=== PATIENT | female | born 1940 | race Asian ===

== ENCOUNTER → 2017-11-21 12:53 | Outpatient (CLI) | payer MEDICARE, OTHER, SELFPAY ==
[2017-11-21 13:49] LABS: Alanine Aminotransferase 29 IU/L (9-52); Albumin 3.7 g/dL (3.5-5.0); Albumin Globulin Ratio 1.4 (1.0-2.8); Alkaline Phosphatase 47 U/L (38-126); Aspartate Aminotransferase 26 IU/L (14-36); Bilirubin Total 0.4 mg/dL (0.2-1.3); Bilirubin Unconjugated 0.2 mg/dL (0.0-1.1); Globulin 2.7 g/dL (1.7-4.1); HEMOLYSIS < 15 (0-50); Total Protein 6.4 g/dL (6.3-8.2)
== END ==
PROVIDERS: Family Provider Family Medicine; PCP Family Medicine; Visit Provider Family Medicine
DX: Z51.81 Encounter for therapeutic drug level monitoring (principal)
CPT/HCPCS: 80076

== ENCOUNTER 2017-12-28 16:40 | Inpatient (IN) | payer MEDICARE, OTHER, SELFPAY ==
[2017-12-28] VITALS (7 sets, daily range): BP systolic 129–170; BP diastolic 66–130; PULSE 60–78; RESP 15–19; TEMP 36.6–36.8; O2SAT 95–100; BMI 17.6
[2017-12-28 17:08] LABS: Add Manual Diff / Slide Review NO; Basophils Percent Auto 0.2 % (0-2); Eosinophils Percent Auto 0.4 % (2-4); Hematocrit 41.9 % (36-46); Hemoglobin 14.3 g/dL (12.0-16.0); Lymphocytes Percent Auto 6.4 % (25-40); Mean Corpuscular HGB Conc 34.2 % (30-36); Mean Corpuscular Hemoglobin 32.8 PG (26-34); Mean Corpuscular Volume 95.8 fL (80-100); Monocytes Percent Auto 7.4 % (3-14); Neutrophils Absolute Auto 6200 /uL (3000-5900); Neutrophils Percent Auto 85.6 % (50-75); Platelet Count 238 X10^3/uL (150-400); Red Blood Cell Count 4.38 X10^6/uL (4.0-5.2); Red Cell Distribution Width 13.1 % (11.6-14.8); White Blood Cell Count 7.3 X10^3/uL (4.5-11.0)
--- NOTE | 2017-12-28 17:14 | DI.RAD.S_ITS ---
PROCEDURE: XR CHEST 1V INDICATIONS: chest pain TECHNIQUE: One view of the chest was acquired. COMPARISON: [facility], CT, THORAX WITHOUT CONTRAST, 10/24/2015, 11:19[facility], CR, CHEST 2 VIEW, 01/19/2010, 12:03. [facility], CR, CHEST 2 VIEW, 06/28/2011, 9:30. [facility], CR, CHEST 2 VIEW, 10/14/2015, 12:23. FINDINGS: Surgical changes and devices: None. Lungs and pleura: No pleural effusions or pneumothorax. Lungs are clear. Mediastinum: The cardiac contours are mildly enlarged. The aorta demonstrates calcification and tortuosity. Bones and chest wall: No suspicious bony lesions. Mild levoconvex scoliotic curvature is noted. Age-appropriate osteopenia and bony degenerative changes are seen. Overlying soft tissues appear unremarkable. IMPRESSION: Clear lungs. Mild cardiomegaly. Dictated by: Adair Rosenberg M.D. on 12/28/2017 at 16:45 Approved by: Adair Rosenberg M.D. on 12/28/2017 at 16:46
[2017-12-28 17:19] LABS: INR 1.1 (0.9-1.3); Prothrombin Time 11.6 SECONDS (10.1-12.7)
[2017-12-28 17:22] LABS: PTT Partial Thromboplastin Tim 30 SECONDS (26.4-36.2)
[2017-12-28 17:24] LABS: Alanine Aminotransferase 23 IU/L (9-52); Albumin 4.2 g/dL (3.5-5.0); Albumin Globulin Ratio 1.3 (1.0-2.8); Alkaline Phosphatase 67 U/L (38-126); Aspartate Aminotransferase 34 IU/L (14-36); Bilirubin Total 0.7 mg/dL (0.2-1.3); Blood Urea Nitrogen 16 mg/dL (7-17); Calcium 9.4 mg/dL (8.4-10.2); Carbon Dioxide 25 mmol/L (22-32); Chloride 98 mmol/L (98-107); Creatine Kinase 28 U/L (30-135); Estimated Glomerular Filt Rate > 60.0 mL/min (>60); Globulin 3.2 g/dL (1.7-4.1); Glucose 128 mg/dL (80-110); HEMOLYSIS 16 (0-50); Lipase 115 U/L (23-300); Potassium 4.4 mmol/L (3.4-5.1); Sodium 133 mmol/L (137-145); Total Protein 7.4 g/dL (6.3-8.2)
--- NOTE | 2017-12-28 17:29 | ED.ABDPAIN ---
HPI - Abdominal Pain General Chief Complaint: Abdominal Pain Stated Complaint: STOMACH PAINS PAST COUPLE OF DAYS Time Seen by Provider: 12/28/17 17:29 Source: patient Mode of arrival: ambulatory Limitations: no limitations History of Present Illness HPI narrative: This 77-year-old female comes in due to 5 day history of abdominal pain. She states this has been worsening. She states this is mainly throughout the lower quadrants. She states that this is worse with pressure on the area or with position changes such as sit to stand, but no clear alleviating features. She states that she has been eating normally until yesterday, then more of a liquid diet. She states that she has not had any fever. She has had nausea for the last 2 days but no vomiting. She denies any urinary symptoms. She denies diarrhea, and states she actually has not had a bowel movement for 5 days, which is atypical for her, usually daily. She denies any chest pain, dyspnea or change in her chronic lower extremity swelling. (Notes previous pain from intercostal strain after pneumonia and wonders whether related). She denies any new medication or diet changes prior. She denies any other complaints on systems review Related Data Home Medications Medication Instructions Recorded Confirmed cyclosporine [Restasis] 1 drp JHON DIRECTED #0 08/17/17 12/28/17 doxycycline hyclate 50 mg PO BID #0 08/17/17 12/28/17 Previous Rx's Medication Instructions Recorded propranolol 10 mg PO BID #60 tab 08/08/17 fluticasone 50 mcg/actuation nasal 1 spray INTRANASAL BID #3 bot 09/06/17 spray,suspension atorvastatin 10 mg tablet 10 mg PO Q DAY #90 tab 11/30/17 Allergies Allergy/AdvReac Type Severity Reaction Status Date / Time aspirin [ASPIRIN] AdvReac Mild GI UPSET Verified 12/28/17 18:51 codeine [CODEINE] AdvReac Mild GI UPSET Verified 12/28/17 18:51 Review of Systems Review of Systems All systems reviewed & are unremarkable except as noted in HPI and below PFSH Medical History Bilateral lower extremity edema (Chronic) Anxiety (Chronic Unknown) Benign essential tremor (Chronic Unknown) Chronic cough (Chronic Unknown) Glaucoma (Chronic Unknown) Hyperlipemia (Chronic 2016) Osteoarthritis (Chronic 2006) Recurrent sinusitis (Chronic Unknown) Cataracts, bilateral (Resolved Unknown) Chickenpox (Resolved 1949) Colon polyps (Resolved 01/2015) Measles (Resolved) Mumps (Resolved) Pneumonia (Resolved Unknown) Surgical History History of cataract removal with insertion of prosthetic lens Family History Brother Age: 82 Cancer Grandmother Cancer Father No problems noted. Grandfather No problems noted. Mother Cancer Grandfather No problems noted. Grandmother No problems noted. Social History household members: spouse Smoking Status: Never smoker alcohol intake: never Exam Narrative Exam Narrative: GENERAL APPEARANCE: Patient resting comfortably, in no distress. HEENT: PERRL, EOMI, no scleral icterus, normal oropharynx NECK: Supple, no masses LUNGS: Clear to auscultation bilaterally. HEART: Rate and rhythm regular, normal S1 and S2, no S3 or S4. ABDOMEN: Soft, nondistended, +bowel sounds x4 quadrants. Generalized tenderness to both lower quadrants and right upper quadrant, more tenderness on the right. No clear guarding or rebound. No palpable mass or HSM EXTREMITIES: Mild symmetric edema, no cyanosis, no calf tenderness DERMATOLOGIC: No jaundice or exanthem NEUROLOGIC: Alert and oriented with normal speech and coordination Initial Vital Signs Initial Vital Signs: Vital Signs Pulse Rate 65 12/28/17 17:05 Respiratory Rate 18 12/28/17 17:05 Blood Pressure 167/85 H 12/28/17 17:05 Pulse Oximetry 100 12/28/17 17:05 Course Additional Information: I spoke with Dr. Stanley, operations officer trust department for surgery who is familiar with this patient and advised NG tube placement and admission. Following this and a small dose of Dilaudid patient reported improvement. Orders written for NPO, fluids, nausea and pain medication. Hold propranolol (for tremor) and Lipitor. Dr. Stanley will review scans and see patient in the morning. Orders Ordered: ED Orders 12/28/17 16:52 EKG-12 Lead Stat 12/28/17 17:05 Complete Blood Count AUTO DIFF Stat Comprehensive Metabolic Panel Stat Lipase Stat Partial Thromboplastin Time Stat Prothrombin Time INR Stat Troponin & CK Cardiac Panel Stat 12/28/17 17:14 Chest [XR chest 1V] Stat 12/28/17 17:44 CT abdomen pelvis w con Stat 12/28/17 18:58 Urine Microscopic Stat 12/28/17 20:34 Chest [XR chest 1V] Stat 12/28/17 20:59 Consult to General Surgery Routine Hydromorphone HCl (Dilaudid) 0.5 mg IV Q3H PRN PRN Reason: abdominal pain Sodium Chloride (Normal Saline 0.9%) 1,000 mls @ 75 mls/hr IV CONT HECTOR Last Infusion: 12/28/17 21:20 Dose: 75 mls/hr Infusion: 12/28/17 21:10 Dose: 75 mls/hr Infusion: 12/28/17 20:51 Dose: 125 mls/hr Admin: 12/28/17 20:17 Dose: 125 mls/hr Ondansetron HCl (Zofran) 4 mg IV Q4HR PRN PRN Reason: Nausea And Vomiting Discontinued Medications Hydromorphone HCl (Dilaudid) 0.5 mg IV NOW ONE Stop: 12/28/17 20:04 Last Admin: 12/28/17 20:17 Dose: 0.5 mg Sodium Chloride (Normal Saline 0.9%) 1,000 mls @ 1,000 mls/hr IV BOLUS ONE Stop: 12/28/17 18:42 Last Infusion: 12/28/17 19:29 Dose: 0 mls/hr Admin: 12/28/17 17:57 Dose: 1,000 mls/hr Ketorolac Tromethamine (Toradol) 15 mg IV NOW ONE Stop: 12/28/17 18:47 Last Admin: 12/28/17 18:51 Dose: 15 mg Ondansetron HCl (Zofran) 4 mg IV NOW ONE Stop: 12/28/17 17:44 Last Admin: 12/28/17 17:57 Dose: 4 mg Vital Signs - 8 hr 12/28/17 17:05 12/28/17 18:07 12/28/17 20:33 Temperature Pulse Rate 65 78 Respiratory Rate 18 16 15 Blood Pressure Blood Pressure [Right Arm] 167/85 H 163/130 H 170/78 H Pulse Oximetry 100 98 12/28/17 21:30 Temperature 98.2 F Pulse Rate 65 Respiratory Rate 16 Blood Pressure 165/80 H Blood Pressure [Right Arm] Pulse Oximetry 96 MDM - Abdominal Pain Medical Records Attestation: I reviewed the patient's medical records. h/o colon polyps, last scope 03/09 Lab Data Result diagrams: 12/28/17 17:05 12/28/17 17:05 Lab Results 12/28/17 12/28/17 12/28/17 Range/Units 17: 17: 17:05 WBC 7.3 (4.5-11.0) X10^3/uL RBC 4.38 (4.0-5.2) X10^6/uL Hgb 14.3 (12.0-16.0) g/dL Hct 41.9 (36-46) % MCV 95.8 (80-100) fL MCH 32.8 (26-34) PG MCHC 34.2 (30-36) % RDW 13.1 (11.6-14.8) % Plt Count 238 (150-400) X10^3/uL Neut % (Auto) 85.6 H (50-75) % Lymph % (Auto) 6.4 L (25-40) % Reeves % (Auto) 7.4 (3-14) % Eos % (Auto) 0.4 L (2-4) % Baso % (Auto) 0.2 (0-2) % Neut # (Auto) 6200 H (1553-5102) /uL PT 11.6 (10.1-12.7) SECONDS INR 1.1 (0.9-1.3) APTT 30 (26.4-36.2) SECONDS Sodium 133 L (137-145) mmol/L Potassium 4.4 (3.4-5.1) mmol/L Chloride 98 (98-107) mmol/L Carbon Dioxide 25 (22-32) mmol/L BUN 16 (7-17) mg/dL Creatinine 0.50 L (0.52-1.04) mg/dL Estimated GFR > 60.0 (>60) mL/min BUN/Creatinine Ratio 32.0 H (6-22) Glucose 128 H (80-110) mg/dL Calcium 9.4 (8.4-10.2) mg/dL Total Bilirubin 0.7 (0.2-1.3) mg/dL AST 34 (14-36) IU/L ALT 23 (9-52) IU/L Alkaline Phosphatase 67 (38-126) U/L Total Creatine Kinase (30-135) U/L Troponin I (0.01-0.034) ng/mL Total Protein 7.4 (6.3-8.2) g/dL Albumin 4.2 (3.5-5.0) g/dL Globulin 3.2 (1.7-4.1) g/dL Albumin/Globulin Ratio 1.3 (1.0-2.8) Lipase 115 (23-300) U/L Urine RBC (0-5/HPF) Urine WBC (0-5/HPF) Ur Squamous Epith Cells Urine Bacteria (None) Ur Culture Indicated? Micro UA Comment 12/28/17 12/28/17 Range/Units 17:05 18:58 WBC (4.5-11.0) X10^3/uL RBC (4.0-5.2) X10^6/uL Hgb (12.0-16.0) g/dL Hct (36-46) % MCV (80-100) fL MCH (26-34) PG MCHC (30-36) % RDW (11.6-14.8) % Plt Count (150-400) X10^3/uL Neut % (Auto) (50-75) % Lymph % (Auto) (25-40) % Reeves % (Auto) (3-14) % Eos % (Auto) (2-4) % Baso % (Auto) (0-2) % Neut # (Auto) (5460-4777) /uL PT (10.1-12.7) SECONDS INR (0.9-1.3) APTT (26.4-36.2) SECONDS Sodium (137-145) mmol/L Potassium (3.4-5.1) mmol/L Chloride (98-107) mmol/L Carbon Dioxide (22-32) mmol/L BUN (7-17) mg/dL Creatinine (0.52-1.04) mg/dL Estimated GFR (>60) mL/min BUN/Creatinine Ratio (6-22) Glucose (80-110) mg/dL Calcium (8.4-10.2) mg/dL Total Bilirubin (0.2-1.3) mg/dL AST (14-36) IU/L ALT (9-52) IU/L Alkaline Phosphatase (38-126) U/L Total Creatine Kinase 28 L (30-135) U/L Troponin I < 0.012 (0.01-0.034) ng/mL Total Protein (6.3-8.2) g/dL Albumin (3.5-5.0) g/dL Globulin (1.7-4.1) g/dL Albumin/Globulin Ratio (1.0-2.8) Lipase (23-300) U/L Urine RBC 1-5/hpf (0-5/HPF) Urine WBC 0-1/hpf (0-5/HPF) Ur Squamous Epith Cells 0-1 /hpf Urine Bacteria None seen (None) Ur Culture Indicated? Cult not indicated Micro UA Comment Not Reportable Point of care testing: Urine Dip Bedside Urine Glucose Negative Bedside Urine Bilirubin - Negative Bedside Urine Ketone +/- 5 Urine Specific Gaines 1.015 Bedside Urine Occult Blood ++ Bedside Urine pH 6.0 Bedside Urine Protein - Negative Bedside Urine Urobilinogen - Negative Bedside Urine Nitrite - Negative Bedside Urine Leukocytes - Negative Esterase Imaging Data CT scan - abdomen: Radiologist's impression: View Report History Print [address] [address] [address] Scan Report Signed Patient: Kaylah Renteria MR#: [id number] : 1940 Acct:[id number] Age/Sex: 77 / F Date of Service: 12/28/17 Loc: ED Accession Number: [id number] Procedure: CT abdomen pelvis w con Ordering Provider: Char Osborne P.A-C PROCEDURE: CT ABDOMEN PELVIS W CON INDICATIONS: generalized pain, nausea, increased R. side TECHNIQUE: After the administration of oral and intravenous contrast, 5 mm thick sections acquired from the diaphragms to the symphysis. 5 mm thick coronal and sagittal reformats were performed. For radiation dose reduction, the following was used: automated exposure control, adjustment of mA and/or kV according to patient size. COMPARISON: [facility], CT, ABDOMEN/PELVIS WITH CONTRAST, 04/22/2008, 9:27. FINDINGS: Image quality: Excellent. ABDOMEN: Lung bases: Lung bases are clear. Heart size is enlarged. Solid organs: Liver is normal in size and enhancement. Gallbladder is grossly unremarkable. Biliary system is non-dilated. Pancreas enhances normally. Spleen is normal in size and enhancement. No adrenal nodules. Kidneys are normal in size and enhancement, without hydronephrosis. Peritoneum and bowel: Stomach and small bowel are within normal limits. There is moderate distention of the right colon and transverse colon. Mild distention of the descending colon there is abrupt transition between dilated descending colon and nondistended proximal sigmoid colon within the left pelvis. Normal appendix. No free fluid or air. Nodes and vessels: No retroperitoneal or mesenteric adenopathy. Aorta and inferior vena cava are normal in caliber. Miscellaneous: No ventral hernias. PELVIS: Genitourinary: Bladder wall thickness is normal. Miscellaneous: No inguinal hernias or adenopathy. Bones: No suspicious bony lesions. No vertebral body compression fractures. IMPRESSION: 1. Distal colonic obstruction at the descending/sigmoid colon junction, possibly neoplastic. Endoscopy could be performed for further assessment, if clinically indicated. 2. Normal appendix. Dictated by: René Morgan M.D. on 12/28/2017 at 19:22 Approved by: René Morgan M.D. on 12/28/2017 at 19:25 Chest x-ray: Radiologist's impression: View Report History Print [address] [address] XRay Report Signed Patient: Kaylah Renteria MR#: [id number] : 1940 Acct:[id number] Age/Sex: 77 / F Date of Service: 12/28/17 Loc: ED Accession Number: [id number] Procedure: XR chest 1V Ordering Provider: Justine Davis D.O. PROCEDURE: XR CHEST 1V INDICATIONS: chest pain TECHNIQUE: One view of the chest was acquired. COMPARISON: [facility], CT, THORAX WITHOUT CONTRAST, 10/24/2015, 11:19[facility], , CHEST 2 VIEW, 01/19/2010, 12:03. [facility], CR, CHEST 2 VIEW, 06/28/2011, 9:30. [facility], , CHEST 2 VIEW, 10/14/2015, 12:23. FINDINGS: Surgical changes and devices: None. Lungs and pleura: No pleural effusions or pneumothorax. Lungs are clear. Mediastinum: The cardiac contours are mildly enlarged. The aorta demonstrates calcification and tortuosity. Bones and chest wall: No suspicious bony lesions. Mild levoconvex scoliotic curvature is noted. Age-appropriate osteopenia and bony degenerative changes are seen. Overlying soft tissues appear unremarkable. IMPRESSION: Clear lungs. Mild cardiomegaly. Dictated by: Adair Rosenberg M.D. on 12/28/2017 at 16:45 Approved by: Adair Rosenberg M.D. on 12/28/2017 at 16:46 ECG Data Attestation: I personally reviewed and interpreted this ECG as follows: (NSR, rate 65, LAD) Discharge Plan Departure Patient Disposition: Admitted As Inpatient Clinical Impression: Colon obstruction Discharge Date/Time: 12/28/17 21:21 Interventions: ED Discharge Assessment Last Done: 12/28/17 20:48 Admit Date/Time: 12/28/17 20:28 Admit Provider: Lucia Stanley
[2017-12-28 17:36] LABS: Troponin I < 0.012 ng/mL (0.01-0.034)
--- NOTE | 2017-12-28 17:44 | DI.CT.S_ITS ---
PROCEDURE: CT ABDOMEN PELVIS W CON INDICATIONS: generalized pain, nausea, increased R. side TECHNIQUE: After the administration of oral and intravenous contrast, 5 mm thick sections acquired from the diaphragms to the symphysis. 5 mm thick coronal and sagittal reformats were performed. For radiation dose reduction, the following was used: automated exposure control, adjustment of mA and/or kV according to patient size. COMPARISON: [facility], CT, ABDOMEN/PELVIS WITH CONTRAST, 04/22/2008, 9:27. FINDINGS: Image quality: Excellent. ABDOMEN: Lung bases: Lung bases are clear. Heart size is enlarged. Solid organs: Liver is normal in size and enhancement. Gallbladder is grossly unremarkable. Biliary system is non-dilated. Pancreas enhances normally. Spleen is normal in size and enhancement. No adrenal nodules. Kidneys are normal in size and enhancement, without hydronephrosis. Peritoneum and bowel: Stomach and small bowel are within normal limits. There is moderate distention of the right colon and transverse colon. Mild distention of the descending colon there is abrupt transition between dilated descending colon and nondistended proximal sigmoid colon within the left pelvis. Normal appendix. No free fluid or air. Nodes and vessels: No retroperitoneal or mesenteric adenopathy. Aorta and inferior vena cava are normal in caliber. Miscellaneous: No ventral hernias. PELVIS: Genitourinary: Bladder wall thickness is normal. Miscellaneous: No inguinal hernias or adenopathy. Bones: No suspicious bony lesions. No vertebral body compression fractures. IMPRESSION: 1. Distal colonic obstruction at the descending/sigmoid colon junction, possibly neoplastic. Endoscopy could be performed for further assessment, if clinically indicated. 2. Normal appendix. Dictated by: René Morgan M.D. on 12/28/2017 at 19:22 Approved by: René Morgan M.D. on 12/28/2017 at 19:25
[2017-12-28] MEDS: SODIUM CHLORIDE 0.9% 1,000 ML 1000 ML IV (17:57)
[2017-12-28] MEDS: ONDANSETRON 4 MG/2 ML INJ IV (17:57)
--- NOTE | 2017-12-28 18:01 | ED_ITS ---
HPI - Abdominal Pain General Chief Complaint: Abdominal Pain Stated Complaint: STOMACH PAINS PAST COUPLE OF DAYS Time Seen by Provider: 12/28/17 17:29 Source: patient Mode of arrival: ambulatory Limitations: no limitations History of Present Illness HPI narrative: This 77-year-old female comes in due to 5 day history of abdominal pain. She states this has been worsening. She states this is mainly throughout the lower quadrants. She states that this is worse with pressure on the area or with position changes such as sit to stand, but no clear alleviating features. She states that she has been eating normally until yesterday, then more of a liquid diet. She states that she has not had any fever. She has had nausea for the last 2 days but no vomiting. She denies any urinary symptoms. She denies diarrhea, and states she actually has not had a bowel movement for 5 days, which is atypical for her, usually daily. She denies any chest pain, dyspnea or change in her chronic lower extremity swelling. (Notes previous pain from intercostal strain after pneumonia and wonders whether related). She denies any new medication or diet changes prior. She denies any other complaints on systems review Related Data Home Medications Medication Instructions Recorded Confirmed cyclosporine [Restasis] 1 drp JHON DIRECTED #0 08/17/17 12/28/17 doxycycline hyclate 50 mg PO BID #0 08/17/17 12/28/17 Previous Rx's Medication Instructions Recorded propranolol 10 mg PO BID #60 tab 08/08/17 fluticasone 50 mcg/actuation nasal 1 spray INTRANASAL BID #3 bot 09/06/17 spray,suspension atorvastatin 10 mg tablet 10 mg PO Q DAY #90 tab 11/30/17 Allergies Allergy/AdvReac Type Severity Reaction Status Date / Time aspirin [ASPIRIN] AdvReac Mild GI UPSET Verified 12/28/17 18:51 codeine [CODEINE] AdvReac Mild GI UPSET Verified 12/28/17 18:51 Review of Systems Review of Systems All systems reviewed & are unremarkable except as noted in HPI and below PFSH Medical History Bilateral lower extremity edema (Chronic) Anxiety (Chronic Unknown) Benign essential tremor (Chronic Unknown) Chronic cough (Chronic Unknown) Glaucoma (Chronic Unknown) Hyperlipemia (Chronic 2016) Osteoarthritis (Chronic 2006) Recurrent sinusitis (Chronic Unknown) Cataracts, bilateral (Resolved Unknown) Chickenpox (Resolved 1949) Colon polyps (Resolved 01/2015) Measles (Resolved) Mumps (Resolved) Pneumonia (Resolved Unknown) Surgical History History of cataract removal with insertion of prosthetic lens Family History Brother Age: 82 Cancer Grandmother Cancer Father No problems noted. Grandfather No problems noted. Mother Cancer Grandfather No problems noted. Grandmother No problems noted. Social History household members: spouse Smoking Status: Never smoker alcohol intake: never Exam Narrative Exam Narrative: GENERAL APPEARANCE: Patient resting comfortably, in no distress. HEENT: PERRL, EOMI, no scleral icterus, normal oropharynx NECK: Supple, no masses LUNGS: Clear to auscultation bilaterally. HEART: Rate and rhythm regular, normal S1 and S2, no S3 or S4. ABDOMEN: Soft, nondistended, +bowel sounds x4 quadrants. Generalized tenderness to both lower quadrants and right upper quadrant, more tenderness on the right. No clear guarding or rebound. No palpable mass or HSM EXTREMITIES: Mild symmetric edema, no cyanosis, no calf tenderness DERMATOLOGIC: No jaundice or exanthem NEUROLOGIC: Alert and oriented with normal speech and coordination Initial Vital Signs Initial Vital Signs: Vital Signs Pulse Rate 65 12/28/17 17:05 Respiratory Rate 18 12/28/17 17:05 Blood Pressure 167/85 H 12/28/17 17:05 Pulse Oximetry 100 12/28/17 17:05 Course Additional Information: I spoke with Dr. Stanley, events solutions consultant for surgery who is familiar with this patient and advised NG tube placement and admission. Following this and a small dose of Dilaudid patient reported improvement. Orders written for NPO, fluids, nausea and pain medication. Hold propranolol ( for tremor) and Lipitor. Dr. Stanley will review scans and see patient in the morning. Orders Ordered: ED Orders 12/28/17 16:52 EKG-12 Lead Stat 12/28/17 17:05 Complete Blood Count AUTO DIFF Stat Comprehensive Metabolic Panel Stat Lipase Stat Partial Thromboplastin Time Stat Prothrombin Time INR Stat Troponin & CK Cardiac Panel Stat 12/28/17 17:14 Chest [XR chest 1V] Stat 12/28/17 17:44 CT abdomen pelvis w con Stat 12/28/17 18:58 Urine Microscopic Stat 12/28/17 20:34 Chest [XR chest 1V] Stat 12/28/17 20:59 Consult to General Surgery Routine Hydromorphone HCl (Dilaudid) 0.5 mg IV Q3H PRN PRN Reason: abdominal pain Sodium Chloride (Normal Saline 0.9%) 1,000 mls @ 75 mls/hr IV CONT HECTOR Last Infusion: 12/28/17 21:20 Dose: 75 mls/hr Infusion: 12/28/17 21:10 Dose: 75 mls/hr Infusion: 12/28/17 20:51 Dose: 125 mls/hr Admin: 12/28/17 20:17 Dose: 125 mls/hr Ondansetron HCl (Zofran) 4 mg IV Q4HR PRN PRN Reason: Nausea And Vomiting Discontinued Medications Hydromorphone HCl (Dilaudid) 0.5 mg IV NOW ONE Stop: 12/28/17 20:04 Last Admin: 12/28/17 20:17 Dose: 0.5 mg Sodium Chloride (Normal Saline 0.9%) 1,000 mls @ 1,000 mls/hr IV BOLUS ONE Stop: 12/28/17 18:42 Last Infusion: 12/28/17 19:29 Dose: 0 mls/hr Admin: 12/28/17 17:57 Dose: 1,000 mls/hr Ketorolac Tromethamine (Toradol) 15 mg IV NOW ONE Stop: 12/28/17 18:47 Last Admin: 12/28/17 18:51 Dose: 15 mg Ondansetron HCl (Zofran) 4 mg IV NOW ONE Stop: 12/28/17 17:44 Last Admin: 12/28/17 17:57 Dose: 4 mg Vital Signs - 8 hr 12/28/17 17:05 12/28/17 18:07 12/28/17 20:33 Temperature Pulse Rate 65 78 Respiratory Rate 18 16 15 Blood Pressure Blood Pressure [Right Arm] 167/85 H 163/130 H 170/78 H Pulse Oximetry 100 98 12/28/17 21:30 Temperature 98.2 F Pulse Rate 65 Respiratory Rate 16 Blood Pressure 165/80 H Blood Pressure [Right Arm] Pulse Oximetry 96 MDM - Abdominal Pain Medical Records Attestation: I reviewed the patient's medical records. h/o colon polyps, last scope 03/09 Lab Data Result diagrams: 12/28/17 17:05 12/28/17 17:05 Lab Results 12/28/17 12/28/17 12/28/17 Range/Units 17: 17: 17:05 WBC 7.3 (4.5-11.0) X10^3/uL RBC 4.38 (4.0-5.2) X10^6/uL Hgb 14.3 (12.0-16.0) g/dL Hct 41.9 (36-46) % MCV 95.8 (80-100) fL MCH 32.8 (26-34) PG MCHC 34.2 (30-36) % RDW 13.1 (11.6-14.8) % Plt Count 238 (150-400) X10^3/uL Neut % (Auto) 85.6 H (50-75) % Lymph % (Auto) 6.4 L (25-40) % [place] % (Auto) 7.4 (3-14) % Eos % (Auto) 0.4 L (2-4) % Baso % (Auto) 0.2 (0-2) % Neut # (Auto) 6200 H (5566-1318) /uL PT 11.6 (10.1-12.7) SECONDS INR 1.1 (0.9-1.3) APTT 30 (26.4-36.2) SECONDS Sodium 133 L (137-145) mmol/L Potassium 4.4 (3.4-5.1) mmol/L Chloride 98 (98-107) mmol/L Carbon Dioxide 25 (22-32) mmol/L BUN 16 (7-17) mg/dL Creatinine 0.50 L (0.52-1.04) mg/dL Estimated GFR > 60.0 (>60) mL/min BUN/Creatinine Ratio 32.0 H (6-22) Glucose 128 H (80-110) mg/dL Calcium 9.4 (8.4-10.2) mg/dL Total Bilirubin 0.7 (0.2-1.3) mg/dL AST 34 (14-36) IU/L ALT 23 (9-52) IU/L Alkaline Phosphatase 67 (38-126) U/L Total Creatine Kinase (30-135) U/L Troponin I (0.01-0.034) ng/mL Total Protein 7.4 (6.3-8.2) g/dL Albumin 4.2 (3.5-5.0) g/dL Globulin 3.2 (1.7-4.1) g/dL Albumin/Globulin Ratio 1.3 (1.0-2.8) Lipase 115 (23-300) U/L Urine RBC (0-5/HPF) Urine WBC (0-5/HPF) Ur Squamous Epith Cells Urine Bacteria (None) Ur Culture Indicated? Micro UA Comment 12/28/17 12/28/17 Range/Units 17:05 18:58 WBC (4.5-11.0) X10^3/uL RBC (4.0-5.2) X10^6/uL Hgb (12.0-16.0) g/dL Hct (36-46) % MCV (80-100) fL MCH (26-34) PG MCHC (30-36) % RDW (11.6-14.8) % Plt Count (150-400) X10^3/uL Neut % (Auto) (50-75) % Lymph % (Auto) (25-40) % [place] % (Auto) (3-14) % Eos % (Auto) (2-4) % Baso % (Auto) (0-2) % Neut # (Auto) (2420-7474) /uL PT (10.1-12.7) SECONDS INR (0.9-1.3) APTT (26.4-36.2) SECONDS Sodium (137-145) mmol/L Potassium (3.4-5.1) mmol/L Chloride (98-107) mmol/L Carbon Dioxide (22-32) mmol/L BUN (7-17) mg/dL Creatinine (0.52-1.04) mg/dL Estimated GFR (>60) mL/min BUN/Creatinine Ratio (6-22) Glucose (80-110) mg/dL Calcium (8.4-10.2) mg/dL Total Bilirubin (0.2-1.3) mg/dL AST (14-36) IU/L ALT (9-52) IU/L Alkaline Phosphatase (38-126) U/L Total Creatine Kinase 28 L (30-135) U/L Troponin I < 0.012 (0.01-0.034) ng/mL Total Protein (6.3-8.2) g/dL Albumin (3.5-5.0) g/dL Globulin (1.7-4.1) g/dL Albumin/Globulin Ratio (1.0-2.8) Lipase (23-300) U/L Urine RBC 1-5/hpf (0-5/HPF) Urine WBC 0-1/hpf (0-5/HPF) Ur Squamous Epith Cells 0-1 /hpf Urine Bacteria None seen (None) Ur Culture Indicated? Cult not indicated Micro UA Comment Not Reportable Point of care testing: Urine Dip Bedside Urine Glucose Negative Bedside Urine Bilirubin - Negative Bedside Urine Ketone +/- 5 Urine Specific [place] 1.015 Bedside Urine Occult Blood ++ Bedside Urine pH 6.0 Bedside Urine Protein - Negative Bedside Urine Urobilinogen - Negative Bedside Urine Nitrite - Negative Bedside Urine Leukocytes - Negative Esterase Imaging Data CT scan - abdomen: Radiologist's impression: View Report History Print [address] [address] [address] Scan Report Signed Patient: Kaylah Renteria MR#: [id number] : 1940 Acct:[id number] Age/Sex: 77 / F Date of Service: 12/28/17 Loc: ED Accession Number: [id number] Procedure: CT abdomen pelvis w con Ordering Provider: Char Osborne P.A-C PROCEDURE: CT ABDOMEN PELVIS W CON INDICATIONS: generalized pain, nausea, increased R. side TECHNIQUE: After the administration of oral and intravenous contrast, 5 mm thick sections acquired from the diaphragms to the symphysis. 5 mm thick coronal and sagittal reformats were performed. For radiation dose reduction, the following was used: automated exposure control, adjustment of mA and/or kV according to patient size. COMPARISON: [facility], CT, ABDOMEN/PELVIS WITH CONTRAST, 04/22/2008, 9: 27. FINDINGS: Image quality: Excellent. ABDOMEN: Lung bases: Lung bases are clear. Heart size is enlarged. Solid organs: Liver is normal in size and enhancement. Gallbladder is grossly unremarkable. Biliary system is non-dilated. Pancreas enhances normally. Spleen is normal in size and enhancement. No adrenal nodules. Kidneys are normal in size and enhancement, without hydronephrosis. Peritoneum and bowel: Stomach and small bowel are within normal limits. There is moderate distention of the right colon and transverse colon. Mild distention of the descending colon there is abrupt transition between dilated descending colon and nondistended proximal sigmoid colon within the left pelvis. Normal appendix. No free fluid or air. Nodes and vessels: No retroperitoneal or mesenteric adenopathy. Aorta and inferior vena cava are normal in caliber. Miscellaneous: No ventral hernias. PELVIS: Genitourinary: Bladder wall thickness is normal. Miscellaneous: No inguinal hernias or adenopathy. Bones: No suspicious bony lesions. No vertebral body compression fractures. IMPRESSION: 1. Distal colonic obstruction at the descending/sigmoid colon junction, possibly neoplastic. Endoscopy could be performed for further assessment, if clinically indicated. 2. Normal appendix. Dictated by: René Morgan M.D. on 12/28/2017 at 19:22 Approved by: René Morgan M.D. on 12/28/2017 at 19:25 Chest x-ray: Radiologist's impression: View Report History Print [address] [address] XRay Report Signed Patient: Kaylah Renteria MR#: [id number] : 1940 Acct:[id number] Age/Sex: 77 / F Date of Service: 12/28/17 Loc: ED Accession Number: [id number] Procedure: XR chest 1V Ordering Provider: Justine Davis D.O. PROCEDURE: XR CHEST 1V INDICATIONS: chest pain TECHNIQUE: One view of the chest was acquired. COMPARISON: [facility], CT, THORAX WITHOUT CONTRAST, 10/24/2015, 11: 19[facility], , CHEST 2 VIEW, 01/19/2010, 12:03. [facility], CR, CHEST 2 VIEW , 06/28/2011, 9:30. [facility], , CHEST 2 VIEW, 10/14/2015, 12:23. FINDINGS: Surgical changes and devices: None. Lungs and pleura: No pleural effusions or pneumothorax. Lungs are clear. Mediastinum: The cardiac contours are mildly enlarged. The aorta demonstrates calcification and tortuosity. Bones and chest wall: No suspicious bony lesions. Mild levoconvex scoliotic curvature is noted. Age-appropriate osteopenia and bony degenerative changes are seen. Overlying soft tissues appear unremarkable. IMPRESSION: Clear lungs. Mild cardiomegaly. Dictated by: Adair Rosenberg M.D. on 12/28/2017 at 16:45 Approved by: Adair Rosenberg M.D. on 12/28/2017 at 16:46 ECG Data Attestation: I personally reviewed and interpreted this ECG as follows: (NSR, rate 65, LAD) Discharge Plan Departure Patient Disposition: Admitted As Inpatient Clinical Impression: Colon obstruction Discharge Date/Time: 12/28/17 21:21 Interventions: ED Discharge Assessment Last Done: 12/28/17 20:48 Admit Date/Time: 12/28/17 20:28 Admit Provider: Lucia Stanley
[2017-12-28] MEDS: KETOROLAC 60 MG/2 ML VIAL 15 MG IV (18:51)
[2017-12-28 19:06] LABS: Bacteria Urine None Seen
[2017-12-28 19:14] LABS: Culture Indicated Urine Cult Not Indicated; RBC Urine 1-5/HPF (0-5/HPF); Squamous Epithelial Cell Urine 0-1 /HPF; WBC Urine 0-1/HPF (0-5/HPF)
[2017-12-28] MEDS: SODIUM CHLORIDE 0.9% 1,000 ML 125 ML IV (20:17)
[2017-12-28] MEDS: HYDROMORPHONE 1 MG INJ 0.5 MG IV (20:17)
--- NOTE | 2017-12-28 20:34 | DI.RAD.S_ITS ---
PROCEDURE: XR CHEST 1V INDICATIONS: NGT placement check please. TECHNIQUE: One view of the chest was acquired. COMPARISON: [facility], CR, XR CHEST 1V, 12/28/2017, 17:28. FINDINGS: Surgical changes and devices: None. Lungs and pleura: No pleural effusions or pneumothorax. Lungs are clear. Mediastinum: Mediastinal contours appear normal. Heart size is normal. Bones and chest wall: No suspicious bony lesions. Overlying soft tissues appear unremarkable. IMPRESSION: No acute process. Dictated by: René Morgan M.D. on 12/28/2017 at 20:46 Approved by: René Morgan M.D. on 12/28/2017 at 20:47
--- NOTE | 2017-12-28 22:24 | PC.NURSE ---
Pt arrived from the ER approximately @ 2130. After a 3-4 day episode of 'not feeling well & bloating. Alert, oriented. Denies discomfort. NG in place, minimal output. IV infusing as per MD orders w/o incidence. Pt and oriented to room & call system. Pt snoring softly currently. Call light w/in reach, bed alarm on for pt safety.
[2017-12-29] MEDS: HYDROMORPHONE 2 MG INJ 0.5 MG IV ×2 (00:34→05:11)
--- NOTE | 2017-12-29 00:52 | PC.NURSE ---
Addendum entered by Ester Mcmullen R.N. 12/29/17 06:11: Has taken Dilaudid x 2 this shift for complaint of pain in RUQ of abdomen under breast; currently asleep with FLACC of 0. Telemetry reading has been SR this shift. Some clear fluid with flecks of green noted in NG tubing but no drainage in cannister. Original Note: Patient is alert and oriented. Breath sounds CTA with RA sat of 96%. HRR; tele placed as per MD order. Denies nausea. BT present and states she is passing flatus. NG in right nare and connected to LIS with nothing noted in cannister/tubing. Able to turn self in bed. Complains of 5/10 right UQ abdominal pain under breast and is tender to touch; medicated with Dilaudid. Reports she has chronic balance problems but reports no previous falls and denies use of assistive device. Fall risk score is medium and bed alarm is activated. Denies dysuria, frequency, urgency or incontinence.
[2017-12-29 03:50] VITALS: BP 148/72; PULSE 68; RESP 18; TEMP 36.7; O2SAT 95
[2017-12-29 08:00] VITALS: BP 144/79; PULSE 72; RESP 16; TEMP 36.9; O2SAT 96
--- NOTE | 2017-12-29 08:41 | CM.DANOTE ---
DCP: Case received, EMR reviewed and met with patient. Introduced self and role. DCP template completed with information currently available. Patient is a 77 year old female who admitted yesterday evening to the care of the hospitalist team. PCP: Dr. Haley. Payer: confirmed: Medicare/[facility] Patient came to hospital with symptoms of stomach pains that she had for days. Dr. Stanley was consulted, patient now has an NG tube. Is also determined that patient has Shingles. Patient alert and oriented, lives at home with spouse. P: DCP to continue to assess. Patient may be able to go home when stable. Malaika Osuna RN/Deputy Court Clerk
[2017-12-29] MEDS: ONDANSETRON 4 MG/2 ML INJ IV ×2 (08:54→19:00)
[2017-12-29] MEDS: SODIUM CHLORIDE 0.9% 1,000 ML 75 ML IV (09:06)
[2017-12-29] MEDS: HYDROMORPHONE 1 MG INJ 0.5 MG IV (09:57)
[2017-12-29] MEDS: FLEETS ENEMA 1 EACH PR (11:15)
[2017-12-29 12:00] VITALS: BP 126/58; PULSE 75; RESP 16; TEMP 36.7; O2SAT 94
[2017-12-29] MEDS: WATER IV ×2 (15:33→20:19)
[2017-12-29] MEDS: DEXTROSE 5% IV ×2 (15:33→20:19)
[2017-12-29] MEDS: PROPRANOLOL 10 MG TABLET PO (15:33)
[2017-12-29] MEDS: ACYCLOVIR IV ×2 (15:33→20:19)
[2017-12-29] MEDS: HYDROMORPHONE PCA 6 MG/30 ML PCA.VIAL IV ×2 (15:36→21:16)
[2017-12-29 16:13] VITALS: BP 118/61; PULSE 67; RESP 16; TEMP 36.6; O2SAT 96
--- NOTE | 2017-12-29 20:23 | PM.HP.1 ---
History of Present Illness Date Patient Seen: 12/29/17 Time Patient Seen: 20:23 Chief complaint: STOMACH PAINS PAST COUPLE OF DAYS Narrative: Wonderful and remarkably healthy 77-year-old lady who is well known to me from prior visits. She presented to the emergency room early this morning complaining of abdominal pain. She also mentioned that she had had several days of decreasing appetite and had some nausea when she was standing. She was seen and evaluated by the ER staff who and noted to have what appeared to be a colonic obstruction on CT. She was admitted to my service for definitive care. Patient History Medical History Bilateral lower extremity edema (Chronic) Anxiety (Chronic Unknown) Benign essential tremor (Chronic Unknown) Chronic cough (Chronic Unknown) Glaucoma (Chronic Unknown) Hyperlipemia (Chronic 2015) Osteoarthritis (Chronic 2005) Recurrent sinusitis (Chronic Unknown) Cataracts, bilateral (Resolved Unknown) Chickenpox (Resolved 1949) Colon polyps (Resolved 01/2015) Measles (Resolved) Mumps (Resolved) Pneumonia (Resolved Unknown) Surgical History History of cataract removal with insertion of prosthetic lens Family & Social History Family History: Reviewed 12/29/17 by Lucia Stanley MD Social History: household members spouse Prior Living Arrangements House Safety & Behavioral: Feels Safe in Current Yes Environment Been Physically Hurt or No Threatened By a Person Suicidal Ideation Description None Suicide Plan Description No Plan Tobacco & Substance use: Smoking Status Never smoker alcohol intake never Substance Use Type does not use Meds Home Medications Medication Instructions Recorded Confirmed Type propranolol 10 mg PO BID #60 tab 08/08/17 12/28/17 Rx cyclosporine [Restasis] 1 drp OPHTH DIRECTED #0 08/17/17 12/28/17 History doxycycline hyclate 50 mg PO BID #0 08/17/17 12/28/17 History fluticasone 50 mcg/actuation nasal 1 spray INTRANASAL BID #3 bot 09/06/17 12/28/17 Rx spray,suspension atorvastatin 10 mg tablet 10 mg PO Q DAY #90 tab 11/30/17 12/28/17 Rx Allergies Allergy/AdvReac Type Severity Reaction Status Date / Time aspirin [ASPIRIN] AdvReac Mild GI UPSET Verified 12/28/17 18:51 codeine [CODEINE] AdvReac Mild GI UPSET Verified 12/28/17 18:51 Review of Systems Review of Systems The patient complains of global abdominal pain which she says was worse in the lower quadrants earlier but now seems to be in the upper right side. She says her abdomen is feeling pretty much normal at the time of my examination. She denies any diarrhea. She denies any blood in her stool. She denies any sick contacts. She denies any rashes. She reports that she generally does not feel well but she does not think she has had fever at home. She denies any vomiting. Exam Vital Signs (past 8 hours): - 12/29/17 16:13 Temperature 97.9 F Pulse Rate 67 Respiratory Rate 16 Blood Pressure 118/61 Pulse Oximetry 96 Oxygen Delivery Method Room Air Oxygen Flow Rate 0 Narrative Exam Narrative: Very thin and very pleasant lady in mild distress HEENT: Normocephalic and atraumatic, pupils are equal round reactive to light accommodation with anicteric sclerae Heart: Regular rate and rhythm without murmur rub or gallop Lungs: Clear bilaterally Heart: Regular rate and rhythm without murmur Abdomen: Soft, vesicular rash is noted in the band extending from the right posterior chest all the way around to the sternoclavicular junction in a dermatomal distribution. The band is approximately 10 cm wide. This is consistent varicella zoster outbreak. Abdomen is soft. She denies any tenderness with palpation now. She has active bowel sounds. No inguinal or umbilical hernias appreciated no abdominal masses appreciated. Abdomen is scaphoid. Extremities: Warm and well perfused without evidence of edema Objective Labs Result Diagrams: 12/28/17 17:05 12/28/17 17:05 Assessment & Plan (1) Shingles outbreak: Qualifiers: Herpes zoster complications: without complications Qualified Code(s): B02.9 - Zoster without complications Current visit: Yes Status: Acute Plan: Assessment/Plan Narrative: 1. CT scan showing possible colonic obstruction. I have reviewed all of these images with Dr. Lopez today. Although there is some solid stool in the colon and is dilated more proximally, there is no visible mass or lymphadenopathy at the site of the caliber change. This may be more of an ileus than obstruction pattern. Certainly her physical exam with the more consistent with viral illness or ileus. 2. Bowel obstruction is felt unlikely so we will remove the NG tube. 3. Varicella zoster outbreak on the right lateral abdominal/chest wall. I have started IV acyclovir and a morphine [employer]ORNEY. We will start a regular diet and she can pick and choose what she would like to eat. Once she is able to take adequate p.o., we can add gabapentin for better pain control and hopefully discharge her with acyclovir, gabapentin, and pain medication. Quality VTE Deep Vein Thrombosis/Pulmonary Embolism Present on Admission: No
[2017-12-29 22:19] VITALS: BP 119/62; PULSE 72; RESP 16; TEMP 37.1
--- NOTE | 2017-12-30 | DI.RAD.S_ITS ---
PROCEDURE: XR ACUTE ABDOMEN SERIES INDICATIONS: distension, abdominal pain, possible obstruction TECHNIQUE: One view chest and two views of the abdomen were acquired. COMPARISON: [facility], CT, CT ABDOMEN PELVIS W CON, 12/28/2017, 18:59. FINDINGS: Surgical changes and devices: None. Chest: Lungs are large in volume, to the degree that COPD appears present. Heart size is at the upper limits of normal considering this enlarged inspiratory volume. Slight subpulmonic bilateral pleural effusions are present but no subdiaphragmatic free air is found. No pneumoperitoneum. Abdomen: Bowel gas pattern is abnormal, with differential air fluid levels within several scattered small bowel loops over the left upper quadrant, and right and left lower abdomen. The: Visualized is not abnormally distended and does not show evidence of volvulus or intussusception.. No suspicious calcifications. Visualized solid organ contours appear normal. Bones: No suspicious bony lesions. IMPRESSION: Suspect COPD, and there is a finding of new but very small subpulmonic bilateral pleural effusions. No subdiaphragmatic free air. Small bowel ileus or early small bowel obstruction pattern is present, without pneumatosis. The colon contains fluid but is not overly distended. Dictated by: Milton Lopez M.D. on 12/30/2017 at 21:55 Approved by: Milton Lopez M.D. on 12/30/2017 at 21:58
[2017-12-30] MEDS: SODIUM CHLORIDE 0.9% 1,000 ML 75 ML IV ×2 (00:24→16:05)
[2017-12-30 00:30] VITALS: BP 120/60; PULSE 74; RESP 16; TEMP 37.4; O2SAT 95
--- NOTE | 2017-12-30 00:47 | PC.NURSE ---
Addendum entered by Ester Mcmullen R.N. 12/30/17 07:04: Slept at intervals. Continues to have 2/10 abdominal pain and denies any flatus during the night. Low grade temp of 99.7. Used 1.4mg of MI[employer]S ENGINEER during this shift. Original Note: Alert and oriented. Breath sounds CTA with RA sat of 95%. HRR. Denies nausea. BT much more hypoactive and denies flatus. Abdomen is tender, soft but slightly distended. Shingles rash/pustules noted under left breast and extending laterally to midback. States pain from shingles and lower abdomen were 5/10 at start of shift and now states 2/10; using MICROSY[employer] ENGINEER for pain control. Able to turn self in bed. Gets up to BSC with SBA. Reports chronic balance problems but denies falls or use of assistive device. Fall risk score is moderate; bed alarm is activated. On contact isolation due to shingles.
[2017-12-30] MEDS: WATER IV ×3 (03:05→19:21)
[2017-12-30] MEDS: DEXTROSE 5% IV ×3 (03:05→19:21)
[2017-12-30] MEDS: ACYCLOVIR IV ×3 (03:05→19:21)
[2017-12-30 05:00] VITALS: BP 120/67; PULSE 82; RESP 18; TEMP 37.6; O2SAT 92
[2017-12-30] MEDS: HYDROMORPHONE PCA 6 MG/30 ML PCA.VIAL IV ×3 (05:53→22:52)
[2017-12-30 08:16] VITALS: BP 110/54; PULSE 76; RESP 15; TEMP 36.9; O2SAT 95
[2017-12-30 11:00] VITALS: BP 109/60; PULSE 65; RESP 16; TEMP 37; O2SAT 96
--- NOTE | 2017-12-30 13:02 | PC.NURSE ---
Pt has some shingles to her r flank that spread to back. Area red with pustules. Abdomen a bit distended and bt are hypoactive. Pt states that she had a small loose stool on the commode. Using well service floor worker for pain control and helpful. Visiting with now.
[2017-12-30] MEDS: ONDANSETRON 4 MG/2 ML INJ IV (15:05)
[2017-12-30 15:15] VITALS: BP 127/69; PULSE 67; RESP 17; TEMP 36.8; O2SAT 96
--- NOTE | 2017-12-30 18:36 | PM.PN.1 ---
Subjective Date Patient Seen: 12/30/17 Time Patient Seen: 18:37 Interval history: Denies nausea or vomiting but remains mostly anorexic. Past small amount of flatus with enema but no stool. She reports no bowel movement for 6 days now. She does feel subjectively distended but the majority of her abdominal pain is along the epigastric region secondary to her acute shingles outbreak. Occasionally has some lower abdominal cramping pain but not severe. Overall she states that the abdominal pain that brought her to the emergency department 2 days ago has improved, but she continues to use her Dilaudid GLOVE TURNER. She is not requiring a significant amount of Dilaudid however. Denies fever or chills. No dysuria. Exam Vital Signs (past 8 hours): - 12/30/17 11:00 12/30/17 15:15 Temperature 98.6 F 98.3 F Pulse Rate 65 67 Respiratory Rate 16 17 Blood Pressure 109/60 127/69 Pulse Oximetry 96 96 Oxygen Delivery Method Room Air Oxygen Flow Rate 0 Narrative Exam Narrative: Thin female resting comfortably in bed in no acute distress. Alert oriented x3. Her and daughter are at the bedside. No documented fevers. No tachycardia. Normal blood pressure. Adequate urine output Regular rate and rhythm Abdomen is minimally distended but not particularly tympanitic. No masses. She is diffusely tender throughout the abdomen but certainly with no guarding or rebound. No ascites Extremities show no clubbing cyanosis or edema Skin continues show erythematous rash with multiple bulla along the entire subcostal dermatome bilaterally extending toward the back. Objective Labs Result Diagrams: 12/28/17 17:05 12/28/17 17:05 Labs: No new laboratory radiographic studies for review Assessment & Plan Plan: Assessment/Plan Narrative: 77-year-old female with acute shingles outbreak causing significant discomfort. She is still requiring intravenous narcotics for such. She remains on intravenous acyclovir. She clearly has constipation versus ileus but no evidence of obvious bowel obstruction. She is having no other symptoms that would suggest bowel obstruction. I discussed this with the patient and her daughter who is a nurse. Her daughter was quite insistent that the patient be treated ?aggressively ?for her small-bowel obstruction. She requested laxative therapy, which I had already discussed with the patient as part of her regimen especially in light of the narcotic requirement. Patient deferred to her daughter with regard to laxative therapy, and the daughter were was quite insistent that she receive magnesium citrate. I actually recommended Colace, Senokot, milk of magnesia, and lactulose which may be a more gentle regimen, especially given the patient's ongoing anorexia. However, the patient wished to abide by her daughters wishes and therefore magnesium citrate was ordered. We will continue the mechanical soft diet at this time. Once the patient begins to have some bowel function we will advance to a regular diet. I have also ordered physical therapy for evaluation as the patient states she is getting dizzy when she stands up, which has been a problem even prior to admission. She also has had difficulties with balance for which she received aggressive physical therapy for many months in the past with no significant improvement. Until the patient is tolerating better oral intake we will continue the GLOVE TURNER and intravenous antiviral medications. I clearly explained to the patient and her family that she has no indications for surgical intervention regarding her abdominal symptoms at this time. Nevertheless I did also explain that she could manifest such symptoms which would require re-evaluation. We also discussed criteria for potential discharge once she has fully improved. All questions were answered to her satisfaction, and she voiced understanding. Orders were written. Quality VTE Deep Vein Thrombosis/Pulmonary Embolism Present on Admission: No
--- NOTE | 2017-12-30 18:45 | P.PN_ITS ---
Subjective Date Patient Seen: 12/30/17 Time Patient Seen: 18:37 Interval history: Denies nausea or vomiting but remains mostly anorexic. Past small amount of flatus with enema but no stool. She reports no bowel movement for 6 days now. She does feel subjectively distended but the majority of her abdominal pain is along the epigastric region secondary to her acute shingles outbreak. Occasionally has some lower abdominal cramping pain but not severe. Overall she states that the abdominal pain that brought her to the emergency department 2 days ago has improved, but she continues to use her Dilaudid LIGHT BULB REPLACER. She is not requiring a significant amount of Dilaudid however. Denies fever or chills. No dysuria. Exam Vital Signs (past 8 hours): - 12/30/17 11:00 12/30/17 15:15 Temperature 98.6 F 98.3 F Pulse Rate 65 67 Respiratory Rate 16 17 Blood Pressure 109/60 127/69 Pulse Oximetry 96 96 Oxygen Delivery Method Room Air Oxygen Flow Rate 0 Narrative Exam Narrative: Thin female resting comfortably in bed in no acute distress. Alert oriented x3. Her and daughter are at the bedside. No documented fevers. No tachycardia. Normal blood pressure. Adequate urine output Regular rate and rhythm Abdomen is minimally distended but not particularly tympanitic. No masses. She is diffusely tender throughout the abdomen but certainly with no guarding or rebound. No ascites Extremities show no clubbing cyanosis or edema Skin continues show erythematous rash with multiple bulla along the entire subcostal dermatome bilaterally extending toward the back. Objective Labs Result Diagrams: 12/28/17 17:05 12/28/17 17:05 Labs: No new laboratory radiographic studies for review Assessment & Plan Plan: Assessment/Plan Narrative: 77-year-old female with acute shingles outbreak causing significant discomfort. She is still requiring intravenous narcotics for such. She remains on intravenous acyclovir. She clearly has constipation versus ileus but no evidence of obvious bowel obstruction. She is having no other symptoms that would suggest bowel obstruction. I discussed this with the patient and her daughter who is a nurse. Her daughter was quite insistent that the patient be treated ?aggressively ?for her small-bowel obstruction. She requested laxative therapy, which I had already discussed with the patient as part of her regimen especially in light of the narcotic requirement. Patient deferred to her daughter with regard to laxative therapy, and the daughter were was quite insistent that she receive magnesium citrate. I actually recommended Colace, Senokot, milk of magnesia, and lactulose which may be a more gentle regimen, especially given the patient's ongoing anorexia. However, the patient wished to abide by her daughters wishes and therefore magnesium citrate was ordered. We will continue the mechanical soft diet at this time. Once the patient begins to have some bowel function we will advance to a regular diet. I have also ordered physical therapy for evaluation as the patient states she is getting dizzy when she stands up, which has been a problem even prior to admission. She also has had difficulties with balance for which she received aggressive physical therapy for many months in the past with no significant improvement. Until the patient is tolerating better oral intake we will continue the LIGHT BULB REPLACER and intravenous antiviral medications. I clearly explained to the patient and her family that she has no indications for surgical intervention regarding her abdominal symptoms at this time. Nevertheless I did also explain that she could manifest such symptoms which would require re- evaluation. We also discussed criteria for potential discharge once she has fully improved. All questions were answered to her satisfaction, and she voiced understanding. Orders were written. Quality VTE Deep Vein Thrombosis/Pulmonary Embolism Present on Admission: No
[2017-12-30] MEDS: MAGNESIUM CITRATE 300 ML SOLUTION PO (19:21)
[2017-12-30 20:00] VITALS: BP 162/79; PULSE 82; RESP 18; TEMP 37.2; O2SAT 97
[2017-12-30] MEDS: SENNOSIDES 8.6 MG TABLET PO (20:34)
[2017-12-30] MEDS: PROPRANOLOL 10 MG TABLET PO (20:34)
[2017-12-30] MEDS: DOCUSATE 100 MG CAPSULE PO (20:34)
[2017-12-31] VITALS (8 sets, daily range): BP systolic 106–144; BP diastolic 52–72; PULSE 68–86; RESP 16–18; TEMP 36.4–37.4; O2SAT 93–97
--- NOTE | 2017-12-31 | DI.RAD.S_ITS ---
PROCEDURE: XR LUMBAR SPINE 2-3V INDICATIONS: FALL TECHNIQUE: 2 views of the lumbar spine were acquired. COMPARISON: [facility], , -SPINE 2-3 VIEWS, 09/26/2006, 14:58. FINDINGS: Bones: 5 [id number] vertebrae are present. There is normal bony alignment. No vertebral body compression fractures. No suspicious bony lesions. Mild degenerative endplate changes throughout lumbar spine is seen. Soft tissues: Overlying bowel gas pattern is normal. No suspicious soft tissue calcifications. IMPRESSION: No acute compression fracture or traumatic spondylolisthesis in lumbar spine. Mild degenerative disc disease throughout lumbar spine. Dictated by: Jamin Contreras M.D. on 12/31/2017 at 9:52 Approved by: Jamin Contreras M.D. on 12/31/2017 at 9:56
--- NOTE | 2017-12-31 | DI.RAD.S_ITS ---
PROCEDURE: XR PELVIS 1-2V INDICATIONS: FALL TECHNIQUE: One view(s) of the pelvis acquired. COMPARISON: None. FINDINGS: Bones: No fractures or dislocations. No suspicious bony lesions. Osteoarthritic changes are noted throughout the bony pelvis. Soft tissues: Visualized bowel gas pattern is normal. No suspicious soft tissue calcifications. IMPRESSION: No gross acute pelvic fracture. No hip dislocation. Dictated by: Jamin Contreras M.D. on 12/31/2017 at 9:48 Approved by: Jamin Contreras M.D. on 12/31/2017 at 9:48
--- NOTE | 2017-12-31 00:31 | PC.NURSE ---
Addendum entered by Ester Mcmullen R.N. 12/31/17 02:21: Bed alarming and found patient on edge of bed; needing to use commode for BM. Was already incontinent of some stool plus had liquid stool/urine mix on commode. Complains of feeling nauseated; medicated with Zofran. Original Note: Patient is alert and oriented. Breath sounds CTA with RA sat of 97%. HRR. Denies nausea. Now having loose stools after having received Mag Citrate on previous shift. Denies dysuria, frequency, urgency or incontinence. Turns self but needs SBA for transfers for safety as has chronic balance issues although denies falls and declines use of assistive device. Rash under left breast (shingles) is darker red and bullae are larger but still intact. 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 Fall risk score is moderate and bed alarm is activated.
[2017-12-31] MEDS: ONDANSETRON 4 MG/2 ML INJ IV ×2 (02:18→16:19)
[2017-12-31] MEDS: WATER IV ×3 (03:20→18:31)
[2017-12-31] MEDS: ACYCLOVIR IV ×3 (03:20→18:31)
[2017-12-31] MEDS: DEXTROSE 5% IV ×3 (03:20→18:31)
[2017-12-31] MEDS: HYDROMORPHONE PCA 6 MG/30 ML PCA.VIAL IV (05:37)
[2017-12-31 07:12] LABS: Lactate (Lactic Acid) 0.7 mmol/L (0.7-2.1)
[2017-12-31 07:13] LABS: Alanine Aminotransferase 28 IU/L (9-52); Albumin 2.8 g/dL (3.5-5.0); Albumin Globulin Ratio 1.1 (1.0-2.8); Alkaline Phosphatase 54 U/L (38-126); Aspartate Aminotransferase 25 IU/L (14-36); Bilirubin Total 0.4 mg/dL (0.2-1.3); Blood Urea Nitrogen 9 mg/dL (7-17); Calcium 7.5 mg/dL (8.4-10.2); Carbon Dioxide 32 mmol/L (22-32); Chloride 99 mmol/L (98-107); Estimated Glomerular Filt Rate > 60.0 mL/min (>60); Globulin 2.6 g/dL (1.7-4.1); Glucose 101 mg/dL (80-110); HEMOLYSIS < 15 (0-50); Potassium 3.2 mmol/L (3.4-5.1); Sodium 135 mmol/L (137-145); Total Protein 5.4 g/dL (6.3-8.2)
[2017-12-31 07:20] LABS: Add Manual Diff / Slide Review NO; Basophils Percent Auto 0.3 % (0-2); Eosinophils Percent Auto 0.6 % (2-4); Hematocrit 34.5 % (36-46); Hemoglobin 11.8 g/dL (12.0-16.0); Mean Corpuscular HGB Conc 34.1 % (30-36); Mean Corpuscular Hemoglobin 32.8 PG (26-34); Mean Corpuscular Volume 96.2 fL (80-100); Monocytes Percent Auto 5.9 % (3-14); Neutrophils Absolute Auto 3100 /uL (3000-5900); Neutrophils Percent Auto 83.2 % (50-75); Platelet Count 162 X10^3/uL (150-400); Red Blood Cell Count 3.59 X10^6/uL (4.0-5.2); Red Cell Distribution Width 12.9 % (11.6-14.8); White Blood Cell Count 3.7 X10^3/uL (4.5-11.0)
[2017-12-31] MEDS: SODIUM CHLORIDE 0.9% 1,000 ML 75 ML IV (07:22)
[2017-12-31 07:43] LABS: Procalcitonin 0.27 ng/mL (<0.5)
--- NOTE | 2017-12-31 08:17 | DI.CT.S_ITS ---
PROCEDURE: CT CERVICAL SPINE WO CON INDICATIONS: fall TECHNIQUE: Noncontrast 3 mm thick sections acquired from the skull base to the T4 level. Sagittal and coronal reformats were then constructed. For radiation dose reduction, the following was used: automated exposure control, adjustment of mA and/or kV according to patient size. COMPARISON: None. FINDINGS: Image quality: Excellent. Bones: There is straightening of normal cervical lordosis. No acute compression fracture or spondylolisthesis. Vertebral body heights are well-preserved. No acute fracture is seen in the cervical spine vertebral bodies. Degenerative endplate changes and decreased intervertebral disc space is seen at C3-4 through C6-7 levels. There is suggestion of dorsal disc osteophyte complex formation at C3-4, C4-5, and C5-6 levels causing mild central canal stenosis, no significant neural foramina narrowing. Visualized superior ribs are intact. Soft tissues: Prevertebral soft tissues are normal in thickness. No paravertebral hematomas. No apical pneumothoraces. Small bilateral pleural effusion is seen with adjacent atelectasis in posterior aspect of bilateral upper lobes. IMPRESSION: 1. No acute cervical spine fracture or traumatic spondylolisthesis. 2. Degenerative disc disease throughout cervical spine. 3. Small bilateral pleural effusion. No apical pneumothorax. Dictated by: Jamin Contreras M.D. on 12/31/2017 at 9:27 Approved by: Jamin Contreras M.D. on 12/31/2017 at 9:30
--- NOTE | 2017-12-31 08:17 | DI.CT.S_ITS ---
PROCEDURE: CT HEAD/BRAIN WO CON INDICATIONS: fall TECHNIQUE: Noncontrast 4.5 mm thick angled axial sections acquired from the foramen magnum to the vertex, with coronal and sagittal reformats. For radiation dose reduction, the following was used: automated exposure control, adjustment of mA and/or kV according to patient size. COMPARISON: [facility], CT, HEAD WITHOUT CONTRAST, 11/24/2015, 13:12. FINDINGS: Image quality: Excellent. CSF spaces: Basal cisterns are patent. No extra-axial fluid collections. The ventricles are symmetric in size and shape. Brain: No intracranial bleeds or masses. There is cerebral volume loss for age, with resultant ventricular and sulcal prominence. There are periventricular and deep white matter chronic small vessel ischemic changes. There is intracranial internal carotid artery atherosclerosis. Skull and face: Calvarium and visualized facial bones appear intact, without suspicious lesions. Sinuses: Visualized sinuses and mastoids are clear. IMPRESSION: No CT evidence of acute intracranial pathology. No significant changes from previous study. Dictated by: Jamin Contreras M.D. on 12/31/2017 at 9:40 Approved by: Jamin Contreras M.D. on 12/31/2017 at 9:41
--- NOTE | 2017-12-31 08:17 | PC.NURSE ---
Addendum entered by Nakita Gonzalez R.N. 12/31/17 14:48: Pt has been resting in bed and seems to be doing well. She denies pain at this time. She does have po oxycodone available if she needs it. Shingles are more blistered today, and red. Area's have not opened up but look like they may soon. Pts is at bedside, her daughter was here earlier this morning and both understand what happened to patient when she had her fall. Pt has had two bm's this day and is passing more stool than yesterday. Original Note: Addendum entered by Nakita Gonzalez R.N. 12/31/17 11:16: [id number]-Pt complained of l.side back/hip pain while on the floor lying down with neck brace in place. PT and 3 staff members got pt back to the bed with a slider board. She went down for her CT scan and chest xray and per everything looked wnl. Pt does have a contusion on the l.lower back of head. Pt is A&ox3 and comfortable in bed. She is eating some soup and apple juice. IV just started by Jill BYRNE. Pt will continue to be on iv fluids and iv antibiotics for shingles. Her BS are wnl, 93% on ra. BT present but hypoactive x4. O bruises or abrasions noted at this time. IV successful in the R.forearm. Original Note: 0800- Director Of Hotel Operations in pts room to help her get off of the commode and got her some water. Pt stood up by herself to wipe and get her brief on, and became unbalanced on her feet and fell backwards and hit head on door. She has not been moved and is lying on her L.side with C-Spine collar in place. Pts does not want anything done with pt until her daughter who is a Nurse Practioner comes to check on patient. called and He has ordered a stat CT of the head and spine, and a stat chest xray. Pt is A&Ox3 and denies any new pain, other than her shingle and abdominal pain. Netta will be coming in to see the patient very soon. VSS and Pt is Alert at this time.
--- NOTE | 2017-12-31 08:19 | DI.RAD.S_ITS ---
PROCEDURE: XR CHEST 1V INDICATIONS: fall TECHNIQUE: One view of the chest was acquired. COMPARISON: [facility], CR, XR CHEST 1V, 12/28/2017, 20:37. FINDINGS: Surgical changes and devices: None. Lungs and pleura: Subtle patchy opacities are noted in the bilateral upper lung zelaya consistent with the CT finding of small bilateral pleural effusion and dependent atelectasis in the upper lung zelaya. Small infiltrate cannot be entirely excluded. No gross pneumothorax. Mediastinum: Mediastinal contours appear normal. Heart size is normal. Bones and chest wall: No suspicious bony lesions. Overlying soft tissues appear unremarkable. IMPRESSION: Biapical scarring and patchy opacities in bilateral upper lung zelaya consistent with CT finding of small bilateral pleural effusion posteriorly with adjacent dependent atelectasis in the upper lobes. Cannot rule out underlying small infiltrate. No gross pneumothorax. Dictated by: Jamin Contreras M.D. on 12/31/2017 at 9:41 Approved by: Jamin Contreras M.D. on 12/31/2017 at 9:47
[2017-12-31] MEDS: DOCUSATE 100 MG CAPSULE PO ×2 (10:37→20:38)
[2017-12-31] MEDS: PROPRANOLOL 10 MG TABLET PO ×2 (10:37→20:38)
--- NOTE | 2017-12-31 10:41 | P.PN_ITS ---
Subjective Date Patient Seen: 12/31/17 Time Patient Seen: 08:45 Interval history: I received a call on my personal pager at 8:10 a.m. this morning from the attending day shift nurse, and I promptly returned the phone call to learn that the patient had fallen while attempting to rise from the commode. My conversation with the nurse lasted approximately 3 min and 30 sec at which time verbal orders were given for stat CT scan of the head, stat CT scan of the cervical spine, and stat chest x-ray. Patient was reported to have no loss of consciousness and otherwise was hemodynamically stable, alert, and oriented while laying supine on a backboard in a hard cervical collar on the floor of her room. I was informed that the patient's was present for the incident and remained at the bedside. He refused to allow nursing staff or any other hospital staff to move the patient in any capacity until their daughter arrived. I immediately traveled to the hospital and arrived at the patient's bedside at approximately 8:45 a.m. today. Patient's daughter and are at the bedside upon my arrival, and with their permission, nursing staff along with radiology technicians had already relocated the patient from the floor using appropriate standard spine precautions to her bed. I was then able to do initial examination after finding the patient to be in no acute distress and alert and oriented x3. I then personally assisted the radiology technicians with transportation of the patient from her hospital room to the Radiology Department for the stat imaging studies. I attended to the patient personally throughout her entire time in the radiology department as well as her return to her room. During that time the patient stated that she was also experiencing some low back pain, and verbal orders were given for additional lumbar spine x-rays and plain pelvic x-ray. Patient denied any vertigo or dizziness at the time of my arrival. Denied any chest pain or shortness of breath throughout. No neck pain. She was complaining of some mild discomfort in the left occipital region. Patient was able to recall all the details of the event accurately. Her speech and voice were normal. She was moving all extremities voluntarily and to command without any issues. Denies any numbness or tingling. No pain elsewhere except as above. Exam Vital Signs (past 8 hours): - 12/31/17 06:05 12/31/17 08:00 Temperature 97.8 F Pulse Rate 73 86 Respiratory Rate 16 18 Blood Pressure 106/59 L 133/71 Pulse Oximetry 96 95 Oxygen Delivery Method Room Air Oxygen Flow Rate 0 Narrative Exam Narrative: As above patient was found on a backboard with hard cervical collar in place. She is in no acute distress. Alert oriented x3. Vital signs are as above. No tachycardia. Regular rate and rhythm by palpation. Throughout the night she had had normal urine output. In fact, she had also had at least 2 bowel movements mixed with urine per her report. She has been passing flatus throughout the night and again this morning. Overall she states that her abdomen is feeling much better other than the persistent pain related to the shingles rash in the epigastric region. Denies any significant lower abdominal pain. Scalp was atraumatic other than a small contusion in the left occipital region. No lacerations or hematomas. No step-offs. Pupils are reactive and equal. Extraocular motions are completely intact. No scleral icterus. Face is without obvious lesions or trauma. Facial bones are completely stable including mandible. Mouth opening is normal. Cranial nerves 2-12 are grossly intact bilaterally Trachea is midline. No subcutaneous emphysema. Clavicles are stable bilaterally. No crackles or wheezes. No chest wall contusions. Back is without deformities. Herpes zoster rash continues to show erythema and small bulla but no drainage. No other contusions or lesions are identified over the entire back including the coccygeal region. She is completely nontender along the spinous processes throughout the entire length of the spine including the coccyx. Digital rectal examination is deferred but there is no gross blood or obvious abnormalities in the perianal region. Abdomen is soft and nondistended. She is not tympanitic. She is completely nontender to palpation this morning. Herpes zoster rash again remains unchanged from examination yesterday with ongoing erythema and intact bulla. No drainage. Rash is not significantly expanded but does involve the entire dermatomes bilaterally as previously described. Pelvis is stable and nontender to palpation Extremities show no deformities, clubbing, cyanosis, or edema. Radial pulses are easily palpable bilaterally. Dorsal pedis pulses are palpable bilaterally. She has full range of motion of upper and lower extremities without any difficulties. No contusions, lacerations, or hematomas. Otherwise completely nontender along the upper and lower extremities. Her left upper extremity IV site is clean and dressed with no hemorrhage or hematoma. The IV was dislodged at the time of the fall. After receiving the verbal radiologist report regarding the head CT and cervical spine CT I reexamined her cervical spine with the hard cervical collar removed momentarily. She is completely nontender along the cervical spine without any abnormalities or obvious injuries. No deformities. Therefore the cervical collar was removed at that time. She had full range of motion of the cervical spine without tenderness or pain afterward. Objective Labs Result Diagrams: 12/31/17 06:38 12/31/17 06:38 Labs: Laboratory Results - last 24 hr 12/31/17 12/31/17 12/31/17 06:38 06:38 06:38 WBC 3.7 L RBC 3.59 L Hgb 11.8 L Hct 34.5 L MCV 96.2 MCH 32.8 MCHC 34.1 RDW 12.9 Plt Count 162 Neut % (Auto) 83.2 H Lymph % (Auto) 10.0 L [place] % (Auto) 5.9 Eos % (Auto) 0.6 L Baso % (Auto) 0.3 Neut # (Auto) 3100 Sodium 135 L Potassium 3.2 L D Chloride 99 Carbon Dioxide 32 BUN 9 Creatinine 0.50 L Estimated GFR > 60.0 BUN/Creatinine Ratio 18.0 Glucose 101 Lactate Calcium 7.5 L Total Bilirubin 0.4 AST 25 ALT 28 Alkaline Phosphatase 54 Total Protein 5.4 L Albumin 2.8 L Globulin 2.6 Albumin/Globulin Ratio 1.1 Procalcitonin 0.27 12/31/17 06:38 WBC RBC Hgb Hct MCV MCH MCHC RDW Plt Count Neut % (Auto) Lymph % (Auto) [place] % (Auto) Eos % (Auto) Baso % (Auto) Neut # (Auto) Sodium Potassium Chloride Carbon Dioxide BUN Creatinine Estimated GFR BUN/Creatinine Ratio Glucose Lactate 0.7 Calcium Total Bilirubin AST ALT Alkaline Phosphatase Total Protein Albumin Globulin Albumin/Globulin Ratio Procalcitonin Laboratory studies today are significant only for hypokalemia and low albumin consistent with her known protein calorie malnutrition. She is slightly anemic compared to previous hemoglobin values, but she has no evidence of acute hemorrhage. Possibility of anemia secondary to chronic protein calorie malnutrition. Lactate and procalcitonin levels are completely normal. Again, I personally reviewed all of the radiographic studies as ordered above which include a CT scan of the head, CT scan of the cervical spine, chest x-ray , plain x-ray of the pelvis which includes the hips and proximal femurs, and lumbar spine x-ray. I have also discussed the findings with the staff radiologist, Dr. Contreras, via telephone. All findings are unremarkable for any acute injury, fracture, dislocation, intracranial hemorrhage, or intracranial injury. No evidence of stroke. No evidence of pneumothorax, hemothorax, pleural effusion, or rib fractures. Of note, her pelvic and lumbar spine x-rays also demonstrate her bowel gas pattern currently. She has air throughout an entirely nondilated otherwise normal colon. No air-fluid levels or dilated small bowel loops. Assessment & Plan Plan: Assessment/Plan Narrative: 77-year-old female initially admitted several days ago with possible colon obstruction, but subsequent studies and clinical evaluation did not support that diagnosis. Findings were more consistent with ileus versus constipation. Her major source of pain and abdominal symptoms appear to be related to her acute herpes zoster outbreak in the epigastric region extending along bilateral dermatomes. She is currently being treated with intravenous acyclovir. I have discussed this with the patient, patient's daughter, and patient's in detail again today. I will consult the internal medicine service to assist in management of this acute issue, including oral antiviral medications in lieu of intravenous acyclovir. At this point she may have a regular diet from my standpoint since she has no evidence of bowel obstruction, and she is demonstrating return of normal bowel and bladder function. We will convert her to oral analgesia and discontinue the [facility] [employer] [employer]IST. Continue an aggressive oral bowel regimen consisting of Colace, Senokot, milk of magnesia, and as needed lactulose. We discussed fall precautions, and I strongly recommended to the patient and her family that she not be out of bed unassisted. Again, physical therapy had been consulted yesterday for evaluation today as per my note dated December 30, 2017. Because the patient has no evidence of acute significant injury following the fall I believe she can participate in physical therapy and assisted ambulation without restrictions. We will supplement potassium orally today. Add nutritional supplementation in the form of Ensure, and we will consult dietitian services for such. At this time the patient has absolutely no evidence of significant surgical pathology, including bowel obstruction, that requires further evaluation barring any new symptoms or clinical changes. In my opinion, she certainly does not require any type of surgical procedure such as laparoscopy, laparotomy, or endoscopy. If she has recurrent issues with abdominal distention, abdominal pain, and lack of bowel function then a barium enema x-ray study would be potentially the imaging study of choice at that time depending upon her clinical status. Again, I explained this to the patient and her family in detail this morning. I also clearly explained that those services are not available at this institution on weekend hours. Nevertheless she could be transferred to another facility for such then returned as per my previous documented note. Patient and her daughter as well as patient's understood and voiced understanding. I spent approximately 80 min attending to the patient this morning and discussing all the above findings with her and her family in detail today. I allowed them ample opportunity to ask all questions, and I answered them to the best of my ability as well as to their satisfaction. Again, they voiced understanding in all regards and were agreeable to the plan. Orders were written as above. I have discussed the case personally with Dr. Justice who is the attending internal medicine hospitalist today. I will defer to his expertise on all medical issues , and we will continue to follow her for any new gastrointestinal issues or other surgical problems. Quality VTE Deep Vein Thrombosis/Pulmonary Embolism Present on Admission: No
[2017-12-31] MEDS: POTASSIUM CHLORIDE 20 MEQ TAB 40 MEQ PO (12:07)
--- NOTE | 2017-12-31 15:25 | PC.NURSE ---
Today at approximately 0800 I worked with Kaylah Renteria and I helped her to the bedside commode so that she could have a bowel movement. Once she was done I asked her if she wanted to have a bed bath on the commode, when she said yes I went to the sink for hot water. While my back was turned, she stood up by herself to do marcelo-care, she turned her back to the door and began to fall backward into the door. I noticed at that point and rushed to help her. I got to her while she was half way to the ground, so I supported her head after it had hit the door, but before she reached the ground. She fell in front the door blocking it. The nurse heard and came to help, however the patient blocked the door. So I supported the patients head with a pillow and turned her onto her left side. With the nurse, I helped to get the patients vital signs, transfer to the bed, and stay in the room with her until she went down to get imaging done.
--- NOTE | 2017-12-31 15:29 | PT.IPTN ---
Current Diagnoses Zoster without complications (12/28/17) Physical Therapy Treatment Note M3 PT-IP Subjective Start: 12/31/17 15:28 Freq: Status: Active Protocol: Document 12/31/17 15:29 [facility] (Rec: 12/31/17 15:31 [facility] [id number]) Subjective Physical Therapy Visit Type Type Patient Refusal Notes Pt refused physical therapy evaluation x2 this date, once in early p.m. and again @ 15: 29 stating that she just can 't do it, due to fatigue and back soreness. Educated pt on the importance of mobilizing, but still respectfully refused physical therapy. Will attempt to initiate PT again tomorrow, hopefully with productive results.
[2017-12-31] MEDS: ACETAMINOPHEN 325 MG TABLET 650 MG PO (17:08)
--- NOTE | 2017-12-31 17:08 | P.CONS_ITS ---
History of Present Illness Chief complaint: Fall and pain Reason for consult: Fall and pain Narrative: There is a very excellent note by the patient's attending physician Dr. Chadwick from this morning. Briefly the patient was unsteady when rising from on the commode and going to the bed. She states that she felt a little dizzy and unsteady. As a result she fell and hit her hip. She was without any shortness of breath, palpitation, chest pain, hemiparesis, diplopia, speech difficulty. Vital signs were stable and she was hemodynamically unremarkable. Blood pressure was 133/71 pulse [address] tinoco ordered CT head LS spine x-rays pelvis x-rays and all were unremarkable for any acute pathology. In the interval since the fall the patient continues to have dizziness. There is no vertical nor is there any positional dizziness. The dizziness occurs when she is standing but not moving in different positions such as from bed to standing or turning her head. She has no ringing of her ears.. Prior to admission she has had some episodes of dizziness but not as severe as during the present admission and particularly this morning. Propanolol 10 mg p.o. b.i.d. in reviewing her vital signs during this admission she has had no bradycardia or hypotension. She does give a history of dry eyes and is followed by an general office associate in [place]. She has eyedrops which she states is not that effective. She states that this has been a problem for the past 15 years. She also has a dry mouth over the last 7 years. There has been no mention of Sjogren syndrome. She has essential tremor and is on propanolol for this. As mentioned there has been no problems with bradycardia or hypotension during this admission [facility] Medical History Bilateral lower extremity edema (Chronic) Anxiety (Chronic Unknown) Benign essential tremor (Chronic Unknown) Chronic cough (Chronic Unknown) Glaucoma (Chronic Unknown) Hyperlipemia (Chronic 2015) Osteoarthritis (Chronic 2005) Recurrent sinusitis (Chronic Unknown) Cataracts, bilateral (Resolved Unknown) Chickenpox (Resolved 1949) Colon polyps (Resolved 01/2015) Measles (Resolved) Mumps (Resolved) Pneumonia (Resolved Unknown) Surgical History History of cataract removal with insertion of prosthetic lens Family History: Reviewed 12/29/17 by Lucia Stanley MD Social History household members: spouse Smoking Status: Never smoker alcohol intake: never Meds Home Medications Medication Instructions Recorded Confirmed Type propranolol 10 mg PO BID #60 tab 08/08/17 12/28/17 Rx cyclosporine [Restasis] 1 drp OPHTH DIRECTED #0 08/17/17 12/28/17 History doxycycline hyclate 50 mg PO BID #0 08/17/17 12/28/17 History fluticasone 50 mcg/actuation nasal 1 spray INTRANASAL BID #3 bot 09/06/17 Rx spray,suspension atorvastatin 10 mg tablet 10 mg PO Q DAY #90 tab 11/30/17 12/28/17 Rx Allergies Allergy/AdvReac Type Severity Reaction Status Date / Time aspirin [ASPIRIN] AdvReac Mild GI UPSET Verified 12/28/17 18:51 codeine [CODEINE] AdvReac Mild GI UPSET Verified 12/28/17 18:51 Review of Systems Review of Systems All systems reviewed & are unremarkable except as noted in HPI and below Exam Vital Signs (past 8 hours): - 12/31/17 12:44 12/31/17 15:00 Temperature 98.5 F 99.3 F Pulse Rate 75 73 Respiratory Rate 18 17 Blood Pressure 138/72 144/67 H Pulse Oximetry 93 94 Oxygen Delivery Method Room Air Oxygen Flow Rate 0 Chest x-ray 12/31/2017 IMPRESSION: Biapical scarring and patchy opacities in bilateral upper lung zelaya consistent with CT finding of small bilateral pleural effusion posteriorly with adjacent dependent atelectasis in the upper lobes. Cannot rule out underlying small infiltrate. No gross pneumothorax. Narrative Exam Narrative: General NAD HEENT normal cephalic atraumatic pupils reveal very mild anisocoria and Iridodokinesis. Conjunctiva membranes appear somewhat dry conjunctiva nonicteric oropharynx mucous membranes somewhat dry Neck is supple without thyromegaly bruits jugular venous distension Respiratory clear to auscultation Cardiovascular regular rhythm S1-S2 is normal there are no lifts heaves rubs murmurs gallops present Gastrointestinal benign bowel sounds active Extremities full range of motion no clubbing edema or cyanosis Neurologic: Cranial nerves 2-12 grossly intact; specifically no nystagmus noted Motor equal active Gait not tested Psychiatric awake alert oriented x3 mood and affect were normal Objective Labs Result Diagrams: 12/31/17 06:38 12/31/17 06:38 Labs: Laboratory Results - last 24 hr 12/31/17 12/31/17 12/31/17 06:38 06:38 06:38 WBC 3.7 L RBC 3.59 L Hgb 11.8 L Hct 34.5 L MCV 96.2 MCH 32.8 MCHC 34.1 RDW 12.9 Plt Count 162 Neut % (Auto) 83.2 H Lymph % (Auto) 10.0 L [place] % (Auto) 5.9 Eos % (Auto) 0.6 L Baso % (Auto) 0.3 Neut # (Auto) 3100 Sodium 135 L Potassium 3.2 L D Chloride 99 Carbon Dioxide 32 BUN 9 Creatinine 0.50 L Estimated GFR > 60.0 BUN/Creatinine Ratio 18.0 Glucose 101 Lactate Calcium 7.5 L Total Bilirubin 0.4 AST 25 ALT 28 Alkaline Phosphatase 54 Total Protein 5.4 L Albumin 2.8 L Globulin 2.6 Albumin/Globulin Ratio 1.1 Procalcitonin 0.27 12/31/17 06:38 WBC RBC Hgb Hct MCV MCH MCHC RDW Plt Count Neut % (Auto) Lymph % (Auto) [place] % (Auto) Eos % (Auto) Baso % (Auto) Neut # (Auto) Sodium Potassium Chloride Carbon Dioxide BUN Creatinine Estimated GFR BUN/Creatinine Ratio Glucose Lactate 0.7 Calcium Total Bilirubin AST ALT Alkaline Phosphatase Total Protein Albumin Globulin Albumin/Globulin Ratio Procalcitonin Chest x-ray 12/31/2017 IMPRESSION: Biapical scarring and patchy opacities in bilateral upper lung zelaya consistent with CT finding of small bilateral pleural effusion posteriorly with adjacent dependent atelectasis in the upper lobes. Cannot rule out underlying small infiltrate. No gross pneumothorax. CT head noncontrast 12/31/2017 IMPRESSION: No CT evidence of acute intracranial pathology. No significant changes from previous study. X-ray pelvis 12/31/2017 IMPRESSION: No gross acute pelvic fracture. No hip dislocation. X-rays lumbar spine 12/31/2017 IMPRESSION: No acute compression fracture or traumatic spondylolisthesis in lumbar spine. Mild degenerative disc disease throughout lumbar spine. Assessment & Plan Plan: Assessment/Plan Narrative: 1. Dizziness. There is nothing that actually suggests benign positional vertigo. Suspect this to her overall deconditioning. Will have nurses check orthostatics to ensure that there is no problems with orthostatics symptoms. Physical therapy is also working with patient 2. Fall Radiographic studies do not show any acute injuries. Suspect her pain is from soft tissue injury will try Toradol as needed 3. Conjunctival and oral mucous membrane dryness We wonder if the patient has problems with Sjogren syndrome. Do not have the records from her general office associate's but suspect they have looked into this. At any event there is no need at this time to do serology for this if necessary this could be evaluated as an outpatient 4. COPD Pulmonary exam was unremarkable. We will continue the patient's Brovana, Pulmicort, Atrovent and Xopenex 5. Anxiety Will give low-dose Ativan as needed DISPOSITION Physical therapy is working with the patient. She will need ongoing physical therapy post discharge. In talking to the family they are not interested in the patient going to SNF but would prefer home with home health PT if ongoing rehab as necessary
[2017-12-31] MEDS: KETOROLAC 15 MG/ML VIAL IV (19:13)
[2017-12-31] MEDS: SENNOSIDES 8.6 MG TABLET PO (20:38)
[2017-12-31] MEDS: HYDROMORPHONE 1 MG INJ 0.5 MG IV (21:36)
[2017-12-31] MEDS: OXYCODONE IR 5 MG TABLET PO (21:37)
[2018-01-01] MEDS: SODIUM CHLORIDE 0.9% 1,000 ML 75 ML IV ×2 (00:51→13:42)
[2018-01-01 01:00] VITALS: BP 140/71; PULSE 61; RESP 16; TEMP 36.6; O2SAT 93
--- NOTE | 2018-01-01 01:12 | PC.NURSE ---
Addendum entered by Ester Mcmullen R.N. 01/01/18 04:52: States abdominal pain is currently 7/10 and requests medication; medicated with Dilaudid per MD order according to severity of pain, and warm blanket applied to area. Original Note: Patient is alert and oriented. Breath sounds diminished but CTA with RA sat of 93%. HRR. Admits to feeling slightly nauseated but declined offer of antiemetic. BT hypoactive and states she has not passed flatus since her last BM. Denies dysuria, frequency, urgency or incontinence and is getting up to [facility] with 1 assist + walker when needing to urinate. Shingles rash under left breast extending to mid back remains dark red and now noted new bullae on back as well as under breast; all bullae are still intact and no drainage noted. Has had pain related to shingles but currently denies having any pain. Independent with bed mobility. Fall risk score is high and bed alarm is activated.
[2018-01-01 03:45] VITALS: BP 127/64; PULSE 69; RESP 16; TEMP 37.3; O2SAT 92
[2018-01-01] MEDS: HYDROMORPHONE 0.5 MG INJ IV (04:48)
[2018-01-01 07:00] VITALS: BP 152/77; PULSE 73; RESP 18; TEMP 37.1; O2SAT 94
[2018-01-01] MEDS: ATORVASTATIN 10 MG TABLET PO (09:04)
[2018-01-01] MEDS: valACYclovir 500 MG TABLET 1000 MG PO ×2 (09:04→20:14)
[2018-01-01] MEDS: PROPRANOLOL 10 MG TABLET PO ×2 (09:04→20:14)
[2018-01-01] MEDS: DOCUSATE 100 MG CAPSULE PO (09:04)
[2018-01-01] MEDS: MAGNESIUM HYDROXIDE 30 ML UDC PO (09:06)
--- NOTE | 2018-01-01 09:53 | PM.PN.1 ---
Subjective Interval history: Patient states she is feeling better. She does still have some pain from her fall. Exam Vital Signs (past 8 hours): - 01/01/18 03:45 01/01/18 07:00 Temperature 99.1 F 98.8 F Pulse Rate 69 73 Respiratory Rate 16 18 Blood Pressure 127/64 152/77 H Pulse Oximetry 92 94 Oxygen Delivery Method Room Air Oxygen Flow Rate 0 Narrative Exam Narrative: General NAD sitting in chair HEENT normal cephalic atraumatic pupils reveal very mild anisocoria and Iridodokinesis. Conjunctiva membranes appear somewhat dry conjunctiva nonicteric oropharynx mucous membranes somewhat dry Neck is supple without thyromegaly bruits jugular venous distension Respiratory clear to auscultation Cardiovascular regular rhythm S1-S2 is normal there are no lifts heaves rubs murmurs gallops present Gastrointestinal soft pliable nontender to palpation bowel sounds active Extremities full range of motion no clubbing edema or cyanosis Neurologic: Cranial nerves 2-12 grossly intact;Motor equal active Gait not tested Psychiatric awake alert oriented x3 mood and affect were normal Objective Labs Result Diagrams: 12/31/17 06:38 12/31/17 06:38 Assessment & Plan Plan: Assessment/Plan Narrative: 1. Dizziness. There is nothing that actually suggests benign positional vertigo. Suspect this to her overall deconditioning. Physical therapy is also working with patient 2. Fall Radiographic studies do not show any acute injuries. Suspect her pain is from soft tissue injury. Toradol IV ordered yesterday. 3. Conjunctival and oral mucous membrane dryness We wonder if the patient has problems with Sjogren syndrome. Do not have the records from her aboriginal home school liaison officer's but suspect they have looked into this. At any event there is no need at this time to do serology for this. If necessary this could be evaluated as an outpatient. 4. COPD THIS COMMENT WAS PLACED IN [place] THE CONSULT YESTERDAY THIS WAS ACTUALLY A REFERENCE TO ANOTHER PATIENT. PATIENT HAS NO HISTORY OF COPD AND IS NOT ON ANY INHALERS. 5. HERPES ZOSTER The patient is IV acyclovir has been changed to Valtrex 1000 mg p.o. t.i.d. 6.. Essential tremor Patient is on propanolol for this DISPOSITION Physical therapy is working with the patient. If she were to need ongoing physical therapy post discharge. in talking to the family they are not interested in the patient going to SNF but would prefer home with home health PT if ongoing rehab as necessary SIGNING OFF At this time hospitalist/internal Medicine is signing off. There are no further issues regarding our input. Her vital signs are stable. Her antiviral therapy for herpes zoster have been changed to p.o. therapy. We truly appreciate the opportunity to help with the care of your patient Here for assistance is needed again please do not hesitate to contact us Quality VTE Deep Vein Thrombosis/Pulmonary Embolism Present on Admission: No
[2018-01-01] MEDS: KETOROLAC 15 MG/ML VIAL IV (10:30)
[2018-01-01 11:00] VITALS: BP 132/71; PULSE 70; RESP 18; TEMP 36.2; O2SAT 94
--- NOTE | 2018-01-01 11:35 | PT.IIE ---
Current Diagnoses Zoster without complications (12/28/17) Surgical History (Last Reviewed 12/29/17 @ 20:26 by Lucia Stanley MD) History of cataract removal with insertion of prosthetic lens Medical History (Last Reviewed 12/29/17 @ 20:26 by Lucia Stanley MD) Bilateral lower extremity edema (Chronic) Anxiety (Chronic Unknown) Benign essential tremor (Chronic Unknown) Chronic cough (Chronic Unknown) Glaucoma (Chronic Unknown) Hyperlipemia (Chronic 2016) Osteoarthritis (Chronic 2006) Recurrent sinusitis (Chronic Unknown) Cataracts, bilateral (Resolved Unknown) Chickenpox (Resolved 1949) Colon polyps (Resolved 01/2015) Measles (Resolved) Mumps (Resolved) Pneumonia (Resolved Unknown) Physical Therapy Inpatient Evaluation/Re-Eval M1 PT/OT-IP Prior Functional Status Start: 12/31/17 15:28 Freq: Status: Active Protocol: Document 01/01/18 11:35 [facility] (Rec: 01/01/18 13:06 [facility] [id number]) Medical Review Prior Functional Status Medical History Reviewed Yes Diet/Fluid Consistency Regular Communication WNL Mobility and Gait indep. community ambulator without device Activities of Daily Living and IADL's indep. ADLs Social History Household Members spouse Living Arrangements House Number of Floors (Floors) Two Floors Number of Stairs To Enter/Railing? 3 SE rail on R ascending, no need to get to upper level ( all needs on main level) Home Environment Walk in Shower Home Equipment Straight Cane Grab Bars In Shower M2 PT-IP Current Condition Start: 12/31/17 15:28 Freq: Status: Active Protocol: Document 01/01/18 11:35 [facility] (Rec: 01/01/18 13:06 [facility] [id number]) Physical Therapy Current Condition Current Condition Evaluation Date 01/01/18 Treatment Diagnosis abdominal pain, impaired activity tolerance Onset Date 12/28/17 Precautions Other Precautions Contact precautions: Shingles M3 PT-IP Subjective Start: 12/31/17 15:28 Freq: Status: Active Protocol: Document 01/01/18 11:35 [facility] (Rec: 01/01/18 13:06 [facility] [id number]) Subjective Physical Therapy Visit Type Type Initial Evaluation Visit Start Time 11:05 Visit Stop Time 11:35 Total Visit Minutes 30 Notes daughter and spouse in room during session. Gait belt low d/t shingles. Number of COMPUTER ASSEMBLER Visits 0 Physical Therapy Visit Comments Patient Comments Pt reports some pain in lower back and R side of neck, she attributes to her fall yesterday. M4 PT-IP Mobility and Gait Start: 12/31/17 15:28 Freq: Status: Active Protocol: Document 01/01/18 11:35 [facility] (Rec: 01/01/18 13:06 [facility] [id number]) PT-Bed Mobility Assessment Sit to Supine Sit to Supine Moderate Assistance 1 Person Assistance PT-Transfer Assessment Sit to and From Stand Sit to and from Stand Standby Assistance Equipment Transfer Assistive Device Gait Belt Front Wheeled Walker Transfers Transfer Destination Bed Chair Transfer Technique Stand Step Pivot Transfer Ability Level of Assist Standby Assistance Use of Upper Extremities Comments Mobility Comments VC hand positioning for STS. Gait Assessment Gait Gait Assistance Required: Standby Assistance Distance (Feet) (feet) 150 Assistive Devices Assistive Device Gait Belt Front Wheeled Walker Gait Deviations General Gait Pattern Decreased Stride Length Factors Limiting Gait Function Factors Limiting Gait Function Decreased Activity Tolerance Comments Gait Comments gait in room x60 ft- O2 saturation down to 88% on RA, increased to 94% with cuing for pursed lip breathing. Gait x150 ft- O2 saturation 94% on RA and HR 68 bpm. PT-Balance Assessment Sitting Balance and Reactions Static Sitting Balance Ability Good Dynamic Sitting Balance Ability Fair Balance Tests Single Limb Standing unable to perform without UE assistance Comments Other Balance Tests/Deviations/Treatment feet together eyes closed: 10 : sec, mild/mod sway no LOB M5 PT-IP Objective Assessments Start: 12/31/17 15:28 Freq: Status: Active Protocol: Document 01/01/18 11:35 [facility] (Rec: 01/01/18 13:06 [facility] [id number]) Orientation Orientation/Cognition Level of Alertness Alert Safety Awareness Understands Safety Issues Strength Lower Extremity Strength Hip flexion 4/5 B, IR and ER 3+/5 B Knee flexion 4/5 B, ext 4+/5 B Ankle DF 5/5 B M6 PT-IP Treatment Start: 12/31/17 15:28 Freq: Status: Active Protocol: Document 01/01/18 11:35 [facility] (Rec: 01/01/18 13:06 [facility] [id number]) Physical Therapy Treatment Education Education Provided Precautions M7 PT-IP Assessment and Plan Start: 12/31/17 15:28 Freq: Status: Active Protocol: Document 01/01/18 11:35 [facility] (Rec: 01/01/18 13:06 [facility] [id number]) PT Summary Assessment and Plan Potential Rehabilitation Potential Good Status of Condition at Evaluation Stable Summary Impairments Strength Balance Bed Mobility Gait Activity Tolerance Assessment Summary Pt required assistance getting back into bed, but otherwise required CGA to SBA for all other mobility. She is below her functional level at this time, using a FWW for ambulation (typically no AD for gait). She did not have increased pain with mobility or WB. At this time, pt appears to be on track to return home with assistance when medically stable. She would benefit from a FWW if she is unable to pass SPC gait trial, and will need stair training prior to d/c. She would also benefit from strength, gait and balance training from outpatient physical therapy when appropriate and medically cleared. Recommend a low gait belt due to shingles along upper trunk dermatome. Goals Bed Mobility Goal Independent Transfer Goal Independent Gait Goal Independent Cane Gait Distance 300 Other Goals up/down 3 steps with unilateral rail and SBA. Days to Meet Goals 2 Frequency of Treatment Frequency Of Treatment Once a Day Treatment Plan Physical Therapy Treatment Plan Bed Mobility Training Gait Training Therapeutic Exercise Balance Retraining Neuromuscular Re-ed Recommendations To Nursing Amount of Assist Needed 1 Person Assist Discharge Recommendations PT Discharge Recommendations Home with Assistance Outpatient PT Equipment Needed for Home Before FWW if not able to pass cane Discharge training with PT.
[2018-01-01 11:58] LABS: Bacteria Urine None Seen
[2018-01-01 12:16] LABS: Appearance Urine UA CLEAR; Bilirubin Urine UA NEGATIVE (NEGATIVE); Color Urine UA YELLOW; Glucose Urine UA NEGATIVE (Normal); Ketones Urine UA 2+ (NEGATIVE); Leukocyte Esterase Urine UA NEGATIVE (NEGATIVE); Nitrite Urine UA Negative (Negative); Occult Blood Urine UA 2+ (Negative); Protein Urine UA NEGATIVE (Negative); Urobilinogen Urine UA 0.2 E.U./dL (0.2)
--- NOTE | 2018-01-01 12:29 | PC.NURSE ---
Pt complains of pain to l.lower back hip area. Up to the bathroom with 2 pa and voided. UA sent down for culture as her urine has been odorous. Given toradol at 1030 and worked well with pt. PT is back to bed and resting now. Family will be back around 1330.
[2018-01-01 12:40] LABS: Culture Indicated Urine Cult Not Indicated; RBC Urine 1-5/HPF (0-5/HPF); Squamous Epithelial Cell Urine 0-1 /HPF; WBC Urine 0-1/HPF (0-5/HPF)
--- NOTE | 2018-01-01 12:50 | CM.DPC ---
DCP: continued: Case received, EMR reviewed and discussed POC in team rounds. Pt did sustain a fall yesterday morning, Dr. Chadwick arrived promptly and followed her through the post fall assessement process. Dr. Justice/hospitalist was consulted and today has signed off case after following the medical management of the Herpes Zoster outbreak. PT is working with pt. Discussed ? of OT need with Dr. Mchugh and he readily agrees to same. Order in place. OT will be available tomorrow to see pt. Met then with pt in followup to her d/c planning process. She confirms her plan for home with her . Her daughter Tamika, an SENIOR SQL SERVER DBA also lives in [place] and she says she is very supportive. Discussed HH vs OUPT therapy. Pt has had OUTPT PT in the past. Says she very much liked working with Ramone/PT today and wonders if he could see her in that OUTPT setting. Explained Ramone worked for [facility] dept, inpt and outpt. Spoke then with Ramone re above. He stated that pt had done very well this morning in PT session and that he though the outpt setting would be very good for her. Updated pt and provided the business card for the outpt PT contact number. Ramone confirmed that this order would have to be given as a referral by the PCP: Laureano Haley. Agreed to call Tamika and explain the details of the referral process. Spoke then with Tamika/cell: [phone]. Explained above process. Tamika noted she was pleased with the plan and that her mother had found a therapist who was motivating her to move. She also was pleased with the addition of OT jolie. Made a copy of the card left for pt with the [facility] outpt therapy contact numbers and Ramone's name (as pt will have to request him specifically). Is in the Red Folder/chart in room [facility]. She readily agreed to follow up on the process. Expressed thankfulness for the assist. P: home when stable for same and as per above.
[2018-01-01 15:15] VITALS: BP 120/68; PULSE 74; RESP 16; TEMP 36.9; O2SAT 93
[2018-01-01] MEDS: PANTOPRAZOLE 20 MG TABLET PO (16:27)
--- NOTE | 2018-01-01 16:37 | P.PN_ITS ---
Subjective Date Patient Seen: 01/01/18 Time Patient Seen: 14:32 Interval history: Complaining of some right shoulder pain along the trapezius muscle. No joint pain. Major complaint remains pain along the epigastric region at the site of her active shingles. Has some mild intermittent crampy abdominal pain in the lower quadrants bilaterally but improved since admission. She is passing flatus. No bowel movement today. She did have 2 liquid stools yesterday along with flatus. Denies subjective abdominal distention, nausea, or vomiting. Appetite is not quite to baseline at this point but she is tolerating part of her meals. She states that the hospital food simply does not taste good to her. Exam Vital Signs (past 8 hours): - 01/01/18 11:00 Temperature 97.1 F L Pulse Rate 70 Respiratory Rate 18 Blood Pressure 132/71 Pulse Oximetry 94 Oxygen Delivery Method Room Air Oxygen Flow Rate 0 Narrative Exam Narrative: Entire visit and examination is performed with the assistance of a nurse cemetery warden, Nakita Gonzalez. remains at the bedside in the room throughout my entire visit as well. Patient's daughter is not present currently. Patient remains afebrile with no tachycardia and otherwise normal blood pressure. Urine output has been normal as well. Sclera nonicteric Neck is supple without lymphadenopathy or tenderness. She is tender along the right anterior border of the trapezius muscle but without shoulder pain, tenderness, or deformity. No joint edema. Chest clear auscultation bilaterally Abdomen is soft and nondistended although she does have some mild tympanitic changes to palpation. However, she is nontender to palpation with no guarding or rebound. I appreciate no masses. Her acute herpes zoster rash remains quite erythematous along bilateral dermatomes with significant bulla that have not yet ruptured. Extremities show no clubbing, cyanosis, edema, or deformities. Objective Labs Result Diagrams: 12/31/17 06:38 12/31/17 06:38 Labs: Laboratory Results - last 24 hr 01/01/18 10:10 Urine Color Yellow Urine Appearance Clear Urine pH 7.0 Ur Specific [place] 1.020 Urine Protein Negative Urine Glucose (UA) Negative Urine Ketones 2+ H Urine Occult Blood 2+ H Urine Nitrate Negative Urine Bilirubin Negative Urine Urobilinogen 0.2 Ur Leukocyte Esterase Negative Urine RBC 1-5/hpf Urine WBC 0-1/hpf Ur Squamous Epith Cells 0-1 /hpf Urine Bacteria None seen Ur Culture Indicated? Cult not indicated Micro UA Comment Not Reportable No new radiographic studies for review. The official reports from the multiple radiographic images yesterday demonstrate no new findings. Assessment & Plan Plan: Assessment/Plan Narrative: 77-year-old female with acute herpes zoster outbreak causing the major source of her discomfort. Current evidence supports more of a colonic ileus versus constipation episode rather than colonic obstruction. Her gastrointestinal symptoms have improved significantly and she is now having some bowel function. Continue the current aggressive regimen consisting of Colace, Senokot, milk of magnesia, and as needed lactulose. We will give a dose of lactulose today since she has not passed stool since yesterday. We encourage oral intake along with nutritional supplementation. From my perspective she may have food from home if she wishes. Continue physical therapy and rehabilitation. Fall precautions are obviously instituted. Convert to oral Toradol and add proton pump inhibitor therapy for protection against gastritis. Appreciate Internal Medicine evaluation and care. Patient may tentatively be a candidate for discharge to home tomorrow if she continues to improve. We will continue the oral antiviral medication as prescribed along with the Toradol as needed. At this time she has no evidence of any other significant injuries or changes since her evaluation yesterday. The right trapezius musculoskeletal pain is consistent with strain only. I discussed this with her and her in detail. All questions were answered to their satisfaction, and they both voiced understanding. Orders were written. Quality VTE Deep Vein Thrombosis/Pulmonary Embolism Present on Admission: No
[2018-01-01 19:30] VITALS: BP 168/86; PULSE 86; RESP 18; TEMP 37.3; O2SAT 91
--- NOTE | 2018-01-01 21:26 | PC.NURSE ---
Patient a&ox4, rates pain 1-2/10 and has refused pain meds this shift. Patient has had several loose incontinent bowel movements this shift. Patient denies nausea, SOB, and dizziness. Shingles rash to torso is still erythemic with fluid-filled blisters forming anteriorly. Blisters are intact. Patient denies itchiness; encouraged not to scratch or scrub when bathing. CMS is intact; pulses palpable and strong bilaterally. Patient demonstrates ability to transfer 2PA to [facility] with walker/gb. Patient states she feels very weak and tired. Patient states she does not want to eat because she's afraid of having more loose stools. Patient has been encouraged by family to stop taking bowel medications such as senna and docusate; patient refused tonight's doses. Patient encouraged by family to stop taking anti-viral medication; nowhere in the medical reference does it say one of the side effects is diarrhea/loose stools/fecal incontinence. This RN printed out medication information reference from patient's EMAR and gave it to patient's . This RN offered anti-viral medication to patient at as ordered and patient agreed to take it. This RN and patient's family have encouraged patient to eat food; This RN gave patient ensure to drink, patient drank the whole thing along with some cream of chicken soup. Patient now continent of stool; has called in last 2 hours to use BSC. Stool is still loose. Call light is in reach, BA active, will continue to monitor.
[2018-01-02] VITALS: BP 146/76; PULSE 70; RESP 18; TEMP 37; O2SAT 95
--- NOTE | 2018-01-02 00:57 | PC.NURSE ---
Alert/oriented. Denies any pain/discomfort. 1 person assist w/gait belt and FWW to bedside commode. Urinated 300cc of clear yellow urine. No stool at this time. IV fluids infusing per orders. Patient has requested that the IV fluids be stopped. Bed alarm on and call light within reach.
[2018-01-02 03:00] VITALS: BP 151/72; PULSE 69; RESP 18; TEMP 37.1; O2SAT 92
[2018-01-02] MEDS: PANTOPRAZOLE 20 MG TABLET PO (06:28)
[2018-01-02 08:00] VITALS: BP 142/85; PULSE 76; RESP 16; TEMP 36.7; O2SAT 96
[2018-01-02] MEDS: ATORVASTATIN 10 MG TABLET PO (08:37)
[2018-01-02] MEDS: PROPRANOLOL 10 MG TABLET PO ×2 (08:37→20:43)
--- NOTE | 2018-01-02 11:45 | CM.DPC ---
DCP Cont: Spoke with Dr. Maldonado, he stated that he had concerns about patient returning home. Stated that patient had fall here yesterday, and is thin and frail. Met with daughter, who is nurse practitioner. Asked her if she felt that patient would benefit from prison. Stated that her mom will not go into skilled facility, and that both her parents are against it. Did discuss home health for physical therapy, and she stated that they may agree to this. Gave her Medicare Choice list for home health agencies. P: DCP to continue to assess and find outcome of decision with home health. Consult with surgeon tomorrow if home health will be in the works, and can sign face to face. Malaika Osuna RN/Real Estate Account Executive
[2018-01-02 12:00] VITALS: BP 138/77; PULSE 70; RESP 18; TEMP 36; O2SAT 94
[2018-01-02] MEDS: POTASSIUM CHLORIDE 20 MEQ TAB PO (12:23)
[2018-01-02] MEDS: GABAPENTIN 300 MG CAPSULE PO (12:23)
[2018-01-02] MEDS: TRAMADOL 50 MG TABLET PO ×2 (12:59→20:43)
--- NOTE | 2018-01-02 13:09 | PC.NURSE ---
Addendum entered by Adama Kingston R.N. 01/02/18 14:31: applied abd pads x3 over intact blisters to under right breast and right side and right back areas and secured with mesh underwear w/ crotch cut out. Original Note: c/o pain to bl gluteus muscles 0/10 at rest. 10/10 with activity. dtr suggested tramadol for pain. md agreed. given per new order. family bringing in food for her to help promote appetite. eating rice and steamed veggies.
--- NOTE | 2018-01-02 13:33 | OT.IP.EVAL ---
Current Diagnoses Zoster without complications (12/28/17) Past Medical History (Last Reviewed 12/29/17 @ 20:26 by Lucia Stanley MD) Bilateral lower extremity edema (Chronic) Anxiety (Chronic Unknown) Benign essential tremor (Chronic Unknown) Chronic cough (Chronic Unknown) Glaucoma (Chronic Unknown) Hyperlipemia (Chronic 2016) Osteoarthritis (Chronic 2006) Recurrent sinusitis (Chronic Unknown) Cataracts, bilateral (Resolved Unknown) Chickenpox (Resolved 1950) Colon polyps (Resolved 01/2015) Measles (Resolved) Mumps (Resolved) Pneumonia (Resolved Unknown) Surgical History (Last Reviewed 12/29/17 @ 20:26 by Lucia Stanley MD) History of cataract removal with insertion of prosthetic lens Occupational Therapy Inpatient Evaluation/Re-Eval M1 PT/OT-IP Prior Functional Status Start: 12/31/17 15:28 Freq: Status: Active Protocol: Document 01/01/18 11:35 [facility] (Rec: 01/01/18 13:06 [facility] [id number]) Medical Review Prior Functional Status Medical History Reviewed Yes Diet/Fluid Consistency Regular Communication WNL Mobility and Gait indep. community ambulator without device Activities of Daily Living and IADL's indep. ADLs Social History Household Members spouse Living Arrangements House Number of Floors (Floors) Two Floors Number of Stairs To Enter/Railing? 3 SE rail on R ascending, no need to get to upper level ( all needs on main level) Home Environment Walk in Shower Home Equipment Straight Cane Grab Bars In Shower M1 PT/OT-IP Prior Functional Status Start: 01/02/18 13:13 Freq: NEEDED Status: Active Protocol: Document 01/02/18 13:14 [facility] (Rec: 01/02/18 13:33 [facility] [id number]) Medical Review Prior Functional Status Medical History Reviewed Yes Diet/Fluid Consistency Regular Communication WNL Mobility and Gait indep. community ambulator without device Activities of Daily Living and IADL's indep. ADLs Social History Household Members spouse Living Arrangements House Number of Floors (Floors) Two Floors Number of Stairs To Enter/Railing? 3 SE rail on R ascending, no need to get to upper level ( all needs on main level) Home Environment Walk in Shower Home Equipment Straight Cane Grab Bars In Shower M2 OT-IP Current Condition Start: 01/02/18 13:13 Freq: Status: Active Protocol: Document 01/02/18 13:14 [facility] (Rec: 01/02/18 13:33 [facility] [id number]) Occupational Therapy Current Condition Current Condition Evaluation Date 01/02/18 Treatment Diagnosis Zoster,weakness Diagnosis Onset Date 12/28/17 Post Operative Precautions Other Precautions Contact precautions: Shingles M3 OT- IP Subjective and Pain Start: 01/02/18 13:13 Freq: Status: Active Protocol: Document 01/02/18 13:14 [facility] (Rec: 01/02/18 13:33 [facility] [id number]) OT- Subjective Occupational Therapy Visit Type Type Initial Evaluation Visit Start Time 11:15 Visit Stop Time 12:20 Total Visit Minutes 65 Occupational Therapy Visit Comments Patient Comments Pt wanting to shower and wanting to go home versus OT recommendation of skilled rehab. OT Pain Assessment Pain When Pain Assessed At Rest Pain Present Pain Present Denied Pain M4 OT- IP ADL's Start: 01/02/18 13:13 Freq: Status: Active Protocol: Document 01/02/18 13:14 [facility] (Rec: 01/02/18 13:33 [facility] [id number]) OT ADL-Dressing General Eval Upper Body Dressing Ability Standby Assistance Lower Body Dressing Ability Maximum Assistance Areas Needing Assistance Underpants/Brief Socks Comments OT Dressing Comments Pt needing assist for LB dressing due to pain when trying to lean forwards. Showed pt AED, but states will assist for all needs of ADL's. OT ADL-Toileting General Evaluation Toileting Ability Minimal Assistance Areas Needing Assistance Manage Clothing Devices Toileting Assistive Devices Grab Bars Comments OT Toileting Comments Trained pt's to assist in the bathroom for toileting and needing cues to have hands on her at all times and pt very unsteady especially when not holding to FWW or grab bar. Pt would benefit from more family training to be able to assist safely for all needs. OT ADL-Bathing Bathing Type Bathing Type Shower General Evaluation Bathing Ability Moderate Assistance Areas Needing Assistance Wash/Dry Back Wash/Dry Lower Extremities Devices Bathing Equipment Hand Held Shower Sprayer Shower Chair without Arms Grab Bars Comments OT Bathing Comments Pt needing assist to wash lower legs and feet and back. KELLY for balance while standing for pericare needs. Pt will benefit from shower chair and BSC at home. Pt had loss of balance while standing and therapist had to guard pt from falling-MODA. M6 OT- IP Functional Cognition Start: 01/02/18 13:13 Freq: Status: Active Protocol: Document 01/02/18 13:14 [facility] (Rec: 01/02/18 13:33 [facility] [id number]) Cognitive Factors Limiting Selfcare Function Cognitive Ability Level of Alertness Alert Patient Orientation Name Place Situation Attention Span Ability Capable of Focused Attention Capable of Sustained Attention Ability to Follow Commands Able to Follow One Step Commands Memory Description Short Term Impaired Safety Awareness Underestimates Need for Assistance Problem Solving Ability Needs Assist to Identify Solutions Cognitive Comments Cognitive Assessment Comments Pt needs cue for safety and encourage pt to communicate with her when needing assist. Pt vc to keep FWW close to her at all times, push up and reach for armrests when sitting down. OT- Vision and Hearing OT- Hearing Assessment OT- Hearing Assessment WFL M7 OT- IP Mobility and Balance Start: 01/02/18 13:13 Freq: Status: Active Protocol: Document 01/02/18 13:14 [facility] (Rec: 01/02/18 13:33 [facility] [email or web address]) OT- Bed Mobility Assessment Rolling Type of Rolling Roll to Right Supine to Sit Supine to Sit Assist Moderate Assistance 1 Person Assistance OT-Transfer Assessment Sit to and From Stand Sit to and from Stand Minimal Assistance Moderate Assistance Transfers Transfer Ability Contact Guard Assistance Minimal Assistance 1 Person Assistance Technique Transfer Destination Bed Chair Toilet Transfer Technique Stand Step Pivot Devices Transfer Assistive Devices Gait Belt Front Wheeled Walker Comments Mobility Comments Pt prefers youth FWW, therefore to request for orders prior to going home if pt's plans are to still go home, case management aware. Pt will need more training to be able to assist pt safely for bed mobility, in addition pt has a high bed at home. OT- Balance Assessment Sitting Balance and Reactions Static Sitting Balance Ability Good Dynamic Sitting Balance Ability Fair Standing Balance and Reactions Static Standing Balance Ability Poor Dynamic Standing Balance Ability Poor M8 OT- IP Objective Assessments Start: 01/02/18 13:13 Freq: Status: Active Protocol: Document 01/02/18 13:14 [facility] (Rec: 01/02/18 13:33 [facility] [email or web address]) OT Gross Range of Motion Upper Extremity Range of Motion Assessment Within Functional Limits OT Strength Comments Strength Comments 4-/5 for BUE strength. M9 OT- IP Assessment and Plan Start: 01/02/18 13:13 Freq: Status: Active Protocol: Document 01/02/18 13:14 [facility] (Rec: 01/02/18 13:33 [facility] [email or web address]) OT Summary Assessment and Plan Potential Rehabilitation Potential Good Analytic Complexity at Evaluation Moderate Summary OT Impairments Pain Strength Balance Functional Cognition Functional Mobility Dressing Toileting Bathing Toilet Transfers Shower Transfers Progress Towards Goals Slow Progress due to Pain Slow Progress due to Medical Issues Slow Progress due to Activity Tolerance Slow Progress due to Cognition Assessment Summary Pt MOD complexity and main barriers are steps, activity tolerance, safety awareness, high fall risk and that will need more family training for safety to assist pt prior to going home. Pt would benefit from skilled rehab prior to going home, pt prefers home with home health. Goals Grooming Goal Standby Assistance Dressing Goal Minimal Assistance Toileting Goal Standby Assistance Bathing Goal Minimal Assistance Toilet Transfer Goal Standby Assistance Shower Transfer Goal Contact Guard Assistance Patient/Caregiver Education Goal Caregiver Independent Assisting Patient Days to Meet Goals 3 Frequency of Treatment Frequency Of Treatment Once a Day Treatment Plan OT Treatment Plan ADL Training Functional Cognition Training Functional Mobility Patient/Family Education Discharge Planning Other Treatment Recommendations and Next Family training with . Treatment Focus Discharge Recommendations OT Discharge Recommendations SNF Rehab Other Discharge Recommendations Pt refusing SNF, therefore hoem with 15/11 assist and HH. Recommended to daughter to also be there when discharged especially for the first night if possible. Home Equipment Needs Shower chair, BSC, youth FWW
--- NOTE | 2018-01-02 14:37 | PT.IPTN ---
Current Diagnoses Zoster without complications (12/28/17) Physical Therapy Treatment Note Physical Therapy Current Condition Current Condition Evaluation Date 01/01/18 Treatment Diagnosis abdominal pain, impaired activity tolerance Onset Date 12/28/17 Precautions Other Precautions Contact precautions: Shingles Subjective Physical Therapy Visit Type Type Treatment Note Visit Start Time 14:04 Visit Stop Time 14:29 Total Visit Minutes 25 Physical Therapy Visit Comments Patient Comments Pt feels like she's doing better, is adamant that she doesn't want to go to rehab. Short Term Goals go directly home Therapy Pain Assessment Pain When Pain Assessed During Mobility Pain Present Pain Present Denied Pain PT-Transfer Assessment Sit to and From Stand Sit to and from Stand Standby Assistance Equipment Transfer Assistive Device Gait Belt Front Wheeled Walker Transfers Transfer Destination Chair Toilet Transfer Technique Stand Step Pivot Transfer Ability Level of Assist Standby Assistance Use of Upper Extremities Comments Mobility Comments Pt did not perform bed mobility this session. For sit <>stand transfers pt was supervision, almost mod ind w/ FWW. Gait Assessment Gait Gait Assistance Required: Standby Assistance Distance (Feet) (feet) 60 Assistive Devices Assistive Device Gait Belt Front Wheeled Walker Gait Deviations General Gait Pattern Decreased Stride Length Factors Limiting Gait Function Factors Limiting Gait Function Decreased Activity Tolerance Comments Gait Comments Pt wanting to rest after walking 30ft to the stairs, performing stairs, then walking 30ft back toward room. Stair Climbing Assessment Evaluation Level of Assist On Stairs Standby Assistance Devices Stair Climbing Assistive Devices Left Railing Technique/Endurance Stair Climbing Direction Ascend and Descend Stair Climbing Technique Step to Step Number of Steps Climbed 3 Query Text: Comments Stair Climbing Comments Pt reports she already does stairs with the step-to technique. PT-Balance Assessment Sitting Balance and Reactions Static Sitting Balance Ability Normal Dynamic Sitting Balance Ability Good Standing Balance and Reactions Static Standing Balance Ability Good Device Used FWW Orientation Orientation/Cognition Level of Alertness Alert Safety Awareness Understands Safety Issues Strength Lower Extremity Strength Hip flexion 4/5 B, IR and ER 3+/5 B Knee flexion 4/5 B, ext 4+/5 B Ankle DF 5/5 B Physical Therapy Treatment Education Education Provided Safety PT Summary Assessment and Plan Potential Rehabilitation Potential Good Status of Condition at Evaluation Stable Summary Impairments Strength Balance Bed Mobility Gait Activity Tolerance Progress Towards Goals Progressing Toward Goals Assessment Summary Pt does require SBA for most mobility with use of a FWW. This is below pt's reported functional baseline, however, pt does have good potential for continued gains in her functional mobility. Pt will benefit from ongoing skilled therapies. Pt is safe to discharge directly home, so PT can be administered at the home health level. Pt will likely transition to outpatient PT eventually, which is her desire. Pt is agreeable to this overall plan . Pt also needs a FWW for safe mobility. Will coordinate with DCP and family as to how this will be acquired. Goals Bed Mobility Goal Independent Transfer Goal Independent Gait Goal Independent Cane Gait Distance 300 Other Goals up/down 3 steps with unilateral rail and SBA. Days to Meet Goals 2 Frequency of Treatment Frequency Of Treatment Once a Day Treatment Plan Other Recommendations and Next Treatment follow-up regarding a FWW for Focus home Recommendations To Nursing Amount of Assist Needed 1 Person Assist Discharge Recommendations PT Discharge Recommendations Home with Assistance Home Health Equipment Needed for Home Before needs FWW Discharge
[2018-01-02 15:45] VITALS: BP 138/66; PULSE 65; RESP 12; TEMP 36.8; O2SAT 97
[2018-01-02 16:12] VITALS: BMI 17.4
[2018-01-02 20:35] VITALS: BP 145/75; PULSE 70; RESP 16; TEMP 36.8; O2SAT 95
[2018-01-02] MEDS: DOCUSATE 100 MG CAPSULE PO (20:43)
--- NOTE | 2018-01-02 21:33 | PM.PN.1 ---
Subjective Date Patient Seen: 01/02/18 Interval history: The patient was seen early this morning and again this evening at about 6:00 p.m.. Her was in the room at the time of my visits. This morning she complained of some pain in her buttock where she fell. Her abdomen was feeling better. The pain from her shingles was under control though still present. This evening she was sitting up in a chair eating after walking. She looked much more alert and comfortable. The pain or buttock had pretty much dissipated with the use of tramadol she said. She had also received gabapentin this morning which may have helped as well. The patient felt that the van psych live ear was causing her to have a dry mouth and nausea and also wanted the stool softener. Because she had multiple episodes of diarrhea. She declined all of those meds this morning. And I stopped all of them at her request. Exam Vital Signs (past 8 hours): - 01/02/18 15:45 Temperature 98.3 F Pulse Rate 65 Respiratory Rate 12 Blood Pressure 138/66 Pulse Oximetry 97 Oxygen Delivery Method Room Air Oxygen Flow Rate 0 Narrative Exam Narrative: Lungs clear bilaterally. Heart regular rate and rhythm. She has a soft 1 out it to 2/6 systolic murmur heard best at the base without radiation into the neck. 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 The rash has some large bull IN it which I expect will eventually open. The area of her buttock is without visible lesion. There is no bruising and no palpable abnormality. Basically it is over ischial tuberosities. Objective Labs Result Diagrams: 12/31/17 06:38 12/31/17 06:38 Assessment & Plan Plan: Assessment/Plan Narrative: Patient is doing better. Her family does want to take her home. Therefore web content & social media manager talked with her and are arranging home health. Her also arranging for any ?but needs they might have. That should all be in order by tomorrow at which time we can probably discharge the patient. Her antiviral has been stopped as at this point it might shorten her symptoms but basically this disease process needs to run its course and therefore she does not want to continue it. Quality VTE Deep Vein Thrombosis/Pulmonary Embolism Present on Admission: No
[2018-01-03] VITALS (7 sets, daily range): BP systolic 132–147; BP diastolic 68–88; PULSE 61–77; RESP 16–73; TEMP 36.6–36.9; O2SAT 94–97
--- NOTE | 2018-01-03 | DI.RAD.S_ITS ---
PROCEDURE: FL BARIUM ENEMA INDICATIONS: prove/disprove distal obstruction.USE WATER SOLUBLE CONTRAST COMPARISON: [facility], CR, XR ACUTE ABDOMEN SERIES, 12/30/2017, 20:58. [facility], CT, CT ABDOMEN PELVIS W CON, 12/28/2017, 18:59. [facility], CR, XR PELVIS 1-2V, 12/31/2017, 8:42. [facility], CR, XR ABDOMEN MIN 2V, 01/03/2018, 13:27. FINDINGS: The examination was performed without oral preparation. A single column enema with Gastrografin contrast was obtained to evaluate distal colon for possible distal colonic obstruction. Colon loops are in caliber measuring up to 5 cm distally and 6.5 cm proximally. No evidence for focal stricture, intrinsic or extrinsic mass effect. Filling defects in colon and are most likely caused by retained stools. IMPRESSION: No evidence for distal colonic stricture. Mild diffuse distention of colon may be secondary to adynamic ileus. Recommend clinical correlation. Filling defects in colon are compatible with retained stools. Dictated by: Yamile Minaya M.D. on 01/03/2018 at 16:32 Approved by: Yamile Minaya M.D. on 01/03/2018 at 16:41
--- NOTE | 2018-01-03 | DI.RAD.S_ITS ---
PROCEDURE: XR ABDOMEN MIN 2V INDICATIONS: new distention and cramping TECHNIQUE: 2 views of the abdomen were acquired. COMPARISON: [facility], CR, XR ACUTE ABDOMEN SERIES, 12/30/2017, 20:58. [facility], CR, XR PELVIS 1-2V, 12/31/2017, 8:42. FINDINGS: Surgical changes and devices: None. Bowel: No pneumoperitoneum. There is increased marked gaseous distention throughout the bowel predominantly involving the colon measuring up to approximately 8 cm in diameter. Soft tissues: No suspicious abdominal calcifications. There are persistent small bilateral pleural effusions with probable left basilar atelectasis. Bones: No suspicious bony abnormalities. IMPRESSION: 1. Increased marked gaseous distention of bowel loops including throughout the colon. The findings may represent a distal obstruction or an ileus. Recommend correlation clinically and further evaluation with CT if indicated. Dictated by: Anthony Butcher M.D. on 01/03/2018 at 14:42 Approved by: Anthony Butcher M.D. on 01/03/2018 at 14:46
[2018-01-03] MEDS: ACETAMINOPHEN 325 MG TABLET 650 MG PO (00:13)
[2018-01-03] MEDS: KETOROLAC 10 MG TABLET PO (05:22)
[2018-01-03] MEDS: PANTOPRAZOLE 20 MG TABLET PO (06:41)
[2018-01-03] MEDS: PROPRANOLOL 10 MG TABLET PO ×2 (08:12→20:34)
[2018-01-03] MEDS: LACTULOSE 20 GM/30 ML SOLUTION PO (08:12)
[2018-01-03] MEDS: DOCUSATE 100 MG CAPSULE PO ×2 (08:12→20:34)
[2018-01-03] MEDS: ATORVASTATIN 10 MG TABLET PO (08:12)
[2018-01-03] MEDS: TRAMADOL 50 MG TABLET PO (08:12)
--- NOTE | 2018-01-03 11:14 | PT.IPTN ---
Current Diagnoses Zoster without complications (12/28/17) Physical Therapy Treatment Note M2 PT-IP Current Condition Start: 12/31/17 15:28 Freq: Status: Active Protocol: Document 01/01/18 11:35 [facility] (Rec: 01/01/18 13:06 [facility] [id number]) Physical Therapy Current Condition Current Condition Evaluation Date 01/01/18 Treatment Diagnosis abdominal pain, impaired activity tolerance Onset Date 12/28/17 Precautions Other Precautions Contact precautions: Shingles M3 PT-IP Subjective Start: 12/31/17 15:28 Freq: Status: Active Protocol: Document 01/03/18 11:07 [facility] (Rec: 01/03/18 11:14 [facility] [id number]) Subjective Physical Therapy Visit Type Type Treatment Note Visit Start Time 10:43 Visit Stop Time 11:08 Total Visit Minutes 25 Physical Therapy Visit Comments Patient Comments reports she feels she will be ok at home and agrees Short Term Goals go directly home Therapy Pain Assessment Pain When Pain Assessed During Mobility Pain Present Pain Present Pain Reported M4 PT-IP Mobility and Gait Start: 12/31/17 15:28 Freq: Status: Active Protocol: Document 01/03/18 11:07 [facility] (Rec: 01/03/18 11:14 [facility] [id number]) PT-Bed Mobility Assessment Supine to Sit Supine to Sit Standby Assistance PT-Transfer Assessment Sit to and From Stand Sit to and from Stand Standby Assistance Equipment Transfer Assistive Device Gait Belt Front Wheeled Walker Transfers Transfer Destination Toilet Transfer Ability Level of Assist Standby Assistance Use of Upper Extremities Gait Assessment Gait Gait Assistance Required: Standby Assistance Distance (Feet) (feet) 75 Assistive Devices Assistive Device Gait Belt Front Wheeled Walker Gait Deviations General Gait Pattern Decreased Stride Length Comments Gait Comments Improved gait ability on level surface today, with patient. M5 PT-IP Objective Assessments Start: 12/31/17 15:28 Freq: Status: Active Protocol: Document 01/01/18 11:35 [facility] (Rec: 01/01/18 13:06 [facility] [id number]) Orientation Orientation/Cognition Level of Alertness Alert Safety Awareness Understands Safety Issues Strength Lower Extremity Strength Hip flexion 4/5 B, IR and ER 3+/5 B Knee flexion 4/5 B, ext 4+/5 B Ankle DF 5/5 B M6 PT-IP Treatment Start: 12/31/17 15:28 Freq: Status: Active Protocol: Document 01/02/18 14:29 RS (Rec: 01/02/18 14:37 RS [id number]) Physical Therapy Treatment Education Education Provided Safety M7 PT-IP Assessment and Plan Start: 12/31/17 15:28 Freq: Status: Active Protocol: Document 01/03/18 11:07 [facility] (Rec: 01/03/18 11:14 [facility]AK [id number]) PT Summary Assessment and Plan Potential Rehabilitation Potential Good Status of Condition at Evaluation Stable Summary Impairments Strength Balance Bed Mobility Gait Activity Tolerance Progress Towards Goals Progressing Toward Goals Assessment Summary Pt does require SBA for most mobility with use of a FWW. This is below pt's reported functional baseline, however, pt does have good potential for continued gains in her functional mobility. Pt will benefit from ongoing skilled therapies. Pt is safe to discharge directly home, so PT can be administered at the home health level. Pt will likely transition to outpatient PT eventually, which is her desire. Pt is agreeable to this overall plan . Pt also needs a FWW for safe mobility. Will coordinate with DCP and family as to how this will be acquired. Goals Bed Mobility Goal Independent Transfer Goal Independent Gait Goal Independent Cane Gait Distance 300 Other Goals up/down 3 steps with unilateral rail and SBA. Days to Meet Goals 2 Frequency of Treatment Frequency Of Treatment Once a Day Recommendations To Nursing Amount of Assist Needed 1 Person Assist Discharge Recommendations PT Discharge Recommendations Home with Assistance Home Health Equipment Needed for Home Before needs FWW; to get Discharge
--- NOTE | 2018-01-03 11:40 | OT.IP.TRT ---
Current Diagnoses Zoster without complications (12/28/17) Occupational Therapy Treatment Note M2 OT-IP Current Condition Start: 01/02/18 13:13 Freq: Status: Active Protocol: Document 01/02/18 13:14 [facility] (Rec: 01/02/18 13:33 [facility] [id number]) Occupational Therapy Current Condition Current Condition Evaluation Date 01/02/18 Treatment Diagnosis Zoster,weakness Diagnosis Onset Date 12/28/17 Post Operative Precautions Other Precautions Contact precautions: Shingles M3 OT- IP Subjective and Pain Start: 01/02/18 13:13 Freq: Status: Active Protocol: Document 01/03/18 11:34 [facility] (Rec: 01/03/18 11:40 [facility] [id number]) OT- Subjective Occupational Therapy Visit Type Type Treatment Note Visit Start Time 09:00 Visit Stop Time 09:30 Total Visit Minutes 30 OT Pain Assessment Pain When Pain Assessed At Rest Pain Present Pain Present Denied Pain M4 OT- IP ADL's Start: 01/02/18 13:13 Freq: Status: Active Protocol: Document 01/02/18 13:14 [facility] (Rec: 01/02/18 13:33 [facility] [id number]) OT ADL-Dressing General Eval Upper Body Dressing Ability Standby Assistance Lower Body Dressing Ability Maximum Assistance Areas Needing Assistance Underpants/Brief Socks Comments OT Dressing Comments Pt needing assist for LB dressing due to pain when trying to lean forwards. Showed pt AED, but states will assist for all needs of ADL's. OT ADL-Toileting General Evaluation Toileting Ability Minimal Assistance Areas Needing Assistance Manage Clothing Devices Toileting Assistive Devices Grab Bars Comments OT Toileting Comments Trained pt's to assist in the bathroom for toileting and needing cues to have hands on her at all times and pt very unsteady especially when not holding to FWW or grab bar. Pt would benefit from more family training to be able to assist safely for all needs. OT ADL-Bathing Bathing Type Bathing Type Shower General Evaluation Bathing Ability Moderate Assistance Areas Needing Assistance Wash/Dry Back Wash/Dry Lower Extremities Devices Bathing Equipment Hand Held Shower Sprayer Shower Chair without Arms Grab Bars Comments OT Bathing Comments Pt needing assist to wash lower legs and feet and back. KELLY for balance while standing for pericare needs. Pt will benefit from shower chair and BSC at home. Pt had loss of balance while standing and therapist had to guard pt from falling-MODA. M6 OT- IP Functional Cognition Start: 01/02/18 13:13 Freq: Status: Active Protocol: Document 01/03/18 11:34 [facility] (Rec: 01/03/18 11:40 [facility] [id number]) Cognitive Factors Limiting Selfcare Function Cognitive Ability Level of Alertness Alert Patient Orientation Name Place Situation Attention Span Ability Capable of Focused Attention Capable of Sustained Attention Ability to Follow Commands Able to Follow One Step Commands Memory Description Short Term Impaired Cognitive Comments Cognitive Assessment Comments Pt doing better with safety awareness and pt's much improved with assisting and helping pt today. OT- Vision and Hearing OT- Hearing Assessment OT- Hearing Assessment WFL M7 OT- IP Mobility and Balance Start: 01/02/18 13:13 Freq: Status: Active Protocol: Document 01/03/18 11:34 [facility] (Rec: 01/03/18 11:40 [facility] [id number]) OT- Bed Mobility Assessment Rolling Type of Rolling Roll to Right Supine to Sit Supine to Sit Assist Contact Guard Assistance Minimal Assistance OT-Transfer Assessment Sit to and From Stand Sit to and from Stand Contact Guard Assistance Transfers Transfer Ability Contact Guard Assistance Minimal Assistance 1 Person Assistance Technique Transfer Destination Bed Toilet Devices Transfer Assistive Devices Gait Belt Front Wheeled Walker Comments Mobility Comments Order received for youth FWW. Pt's much improved and very attentive to assist pt for all needs. Suggested pt's to hold FWW next to the bed so pt able to use as bed rail to increase independence with bed mobility. OT- Balance Assessment Sitting Balance and Reactions Static Sitting Balance Ability Normal Dynamic Sitting Balance Ability Good Standing Balance and Reactions Static Standing Balance Ability Good Dynamic Standing Balance Ability Fair M8 OT- IP Objective Assessments Start: 01/02/18 13:13 Freq: Status: Active Protocol: Document 01/02/18 13:14 [facility] (Rec: 01/02/18 13:33 [facility] [id number]) OT Gross Range of Motion Upper Extremity Range of Motion Assessment Within Functional Limits OT Strength Comments Strength Comments 4-/5 for BUE strength. M9 OT- IP Assessment and Plan Start: 01/02/18 13:13 Freq: Status: Active Protocol: Document 01/03/18 11:34 [facility] (Rec: 01/03/18 11:40 [facility] [email or web address]) OT Summary Assessment and Plan Goals Days to Meet Goals 2 Frequency of Treatment Frequency Of Treatment Once a Day Treatment Plan OT Treatment Plan ADL Training Functional Cognition Training Functional Mobility Patient/Family Education Discharge Planning Discharge Recommendations OT Discharge Recommendations Home with 15/11 Assist Home Health Other Discharge Recommendations Much improved today and pt's able to safely assist pt for bed mobility and bathroom needs. Home Equipment Needs Shower chair, BSC, youth FWW
[2018-01-03] MEDS: BISACODYL 10 MG SUPP PR (12:39)
--- NOTE | 2018-01-03 13:31 | PM.PN.1 ---
Subjective Date Patient Seen: 01/03/18 Time Patient Seen: 13:00 Interval history: Patient is a woman who we had plan to discharge today to home. She has a severe case of shingles causing abdominal pain. She has developed crampy abdominal pain this morning with distension. No nausea or vomiting but she is not eating. Past just a little bit of flatus couple minutes ago. Exam Vital Signs (past 8 hours): - 01/03/18 08:27 01/03/18 12:00 Temperature 98.4 F 97.8 F Pulse Rate 66 61 Respiratory Rate 16 18 Blood Pressure 132/78 Pulse Oximetry 97 96 Oxygen Delivery Method Room Air Oxygen Flow Rate 0 Narrative Exam Narrative: Lungs are clear. Abdomen is distended soft. No clearly larger than yesterday. Objective Labs Result Diagrams: 12/31/17 06:38 12/31/17 06:38 Assessment & Plan Plan: Assessment/Plan Narrative: Recurrent abdominal distension. Tramadol and gabapentin were started yesterday and patient desired to be stopped from various stool softeners. This may simply be the effect of the tramadol. Nursing has avoided the use of narcotics. I will repeat her plain x-rays and see what change has occurred. Quality VTE Deep Vein Thrombosis/Pulmonary Embolism Present on Admission: No
[2018-01-03] MEDS: GABAPENTIN 300 MG CAPSULE PO (13:37)
--- NOTE | 2018-01-03 13:53 | CM.DPC ---
Placed face to face form near patient's red chart, should she be discharged, for family had stated that home health therapy may be more beneficial for her. Had already given Medicare choice list to patient's daughter, have not yet heard which agency she would want. Patient not yet discharged since she was having some abdominal distension. P: DCP to continue to assess, and communicate with patient and daughter regarding home health services at discharge. Malaika Osuna RN/Respiratory Care Instructor
--- NOTE | 2018-01-03 14:17 | PC.NURSE ---
Addendum entered by Adama Kingston R.N. 01/03/18 15:14: patient had tiny flakes of stool with tablespoon of yellowish mucous. report given to roger tom rn. Original Note: see hcp notification intervention r/t notify of patient's bowel pain 12/02. patient is now passing lg amts of flatus after suppository given. abd xray's already completed. patient sitting on commode at this time. has had only sm smear so far.
--- NOTE | 2018-01-03 19:17 | PC.NURSE ---
Barrium enema complete. Patient has been having mostly clear mucous stool, now starting to pass some small pieces of formed brown stool. Sample sent to lab to r/o C-diff and culture.
[2018-01-03 20:28] LABS: Clostridium Difficile Tox PCR Negative for C. diff
[2018-01-03 23:25] LABS: Adenovirus F 40/41 Not Detected (Not Detect); Astrovirus Not Detected (Not Detect); Campylobacter Not Detected (Not Detect); Clostridium difficile toxin AB Not Detected (Not Detect); Cryptosporidium Not Detected (Not Detect); Cyclospora cayetanensis Not Detected (Not Detect); Entamoeba histolytica Not Detected (Not Detect); Enteroaggregative E.coli Not Detected (Not Detect); Enteropathogenic E.coli Not Detected (Not Detect); Enterotoxigenic E.coli It/st Not Detected (Not Detect); Giardia lamblia Not Detected (Not Detect); Norovirus GI/GII Not Detected (Not Detect); Plesiomonsa shigelloides Not Detected (Not Detect); Rotavirus A Not Detected (Not Detect); Salmonella Not Detected (Not Detect); Shiga-like toxin-prod E.coli Not Detected (Not Detect); Shigella/Enteroinvasive E.coli Not Detected (Not Detect); Vibrio Not Detected (Not Detect); Vibrio cholerae Not Detected (Not Detect); Yersinia enterocolitica Not Detected (Not Detect)
[2018-01-04] MEDS: ACETAMINOPHEN 325 MG TABLET 650 MG PO (01:30)
--- NOTE | 2018-01-04 02:54 | PC.NURSE ---
Addendum entered by Ga Goldstein R.N. 01/04/18 06:21: 0600: Pt awake, assisted to bathroom to void. Steady on her feet with walker. Pt required minimal assistance to get up to sitting position in bed, and then stand. She states that the Tylenol helped her a lot and her pain is gone. Original Note: Status Controller Note: 0115: Awake, alert. Assisted up to bathroom with walker. Steady on her feet but weak. Dressings over Shingles lesions intact; lesions on rt side of back are weepy, with light brown exudate. Saline lock in place in lt wrist. Sitting up eating snack.
[2018-01-04] MEDS: PANTOPRAZOLE 20 MG TABLET PO (05:58)
[2018-01-04 06:21] VITALS: BP 149/85; PULSE 69; RESP 16; TEMP 36.8; O2SAT 94
[2018-01-04 07:25] VITALS: BP 150/74; PULSE 69; RESP 20; TEMP 36.9; O2SAT 96
[2018-01-04] MEDS: DOCUSATE 100 MG CAPSULE PO (08:30)
[2018-01-04] MEDS: ATORVASTATIN 10 MG TABLET PO (08:30)
[2018-01-04] MEDS: GABAPENTIN 300 MG CAPSULE PO (08:30)
[2018-01-04] MEDS: PROPRANOLOL 10 MG TABLET PO (08:30)
[2018-01-04 12:18] VITALS: BP 145/77; PULSE 75; RESP 20; TEMP 36.8; O2SAT 96
--- NOTE | 2018-01-04 15:15 | PT.IPTN ---
Current Diagnoses Zoster without complications (12/28/17) Physical Therapy Treatment Note M2 PT-IP Current Condition Start: 12/31/17 15:28 Freq: Status: Active Protocol: Document 01/01/18 11:35 [facility] (Rec: 01/01/18 13:06 [facility] [id number]) Physical Therapy Current Condition Current Condition Evaluation Date 01/01/18 Treatment Diagnosis abdominal pain, impaired activity tolerance Onset Date 12/28/17 Precautions Other Precautions Contact precautions: Shingles M3 PT-IP Subjective Start: 12/31/17 15:28 Freq: Status: Active Protocol: Document 01/04/18 15:10 [facility] (Rec: 01/04/18 15:13 [facility] [id number]) Subjective Physical Therapy Visit Type Type Patient Refusal Notes Pt reported that she just got into a comfortable position on the chair and didn't want to move. Stated she had already done stairs and had FWW for day of discharge. Spoke to pt about importance of movement in rehabilitation and provided education on seated exercises perform Therapy Pain Assessment Pain When Pain Assessed At Rest Discharge
--- NOTE | 2018-01-04 16:07 | P.DS_ITS ---
History of Present Illness Date Patient Seen: 01/04/18 Time Patient Seen: 16:04 Chief complaint: Fall and pain Narrative: Wonderful and remarkably healthy 77-year-old lady who is well known to me from prior visits. She presented to the emergency room early this morning complaining of abdominal pain. She also mentioned that she had had several days of decreasing appetite and had some nausea when she was standing. She was seen and evaluated by the ER staff who and noted to have what appeared to be a colonic obstruction on CT. She was admitted to my service for definitive care. Discharge Providers Date of admission: 12/28/17 20:28 Primary care physician: Shirlene Haley DO Consults: 12/28/17 20:59 Consult to General Surgery Routine Comment: Consulting Provider: Lucia Stanley Reason for consultation: colon obstruction Has provider been notified: Yes 12/30/17 18:06 Consult to Physical Therapy Evaluate & Treat Comment: poor balance, weakness Physician Instructions: Evaluate and Treat 12/31/17 10:03 Consult to Hospitalist Service Routine Comment: Dr. Justice Consulting Provider: [facility] Reason for consultation: shingles, pain Has provider been notified: Yes 12/31/17 10:51 Consult to Dietitian, Adult Routine Comment: Reason For Exam: malnutrition, protein supplementation 12/31/17 17:32 Consult to Dietitian, Adult Routine Comment: Reason For Exam: low pili score; pt here for possible ileus 01/01/18 13:08 Consult to Occupational Therapy Evaluate & Treat Comment: Physician Instructions: Evaluate and treat Discharge provider: Lucia Stanley MD Summary Discharge Diagnosis: Varicella Zoster Ileus due to viral illness Hospital Course: Kaylah was admitted to the hospital but was noted the following morning to have no nausea whatsoever. On exam her abdomen was soft but she had developed a rash in the right upper abdomen in a dermatomal distribution consistent with varicella zoster. Over the next several days, and she was managed on IV acyclovir and minimal dietary intake due to an ileus pattern. She underwent a Gastrografin enema to rule out the presence of distal colonic obstruction and that was ruled out with certainty. She responded nicely to Dulcolax suppositories with relief of gas pain. Today, she is tolerating a regular diet, she says her pain is much better than when she was admitted, and she desires discharge. She reports that her pain has been well managed with tramadol while she has been here in the hospital. Over the weekend, Mrs. Rentreia had a fall but seems to have recovered nicely. Multiple x-rays and CT scans revealed no evidence of hemorrhage or other injury. She has been following some at home and so physical therapy saw her and healed we have requested she follow up with them and continue using her walker. She is discharged to her home in the care of her and daughter. She will follow up with our service as needed. She can follow up with her PCP as needed. Status at Discharge Functional status at discharge: uses cane/walker Overall status at discharge: patient is progressing back to baseline Time Spent with Patient Less than 30 minutes Exam Vital Signs (past 8 hours): - 01/04/18 12:18 Temperature 98.2 F Pulse Rate 75 Respiratory Rate 20 Blood Pressure 145/77 H Pulse Oximetry 96 Oxygen Delivery Method Room Air Oxygen Flow Rate 0 Objective Labs Result Diagrams: 12/31/17 06:38 12/31/17 06:38 Labs: Laboratory Results - last 24 hr 01/03/18 01/03/18 19:00 19:00 Stool Aeromonas Cult Neg for aeromonas Stl C. cayetanensis PCR Not detected Stool Rotavirus (PCR) Not detected Stool Adenovirus (PCR) Not detected Stool Astrovirus (PCR) Not detected Stool Cryptosporidium PCR Not detected Stl E.coli Shiga Tox PCR Not detected St Sh/Enteroin Ecoli PCR Not detected Stool E coli O157 PCR Not Reportable Stl Enterotoxigenic E PCR Not detected Stool EPEC (PCR) Not detected Stl E. histolytica PCR Not detected Stool Giardia Lamblia PCR Not detected Stl P. shigelloides PCR Not detected St Y.enterocolitica PCR Not detected Stool Vibrio (PCR) Not detected Stl Vibrio cholerae PCR Not detected Stl Enteroaggr Ecoli PCR Not detected Stl Norovirus GI/GII PCR Not detected Campylobacter (PCR) Not detected C. difficile Tox (PCR) Negative for c. diff Not detected Salmonella (PCR) Not detected Discharge Plan Discharge Plan Patient Disposition: Home Discharge Med Rec/Prescriptions Prescriptions: New walker Misc Qty: 1 RF: 0 oxycodone 5 mg tablet 5 mg PO Q4-6H MDD 4 PRN (Reason: pain) Qty: 14 RF: 0 gabapentin 300 mg capsule 300 mg PO BEDTIME MDD 1 14 Days RF: 0 tramadol 50 mg tablet 50 mg PO Q6H MDD 6 Qty: 30 RF: 0 tramadol 50 mg Tablet 50 mg PO QID PRN (Reason: Pain, Moderate (4-6)) Qty: 0 RF: 0 tramadol 50 mg tablet 50 mg PO Q6H MDD 6 PRN (Reason: pain) Qty: 30 RF: 0 Continue propranolol 10 MG tablet 10 mg PO BID Qty: 60 RF: 0 cyclosporine [Restasis] 1 EACH dropperette 1 drp OPHTH DIRECTED Qty: 0 RF: 0 doxycycline hyclate 50 MG capsule 50 mg PO BID Qty: 0 RF: 0 fluticasone 50 mcg/actuation spray,suspension 1 spray Intranasal BID Qty: 3 RF: 1 atorvastatin [Lipitor] 10 mg tablet 10 mg PO Q DAY Qty: 90 RF: 1 Follow up/Referrals: Shirlene Haley DO [Primary Care Provider] - 2 Weeks Provider Discharge Instructions Diet: Diet as Tolerated Activity: Remember to take a stool softener at least twice daily while using narcotic pain medications. Visit Report/Discharge Packet Instructions: DI for Mechanical Bowel Obstruction Visit Report Forms: Stroke Signs & Symptoms Discharge Data Primary Care Provider: Shirlene Haley Attending Provider: Lucia Stanley Admit Date/Time: 12/28/17 20:28 Quality VTE Deep Vein Thrombosis/Pulmonary Embolism Present on Admission: No
--- NOTE | 2018-01-04 16:23 | PC.NURSE ---
pt dc'd via with paperwork and belongings. RXs faxed to [facility].
== END 2018-01-04 16:22 | disposition home or self-care (01) | DRG 389 ==
LOC: ED 20:08 → AC 20:29
PROVIDERS: Emergency Medicine; Internal Medicine; Surgery; Admitting Provider Surgery; Emergency Provider Internal Medicine; Family Provider Family Medicine; PCP Family Medicine; Visit Provider Surgery
DX: K56.7 Ileus, unspecified (principal); E46 Unspecified protein-calorie malnutrition; Z68.1 Body mass index [BMI] 19.9 or less, adult; B02.9 Zoster without complications; R42 Dizziness and giddiness; W18.30XA Fall on same level, unspecified, initial encounter; Y92.230 Patient room in hospital as the place of occurrence of the external cause; F41.9 Anxiety disorder, unspecified; G25.0 Essential tremor; E78.5 Hyperlipidemia, unspecified; M25.511 Pain in right shoulder; R55 Syncope and collapse; M54.5 Low back pain
CPT/HCPCS: 36415; 36591; 70450; 71045; 72100; 72125; 72170; 74019; 74022; 74177; 74270; 80053; 81001; 81003; 81015; 82550; 82553; 83605; 83690; 84145; 84484; 85025; 85610; 85730; 87493; 87507; 93005; 93010; 96361; 96375; 97116; 97161; 97165; 97530; 97535; 99222; 99231; 99238; 99284; 99285; J1170; J1885; J2405; Q9967

== ENCOUNTER 2018-04-14 12:26 | Day surgery (SDC) | payer MEDICARE, OTHER, SELFPAY ==
[2018-03-29 12:32] VITALS: BMI 17.6
--- NOTE | 2018-04-14 | PATH_ITS ---
[facility] Accession Number: [id number] . 01 Material submitted: . PART A: CECAL POLYP PART B: COLON POLYP AT 20CM . 01 Clinical history: . A: CECAL POLYP X3 . 02 Diagnosis: A. Cecal Polyps: Fragments of tubular adenoma and fragment of colonic mucosa with prominent benign lymphoid aggregate (three polyps removed). . B. Colon Polyp at 20 cm: Colonic mucosa with prominent benign lymphoid aggregate. Negative for serrated lesion, dysplasia or malignancy. MR/04/17/2018 . 02 Electronically signed: . Broderick Mcgregor MD, PhD, Pathologist NPI- [id number] . 01 Gross description: . Part A: CECAL POLYP: Received in formalin are multiple fragment(s) of hunt, soft tissue measuring 0.9 x 0.4 x 0.3 cm in aggregate submitted entirely in 1 cassette(s) Part B: COLON POLYP AT 20CM: Received in formalin are 2 fragment(s) of hunt, soft tissue measuring 0.7 x 0.4 x 0.3 cm to 0.3 x 0.2 x 0.1 cm submitted entirely in 1 cassette(s) /CKI /CKI . 02 Pathologist provided ICD-10: D12.0 . 02 CPT . 049296, [id number] Performed at: 01 [facility] [address], [place], [place] [id number] MD Anthony Park MD Phone: [phone] Performed at: 02 [facility] [address] [place], [place] [id number] MD Lizett Ibanez MD Phone: [phone]
[2018-04-14 12:52] VITALS: BP 149/84; PULSE 73; RESP 15; TEMP 36.2; O2SAT 100; BMI 17.4
--- NOTE | 2018-04-14 14:49 | PM.PREOP ---
Pre-operative Note Interval Note Pre-op Check: Yes History & Physical Reviewed by Physician Changes: No
--- NOTE | 2018-04-14 15:39 | PM.OP.1 ---
Operative Date/Time/Diagnoses Date of procedure: 04/14/18 Time of procedure: 15:39 Pre-op diagnosis: Personal history of colon polyps Post-op diagnosis: same Procedure & Clinicians Procedure: Colonoscopy to the cecum with polypectomy x3 at the cecum and x2 at 20 cm Same procedure as scheduled: Yes Indications: Last colonoscopy 3 years ago Surgeon: Lucia Stanley Anesthesia Type: General (Dr. Carballo) Operative Notes Findings: 1. Excellent prep 2. Three 2-3 mm polyps in the cecum. All removed with cold forceps and submitted for pathology. 3. Tortuous and elongated transverse and sigmoid colons 4. Very minimal diverticulosis 5. One 2 and 3 mm poorly defined speckled appearing lesions at 20 cm from the anal verge. Two of these removed and submitted for pathology 6. Dramatically decreased rectal tone 7. 1 cm cavity at the 6:00 a.m. Radian in lithotomy position at the anus. Does not obviously involve muscle. Patient reports this is from a cyst removal in the distant past. Closure Type: not applicable Estimated Blood Loss (mL): 2 Procedure in detail: After obtaining informed consent, the patient was brought to the GI suite and placed in the left lateral decubitus position on the examination table. After placement of appropriate monitors, the patient was given incremental doses of Versed and Fentanyl until an appropriate level of sedation was achieved. A time out was held per SCOAP protocol. A digital rectal examination was performed and did not reveal any masses or obstructing lesions. The colonoscope was gently passed into the patient's anus and the entire colon navigated to the level of the cecum with minimal difficulty. Once in the cecum, the scope was withdrawn being sure to go before and beyond all mucosal folds and prominences and get an excellent examination. The findings are noted above. At the level of the rectal vault, the scope was retroflexed and the internal anal canal was examined. The scope was straightened and air aspirated from the colon. The instrument was removed from the patient's body and the procedure was concluded. The patient was allowed to awaken from sedation without difficulty and taken to the post-anesthesia care unit in good condition. Total withdrawal time was 16 min and 14 sec Complications: none Condition: stable Disposition: PACU Plan for aftercare: 1. Discharge to home 2. Plan for next colonoscopy in 3 years or as clinically indicated. The next colonoscopy should be done with general anesthesia as well.
[2018-04-14 15:43] VITALS: BP 114/54; PULSE 75; RESP 15; TEMP 36.4; O2SAT 99
[2018-04-14 15:48] VITALS: BP 125/50; PULSE 78; RESP 12; O2SAT 97
[2018-04-14 15:54] VITALS: BP 116/58; PULSE 72; RESP 14; O2SAT 100
[2018-04-14 15:59] VITALS: BP 134/62; PULSE 72; RESP 12; TEMP 36.2; O2SAT 100
[2018-04-14 16:15] VITALS: BP 127/69; PULSE 68; RESP 16; O2SAT 100
== END 2018-04-14 16:28 | disposition home or self-care (01) ==
PROVIDERS: PCP Family Medicine; Visit Provider Surgery
PROC: 0DJD8ZZ Inspection of Lower Intestinal Tract, Via Natural or Artificial Opening Endoscopic (ICD-10-PCS; CPT 45378; principal; 2018-04-14 13:30)
DX: Z86.010 Personal history of colon polyps (principal); Z80.0 Family history of malignant neoplasm of digestive organs; F41.9 Anxiety disorder, unspecified; G25.0 Essential tremor; E78.5 Hyperlipidemia, unspecified; B02.29 Other postherpetic nervous system involvement; K57.30 Diverticulosis of large intestine without perforation or abscess without bleeding; D12.0 Benign neoplasm of cecum
CPT/HCPCS: 45380; 88305; J2704; J3010

== ENCOUNTER → 2018-05-23 14:03 | Outpatient (CLI) | payer MEDICARE, OTHER, SELFPAY ==
[2018-03-29 12:32] VITALS: BMI 17.6
== END ==
PROVIDERS: PCP Family Medicine; Visit Provider Family Medicine
DX: M81.0 Age-related osteoporosis without current pathological fracture (principal); Z78.0 Asymptomatic menopausal state; E28.39 Other primary ovarian failure; Z82.62 Family history of osteoporosis
CPT/HCPCS: 77080

== ENCOUNTER → 2018-06-19 10:14 | Outpatient (CLI) | payer MEDICARE, OTHER, SELFPAY ==
[2018-03-29 12:32] VITALS: BMI 17.6
[2018-06-19 11:31] LABS: Alanine Aminotransferase 31 IU/L (9-52); Albumin 4.2 g/dL (3.5-5.0); Albumin Globulin Ratio 1.2 (1.0-2.8); Alkaline Phosphatase 88 U/L (38-126); Aspartate Aminotransferase 34 IU/L (14-36); Bilirubin Total 0.7 mg/dL (0.2-1.3); Blood Urea Nitrogen 14 mg/dL (7-17); Calcium 9.4 mg/dL (8.4-10.2); Carbon Dioxide 31 mmol/L (22-32); Chloride 103 mmol/L (98-107); Estimated Glomerular Filt Rate > 60.0 mL/min (>60); Globulin 3.6 g/dL (1.7-4.1); Glucose 102 mg/dL (80-110); HEMOLYSIS < 15 (0-50); Potassium 4.3 mmol/L (3.4-5.1); Sodium 140 mmol/L (137-145); Total Protein 7.8 g/dL (6.3-8.2)
[2018-06-19 11:52] LABS: Free T3, Triiodothyronine Free 3.24 pg/mL (2.77-5.27); Free T4, Direct Thyroxine 1.15 ng/dL (0.78-2.19)
== END ==
PROVIDERS: PCP Family Medicine; Visit Provider Family Medicine
DX: E03.9 Hypothyroidism, unspecified (principal); E78.2 Mixed hyperlipidemia; Z51.81 Encounter for therapeutic drug level monitoring
CPT/HCPCS: 36415; 80053; 84439; 84481

== ENCOUNTER 2018-08-24 13:45 | Outpatient (RCR) | payer MEDICARE, OTHER, SELFPAY ==
[2018-03-29 12:32] VITALS: BMI 17.6
--- NOTE | 2018-07-12 14:13 | PT.OIE ---
Current Diagnoses Unspecified kyphosis, thoracic region (07/11/18) Past Medical History (This Medical Record has been edited. Action required.) Anxiety (Chronic Unknown) Benign essential tremor (Chronic Unknown) Bilateral lower extremity edema (Chronic) Chronic cough (Chronic Unknown) Glaucoma (Chronic Unknown) Hyperlipemia (Chronic 2016) Osteoarthritis (Chronic 2006) Recurrent sinusitis (Chronic Unknown) Cataracts, bilateral (Resolved Unknown) Chickenpox (Resolved 1950) Colon polyps (Resolved 01/2015) Measles (Resolved) Mumps (Resolved) Pneumonia (Resolved Unknown) Past Surgical History (This Medical Record has been edited. Action required.) History of cataract removal with insertion of prosthetic lens Provider Visit Care Team Role Provider Type Shirlene Haley DO Attending Provider Physician Primary Care Provider Specialty: [facility] Address: [address] [place] [address] Email: [email or web address] Physical Therapy Initial Evaluation PT-OP-A Visit Information Start: 07/11/18 08:24 Freq: Status: Active Protocol: Document 07/11/18 10:35 ALDAIR (Rec: 07/12/18 14:12 ALDAIR [id number]) Out-Patient Physical Therapy Visit Information Visit Information Visit Type Initial Evaluation Visit Start Time 10:35 Visit Stop Time 11:30 Total Visit Minutes 55 Visit Number 1 Number of CURRICULUM AND INSTRUCTION DIRECTOR Visits 0 Evaluation Information Evaluation Date 07/11/18 Precautions Precautions osteoporosis, balance dysfunction PT-OP-B Current Condition Start: 07/11/18 08:24 Freq: Status: Active Protocol: Document 07/11/18 10:35 ALDAIR (Rec: 07/11/18 10:47 [facility] [id number]) Current Condition History of Current Condition Onset Date fall 2017 Current Complaints back pain due to diagnosis of osteoporosis and osteoarthritis in spine,. History of Current Condition Pain increases after 5-15 min . Sitting down relieves. Only walking in house due to ability to familiar environment and ability to stabilize herself on furniture and white; balance dysfunction x 2 yrs, no improvement with PT. Patient holds onto her 's arm when she walks outside or in the community. Prior Treatments and Tests Seeing an terminal operator; diagnosed with post-herpetic neuropathy (taking Gabapentine ). Looking at new treatment for osteoporosis. PT for 8 months for balance, not helpful. Treatment Goals Patient/Caregiver Goals Improve her posture and decrease her pain. Prior Functional Status Baseline Function- ADL's Independent Baseline Function- Mobility Modified Independent Baseline Function- Gait use of cane in home, and cane in community Current Functional Impairments (Reported) Functional Limitations- ADL's painful Functional Limitations- Mobility/Gait use of cane, for balance Functional Limitations- Work/School NA Functional Limitations- Recreation/ painful, extremely limited Hobbies PT-OP-C Subjective Start: 07/11/18 08:24 Freq: Status: Active Protocol: Document 07/11/18 10:35 SAK (Rec: 07/12/18 14:12 [facility] [id number]) OP-PT Subjective Patient Comments Patient Comments Wants to decrease her pain and be able to walk with confidence Patient Questionnaires Oswestry Low Back Index Oswestry Score 56 Oswestry Impairment 40 to 59% Impaired (Score 40- 59) OP-PT Pain Assessment Pain Assessment Grid Paper Pain Assessment Grid Completed Yes Location right thoracic, LBP Intensity 6 Scale Used Numeric (1 - 10) Description Aching Chronic Frequency Frequent Pain Aggravating Factors Position Activity Pain Alleviating Factors Inactivity PT-OP-G Mobility & Gait Start: 07/11/18 08:24 Freq: Status: Active Protocol: Document 07/11/18 10:35 SAK (Rec: 07/12/18 14:12 [facility] [id number]) OP Gait Assessment Gait Gait Assistance Required: Minimum Assistance Assistive Devices Assistive Device Straight Cane Comments Gait Comments assist from PT-OP-J Posture/Palpation/Skin Start: 07/11/18 08:24 Freq: Status: Active Protocol: Document 07/11/18 10:35 SAK (Rec: 07/12/18 14:12 [facility] [id number]) Posture Evaluation Position Standing Head/C-Spine Posture Forward Head T-Spine Posture Increased Kyphosis L-Spine Posture Flattened Shoulder Posture (L) Rounded (R) Rounded Scapula Posture (L) Protracted (R) Protracted Arm Posture (L) Internally Rotated (R) Internally Rotated Palpation Assessment Location paraspinals Palpation Findings Soft Tissue Tightness Muscle Guarding Tenderness PT-OP-K Range of Motion Start: 07/11/18 08:24 Freq: Status: Active Protocol: Document 07/11/18 10:35 SAK (Rec: 07/12/18 14:12 [facility] [id number]) Lumbar Spine Range of Motion Lumbar Spine Active Flexion 50 Extension 20 Lateral Flexion Left 30 Lateral Flexion Right 30 ROM Limitations Soft Tissue Tightness Pain Shoulder Goniometric Range of Motion Shoulder ROM Limitations Shoulder ROM Limitations Soft Tissue Tightness Comments mod tightness in pec major and minor, latissimus Hip Goniometric Range of Motion Hip ROM Limitations Hip ROM Limitations Soft Tissue Tightness Muscle Weakness Comments mod tightness lumbar paraspinals, glut max, hamstrings PT-OP-M Strength Start: 07/11/18 08:24 Freq: Status: Active Protocol: Document 07/11/18 10:35 [facility] (Rec: 07/12/18 14:12 [facility] [id number]) Trunk Strength Trunk Manual Muscle Testing Core Stabilization fair ability to activate transverse abdominis Reason Not Measured Pain Shoulder Strength Shoulder Manual Muscle Testing amy Flexion 4 Good Extension 4 Good Abduction (C5) 4 Good External Rotation 4- Good- Internal Rotation 4- Good- Hip Strength Hip Manual Muscle Testing amy Flexion (L2) 4- Good- Extension (S1) 3+ Fair+ Abduction 4- Good- Adduction 4- Good- External Rotation 4- Good- Knee Strength Knee Manual Muscle Testing amy Flexion (S2) 4 Good Extension (L3) 4 Good Ankle/Foot Strength Ankle and Foot Manual Muscle Testing amy Dorsiflexion (L4) 4 Good Plantarflexion (S1) 4 Good PT-OP-Q Treatments Start: 07/11/18 08:24 Freq: Status: Active Protocol: Document 07/11/18 10:35 [facility] (Rec: 07/12/18 14:12 [facility] [id number]) Self-Care/Home Management Treatment Education Patient Education Home Exercise Program Other Education written instructions issued PT-OP-R Modalities Start: 07/11/18 08:24 Freq: Status: Active Protocol: Document 07/11/18 10:35 [facility] (Rec: 07/12/18 14:12 [facility] [id number]) Hot Pack/Cold Pack Treatment Hot Pack Location thoracolumbar spine Patient Position Hooklying Treatment Duration (minutes) 15 PT-OP-T Assessment and Plan Start: 07/11/18 08:24 Freq: Status: Active Protocol: Document 07/11/18 10:35 [facility] (Rec: 07/12/18 14:12 [facility] [id number]) Physical Therapy Assessment Rehab Potential Rehabilitation Potential Good Evaluation Complexity Number of Personal Factors/Comorbidities 3 or More Number of Body Systems Impaired 3 Clinical Presentation at Evaluation Evolving Impairments Impairments Activity Tolerance Pain Posture Strength Goals 3 Impairment postural impairment Short Term Goal (STG) Instruct in neutral postural alignment and ther ex for postural correction, flexibility and strengthening STG Duration 08/22/18 Letter Of Credit Clerk Goal (LTG) Patient to demonstrate improved postural alignment in thoracic spine at rest and with function and be independent with HEP 2 Impairment Activity tolerance: Oswestry disability index score 56% Short Term Goal (STG) Decrease Oswestry score to 40% STG Duration 08/22/18 Prison Goal (LTG) Decrease Oswestry score to 20% including increase ability to stand or walk from 10 min to 20 min LTG Duration 10/11/18 1 Impairment pain /10 Short Term Goal (STG) Decrease pain to no greater than 3/10 STG Duration 08/22/18 Prison Goal (LTG) Decrease pain to no greater than 1-2/10 with patient demonstrating understanding of pain management including use of heat, exercise, rest LTG Duration 10/11/18 Physical Therapy Plan Frequency and Duration Frequency of Treatment 2x/Week Duration of Treatment 3 months Plan of Care Start Date 07/11/18 Plan of Care End Date 10/11/18 Therapeutic Interventions Therapeutic Interventions Home Exercise Program Manual Therapy Neuromuscular Re-education Patient/Caregiver Education Self-Care/Home Management Soft Tissue Mobilization Taping Therapeutic Activities Therapeutic Exercises Modalities Electric Stimulation Hot Packs Ultrasound Next Visit Focus/Plan Next Note Type Treatment Note Next Visit Plan Review HEP, trial recumbant elliptical, add row and shoulder extension for postural stabilization, progres HEP as tolerated.
--- NOTE | 2018-07-12 14:13 | PT.OPPOC ---
Current Diagnoses Unspecified kyphosis, thoracic region (07/11/18) Provider Visit Care Team Role Provider Type Shirlene Haley DO Attending Provider Physician Primary Care Provider Specialty: [facility] Address: [address] [place] [address], [phone] Email: [email or web address] Plan Of Care PT-OP-T Assessment and Plan Start: 07/11/18 08:24 Freq: Status: Active Protocol: Document 07/11/18 10:35 SAK (Rec: 07/12/18 14:12 [facility] [id number]) Physical Therapy Assessment Rehab Potential Rehabilitation Potential Good Evaluation Complexity Number of Personal Factors/Comorbidities 3 or More Number of Body Systems Impaired 3 Clinical Presentation at Evaluation Evolving Impairments Impairments Activity Tolerance Pain Posture Strength Goals 3 Impairment postural impairment Short Term Goal (STG) Instruct in neutral postural alignment and ther ex for postural correction, flexibility and strengthening STG Duration 08/22/18 [facility] Goal (LTG) Patient to demonstrate improved postural alignment in thoracic spine at rest and with function and be independent with HEP 2 Impairment Activity tolerance: Oswestry disability index score 56% Short Term Goal (STG) Decrease Oswestry score to 40% STG Duration 08/22/18 [facility] Goal (LTG) Decrease Oswestry score to 20% including increase ability to stand or walk from 10 min to 20 min LTG Duration 10/11/18 1 Impairment pain 6/10 Short Term Goal (STG) Decrease pain to no greater than 3/10 STG Duration 08/22/18 [facility] Goal (LTG) Decrease pain to no greater than 1-2/10 with patient demonstrating understanding of pain management including use of heat, exercise, rest LTG Duration 10/11/18 Physical Therapy Plan Frequency and Duration Frequency of Treatment 2x/Week Duration of Treatment 3 months Plan of Care Start Date 07/11/18 Plan of Care End Date 10/11/18 Therapeutic Interventions Therapeutic Interventions Home Exercise Program Manual Therapy Neuromuscular Re-education Patient/Caregiver Education Self-Care/Home Management Soft Tissue Mobilization Taping Therapeutic Activities Therapeutic Exercises Modalities Electric Stimulation Hot Packs Ultrasound Next Visit Focus/Plan Next Note Type Treatment Note Next Visit Plan Review HEP, trial recumbant elliptical, add row and shoulder extension for postural stabilization, progres HEP as tolerated. Plan of Care Dates Plan of Care Start Date 07/11/18 Plan of Care End Date 10/11/18 Please Sign and Return: I have reviewed this Plan of Care and certify that the skilled therapy services above are required to meet the patient?s needs. Physician Signature Date Printed Name and Credentials Clinical Instructor Signature Printed Name and Credentials
--- NOTE | 2018-07-13 10:29 | PT.OTN ---
Current Diagnoses Unspecified kyphosis, thoracic region (07/13/18) Physical Therapy Treatment Note PT-OP-A Visit Information Start: 07/11/18 08:24 Freq: Status: Active Protocol: Document 07/13/18 09:45 SAK (Rec: 07/13/18 10:18 [facility] [id number]) Out-Patient Physical Therapy Visit Information Visit Information Visit Type Treatment Note Visit Start Time 09:45 Visit Stop Time 10:35 Total Visit Minutes 50 Visit Number 2 Number of LEARNING SUPPORT TEACHER Visits 0 Evaluation Information Evaluation Date 07/11/18 Precautions Precautions osteoporosis, balance dysfunction PT-OP-B Current Condition Start: 07/11/18 08:24 Freq: Status: Active Protocol: Document 07/11/18 10:35 SAK (Rec: 07/11/18 10:47 [facility] [id number]) Current Condition History of Current Condition Onset Date fall 2017 Current Complaints back pain due to diagnosis of osteoporosis and osteoarthritis in spine,. History of Current Condition Pain increases after 5-15 min . Sitting down relieves. Only walking in house due to ability to familiar environment and ability to stabilize herself on furniture and white; balance dysfunction x 2 yrs, no improvement with PT. Patient holds onto her 's arm when she walks outside or in the community. 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 Looking at new treatment for osteoporosis. PT for 8 months for balance, not helpful. Treatment Goals Patient/Caregiver Goals Improve her posture and decrease her pain. Prior Functional Status Baseline Function- ADL's Independent Baseline Function- Mobility Modified Independent Baseline Function- Gait use of cane in home, and cane in community Current Functional Impairments (Reported) Functional Limitations- ADL's painful Functional Limitations- Mobility/Gait use of cane, for balance Functional Limitations- Work/School NA Functional Limitations- Recreation/ painful, extremely limited Hobbies PT-OP-C Subjective Start: 07/11/18 08:24 Freq: Status: Active Protocol: Document 07/13/18 09:45 SAK (Rec: 07/13/18 10:26 [facility] [id number]) OP-PT Subjective Patient Comments Patient Comments no new c/o, compliant to HEP, using pillow behind upper back when sitting. PT-OP-G Mobility & Gait Start: 07/11/18 08:24 Freq: Status: Active Protocol: Document 07/11/18 10:35 SAK (Rec: 07/12/18 14:12 [facility] [id number]) OP Gait Assessment Gait Gait Assistance Required: Minimum Assistance Assistive Devices Assistive Device Straight Cane Comments Gait Comments assist from PT-OP-J Posture/Palpation/Skin Start: 07/11/18 08:24 Freq: Status: Active Protocol: Document 07/11/18 10:35 SAK (Rec: 07/12/18 14:12 [facility] [id number]) Posture Evaluation Position Standing Head/C-Spine Posture Forward Head T-Spine Posture Increased Kyphosis L-Spine Posture Flattened Shoulder Posture (L) Rounded (R) Rounded Scapula Posture (L) Protracted (R) Protracted Arm Posture (L) Internally Rotated (R) Internally Rotated Palpation Assessment Location paraspinals Palpation Findings Soft Tissue Tightness Muscle Guarding Tenderness PT-OP-K Range of Motion Start: 07/11/18 08:24 Freq: Status: Active Protocol: Document 07/11/18 10:35 SAK (Rec: 07/12/18 14:12 [facility] [id number]) Lumbar Spine Range of Motion Lumbar Spine Active Flexion 50 Extension 20 Lateral Flexion Left 30 Lateral Flexion Right 30 ROM Limitations Soft Tissue Tightness Pain Shoulder Goniometric Range of Motion Shoulder ROM Limitations Shoulder ROM Limitations Soft Tissue Tightness Comments mod tightness in pec major and minor, latissimus Hip Goniometric Range of Motion Hip ROM Limitations Hip ROM Limitations Soft Tissue Tightness Muscle Weakness Comments mod tightness lumbar paraspinals, glut max, hamstrings PT-OP-M Strength Start: 07/11/18 08:24 Freq: Status: Active Protocol: Document 07/11/18 10:35 SAK (Rec: 07/12/18 14:12 [facility] [id number]) Trunk Strength Trunk Manual Muscle Testing Core Stabilization fair ability to activate transverse abdominis Reason Not Measured Pain Shoulder Strength Shoulder Manual Muscle Testing amy Flexion 4 Good Extension 4 Good Abduction (C5) 4 Good External Rotation 4- Good- Internal Rotation 4- Good- Hip Strength Hip Manual Muscle Testing amy Flexion (L2) 4- Good- Extension (S1) 3+ Fair+ Abduction 4- Good- Adduction 4- Good- External Rotation 4- Good- Knee Strength Knee Manual Muscle Testing amy Flexion (S2) 4 Good Extension (L3) 4 Good Ankle/Foot Strength Ankle and Foot Manual Muscle Testing amy Dorsiflexion (L4) 4 Good Plantarflexion (S1) 4 Good PT-OP-Q Treatments Start: 07/11/18 08:24 Freq: Status: Active Protocol: Document 07/13/18 09:45 [facility] (Rec: 07/13/18 10:18 [facility] [id number]) Cardio Equipment Recumbent Elliptical (Biodex) Duration (Minutes) 5 Resistance 1 Seat Position 5 Therapeutic Exercises Supine Exercises triangle press Reps/Minutes 10x pec stretch Reps/Minutes 1 min horizontal ab Reps/Minutes 5x posture press Reps/Minutes 10x gluteal isometric Reps/Minutes 10x pelvic tilt Reps/Minutes 10x diaphragmatic breathing Reps/Minutes 5x Sitting Exercises pulleys shld flex, scaption Reps/Minutes 10x Standing Exercises row, shld ext Equipment Used L1 TB Reps/Minutes 10x Self-Care/Home Management Treatment Education Patient Education Home Exercise Program Posture Other Education updated HEP adjusted height of cane down 3 notches for proper fit to improve gait safety PT-OP-R Modalities Start: 07/11/18 08:24 Freq: Status: Active Protocol: Document 07/13/18 09:45 [facility] (Rec: 07/13/18 10:23 [facility] [id number]) Hot Pack/Cold Pack Treatment Hot Pack Location thoracolumbar spine Patient Position Hooklying Treatment Duration (minutes) 15 PT-OP-T Assessment and Plan Start: 07/11/18 08:24 Freq: Status: Active Protocol: Document 07/13/18 09:45 [facility] (Rec: 07/13/18 10:18 [facility] [id number]) Physical Therapy Assessment Goals 3 Impairment postural impairment Short Term Goal (STG) Instruct in neutral postural alignment and ther ex for postural correction, flexibility and strengthening STG Duration 08/22/18 Warehouse Driver Goal (LTG) Patient to demonstrate improved postural alignment in thoracic spine at rest and with function and be independent with HEP 2 Impairment Activity tolerance: Oswestry disability index score 56% Short Term Goal (STG) Decrease Oswestry score to 40% STG Duration 08/22/18 Longterm Goal (LTG) Decrease Oswestry score to 20% including increase ability to stand or walk from 10 min to 20 min LTG Duration 10/11/18 1 Impairment pain 6/ Short Term Goal (STG) Decrease pain to no greater than 3/10 STG Duration 08/22/18 Longterm Goal (LTG) Decrease pain to no greater than 1-2/10 with patient demonstrating understanding of pain management including use of heat, exercise, rest LTG Duration 10/11/18 Physical Therapy Plan Next Visit Focus/Plan Next Note Type Treatment Note
--- NOTE | 2018-07-19 18:04 | PT.OTN ---
Current Diagnoses Unspecified kyphosis, thoracic region (07/19/18) Physical Therapy Treatment Note PT-OP-A Visit Information Start: 07/11/18 08:24 Freq: Status: Active Protocol: Document 07/19/18 14:30 HH (Rec: 07/19/18 18:04 HH [email or web address]) Out-Patient Physical Therapy Visit Information Visit Information Visit Type Treatment Note Visit Start Time 14:30 Visit Stop Time 15:15 Total Visit Minutes 45 Visit Number 3 Number of AUTOMOBILE CLUB INFORMATION CLERK Visits 0 PT-OP-B Current Condition Start: 07/11/18 08:24 Freq: Status: Active Protocol: Document 07/11/18 10:35 SAK (Rec: 07/11/18 10:47 SAK [id number]) Current Condition History of Current Condition Onset Date fall 2017 Current Complaints back pain due to diagnosis of osteoporosis and osteoarthritis in spine,. History of Current Condition Pain increases after 5-15 min . Sitting down relieves. Only walking in house due to ability to familiar environment and ability to stabilize herself on furniture and white; balance dysfunction x 2 yrs, no improvement with PT. Patient holds onto her 's arm when she walks outside or in the community. 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 Looking at new treatment for osteoporosis. PT for 8 months for balance, not helpful. Treatment Goals Patient/Caregiver Goals Improve her posture and decrease her pain. Prior Functional Status Baseline Function- ADL's Independent Baseline Function- Mobility Modified Independent Baseline Function- Gait use of cane in home, and cane in community Current Functional Impairments (Reported) Functional Limitations- ADL's painful Functional Limitations- Mobility/Gait use of cane, for balance Functional Limitations- Work/School NA Functional Limitations- Recreation/ painful, extremely limited Hobbies PT-OP-C Subjective Start: 07/11/18 08:24 Freq: Status: Active Protocol: Document 07/19/18 14:30 HH (Rec: 07/19/18 18:04 HH [email or web address]) OP-PT Subjective Patient Comments Patient Comments stated her morning feels pretty good but yesterday pm has a lot of back pain but dont know why. compliant to HEP, using pillow behind upper back when sitting. PT-OP-G Mobility & Gait Start: 07/11/18 08:24 Freq: Status: Active Protocol: Document 07/11/18 10:35 SAK (Rec: 07/12/18 14:12 SAK [id number]) OP Gait Assessment Gait Gait Assistance Required: Minimum Assistance Assistive Devices Assistive Device Straight Cane Comments Gait Comments assist from PT-OP-J Posture/Palpation/Skin Start: 07/11/18 08:24 Freq: Status: Active Protocol: Document 07/11/18 10:35 SAK (Rec: 07/12/18 14:12 [facility] [id number]) Posture Evaluation Position Standing Head/C-Spine Posture Forward Head T-Spine Posture Increased Kyphosis L-Spine Posture Flattened Shoulder Posture (L) Rounded (R) Rounded Scapula Posture (L) Protracted (R) Protracted Arm Posture (L) Internally Rotated (R) Internally Rotated Palpation Assessment Location paraspinals Palpation Findings Soft Tissue Tightness Muscle Guarding Tenderness PT-OP-K Range of Motion Start: 07/11/18 08:24 Freq: Status: Active Protocol: Document 07/11/18 10:35 SAK (Rec: 07/12/18 14:12 [facility] [id number]) Lumbar Spine Range of Motion Lumbar Spine Active Flexion 50 Extension 20 Lateral Flexion Left 30 Lateral Flexion Right 30 ROM Limitations Soft Tissue Tightness Pain Shoulder Goniometric Range of Motion Shoulder ROM Limitations Shoulder ROM Limitations Soft Tissue Tightness Comments mod tightness in pec major and minor, latissimus Hip Goniometric Range of Motion Hip ROM Limitations Hip ROM Limitations Soft Tissue Tightness Muscle Weakness Comments mod tightness lumbar paraspinals, glut max, hamstrings PT-OP-M Strength Start: 07/11/18 08:24 Freq: Status: Active Protocol: Document 07/11/18 10:35 SAK (Rec: 07/12/18 14:12 SAK [id number]) Trunk Strength Trunk Manual Muscle Testing Core Stabilization fair ability to activate transverse abdominis Reason Not Measured Pain Shoulder Strength Shoulder Manual Muscle Testing amy Flexion 4 Good Extension 4 Good Abduction (C5) 4 Good External Rotation 4- Good- Internal Rotation 4- Good- Hip Strength Hip Manual Muscle Testing amy Flexion (L2) 4- Good- Extension (S1) 3+ Fair+ Abduction 4- Good- Adduction 4- Good- External Rotation 4- Good- Knee Strength Knee Manual Muscle Testing amy Flexion (S2) 4 Good Extension (L3) 4 Good Ankle/Foot Strength Ankle and Foot Manual Muscle Testing amy Dorsiflexion (L4) 4 Good Plantarflexion (S1) 4 Good PT-OP-Q Treatments Start: 07/11/18 08:24 Freq: Status: Active Protocol: Document 07/19/18 14:30 HH (Rec: 07/19/18 18:04 HH [email or web address]) Cardio Equipment Recumbent Stepper (Sci-Fit) Duration (Minutes) 6 Resistance 30 RPM Seat Position 7 Therapeutic Exercises Supine Exercises pec stretch Reps/Minutes 1 min pelvic tilt Reps/Minutes 10x diaphragmatic breathing Reps/Minutes 10 x Sitting Exercises seated thoracic extension Side bilateral Reps/Minutes 8 x 2 Comments tactile cues to engage t/s extension scap retraction Side bilateral Resistance level 2 band Reps/Minutes 6 x2 Standing Exercises standing pelvic tilt Reps/Minutes 10 x 2 row, shld ext Resistance level 2 band Reps/Minutes 6 x2 PT-OP-R Modalities Start: 07/11/18 08:24 Freq: Status: Active Protocol: Document 07/13/18 09:45 SAK (Rec: 07/13/18 10:23 SAK [id number]) Hot Pack/Cold Pack Treatment Hot Pack Location thoracolumbar spine Patient Position Hooklying Treatment Duration (minutes) 15 PT-OP-T Assessment and Plan Start: 07/11/18 08:24 Freq: Status: Active Protocol: Document 07/19/18 14:30 HH (Rec: 07/19/18 18:04 HH [email or web address]) Physical Therapy Assessment Assessment Summary Assessment Tx focused on postural education and scapular retraction strengthening. Pt showed better understanding of her postural and able to engage her T/S extension. Physical Therapy Plan Next Visit Focus/Plan Next Note Type Treatment Note Next Visit Plan Review HEP stepper postural sikhism T/S extension, pelvic tilt
--- NOTE | 2018-07-21 14:50 | PT.OTN ---
Current Diagnoses Unspecified kyphosis, thoracic region (07/21/18) Physical Therapy Treatment Note PT-OP-A Visit Information Start: 07/11/18 08:24 Freq: Status: Active Protocol: Document 07/21/18 09:01 [facility] (Rec: 07/21/18 14:46 [facility] [id number]) Out-Patient Physical Therapy Visit Information Visit Information Visit Type Treatment Note Visit Start Time 09:01 Visit Stop Time 09:56 Total Visit Minutes 55 Visit Number 4 Number of TECHNOLOGY ADVISOR Visits 0 Evaluation Information Evaluation Date 07/11/18 Precautions Precautions osteoporosis, balance dysfunction PT-OP-B Current Condition Start: 07/11/18 08:24 Freq: Status: Active Protocol: Document 07/11/18 10:35 SAK (Rec: 07/11/18 10:47 [facility] [id number]) Current Condition History of Current Condition Onset Date fall 2017 Current Complaints back pain due to diagnosis of osteoporosis and osteoarthritis in spine,. History of Current Condition Pain increases after 5-15 min . Sitting down relieves. Only walking in house due to ability to familiar environment and ability to stabilize herself on furniture and white; balance dysfunction x 2 yrs, no improvement with PT. Patient holds onto her 's arm when she walks outside or in the community. Prior Treatments and Tests Seeing an director of therapy services; diagnosed with post-herpetic neuropathy (taking Gabapentine ). Looking at new treatment for osteoporosis. PT for 8 months for balance, not helpful. Treatment Goals Patient/Caregiver Goals Improve her posture and decrease her pain. Prior Functional Status Baseline Function- ADL's Independent Baseline Function- Mobility Modified Independent Baseline Function- Gait use of cane in home, and cane in community Current Functional Impairments (Reported) Functional Limitations- ADL's painful Functional Limitations- Mobility/Gait use of cane, for balance Functional Limitations- Work/School NA Functional Limitations- Recreation/ painful, extremely limited Hobbies PT-OP-C Subjective Start: 07/11/18 08:24 Freq: Status: Active Protocol: Document 07/21/18 09:01 [facility] (Rec: 07/21/18 14:46 [facility] [id number]) OP-PT Subjective Patient Comments Patient Comments Compliant to HEP, states trying to pay attention to posture. No new c/o PT-OP-G Mobility & Gait Start: 07/11/18 08:24 Freq: Status: Active Protocol: Document 07/11/18 10:35 SAK (Rec: 07/12/18 14:12 [facility] [id number]) OP Gait Assessment Gait Gait Assistance Required: Minimum Assistance Assistive Devices Assistive Device Straight Cane Comments Gait Comments assist from PT-OP-J Posture/Palpation/Skin Start: 07/11/18 08:24 Freq: Status: Active Protocol: Document 07/11/18 10:35 SAK (Rec: 07/12/18 14:12 [facility] [id number]) Posture Evaluation Position Standing Head/C-Spine Posture Forward Head T-Spine Posture Increased Kyphosis L-Spine Posture Flattened Shoulder Posture (L) Rounded (R) Rounded Scapula Posture (L) Protracted (R) Protracted Arm Posture (L) Internally Rotated (R) Internally Rotated Palpation Assessment Location paraspinals Palpation Findings Soft Tissue Tightness Muscle Guarding Tenderness PT-OP-K Range of Motion Start: 07/11/18 08:24 Freq: Status: Active Protocol: Document 07/11/18 10:35 SAK (Rec: 07/12/18 14:12 [facility] [id number]) Lumbar Spine Range of Motion Lumbar Spine Active Flexion 50 Extension 20 Lateral Flexion Left 30 Lateral Flexion Right 30 ROM Limitations Soft Tissue Tightness Pain Shoulder Goniometric Range of Motion Shoulder ROM Limitations Shoulder ROM Limitations Soft Tissue Tightness Comments mod tightness in pec major and minor, latissimus Hip Goniometric Range of Motion Hip ROM Limitations Hip ROM Limitations Soft Tissue Tightness Muscle Weakness Comments mod tightness lumbar paraspinals, glut max, hamstrings PT-OP-M Strength Start: 07/11/18 08:24 Freq: Status: Active Protocol: Document 07/11/18 10:35 SAK (Rec: 07/12/18 14:12 [facility] [id number]) Trunk Strength Trunk Manual Muscle Testing Core Stabilization fair ability to activate transverse abdominis Reason Not Measured Pain Shoulder Strength Shoulder Manual Muscle Testing amy Flexion 4 Good Extension 4 Good Abduction (C5) 4 Good External Rotation 4- Good- Internal Rotation 4- Good- Hip Strength Hip Manual Muscle Testing amy Flexion (L2) 4- Good- Extension (S1) 3+ Fair+ Abduction 4- Good- Adduction 4- Good- External Rotation 4- Good- Knee Strength Knee Manual Muscle Testing amy Flexion (S2) 4 Good Extension (L3) 4 Good Ankle/Foot Strength Ankle and Foot Manual Muscle Testing amy Dorsiflexion (L4) 4 Good Plantarflexion (S1) 4 Good PT-OP-Q Treatments Start: 07/11/18 08:24 Freq: Status: Active Protocol: Document 07/21/18 09:01 [facility] (Rec: 07/21/18 09:40 [facility] [id number]) Cardio Equipment Recumbent Stepper (Sci-Fit) Duration (Minutes) 8 Resistance 40 rpm Seat Position 7 Therapeutic Exercises Supine Exercises lat stretch Reps/Minutes 2x30 shoulder flex Reps/Minutes 10x pec stretch Reps/Minutes 1 min horizontal ab Reps/Minutes 5x posture press Reps/Minutes 10x pelvic tilt Reps/Minutes 10x Comments ant/post diaphragmatic breathing Reps/Minutes 10 x Sitting Exercises pelvic ant/post tilt Reps/Minutes 10x seated thoracic extension Side bilateral Reps/Minutes 8 x 2 Comments tactile cues to engage t/s extension scap retraction Side bilateral Resistance level 2 band Reps/Minutes 6 x2 pulleys shld flex, scaption Reps/Minutes 10x Standing Exercises standing pelvic tilt Reps/Minutes 10 x 2 row, shld ext Resistance level 2 band Reps/Minutes 6 x2 Self-Care/Home Management Treatment Education Patient Education Home Exercise Program Other Education updated PT-OP-R Modalities Start: 07/11/18 08:24 Freq: Status: Active Protocol: Document 07/21/18 09:01 [facility] (Rec: 07/21/18 14:46 [facility] [id number]) Hot Pack/Cold Pack Treatment Hot Pack Location thoracolumbar spine Patient Position Hooklying Treatment Duration (minutes) 15 PT-OP-T Assessment and Plan Start: 07/11/18 08:24 Freq: Status: Active Protocol: Document 07/21/18 09:01 [facility] (Rec: 07/21/18 09:40 [facility] [id number]) Physical Therapy Assessment Goals 3 Impairment postural impairment Short Term Goal (STG) Instruct in neutral postural alignment and ther ex for postural correction, flexibility and strengthening STG Duration 08/22/18 Marble Cutter Goal (LTG) Patient to demonstrate improved postural alignment in thoracic spine at rest and with function and be independent with HEP 2 Impairment Activity tolerance: Oswestry disability index score 56% Short Term Goal (STG) Decrease Oswestry score to 40% STG Duration 08/22/18 Marble Cutter Goal (LTG) Decrease Oswestry score to 20% including increase ability to stand or walk from 10 min to 20 min LTG Duration 10/11/18 1 Impairment pain 10/02 Short Term Goal (STG) Decrease pain to no greater than 3/10 STG Duration 08/22/18 Marble Cutter Goal (LTG) Decrease pain to no greater than 1-2/10 with patient demonstrating understanding of pain management including use of heat, exercise, rest LTG Duration 10/11/18 Assessment Summary Assessment improving postural awareness. Gentle manual facilitation for thoracic extension and anterior pelvic tilttolerated well. Physical Therapy Plan Frequency and Duration Frequency of Treatment 2x/Week Duration of Treatment 3 months Plan of Care Start Date 07/11/18 Plan of Care End Date 10/11/18 Therapeutic Interventions Therapeutic Interventions Home Exercise Program Manual Therapy Neuromuscular Re-education Patient/Caregiver Education Self-Care/Home Management Soft Tissue Mobilization Taping Therapeutic Activities Therapeutic Exercises Modalities Electric Stimulation Hot Packs Ultrasound Next Visit Focus/Plan Next Note Type Treatment Note Next Visit Plan continue ther ex for improved spinal moobility, postural correction, strengthening, pain management.
--- NOTE | 2018-07-25 14:44 | PT.OTN ---
Current Diagnoses Unspecified kyphosis, thoracic region (07/25/18) Physical Therapy Treatment Note PT-OP-A Visit Information Start: 07/11/18 08:24 Freq: Status: Active Protocol: Document 07/25/18 10:31 SAK (Rec: 07/25/18 11:15 SAK [id number]) Out-Patient Physical Therapy Visit Information Visit Information Visit Type Treatment Note Visit Start Time 10:30 Visit Stop Time 11:25 Total Visit Minutes 55 Visit Number 5 Number of EXTRUSION PRESS SUPERVISOR Visits 0 Evaluation Information Evaluation Date 07/11/18 Precautions Precautions osteoporosis, balance dysfunction PT-OP-B Current Condition Start: 07/11/18 08:24 Freq: Status: Active Protocol: Document 07/11/18 10:35 SAK (Rec: 07/11/18 10:47 SAK [id number]) Current Condition History of Current Condition Onset Date fall 2017 Current Complaints back pain due to diagnosis of osteoporosis and osteoarthritis in spine,. History of Current Condition Pain increases after 5-15 min . Sitting down relieves. Only walking in house due to ability to familiar environment and ability to stabilize herself on furniture and white; balance dysfunction x 2 yrs, no improvement with PT. Patient holds onto her 's arm when she walks outside or in the community. Prior Treatments and Tests Seeing an heel cementer; diagnosed with post-herpetic neuropathy (taking Gabapentine ). Looking at new treatment for osteoporosis. PT for 8 months for balance, not helpful. Treatment Goals Patient/Caregiver Goals Improve her posture and decrease her pain. Prior Functional Status Baseline Function- ADL's Independent Baseline Function- Mobility Modified Independent Baseline Function- Gait use of cane in home, and cane in community Current Functional Impairments (Reported) Functional Limitations- ADL's painful Functional Limitations- Mobility/Gait use of cane, for balance Functional Limitations- Work/School NA Functional Limitations- Recreation/ painful, extremely limited Hobbies PT-OP-C Subjective Start: 07/11/18 08:24 Freq: Status: Active Protocol: Document 07/25/18 10:31 SAK (Rec: 07/25/18 11:15 SAK [id number]) OP-PT Subjective Patient Comments Patient Comments Didn't sleep well, sore, cleaned house yesterday, didn' t sleep well last night PT-OP-G Mobility & Gait Start: 07/11/18 08:24 Freq: Status: Active Protocol: Document 07/11/18 10:35 SAK (Rec: 07/12/18 14:12 SAK [id number]) OP Gait Assessment Gait Gait Assistance Required: Minimum Assistance Assistive Devices Assistive Device Straight Cane Comments Gait Comments assist from PT-OP-J Posture/Palpation/Skin Start: 07/11/18 08:24 Freq: Status: Active Protocol: Document 07/11/18 10:35 SAK (Rec: 07/12/18 14:12 [facility] [id number]) Posture Evaluation Position Standing Head/C-Spine Posture Forward Head T-Spine Posture Increased Kyphosis L-Spine Posture Flattened Shoulder Posture (L) Rounded (R) Rounded Scapula Posture (L) Protracted (R) Protracted Arm Posture (L) Internally Rotated (R) Internally Rotated Palpation Assessment Location paraspinals Palpation Findings Soft Tissue Tightness Muscle Guarding Tenderness PT-OP-K Range of Motion Start: 07/11/18 08:24 Freq: Status: Active Protocol: Document 07/11/18 10:35 SAK (Rec: 07/12/18 14:12 [facility] [id number]) Lumbar Spine Range of Motion Lumbar Spine Active Flexion 50 Extension 20 Lateral Flexion Left 30 Lateral Flexion Right 30 ROM Limitations Soft Tissue Tightness Pain Shoulder Goniometric Range of Motion Shoulder ROM Limitations Shoulder ROM Limitations Soft Tissue Tightness Comments mod tightness in pec major and minor, latissimus Hip Goniometric Range of Motion Hip ROM Limitations Hip ROM Limitations Soft Tissue Tightness Muscle Weakness Comments mod tightness lumbar paraspinals, glut max, hamstrings PT-OP-M Strength Start: 07/11/18 08:24 Freq: Status: Active Protocol: Document 07/11/18 10:35 SAK (Rec: 07/12/18 14:12 SAK [id number]) Trunk Strength Trunk Manual Muscle Testing Core Stabilization fair ability to activate transverse abdominis Reason Not Measured Pain Shoulder Strength Shoulder Manual Muscle Testing amy Flexion 4 Good Extension 4 Good Abduction (C5) 4 Good External Rotation 4- Good- Internal Rotation 4- Good- Hip Strength Hip Manual Muscle Testing amy Flexion (L2) 4- Good- Extension (S1) 3+ Fair+ Abduction 4- Good- Adduction 4- Good- External Rotation 4- Good- Knee Strength Knee Manual Muscle Testing amy Flexion (S2) 4 Good Extension (L3) 4 Good Ankle/Foot Strength Ankle and Foot Manual Muscle Testing amy Dorsiflexion (L4) 4 Good Plantarflexion (S1) 4 Good PT-OP-Q Treatments Start: 07/11/18 08:24 Freq: Status: Active Protocol: Document 07/25/18 10:31 [facility] (Rec: 07/25/18 11:15 [facility] [id number]) Cardio Equipment Recumbent Stepper (Sci-Fit) Duration (Minutes) 10 Resistance 1.5 Seat Position 8 Gym Equipment Therapeutic Ball 55 cm Exercise Details pelvic tilt A/P Ball Size/Color 55 Body Position Sitting Reps/Duration 10x Comments mod assist on/off ball for safety Therapeutic Exercises Supine Exercises shoulder flex Reps/Minutes 10x Comments endrange stretch after 10x triangle press Reps/Minutes 10x pec stretch Reps/Minutes 1 min horizontal ab Reps/Minutes 5x pelvic tilt Reps/Minutes 10x Comments ant/post diaphragmatic breathing Reps/Minutes 10 x Sitting Exercises seated thoracic extension Equipment Used 10 ball at thoracic spine, moving to different level with each rep Comments tactile cues to engage t/s extension Standing Exercises standing pelvic tilt Reps/Minutes 10 x 2 row, shld ext Resistance level 2 band Reps/Minutes 6 x2 PT-OP-R Modalities Start: 07/11/18 08:24 Freq: Status: Active Protocol: Document 07/25/18 10:31 [facility] (Rec: 07/25/18 14:44 [facility] [id number]) Hot Pack/Cold Pack Treatment Hot Pack Location thoracolumbar spine Patient Position Hooklying Treatment Duration (minutes) 15 PT-OP-T Assessment and Plan Start: 07/11/18 08:24 Freq: Status: Active Protocol: Document 07/25/18 10:31 [facility] (Rec: 07/25/18 11:15 [facility] [id number]) Physical Therapy Assessment Goals 3 Impairment postural impairment Short Term Goal (STG) Instruct in neutral postural alignment and ther ex for postural correction, flexibility and strengthening STG Duration 08/22/18 [facility] Goal (LTG) Patient to demonstrate improved postural alignment in thoracic spine at rest and with function and be independent with HEP 2 Impairment Activity tolerance: Oswestry disability index score 56% Short Term Goal (STG) Decrease Oswestry score to 40% STG Duration 08/22/18 Parcel Post Carrier Goal (LTG) Decrease Oswestry score to 20% including increase ability to stand or walk from 10 min to 20 min LTG Duration 10/11/18 1 Impairment pain 6/10 Short Term Goal (STG) Decrease pain to no greater than 3/10 STG Duration 08/22/18 [facility] Goal (LTG) Decrease pain to no greater than 1-2/10 with patient demonstrating understanding of pain management including use of heat, exercise, rest LTG Duration 10/11/18 Physical Therapy Plan Frequency and Duration Frequency of Treatment 2x/Week Duration of Treatment 3 months Plan of Care Start Date 07/11/18 Plan of Care End Date 10/11/18 Therapeutic Interventions Therapeutic Interventions Home Exercise Program Manual Therapy Neuromuscular Re-education Patient/Caregiver Education Self-Care/Home Management Soft Tissue Mobilization Taping Therapeutic Activities Therapeutic Exercises Modalities Electric Stimulation Hot Packs Ultrasound Next Visit Focus/Plan Next Note Type Treatment Note Next Visit Plan Patient has much difficulty with pelvic tilt in any position, most easy in supine. Used lumbar support sitting in Sci-Fit, sitting in straight back chair and small towel roll in supine
--- NOTE | 2018-07-27 16:24 | PT.OTN ---
Current Diagnoses Unspecified kyphosis, thoracic region (07/27/18) Physical Therapy Treatment Note PT-OP-A Visit Information Start: 07/11/18 08:24 Freq: Status: Active Protocol: Document 07/27/18 10:30 SAK (Rec: 07/31/18 16:24 [facility] [id number]) Out-Patient Physical Therapy Visit Information Visit Information Visit Type Treatment Note Visit Start Time 10:30 Visit Stop Time 11:25 Total Visit Minutes 55 Visit Number 6 Number of MULTI SLIDE MACHINE TENDER Visits 0 Precautions Precautions osteoporosis, balance dysfunction PT-OP-B Current Condition Start: 07/11/18 08:24 Freq: Status: Active Protocol: Document 07/11/18 10:35 SAK (Rec: 07/11/18 10:47 SAK [id number]) Current Condition History of Current Condition Onset Date fall 2017 Current Complaints back pain due to diagnosis of osteoporosis and osteoarthritis in spine,. History of Current Condition Pain increases after 5-15 min . Sitting down relieves. Only walking in house due to ability to familiar environment and ability to stabilize herself on furniture and white; balance dysfunction x 2 yrs, no improvement with PT. Patient holds onto her 's arm when she walks outside or in the community. Prior Treatments and Tests Seeing an insulation and flooring assembler; diagnosed with post-herpetic neuropathy (taking Gabapentine ). Looking at new treatment for osteoporosis. PT for 8 months for balance, not helpful. Treatment Goals Patient/Caregiver Goals Improve her posture and decrease her pain. Prior Functional Status Baseline Function- ADL's Independent Baseline Function- Mobility Modified Independent Baseline Function- Gait use of cane in home, and cane in community Current Functional Impairments (Reported) Functional Limitations- ADL's painful Functional Limitations- Mobility/Gait use of cane, for balance Functional Limitations- Work/School NA Functional Limitations- Recreation/ painful, extremely limited Hobbies PT-OP-C Subjective Start: 07/11/18 08:24 Freq: Status: Active Protocol: Document 07/27/18 10:30 SAK (Rec: 07/31/18 16:24 SAK [id number]) OP-PT Subjective Patient Comments Patient Comments Fatigued, asking questions about her posture. PT-OP-G Mobility & Gait Start: 07/11/18 08:24 Freq: Status: Active Protocol: Document 07/11/18 10:35 SAK (Rec: 07/12/18 14:12 [facility] [id number]) OP Gait Assessment Gait Gait Assistance Required: Minimum Assistance Assistive Devices Assistive Device Straight Cane Comments Gait Comments assist from PT-OP-J Posture/Palpation/Skin Start: 07/11/18 08:24 Freq: Status: Active Protocol: Document 07/11/18 10:35 ALDAIR (Rec: 07/12/18 14:12 [facility] [id number]) Posture Evaluation Position Standing Head/C-Spine Posture Forward Head T-Spine Posture Increased Kyphosis L-Spine Posture Flattened Shoulder Posture (L) Rounded (R) Rounded Scapula Posture (L) Protracted (R) Protracted Arm Posture (L) Internally Rotated (R) Internally Rotated Palpation Assessment Location paraspinals Palpation Findings Soft Tissue Tightness Muscle Guarding Tenderness PT-OP-K Range of Motion Start: 07/11/18 08:24 Freq: Status: Active Protocol: Document 07/11/18 10:35 ALDAIR (Rec: 07/12/18 14:12 [facility] [id number]) Lumbar Spine Range of Motion Lumbar Spine Active Flexion 50 Extension 20 Lateral Flexion Left 30 Lateral Flexion Right 30 ROM Limitations Soft Tissue Tightness Pain Shoulder Goniometric Range of Motion Shoulder ROM Limitations Shoulder ROM Limitations Soft Tissue Tightness Comments mod tightness in pec major and minor, latissimus Hip Goniometric Range of Motion Hip ROM Limitations Hip ROM Limitations Soft Tissue Tightness Muscle Weakness Comments mod tightness lumbar paraspinals, glut max, hamstrings PT-OP-M Strength Start: 07/11/18 08:24 Freq: Status: Active Protocol: Document 07/11/18 10:35 ALDAIR (Rec: 07/12/18 14:12 [facility] [id number]) Trunk Strength Trunk Manual Muscle Testing Core Stabilization fair ability to activate transverse abdominis Reason Not Measured Pain Shoulder Strength Shoulder Manual Muscle Testing amy Flexion 4 Good Extension 4 Good Abduction (C5) 4 Good External Rotation 4- Good- Internal Rotation 4- Good- Hip Strength Hip Manual Muscle Testing amy Flexion (L2) 4- Good- Extension (S1) 3+ Fair+ Abduction 4- Good- Adduction 4- Good- External Rotation 4- Good- Knee Strength Knee Manual Muscle Testing amy Flexion (S2) 4 Good Extension (L3) 4 Good Ankle/Foot Strength Ankle and Foot Manual Muscle Testing amy Dorsiflexion (L4) 4 Good Plantarflexion (S1) 4 Good PT-OP-Q Treatments Start: 07/11/18 08:24 Freq: Status: Active Protocol: Document 07/27/18 10:30 SAK (Rec: 07/31/18 16:24 [facility] [id number]) Cardio Equipment Recumbent Stepper (Sci-Fit) Duration (Minutes) 10 Resistance 1.5 Seat Position 8 Gym Equipment Therapeutic Ball 55 cm Exercise Details pelvic tilt A/P, side Ball Size/Color 55 Body Position Sitting Reps/Duration 10x Comments mod assist on/off ball for safety Therapeutic Exercises Supine Exercises lat stretch Reps/Minutes 2x30 shoulder flex Reps/Minutes 10x Comments endrange stretch after 10x triangle press Reps/Minutes 10x pec stretch Reps/Minutes 1 min horizontal ab Reps/Minutes 5x posture press Reps/Minutes 10x pelvic tilt Reps/Minutes 10x Comments ant/post diaphragmatic breathing Reps/Minutes 10 x Sitting Exercises seated thoracic extension Equipment Used 10 ball at thoracic spine, moving to different level with each rep Comments tactile cues to engage t/s extension scap retraction Side bilateral Resistance level 2 band Reps/Minutes 6 x2 pulleys shld flex, scaption Reps/Minutes 10x Standing Exercises standing pelvic tilt Reps/Minutes 10 x 2 row, shld ext Resistance level 2 band Reps/Minutes 6 x2 PT-OP-R Modalities Start: 07/11/18 08:24 Freq: Status: Active Protocol: Document 07/27/18 10:30 SAK (Rec: 07/31/18 16:24 [facility] [id number]) Hot Pack/Cold Pack Treatment Hot Pack Location thoracolumbar spine Patient Position Hooklying Treatment Duration (minutes) 15 PT-OP-T Assessment and Plan Start: 07/11/18 08:24 Freq: Status: Active Protocol: Document 07/27/18 10:30 SAK (Rec: 07/31/18 16:24 [facility] [id number]) Physical Therapy Assessment Goals 3 Impairment postural impairment Short Term Goal (STG) Instruct in neutral postural alignment and ther ex for postural correction, flexibility and strengthening STG Duration 08/22/18 [facility] Goal (LTG) Patient to demonstrate improved postural alignment in thoracic spine at rest and with function and be independent with HEP LTG Duration 10/11/18 2 Impairment Activity tolerance: Oswestry disability index score 56% Short Term Goal (STG) Decrease Oswestry score to 40% STG Duration 08/22/18 Aircraft Technician Goal (LTG) Decrease Oswestry score to 20% including increase ability to stand or walk from 10 min to 20 min LTG Duration 10/11/18 1 Impairment pain 10/02 Short Term Goal (STG) Decrease pain to no greater than 3/10 STG Duration 08/22/18 Aircraft Technician Goal (LTG) Decrease pain to no greater than 1-2/10 with patient demonstrating understanding of pain management including use of heat, exercise, rest LTG Duration 10/11/18 Assessment Summary Assessment Good compliance to HEP, minimal change in pain. Though improved, patient continues to have difficulty with anterior pelvic tilt; sits in posterior tilt. Physical Therapy Plan Frequency and Duration Frequency of Treatment 2x/Week Duration of Treatment 3 months Plan of Care Start Date 07/11/18 Plan of Care End Date 10/11/18 Therapeutic Interventions Therapeutic Interventions Home Exercise Program Manual Therapy Neuromuscular Re-education Patient/Caregiver Education Self-Care/Home Management Soft Tissue Mobilization Taping Therapeutic Activities Therapeutic Exercises Modalities Electric Stimulation Hot Packs Ultrasound Next Visit Focus/Plan Next Note Type Treatment Note Next Visit Plan Continue to work on postural correction and spinal stabilization, flexbility and strengthening.
--- NOTE | 2018-08-01 16:19 | PT.OTN ---
Current Diagnoses Unspecified kyphosis, thoracic region (08/01/18) Physical Therapy Treatment Note PT-OP-A Visit Information Start: 07/11/18 08:24 Freq: Status: Active Protocol: Document 08/01/18 10:29 SAK (Rec: 08/01/18 11:21 [facility] [id number]) Out-Patient Physical Therapy Visit Information Visit Information Visit Type Treatment Note Visit Start Time 10:30 Visit Stop Time 11:25 Total Visit Minutes 55 Visit Number 7 Number of ENVIRONMENTAL COORDINATOR Visits 0 Evaluation Information Evaluation Date 07/11/18 Precautions Precautions osteoporosis, balance dysfunction PT-OP-B Current Condition Start: 07/11/18 08:24 Freq: Status: Active Protocol: Document 07/11/18 10:35 SAK (Rec: 07/11/18 10:47 SAK [id number]) Current Condition History of Current Condition Onset Date fall 2017 Current Complaints back pain due to diagnosis of osteoporosis and osteoarthritis in spine,. History of Current Condition Pain increases after 5-15 min . Sitting down relieves. Only walking in house due to ability to familiar environment and ability to stabilize herself on furniture and white; balance dysfunction x 2 yrs, no improvement with PT. Patient holds onto her 's arm when she walks outside or in the community. 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 Looking at new treatment for osteoporosis. PT for 8 months for balance, not helpful. Treatment Goals Patient/Caregiver Goals Improve her posture and decrease her pain. Prior Functional Status Baseline Function- ADL's Independent Baseline Function- Mobility Modified Independent Baseline Function- Gait use of cane in home, and cane in community Current Functional Impairments (Reported) Functional Limitations- ADL's painful Functional Limitations- Mobility/Gait use of cane, for balance Functional Limitations- Work/School NA Functional Limitations- Recreation/ painful, extremely limited Hobbies PT-OP-C Subjective Start: 07/11/18 08:24 Freq: Status: Active Protocol: Document 08/01/18 10:29 SAK (Rec: 08/01/18 11:21 [facility] [id number]) OP-PT Subjective Patient Comments Patient Comments No change in pain, hard to change my posture but I'm trying. PT-OP-G Mobility & Gait Start: 07/11/18 08:24 Freq: Status: Active Protocol: Document 07/11/18 10:35 SAK (Rec: 07/12/18 14:12 [facility] [id number]) OP Gait Assessment Gait Gait Assistance Required: Minimum Assistance Assistive Devices Assistive Device Straight Cane Comments Gait Comments assist from PT-OP-J Posture/Palpation/Skin Start: 07/11/18 08:24 Freq: Status: Active Protocol: Document 07/11/18 10:35 SAK (Rec: 07/12/18 14:12 [facility] [id number]) Posture Evaluation Position Standing Head/C-Spine Posture Forward Head T-Spine Posture Increased Kyphosis L-Spine Posture Flattened Shoulder Posture (L) Rounded (R) Rounded Scapula Posture (L) Protracted (R) Protracted Arm Posture (L) Internally Rotated (R) Internally Rotated Palpation Assessment Location paraspinals Palpation Findings Soft Tissue Tightness Muscle Guarding Tenderness PT-OP-K Range of Motion Start: 07/11/18 08:24 Freq: Status: Active Protocol: Document 07/11/18 10:35 ALDAIR (Rec: 07/12/18 14:12 [facility] [id number]) Lumbar Spine Range of Motion Lumbar Spine Active Flexion 50 Extension 20 Lateral Flexion Left 30 Lateral Flexion Right 30 ROM Limitations Soft Tissue Tightness Pain Shoulder Goniometric Range of Motion Shoulder ROM Limitations Shoulder ROM Limitations Soft Tissue Tightness Comments mod tightness in pec major and minor, latissimus Hip Goniometric Range of Motion Hip ROM Limitations Hip ROM Limitations Soft Tissue Tightness Muscle Weakness Comments mod tightness lumbar paraspinals, glut max, hamstrings PT-OP-M Strength Start: 07/11/18 08:24 Freq: Status: Active Protocol: Document 07/11/18 10:35 ALDAIR (Rec: 07/12/18 14:12 [facility] [id number]) Trunk Strength Trunk Manual Muscle Testing Core Stabilization fair ability to activate transverse abdominis Reason Not Measured Pain Shoulder Strength Shoulder Manual Muscle Testing amy Flexion 4 Good Extension 4 Good Abduction (C5) 4 Good External Rotation 4- Good- Internal Rotation 4- Good- Hip Strength Hip Manual Muscle Testing amy Flexion (L2) 4- Good- Extension (S1) 3+ Fair+ Abduction 4- Good- Adduction 4- Good- External Rotation 4- Good- Knee Strength Knee Manual Muscle Testing amy Flexion (S2) 4 Good Extension (L3) 4 Good Ankle/Foot Strength Ankle and Foot Manual Muscle Testing amy Dorsiflexion (L4) 4 Good Plantarflexion (S1) 4 Good PT-OP-Q Treatments Start: 07/11/18 08:24 Freq: Status: Active Protocol: Document 08/01/18 10:29 [facility] (Rec: 08/01/18 11:21 [facility] [id number]) Cardio Equipment Recumbent Elliptical (Biodex) Duration (Minutes) 10 Resistance 2 Seat Position 6 Other foam back support Gym Equipment Therapeutic Ball 55 cm Exercise Details pelvic tilt A/P, side Ball Size/Color 55 Body Position Sitting Reps/Duration 10x Comments mod assist on/off ball for safety Therapeutic Exercises Supine Exercises triangle press Reps/Minutes 10x pec stretch Reps/Minutes 1 min horizontal ab Reps/Minutes 10x, end range stretch posture press Reps/Minutes 10x pelvic tilt Reps/Minutes 10x Comments ant/post diaphragmatic breathing Reps/Minutes 10 x Sitting Exercises seated thoracic extension Reps/Minutes 10x2 Comments tactile cues to engage t/s extension scap retraction Side bilateral Resistance level 2 band Reps/Minutes 6 x2 Standing Exercises standing pelvic tilt Reps/Minutes 10 x 2 row, shld ext Resistance level 2 band Reps/Minutes 10x x2 PT-OP-R Modalities Start: 07/11/18 08:24 Freq: Status: Active Protocol: Document 08/01/18 10:29 [facility] (Rec: 08/02/18 16:19 [facility] [id number]) Hot Pack/Cold Pack Treatment Hot Pack Location thoracolumbar spine Patient Position Hooklying Treatment Duration (minutes) 15 PT-OP-T Assessment and Plan Start: 07/11/18 08:24 Freq: Status: Active Protocol: Document 08/01/18 10:29 [facility] (Rec: 08/02/18 16:19 [facility] [id number]) Physical Therapy Assessment Goals 3 Impairment postural impairment Short Term Goal (STG) Instruct in neutral postural alignment and ther ex for postural correction, flexibility and strengthening STG Duration 08/22/18 Intermediate Goal (LTG) Patient to demonstrate improved postural alignment in thoracic spine at rest and with function and be independent with HEP LTG Duration 10/11/18 2 Impairment Activity tolerance: Oswestry disability index score 56% Short Term Goal (STG) Decrease Oswestry score to 40% STG Duration 08/22/18 Fur Blowing Machine Attendant Goal (LTG) Decrease Oswestry score to 20% including increase ability to stand or walk from 10 min to 20 min LTG Duration 10/11/18 1 Impairment pain 10/02 Short Term Goal (STG) Decrease pain to no greater than 3/10 STG Duration 08/22/18 Fur Blowing Machine Attendant Goal (LTG) Decrease pain to no greater than 1-2/10 with patient demonstrating understanding of pain management including use of heat, exercise, rest LTG Duration 10/11/18 Assessment Summary Assessment manual cues required for achieving thoracic extension, pelvic tilt. Physical Therapy Plan Frequency and Duration Frequency of Treatment 2x/Week Duration of Treatment 3 months Plan of Care Start Date 07/11/18 Plan of Care End Date 10/11/18 Therapeutic Interventions Therapeutic Interventions Home Exercise Program Manual Therapy Neuromuscular Re-education Patient/Caregiver Education Self-Care/Home Management Soft Tissue Mobilization Taping Therapeutic Activities Therapeutic Exercises Modalities Electric Stimulation Hot Packs Ultrasound Next Visit Focus/Plan Next Note Type Treatment Note Next Visit Plan Continue to work on postural correction and spinal stabilization, flexbility and strengthening.
--- NOTE | 2018-08-03 11:13 | PT.OTN ---
Current Diagnoses Unspecified kyphosis, thoracic region (08/03/18) Physical Therapy Treatment Note PT-OP-A Visit Information Start: 07/11/18 08:24 Freq: Status: Active Protocol: Document 08/03/18 10:31 SAK (Rec: 08/03/18 11:13 SAK [id number]) Out-Patient Physical Therapy Visit Information Visit Information Visit Type Treatment Note Visit Start Time 10:30 Visit Stop Time 11:25 Total Visit Minutes 55 Visit Number 8 Number of FIELD SERVICE REPRESENTATIVE Visits 0 Evaluation Information Evaluation Date 07/11/18 Precautions Precautions osteoporosis, balance dysfunction PT-OP-B Current Condition Start: 07/11/18 08:24 Freq: Status: Active Protocol: Document 07/11/18 10:35 SAK (Rec: 07/11/18 10:47 SAK [id number]) Current Condition History of Current Condition Onset Date fall 2017 Current Complaints back pain due to diagnosis of osteoporosis and osteoarthritis in spine,. History of Current Condition Pain increases after 5-15 min . Sitting down relieves. Only walking in house due to ability to familiar environment and ability to stabilize herself on furniture and white; balance dysfunction x 2 yrs, no improvement with PT. Patient holds onto her 's arm when she walks outside or in the community. 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 Looking at new treatment for osteoporosis. PT for 8 months for balance, not helpful. Treatment Goals Patient/Caregiver Goals Improve her posture and decrease her pain. Prior Functional Status Baseline Function- ADL's Independent Baseline Function- Mobility Modified Independent Baseline Function- Gait use of cane in home, and cane in community Current Functional Impairments (Reported) Functional Limitations- ADL's painful Functional Limitations- Mobility/Gait use of cane, for balance Functional Limitations- Work/School NA Functional Limitations- Recreation/ painful, extremely limited Hobbies PT-OP-C Subjective Start: 07/11/18 08:24 Freq: Status: Active Protocol: Document 08/03/18 10:31 SAK (Rec: 08/03/18 11:13 SAK [id number]) OP-PT Subjective Patient Comments Patient Comments Feels kinesiotape a little helpful. Also noting decrease LBP yesterday. Patient Reported Progress Improving PT-OP-G Mobility & Gait Start: 07/11/18 08:24 Freq: Status: Active Protocol: Document 07/11/18 10:35 SAK (Rec: 07/12/18 14:12 SAK [id number]) OP Gait Assessment Gait Gait Assistance Required: Minimum Assistance Assistive Devices Assistive Device Straight Cane Comments Gait Comments assist from PT-OP-J Posture/Palpation/Skin Start: 07/11/18 08:24 Freq: Status: Active Protocol: Document 07/11/18 10:35 SAK (Rec: 07/12/18 14:12 [facility] [id number]) Posture Evaluation Position Standing Head/C-Spine Posture Forward Head T-Spine Posture Increased Kyphosis L-Spine Posture Flattened Shoulder Posture (L) Rounded (R) Rounded Scapula Posture (L) Protracted (R) Protracted Arm Posture (L) Internally Rotated (R) Internally Rotated Palpation Assessment Location paraspinals Palpation Findings Soft Tissue Tightness Muscle Guarding Tenderness PT-OP-K Range of Motion Start: 07/11/18 08:24 Freq: Status: Active Protocol: Document 07/11/18 10:35 SAK (Rec: 07/12/18 14:12 [facility] [id number]) Lumbar Spine Range of Motion Lumbar Spine Active Flexion 50 Extension 20 Lateral Flexion Left 30 Lateral Flexion Right 30 ROM Limitations Soft Tissue Tightness Pain Shoulder Goniometric Range of Motion Shoulder ROM Limitations Shoulder ROM Limitations Soft Tissue Tightness Comments mod tightness in pec major and minor, latissimus Hip Goniometric Range of Motion Hip ROM Limitations Hip ROM Limitations Soft Tissue Tightness Muscle Weakness Comments mod tightness lumbar paraspinals, glut max, hamstrings PT-OP-M Strength Start: 07/11/18 08:24 Freq: Status: Active Protocol: Document 07/11/18 10:35 SAK (Rec: 07/12/18 14:12 SAK [id number]) Trunk Strength Trunk Manual Muscle Testing Core Stabilization fair ability to activate transverse abdominis Reason Not Measured Pain Shoulder Strength Shoulder Manual Muscle Testing amy Flexion 4 Good Extension 4 Good Abduction (C5) 4 Good External Rotation 4- Good- Internal Rotation 4- Good- Hip Strength Hip Manual Muscle Testing amy Flexion (L2) 4- Good- Extension (S1) 3+ Fair+ Abduction 4- Good- Adduction 4- Good- External Rotation 4- Good- Knee Strength Knee Manual Muscle Testing amy Flexion (S2) 4 Good Extension (L3) 4 Good Ankle/Foot Strength Ankle and Foot Manual Muscle Testing amy Dorsiflexion (L4) 4 Good Plantarflexion (S1) 4 Good PT-OP-Q Treatments Start: 07/11/18 08:24 Freq: Status: Active Protocol: Document 08/03/18 10:31 [facility] (Rec: 08/03/18 11:13 [facility] [id number]) Cardio Equipment Recumbent Elliptical (Biodex) Duration (Minutes) 10 Resistance 2 Seat Position 6 Other foam back support Gym Equipment Therapeutic Ball 55 cm Exercise Details pelvic tilt A/P, side Ball Size/Color 55 Body Position Sitting Reps/Duration 10x Comments mod assist on/off ball for safety Therapeutic Exercises Supine Exercises triangle press Reps/Minutes 10x horizontal ab Reps/Minutes 10x, end range stretch pelvic tilt Reps/Minutes 10x Comments ant/post diaphragmatic breathing Reps/Minutes 10 x Sitting Exercises seated thoracic extension Reps/Minutes 10x2 Comments tactile cues to engage t/s extension Standing Exercises shoulder ext Equipment Used wand Reps/Minutes 10x high rows Reps/Minutes 10x standing pelvic tilt Reps/Minutes 10 x 2 row, shld ext Resistance level 2 band Reps/Minutes 10x x2 PT-OP-R Modalities Start: 07/11/18 08:24 Freq: Status: Active Protocol: Document 08/03/18 10:31 [facility] (Rec: 08/03/18 11:13 [facility] [id number]) Hot Pack/Cold Pack Treatment Hot Pack Location thoracolumbar spine Patient Position Hooklying Treatment Duration (minutes) 15 PT-OP-T Assessment and Plan Start: 07/11/18 08:24 Freq: Status: Active Protocol: Document 08/03/18 10:31 [facility] (Rec: 08/03/18 11:13 [facility] [id number]) Physical Therapy Assessment Goals 3 Impairment postural impairment Short Term Goal (STG) Instruct in neutral postural alignment and ther ex for postural correction, flexibility and strengthening STG Duration 08/22/18 Aitchbone Breaker Goal (LTG) Patient to demonstrate improved postural alignment in thoracic spine at rest and with function and be independent with HEP LTG Duration 10/11/18 2 Impairment Activity tolerance: Oswestry disability index score 56% Short Term Goal (STG) Decrease Oswestry score to 40% STG Duration 08/22/18 Aitchbone Breaker Goal (LTG) Decrease Oswestry score to 20% including increase ability to stand or walk from 10 min to 20 min LTG Duration 10/11/18 1 Impairment pain 6/ Short Term Goal (STG) Decrease pain to no greater than 3/10 STG Duration 08/22/18 Aitchbone Breaker Goal (LTG) Decrease pain to no greater than 1-2/10 with patient demonstrating understanding of pain management including use of heat, exercise, rest LTG Duration 10/11/18 Assessment Summary Assessment Decreased pain per patient report. Kinesiotape left on; patient to remove after 5 days on. Improved thoracic extension and pelvic motion noted. Physical Therapy Plan Frequency and Duration Frequency of Treatment 2x/Week Duration of Treatment 3 months Plan of Care Start Date 07/11/18 Plan of Care End Date 10/11/18 Therapeutic Interventions Therapeutic Interventions Home Exercise Program Manual Therapy Neuromuscular Re-education Patient/Caregiver Education Self-Care/Home Management Soft Tissue Mobilization Taping Therapeutic Activities Therapeutic Exercises Modalities Electric Stimulation Hot Packs Ultrasound Next Visit Focus/Plan Next Note Type Treatment Note Next Visit Plan Progress ther ex as tolerated for postural correction, core stabilization. With moist heat put small towel under lumbar spine to encourage more normal alignment.
--- NOTE | 2018-08-08 14:36 | PT.OTN ---
Current Diagnoses Unspecified kyphosis, thoracic region (08/08/18) Physical Therapy Treatment Note PT-OP-A Visit Information Start: 07/11/18 08:24 Freq: Status: Active Protocol: Document 08/08/18 10:32 SAK (Rec: 08/08/18 11:15 SAK [id number]) Out-Patient Physical Therapy Visit Information Visit Information Visit Type Treatment Note Visit Start Time 10:30 Visit Stop Time 11:25 Total Visit Minutes 55 Visit Number 9 Number of NEWS DEPARTMENT INTERN Visits 0 Evaluation Information Evaluation Date 07/11/18 Precautions Precautions osteoporosis, balance dysfunction PT-OP-B Current Condition Start: 07/11/18 08:24 Freq: Status: Active Protocol: Document 07/11/18 10:35 SAK (Rec: 07/11/18 10:47 SAK [id number]) Current Condition History of Current Condition Onset Date fall 2017 Current Complaints back pain due to diagnosis of osteoporosis and osteoarthritis in spine,. History of Current Condition Pain increases after 5-15 min . Sitting down relieves. Only walking in house due to ability to familiar environment and ability to stabilize herself on furniture and white; balance dysfunction x 2 yrs, no improvement with PT. Patient holds onto her 's arm when she walks outside or in the community. 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 Looking at new treatment for osteoporosis. PT for 8 months for balance, not helpful. Treatment Goals Patient/Caregiver Goals Improve her posture and decrease her pain. Prior Functional Status Baseline Function- ADL's Independent Baseline Function- Mobility Modified Independent Baseline Function- Gait use of cane in home, and cane in community Current Functional Impairments (Reported) Functional Limitations- ADL's painful Functional Limitations- Mobility/Gait use of cane, for balance Functional Limitations- Work/School NA Functional Limitations- Recreation/ painful, extremely limited Hobbies PT-OP-C Subjective Start: 07/11/18 08:24 Freq: Status: Active Protocol: Document 08/08/18 10:32 SAK (Rec: 08/08/18 11:15 SAK [id number]) OP-PT Subjective Patient Comments Patient Comments Removal of kinesiotape at home ripped skin per patient report, requests no more tape. Has ointment and bandaid on. PT-OP-G Mobility & Gait Start: 07/11/18 08:24 Freq: Status: Active Protocol: Document 07/11/18 10:35 [facility] (Rec: 07/12/18 14:12 [facility] [id number]) OP Gait Assessment Gait Gait Assistance Required: Minimum Assistance Assistive Devices Assistive Device Straight Cane Comments Gait Comments assist from PT-OP-J Posture/Palpation/Skin Start: 07/11/18 08:24 Freq: Status: Active Protocol: Document 07/11/18 10:35 SAK (Rec: 07/12/18 14:12 [facility] [id number]) Posture Evaluation Position Standing Head/C-Spine Posture Forward Head T-Spine Posture Increased Kyphosis L-Spine Posture Flattened Shoulder Posture (L) Rounded (R) Rounded Scapula Posture (L) Protracted (R) Protracted Arm Posture (L) Internally Rotated (R) Internally Rotated Palpation Assessment Location paraspinals Palpation Findings Soft Tissue Tightness Muscle Guarding Tenderness PT-OP-K Range of Motion Start: 07/11/18 08:24 Freq: Status: Active Protocol: Document 07/11/18 10:35 [facility] (Rec: 07/12/18 14:12 [facility] [id number]) Lumbar Spine Range of Motion Lumbar Spine Active Flexion 50 Extension 20 Lateral Flexion Left 30 Lateral Flexion Right 30 ROM Limitations Soft Tissue Tightness Pain Shoulder Goniometric Range of Motion Shoulder ROM Limitations Shoulder ROM Limitations Soft Tissue Tightness Comments mod tightness in pec major and minor, latissimus Hip Goniometric Range of Motion Hip ROM Limitations Hip ROM Limitations Soft Tissue Tightness Muscle Weakness Comments mod tightness lumbar paraspinals, glut max, hamstrings PT-OP-M Strength Start: 07/11/18 08:24 Freq: Status: Active Protocol: Document 07/11/18 10:35 [facility] (Rec: 07/12/18 14:12 [facility] [id number]) Trunk Strength Trunk Manual Muscle Testing Core Stabilization fair ability to activate transverse abdominis Reason Not Measured Pain Shoulder Strength Shoulder Manual Muscle Testing amy Flexion 4 Good Extension 4 Good Abduction (C5) 4 Good External Rotation 4- Good- Internal Rotation 4- Good- Hip Strength Hip Manual Muscle Testing amy Flexion (L2) 4- Good- Extension (S1) 3+ Fair+ Abduction 4- Good- Adduction 4- Good- External Rotation 4- Good- Knee Strength Knee Manual Muscle Testing amy Flexion (S2) 4 Good Extension (L3) 4 Good Ankle/Foot Strength Ankle and Foot Manual Muscle Testing amy Dorsiflexion (L4) 4 Good Plantarflexion (S1) 4 Good PT-OP-Q Treatments Start: 07/11/18 08:24 Freq: Status: Active Protocol: Document 08/08/18 10:32 SAK (Rec: 08/08/18 11:15 [facility] [id number]) Cardio Equipment Recumbent Elliptical (Biodex) Duration (Minutes) 10 Resistance 2 Seat Position 6 Other foam back support Gym Equipment Therapeutic Ball 55 cm Exercise Details pelvic tilt A/P, side, circles CW, CCW Ball Size/Color 55 Body Position Sitting Reps/Duration 10x Comments mod assist on/off ball for safety Therapeutic Exercises Supine Exercises triangle press Reps/Minutes 10x pec stretch Reps/Minutes 1 min horizontal ab Reps/Minutes 10x, end range stretch pelvic tilt Reps/Minutes 10x Comments ant/post Sitting Exercises seated thoracic extension Reps/Minutes 10x2 Comments tactile cues to engage t/s extension Standing Exercises hi rows Equipment Used L1 TB Reps/Minutes 10x Sh ER Equipment Used L1 TB Reps/Minutes 10x shoulder ext Equipment Used wand Reps/Minutes 10x high rows Reps/Minutes 10x standing pelvic tilt Reps/Minutes 10 x 2 row, shld ext Resistance level 2 band Reps/Minutes 10x x2 PT-OP-R Modalities Start: 07/11/18 08:24 Freq: Status: Active Protocol: Document 08/08/18 10:32 [facility] (Rec: 08/08/18 11:15 [facility] [id number]) Hot Pack/Cold Pack Treatment Hot Pack Location thoracolumbar spine Patient Position Hooklying Treatment Duration (minutes) 15 PT-OP-T Assessment and Plan Start: 07/11/18 08:24 Freq: Status: Active Protocol: Document 08/08/18 10:32 SAK (Rec: 08/08/18 11:15 [facility] [id number]) Physical Therapy Assessment Goals 3 Impairment postural impairment Short Term Goal (STG) Instruct in neutral postural alignment and ther ex for postural correction, flexibility and strengthening STG Duration 08/22/18 Detention Goal (LTG) Patient to demonstrate improved postural alignment in thoracic spine at rest and with function and be independent with HEP LTG Duration 10/11/18 2 Impairment Activity tolerance: Oswestry disability index score 56% Short Term Goal (STG) Decrease Oswestry score to 40% STG Duration 08/22/18 Postpartum Rn Goal (LTG) Decrease Oswestry score to 20% including increase ability to stand or walk from 10 min to 20 min LTG Duration 10/11/18 1 Impairment pain 6/ Short Term Goal (STG) Decrease pain to no greater than 3/10 STG Duration 08/22/18 Postpartum Rn Goal (LTG) Decrease pain to no greater than 1-2/10 with patient demonstrating understanding of pain management including use of heat, exercise, rest LTG Duration 10/11/18 Assessment Summary Assessment Improving postural awareness, responds well to facilitation but has difficulty holding more neutral alignment. Physical Therapy Plan Frequency and Duration Frequency of Treatment 2x/Week Duration of Treatment 3 months Plan of Care Start Date 07/11/18 Plan of Care End Date 10/11/18 Therapeutic Interventions Therapeutic Interventions Home Exercise Program Manual Therapy Neuromuscular Re-education Patient/Caregiver Education Self-Care/Home Management Soft Tissue Mobilization Taping Therapeutic Activities Therapeutic Exercises Modalities Electric Stimulation Hot Packs Ultrasound Next Visit Focus/Plan Next Note Type Progress Note
--- NOTE | 2018-08-15 15:24 | PT.OTN ---
Current Diagnoses Unspecified kyphosis, thoracic region (08/15/18) Physical Therapy Treatment Note PT-OP-A Visit Information Start: 07/11/18 08:24 Freq: Status: Active Protocol: Document 08/15/18 10:37 SAK (Rec: 08/15/18 11:06 SAK [id number]) Out-Patient Physical Therapy Visit Information Visit Information Visit Type Treatment Note Visit Start Time 10:30 Visit Stop Time 11:25 Total Visit Minutes 55 Visit Number 10 Number of DISTRICT GAUGER Visits 0 Evaluation Information Evaluation Date 07/11/18 Precautions Precautions osteoporosis, balance dysfunction PT-OP-B Current Condition Start: 07/11/18 08:24 Freq: Status: Active Protocol: Document 07/11/18 10:35 SAK (Rec: 07/11/18 10:47 SAK [id number]) Current Condition History of Current Condition Onset Date fall 2017 Current Complaints back pain due to diagnosis of osteoporosis and osteoarthritis in spine,. History of Current Condition Pain increases after 5-15 min . Sitting down relieves. Only walking in house due to ability to familiar environment and ability to stabilize herself on furniture and white; balance dysfunction x 2 yrs, no improvement with PT. Patient holds onto her 's arm when she walks outside or in the community. Prior Treatments and Tests Seeing an internet consultant; diagnosed with post-herpetic neuropathy (taking Gabapentine ). Looking at new treatment for osteoporosis. PT for 8 months for balance, not helpful. Treatment Goals Patient/Caregiver Goals Improve her posture and decrease her pain. Prior Functional Status Baseline Function- ADL's Independent Baseline Function- Mobility Modified Independent Baseline Function- Gait use of cane in home, and cane in community Current Functional Impairments (Reported) Functional Limitations- ADL's painful Functional Limitations- Mobility/Gait use of cane, for balance Functional Limitations- Work/School NA Functional Limitations- Recreation/ painful, extremely limited Hobbies PT-OP-C Subjective Start: 07/11/18 08:24 Freq: Status: Active Protocol: Document 08/15/18 10:37 SAK (Rec: 08/15/18 11:06 SAK [id number]) OP-PT Subjective Patient Comments Patient Comments Had to cancel due to pain from pneumonia shot. Back pain persists, being referred to pain specialist. PT-OP-G Mobility & Gait Start: 07/11/18 08:24 Freq: Status: Active Protocol: Document 07/11/18 10:35 SAK (Rec: 07/12/18 14:12 SAK [id number]) OP Gait Assessment Gait Gait Assistance Required: Minimum Assistance Assistive Devices Assistive Device Straight Cane Comments Gait Comments assist from PT-OP-J Posture/Palpation/Skin Start: 07/11/18 08:24 Freq: Status: Active Protocol: Document 07/11/18 10:35 SAK (Rec: 07/12/18 14:12 [facility] [id number]) Posture Evaluation Position Standing Head/C-Spine Posture Forward Head T-Spine Posture Increased Kyphosis L-Spine Posture Flattened Shoulder Posture (L) Rounded (R) Rounded Scapula Posture (L) Protracted (R) Protracted Arm Posture (L) Internally Rotated (R) Internally Rotated Palpation Assessment Location paraspinals Palpation Findings Soft Tissue Tightness Muscle Guarding Tenderness PT-OP-K Range of Motion Start: 07/11/18 08:24 Freq: Status: Active Protocol: Document 07/11/18 10:35 SAK (Rec: 07/12/18 14:12 [facility] [id number]) Lumbar Spine Range of Motion Lumbar Spine Active Flexion 50 Extension 20 Lateral Flexion Left 30 Lateral Flexion Right 30 ROM Limitations Soft Tissue Tightness Pain Shoulder Goniometric Range of Motion Shoulder ROM Limitations Shoulder ROM Limitations Soft Tissue Tightness Comments mod tightness in pec major and minor, latissimus Hip Goniometric Range of Motion Hip ROM Limitations Hip ROM Limitations Soft Tissue Tightness Muscle Weakness Comments mod tightness lumbar paraspinals, glut max, hamstrings PT-OP-M Strength Start: 07/11/18 08:24 Freq: Status: Active Protocol: Document 07/11/18 10:35 SAK (Rec: 07/12/18 14:12 SAK [id number]) Trunk Strength Trunk Manual Muscle Testing Core Stabilization fair ability to activate transverse abdominis Reason Not Measured Pain Shoulder Strength Shoulder Manual Muscle Testing amy Flexion 4 Good Extension 4 Good Abduction (C5) 4 Good External Rotation 4- Good- Internal Rotation 4- Good- Hip Strength Hip Manual Muscle Testing amy Flexion (L2) 4- Good- Extension (S1) 3+ Fair+ Abduction 4- Good- Adduction 4- Good- External Rotation 4- Good- Knee Strength Knee Manual Muscle Testing amy Flexion (S2) 4 Good Extension (L3) 4 Good Ankle/Foot Strength Ankle and Foot Manual Muscle Testing amy Dorsiflexion (L4) 4 Good Plantarflexion (S1) 4 Good PT-OP-Q Treatments Start: 07/11/18 08:24 Freq: Status: Active Protocol: Document 08/15/18 10:37 SAK (Rec: 08/15/18 11:06 [facility] [id number]) Cardio Equipment Recumbent Elliptical (Biodex) Duration (Minutes) 10 Resistance 2 Seat Position 6 Other foam back support Gym Equipment Therapeutic Ball 55 cm Exercise Details pelvic tilt A/P, side, circles CW, CCW Ball Size/Color 55 Body Position Sitting Reps/Duration 10x Comments mod assist on/off ball for safety Therapeutic Exercises Supine Exercises shoulder flex Reps/Minutes 10x Comments endrange stretch after 10x triangle press Reps/Minutes 10x pec stretch Reps/Minutes 1 min horizontal ab Reps/Minutes 10x, end range stretch Sitting Exercises seated thoracic extension Reps/Minutes 10x2 Comments tactile cues to engage t/s extension Standing Exercises hi rows Equipment Used L1 TB Reps/Minutes 10x Sh ER Equipment Used L1 TB Reps/Minutes 10x shoulder ext Equipment Used wand Reps/Minutes 10x high rows Reps/Minutes 10x standing pelvic tilt Reps/Minutes 10 x 2 row, shld ext Resistance level 2 band Reps/Minutes 10x x2 PT-OP-R Modalities Start: 07/11/18 08:24 Freq: Status: Active Protocol: Document 08/15/18 10:37 SAK (Rec: 08/15/18 11:06 [facility] [id number]) Hot Pack/Cold Pack Treatment Hot Pack Location thoracolumbar spine Patient Position Hooklying Treatment Duration (minutes) 15 PT-OP-T Assessment and Plan Start: 07/11/18 08:24 Freq: Status: Active Protocol: Document 08/15/18 10:37 SAK (Rec: 08/15/18 11:06 [facility] [id number]) Physical Therapy Assessment Goals 3 Impairment postural impairment Short Term Goal (STG) Instruct in neutral postural alignment and ther ex for postural correction, flexibility and strengthening STG Duration 08/22/18 Skilled Nursing Goal (LTG) Patient to demonstrate improved postural alignment in thoracic spine at rest and with function and be independent with HEP LTG Duration 10/11/18 2 Impairment Activity tolerance: Oswestry disability index score 56% Short Term Goal (STG) Decrease Oswestry score to 40% STG Duration 08/22/18 Skilled Nursing Goal (LTG) Decrease Oswestry score to 20% including increase ability to stand or walk from 10 min to 20 min LTG Duration 10/11/18 1 Impairment pain 10/02 Short Term Goal (STG) Decrease pain to no greater than 3/10 STG Duration 08/22/18 Early Childhood Aide Classroom Goal (LTG) Decrease pain to no greater than 1-2/10 with patient demonstrating understanding of pain management including use of heat, exercise, rest LTG Duration 10/11/18 Physical Therapy Plan Frequency and Duration Frequency of Treatment 2x/Week Duration of Treatment 3 months Plan of Care Start Date 07/11/18 Plan of Care End Date 10/11/18 Therapeutic Interventions Therapeutic Interventions Home Exercise Program Manual Therapy Neuromuscular Re-education Patient/Caregiver Education Self-Care/Home Management Soft Tissue Mobilization Taping Therapeutic Activities Therapeutic Exercises Modalities Electric Stimulation Hot Packs Ultrasound Next Visit Focus/Plan Next Note Type Treatment Note
--- NOTE | 2018-08-17 14:07 | PT.OTN ---
Current Diagnoses Unspecified kyphosis, thoracic region (08/17/18) Physical Therapy Treatment Note PT-OP-A Visit Information Start: 07/11/18 08:24 Freq: Status: Active Protocol: Document 08/17/18 10:40 SAK (Rec: 08/17/18 10:42 SAK [id number]) Out-Patient Physical Therapy Visit Information Visit Information Visit Type Treatment Note Visit Start Time 10:30 Visit Stop Time 11:25 Total Visit Minutes 55 Visit Number 11 Number of DESIGNER/WRITER Visits 0 Evaluation Information Evaluation Date 07/11/18 Precautions Precautions osteoporosis, balance dysfunction PT-OP-B Current Condition Start: 07/11/18 08:24 Freq: Status: Active Protocol: Document 07/11/18 10:35 SAK (Rec: 07/11/18 10:47 SAK [id number]) Current Condition History of Current Condition Onset Date fall 2017 Current Complaints back pain due to diagnosis of osteoporosis and osteoarthritis in spine,. History of Current Condition Pain increases after 5-15 min . Sitting down relieves. Only walking in house due to ability to familiar environment and ability to stabilize herself on furniture and white; balance dysfunction x 2 yrs, no improvement with PT. Patient holds onto her 's arm when she walks outside or in the community. Prior Treatments and Tests Seeing an nutrition therapist; diagnosed with post-herpetic neuropathy (taking Gabapentine ). Looking at new treatment for osteoporosis. PT for 8 months for balance, not helpful. Treatment Goals Patient/Caregiver Goals Improve her posture and decrease her pain. Prior Functional Status Baseline Function- ADL's Independent Baseline Function- Mobility Modified Independent Baseline Function- Gait use of cane in home, and cane in community Current Functional Impairments (Reported) Functional Limitations- ADL's painful Functional Limitations- Mobility/Gait use of cane, for balance Functional Limitations- Work/School NA Functional Limitations- Recreation/ painful, extremely limited Hobbies PT-OP-C Subjective Start: 07/11/18 08:24 Freq: Status: Active Protocol: Document 08/17/18 10:40 SAK (Rec: 08/17/18 10:42 SAK [id number]) OP-PT Subjective Patient Comments Patient Comments No new c/o. Wants to review ball exercises from HEP. States she feels stronger, reports she is sitting better. PT-OP-G Mobility & Gait Start: 07/11/18 08:24 Freq: Status: Active Protocol: Document 07/11/18 10:35 [facility] (Rec: 07/12/18 14:12 [facility] [id number]) OP Gait Assessment Gait Gait Assistance Required: Minimum Assistance Assistive Devices Assistive Device Straight Cane Comments Gait Comments assist from PT-OP-J Posture/Palpation/Skin Start: 07/11/18 08:24 Freq: Status: Active Protocol: Document 07/11/18 10:35 SAK (Rec: 07/12/18 14:12 [facility] [id number]) Posture Evaluation Position Standing Head/C-Spine Posture Forward Head T-Spine Posture Increased Kyphosis L-Spine Posture Flattened Shoulder Posture (L) Rounded (R) Rounded Scapula Posture (L) Protracted (R) Protracted Arm Posture (L) Internally Rotated (R) Internally Rotated Palpation Assessment Location paraspinals Palpation Findings Soft Tissue Tightness Muscle Guarding Tenderness PT-OP-K Range of Motion Start: 07/11/18 08:24 Freq: Status: Active Protocol: Document 07/11/18 10:35 [facility] (Rec: 07/12/18 14:12 [facility] [id number]) Lumbar Spine Range of Motion Lumbar Spine Active Flexion 50 Extension 20 Lateral Flexion Left 30 Lateral Flexion Right 30 ROM Limitations Soft Tissue Tightness Pain Shoulder Goniometric Range of Motion Shoulder ROM Limitations Shoulder ROM Limitations Soft Tissue Tightness Comments mod tightness in pec major and minor, latissimus Hip Goniometric Range of Motion Hip ROM Limitations Hip ROM Limitations Soft Tissue Tightness Muscle Weakness Comments mod tightness lumbar paraspinals, glut max, hamstrings PT-OP-M Strength Start: 07/11/18 08:24 Freq: Status: Active Protocol: Document 07/11/18 10:35 [facility] (Rec: 07/12/18 14:12 [facility] [id number]) Trunk Strength Trunk Manual Muscle Testing Core Stabilization fair ability to activate transverse abdominis Reason Not Measured Pain Shoulder Strength Shoulder Manual Muscle Testing amy Flexion 4 Good Extension 4 Good Abduction (C5) 4 Good External Rotation 4- Good- Internal Rotation 4- Good- Hip Strength Hip Manual Muscle Testing amy Flexion (L2) 4- Good- Extension (S1) 3+ Fair+ Abduction 4- Good- Adduction 4- Good- External Rotation 4- Good- Knee Strength Knee Manual Muscle Testing amy Flexion (S2) 4 Good Extension (L3) 4 Good Ankle/Foot Strength Ankle and Foot Manual Muscle Testing amy Dorsiflexion (L4) 4 Good Plantarflexion (S1) 4 Good PT-OP-Q Treatments Start: 07/11/18 08:24 Freq: Status: Active Protocol: Document 08/17/18 10:40 SAK (Rec: 08/17/18 10:42 [facility] [id number]) Cardio Equipment Recumbent Elliptical (Biodex) Duration (Minutes) 10 Resistance 2 Seat Position 6 Other foam back support Gym Equipment Therapeutic Ball 55 cm Exercise Details pelvic tilt A/P, side, circles CW, CCW Ball Size/Color 55 Body Position Sitting Reps/Duration 10x Comments mod assist on/off ball for safety Therapeutic Exercises Supine Exercises lat stretch Reps/Minutes 2x30 shoulder flex Reps/Minutes 10x Comments endrange stretch after 10x triangle press Reps/Minutes 10x pec stretch Reps/Minutes 1 min horizontal ab Reps/Minutes 10x, end range stretch posture press Reps/Minutes 10x gluteal isometric Reps/Minutes 10x pelvic tilt Reps/Minutes 10x Comments ant/post diaphragmatic breathing Reps/Minutes 10 x Sitting Exercises seated thoracic extension Reps/Minutes 10x2 Comments tactile cues to engage t/s extension Standing Exercises hi rows Equipment Used L1 TB Reps/Minutes 10x Sh ER Equipment Used L1 TB Reps/Minutes 10x shoulder ext Equipment Used wand Reps/Minutes 10x standing pelvic tilt Reps/Minutes 10 x 2 row, shld ext Resistance level 2 band Reps/Minutes 10x x2 PT-OP-R Modalities Start: 07/11/18 08:24 Freq: Status: Active Protocol: Document 08/17/18 10:40 [facility] (Rec: 08/17/18 10:42 [facility] [id number]) Hot Pack/Cold Pack Treatment Hot Pack Location thoracolumbar spine Patient Position Hooklying Treatment Duration (minutes) 15 PT-OP-T Assessment and Plan Start: 07/11/18 08:24 Freq: Status: Active Protocol: Document 08/17/18 10:40 SAK (Rec: 08/17/18 10:42 [facility] [id number]) Physical Therapy Assessment Goals 3 Impairment postural impairment Short Term Goal (STG) Instruct in neutral postural alignment and ther ex for postural correction, flexibility and strengthening STG Duration 08/22/18 Jail Goal (LTG) Patient to demonstrate improved postural alignment in thoracic spine at rest and with function and be independent with HEP LTG Duration 10/11/18 2 Impairment Activity tolerance: Oswestry disability index score 56% Short Term Goal (STG) Decrease Oswestry score to 40% STG Duration 08/22/18 Jail Goal (LTG) Decrease Oswestry score to 20% including increase ability to stand or walk from 10 min to 20 min LTG Duration 10/11/18 1 Impairment pain 10/02 Short Term Goal (STG) Decrease pain to no greater than 3/10 STG Duration 08/22/18 Jail Goal (LTG) Decrease pain to no greater than 1-2/10 with patient demonstrating understanding of pain management including use of heat, exercise, rest LTG Duration 10/11/18 Physical Therapy Plan Frequency and Duration Frequency of Treatment 2x/Week Duration of Treatment 3 months Plan of Care Start Date 07/11/18 Plan of Care End Date 10/11/18 Therapeutic Interventions Therapeutic Interventions Home Exercise Program Manual Therapy Neuromuscular Re-education Patient/Caregiver Education Self-Care/Home Management Soft Tissue Mobilization Taping Therapeutic Activities Therapeutic Exercises Modalities Electric Stimulation Hot Packs Ultrasound Next Visit Focus/Plan Next Note Type Treatment Note Next Visit Plan return in 2-3 wks for follow up appointment
--- NOTE | 2018-08-24 15:57 | PT.OTN ---
Current Diagnoses Unspecified kyphosis, thoracic region (08/24/18) Physical Therapy Treatment Note PT-OP-A Visit Information Start: 07/11/18 08:24 Freq: Status: Active Protocol: Document 08/24/18 13:49 SAK (Rec: 08/24/18 14:29 [facility] [id number]) Out-Patient Physical Therapy Visit Information Visit Information Visit Type Treatment Note Visit Start Time 13:45 Visit Stop Time 11:25 Total Visit Minutes 55 Visit Number 11 Number of PIT TANNER Visits 0 Evaluation Information Evaluation Date 07/11/18 Precautions Precautions osteoporosis, balance dysfunction PT-OP-B Current Condition Start: 07/11/18 08:24 Freq: Status: Active Protocol: Document 07/11/18 10:35 SAK (Rec: 07/11/18 10:47 SAK [id number]) Current Condition History of Current Condition Onset Date fall 2017 Current Complaints back pain due to diagnosis of osteoporosis and osteoarthritis in spine,. History of Current Condition Pain increases after 5-15 min . Sitting down relieves. Only walking in house due to ability to familiar environment and ability to stabilize herself on furniture and white; balance dysfunction x 2 yrs, no improvement with PT. Patient holds onto her 's arm when she walks outside or in the community. Prior Treatments and Tests Seeing an rn prior authorization; diagnosed with post-herpetic neuropathy (taking Gabapentine ). Looking at new treatment for osteoporosis. PT for 8 months for balance, not helpful. Treatment Goals Patient/Caregiver Goals Improve her posture and decrease her pain. Prior Functional Status Baseline Function- ADL's Independent Baseline Function- Mobility Modified Independent Baseline Function- Gait use of cane in home, and cane in community Current Functional Impairments (Reported) Functional Limitations- ADL's painful Functional Limitations- Mobility/Gait use of cane, for balance Functional Limitations- Work/School NA Functional Limitations- Recreation/ painful, extremely limited Hobbies PT-OP-C Subjective Start: 07/11/18 08:24 Freq: Status: Active Protocol: Document 08/24/18 13:49 SAK (Rec: 08/24/18 14:29 [facility] [id number]) OP-PT Subjective Patient Comments Patient Comments States pain from shingles continues to be the biggest limiting factor as she feels she guards and protects and the pain worsens as day progresses. Is laying down flat a couple times a day as recommended PT-OP-G Mobility & Gait Start: 07/11/18 08:24 Freq: Status: Active Protocol: Document 07/11/18 10:35 SAK (Rec: 07/12/18 14:12 [facility] [id number]) OP Gait Assessment Gait Gait Assistance Required: Minimum Assistance Assistive Devices Assistive Device Straight Cane Comments Gait Comments assist from PT-OP-J Posture/Palpation/Skin Start: 07/11/18 08:24 Freq: Status: Active Protocol: Document 07/11/18 10:35 SAK (Rec: 07/12/18 14:12 [facility] [id number]) Posture Evaluation Position Standing Head/C-Spine Posture Forward Head T-Spine Posture Increased Kyphosis L-Spine Posture Flattened Shoulder Posture (L) Rounded (R) Rounded Scapula Posture (L) Protracted (R) Protracted Arm Posture (L) Internally Rotated (R) Internally Rotated Palpation Assessment Location paraspinals Palpation Findings Soft Tissue Tightness Muscle Guarding Tenderness PT-OP-K Range of Motion Start: 07/11/18 08:24 Freq: Status: Active Protocol: Document 07/11/18 10:35 SAK (Rec: 07/12/18 14:12 [facility] [id number]) Lumbar Spine Range of Motion Lumbar Spine Active Flexion 50 Extension 20 Lateral Flexion Left 30 Lateral Flexion Right 30 ROM Limitations Soft Tissue Tightness Pain Shoulder Goniometric Range of Motion Shoulder ROM Limitations Shoulder ROM Limitations Soft Tissue Tightness Comments mod tightness in pec major and minor, latissimus Hip Goniometric Range of Motion Hip ROM Limitations Hip ROM Limitations Soft Tissue Tightness Muscle Weakness Comments mod tightness lumbar paraspinals, glut max, hamstrings PT-OP-M Strength Start: 07/11/18 08:24 Freq: Status: Active Protocol: Document 07/11/18 10:35 SAK (Rec: 07/12/18 14:12 [facility] [id number]) Trunk Strength Trunk Manual Muscle Testing Core Stabilization fair ability to activate transverse abdominis Reason Not Measured Pain Shoulder Strength Shoulder Manual Muscle Testing amy Flexion 4 Good Extension 4 Good Abduction (C5) 4 Good External Rotation 4- Good- Internal Rotation 4- Good- Hip Strength Hip Manual Muscle Testing amy Flexion (L2) 4- Good- Extension (S1) 3+ Fair+ Abduction 4- Good- Adduction 4- Good- External Rotation 4- Good- Knee Strength Knee Manual Muscle Testing amy Flexion (S2) 4 Good Extension (L3) 4 Good Ankle/Foot Strength Ankle and Foot Manual Muscle Testing amy Dorsiflexion (L4) 4 Good Plantarflexion (S1) 4 Good PT-OP-Q Treatments Start: 07/11/18 08:24 Freq: Status: Active Protocol: Document 08/24/18 13:49 [facility] (Rec: 08/24/18 14:29 [facility] [id number]) Cardio Equipment Recumbent Elliptical (Biodex) Duration (Minutes) 10 Resistance 2 Seat Position 6 Other foam back support Gym Equipment Therapeutic Ball 55 cm Exercise Details pelvic tilt A/P, side, circles CW, CCW Ball Size/Color 55 Body Position Sitting Reps/Duration 10x Comments mod assist on/off ball for safety Therapeutic Exercises Supine Exercises lat stretch Reps/Minutes 2x30 shoulder flex Reps/Minutes 10x Comments endrange stretch after 10x triangle press Reps/Minutes 10x pec stretch Reps/Minutes 1 min horizontal ab Reps/Minutes 10x, end range stretch pelvic tilt Reps/Minutes 10x Comments ant/post Sitting Exercises seated thoracic extension Reps/Minutes 10x2 Comments tactile cues to engage t/s extension Standing Exercises wall posture Reps/Minutes 10x Sh ER Equipment Used L1 TB Reps/Minutes 10x shoulder ext Equipment Used wand Reps/Minutes 10x row, shld ext Resistance level 2 band Reps/Minutes 10x x2 PT-OP-R Modalities Start: 07/11/18 08:24 Freq: Status: Active Protocol: Document 08/24/18 13:49 [facility] (Rec: 08/24/18 14:29 [facility] [id number]) Hot Pack/Cold Pack Treatment Hot Pack Location thoracolumbar spine Patient Position Hooklying Treatment Duration (minutes) 15 PT-OP-T Assessment and Plan Start: 07/11/18 08:24 Freq: Status: Active Protocol: Document 08/24/18 13:49 [facility] (Rec: 08/24/18 14:29 [facility] [id number]) Physical Therapy Assessment Goals 3 Impairment postural impairment Short Term Goal (STG) Instruct in neutral postural alignment and ther ex for postural correction, flexibility and strengthening STG Duration MET [employer] Personal [employer] Goal (LTG) Patient to demonstrate improved postural alignment in thoracic spine at rest and with function and be independent with HEP LTG Duration MET 2 Impairment Activity tolerance: Oswestry disability index score 56% Short Term Goal (STG) Decrease Oswestry score to 40% goal progress Senior Living Goal (LTG) Decrease Oswestry score to 20% including increase ability to stand or walk from 10 min to 20 min LTG Duration 10/11/18 1 Impairment pain 6/10 Short Term Goal (STG) Decrease pain to no greater than 3/10 STG Duration 08/22/18 [employer] Goal (LTG) Decrease pain to no greater than 1-2/10 with patient demonstrating understanding of pain management including use of heat, exercise, rest LTG Duration 10/11/18 Physical Therapy Plan Frequency and Duration Frequency of Treatment 2x/Week Duration of Treatment 3 months Plan of Care Start Date 07/11/18 Plan of Care End Date 10/11/18 Therapeutic Interventions Therapeutic Interventions Home Exercise Program Manual Therapy Neuromuscular Re-education Patient/Caregiver Education Self-Care/Home Management Soft Tissue Mobilization Taping Therapeutic Activities Therapeutic Exercises Modalities Electric Stimulation Hot Packs Ultrasound Discharge Physical Therapy Discharge Reasons Plateau in Progress Discharge Comments Patient to consult with pain specialist physician. May return to PT in the future.
== END 2018-10-19 11:20 | disposition home or self-care (01) ==
LOC: PHYS 13:45
PROVIDERS: PCP Family Medicine; Visit Provider Family Medicine
DX: M40.204 Unspecified kyphosis, thoracic region (principal)
CPT/HCPCS: 97010; 97110; 97162; 97535

== ENCOUNTER → 2018-10-18 12:28 | Outpatient (CLI) | payer MEDICARE, OTHER, SELFPAY ==
[2018-03-29 12:32] VITALS: BMI 17.6
[2018-10-18 13:01] LABS: Add Manual Diff / Slide Review NO; Basophils Absolute Auto 0 /uL (0-100); Basophils Percent Auto 0.6 % (0-2); Eosinophils Absolute Auto 100 /uL (0-450); Eosinophils Percent Auto 1.8 % (2-4); Hematocrit 38.3 % (36-46); Hemoglobin 12.7 g/dL (12.0-16.0); Lymphocytes Absolute Auto 900 /uL (1100-4500); Lymphocytes Percent Auto 29.2 % (25-40); Mean Corpuscular HGB Conc 33.1 % (30-36); Mean Corpuscular Hemoglobin 31.5 PG (26-34); Mean Corpuscular Volume 94.9 fL (80-100); Monocytes Absolute Auto 300 /uL (0-900); Monocytes Percent Auto 9.5 % (3-14); Neutrophils Absolute Auto 1900 /uL (1500-7000); Neutrophils Percent Auto 58.9 % (50-75); Platelet Count 190 X10^3/uL (150-400); Red Blood Cell Count 4.03 X10^6/uL (4.0-5.2); Red Cell Distribution Width 14.1 % (11.6-14.8); White Blood Cell Count 3.2 X10^3/uL (4.5-11.0)
[2018-10-18 13:12] LABS: Alanine Aminotransferase 22 IU/L (9-52); Albumin 4.2 g/dL (3.5-5.0); Albumin Globulin Ratio 1.3 (1.0-2.8); Alkaline Phosphatase 74 U/L (38-126); Aspartate Aminotransferase 36 IU/L (14-36); BUN Creatinine Ratio 23.3 (6-22); Bilirubin Total 0.9 mg/dL (0.2-1.3); Blood Urea Nitrogen 14 mg/dL (7-17); Calcium 8.9 mg/dL (8.4-10.2); Carbon Dioxide 29 mmol/L (22-32); Chloride 107 mmol/L (98-107); Cholesterol 148 mg/dL (140-199); Estimated Glomerular Filt Rate > 60.0 mL/min (>60); Globulin 3.3 g/dL (1.7-4.1); Glucose 99 mg/dL (80-110); HDL Cholesterol 65 mg/dL (40-60); HEMOLYSIS < 15 (0-50); LDL Cholesterol Calculated 69 mg/dL (<100); Potassium 4.4 mmol/L (3.4-5.1); Sodium 142 mmol/L (137-145); Total Protein 7.5 g/dL (6.3-8.2); Triglycerides 72 mg/dL (35-150)
[2018-10-18 14:08] LABS: Thyroid Stimulating Hormone 2.45 uIU/mL (0.47-4.68)
== END ==
PROVIDERS: PCP Family Medicine; Visit Provider Family Medicine
DX: E78.2 Mixed hyperlipidemia (principal); G25.0 Essential tremor; Z51.81 Encounter for therapeutic drug level monitoring
CPT/HCPCS: 36415; 80053; 80061; 84443; 85025

== ENCOUNTER → 2018-12-06 08:43 | Outpatient (CLI) | payer MEDICARE, OTHER, SELFPAY ==
[2018-03-29 12:32] VITALS: BMI 17.6
[2018-12-06 09:51] LABS: Cholesterol 190 mg/dL (140-199); HDL Cholesterol 64 mg/dL (40-60); LDL Cholesterol Calculated 104 mg/dL (<100); Triglycerides 110 mg/dL (35-150)
== END ==
PROVIDERS: PCP Family Medicine; Visit Provider Family Medicine
DX: E78.2 Mixed hyperlipidemia (principal)
CPT/HCPCS: 36415; 80061

== ENCOUNTER → 2019-03-07 09:28 | Outpatient (CLI) | payer MEDICARE, OTHER, SELFPAY ==
[2018-03-29 12:32] VITALS: BMI 17.6
[2019-03-07 11:18] LABS: Cholesterol 147 mg/dL (140-199); HDL Cholesterol 64 mg/dL (40-60); LDL Cholesterol Calculated 71 mg/dL (<100); Triglycerides 58 mg/dL (35-150)
[2019-03-07 11:19] LABS: Hematocrit 39.1 % (36-46); Hemoglobin 13.1 g/dL (12.0-16.0); Mean Corpuscular HGB Conc 33.4 % (30-36); Mean Corpuscular Hemoglobin 31.6 PG (26-34); Mean Corpuscular Volume 94.5 fL (80-100); Platelet Count 205 X10^3/uL (150-400); Red Blood Cell Count 4.13 X10^6/uL (4.0-5.2); Red Cell Distribution Width 13.7 % (11.6-14.8); White Blood Cell Count 5.8 X10^3/uL (4.5-11.0)
[2019-03-07 11:39] LABS: Neutrophils Absolute Manual 4002 /uL (3000-5900); Total Cells Counted 100
[2019-03-07 11:40] LABS: RBC Morphology Normal Morphology
== END ==
PROVIDERS: PCP Family Medicine; Visit Provider Family Medicine
DX: E78.2 Mixed hyperlipidemia (principal)
CPT/HCPCS: 36415; 80061; 85025

== ENCOUNTER → 2020-01-09 11:35 | Outpatient (CLI) | payer MEDICARE, OTHER, SELFPAY ==
[2018-03-29 12:32] VITALS: BMI 17.6
[2020-01-09 12:58] LABS: Appearance Urine UA CLEAR; Bilirubin Urine UA NEGATIVE (NEGATIVE); Color Urine UA YELLOW; Glucose Urine UA NEGATIVE (Negative); Ketones Urine UA NEGATIVE (NEGATIVE); Leukocyte Esterase Urine UA 2+ (NEGATIVE); Nitrite Urine UA POSITIVE (Negative); Occult Blood Urine UA 3+ (Negative); Protein Urine UA 2+ (Negative); Specific Gravity Urine UA 1.025 (1.000-1.035)
[2020-01-09 12:59] LABS: pH Urine UA 5.5 (4.5-8.0)
[2020-01-09 13:03] LABS: Bacteria Urine Many (>30); Culture Indicated Urine Specimen Cultured; RBC Urine 10-30/HPF (0-5/HPF); Squamous Epithelial Cell Urine 0-1 /HPF (0-5/HPF); WBC Urine 30-100/HPF (0-5/HPF)
== END ==
PROVIDERS: PCP Internal Medicine; Visit Provider Physician Assistant
DX: R30.0 Dysuria (principal)
CPT/HCPCS: 81001; 87077; 87086; 87186

== ENCOUNTER → 2020-05-09 13:24 | Outpatient (CLI) | payer MEDICARE, SELFPAY ==
[2018-03-29 12:32] VITALS: BMI 17.6
== END ==
PROVIDERS: PCP Family Medicine; Referring Provider Family Medicine; Visit Provider Family Medicine
DX: M81.0 Age-related osteoporosis without current pathological fracture (principal); Z78.0 Asymptomatic menopausal state; Z82.62 Family history of osteoporosis
CPT/HCPCS: 77080

== ENCOUNTER → 2020-05-19 10:44 | Outpatient (CLI) | payer MEDICARE, SELFPAY ==
[2018-03-29 12:32] VITALS: BMI 17.6
[2020-05-19 11:27] LABS: Add Manual Diff / Slide Review NO; Basophils Absolute Auto 0 /uL (0-100); Eosinophils Absolute Auto 100 /uL (0-450); Eosinophils Percent Auto 2.9 % (2-4); Hematocrit 40.1 % (36-46); Lymphocytes Absolute Auto 500 /uL (1100-4500); Lymphocytes Percent Auto 17.6 % (25-40); Mean Corpuscular HGB Conc 32.5 % (30-36); Mean Corpuscular Volume 95.5 fL (80-100); Monocytes Absolute Auto 300 /uL (0-900); Neutrophils Absolute Auto 2000 /uL (1500-7000); Neutrophils Percent Auto 67.5 % (50-75); Platelet Count 184 X10^3/uL (150-400); Red Blood Cell Count 4.19 X10^6/uL (4.0-5.2); Red Cell Distribution Width 14.2 % (11.6-14.8); White Blood Cell Count 2.9 X10^3/uL (4.5-11.0)
[2020-05-19 11:44] LABS: Alanine Aminotransferase 16 IU/L (<35); Albumin Globulin Ratio 1.3 (1.0-2.8); Alkaline Phosphatase 64 U/L (38-126); Aspartate Aminotransferase 26 IU/L (14-36); BUN Creatinine Ratio 22.8 (6-22); Bilirubin Total 0.4 mg/dL (0.2-1.3); Blood Urea Nitrogen 13 mg/dL (7-17); Calcium 8.7 mg/dL (8.4-10.2); Carbon Dioxide 34 mmol/L (22-32); Chloride 101 mmol/L (98-107); Estimated Glomerular Filt Rate > 60.0 mL/min (>60); Globulin 3.2 g/dL (1.7-4.1); Glucose 106 mg/dL (80-110); HEMOLYSIS < 15 (0-50); Potassium 4.3 mmol/L (3.4-5.1); Sodium 136 mmol/L (137-145); Total Protein 7.2 g/dL (6.3-8.2)
[2020-05-19 12:12] LABS: Vitamin D 25 Hydroxy (D3) 63.5 ng/mL (30.0-100.0)
[2020-05-19 12:27] LABS: TSH w/ Reflex to FT4 1.52 uIU/mL (0.47-4.68)
[2020-05-23 15:35] LABS: Appearance Urine UA CLEAR; Bilirubin Urine UA NEGATIVE (NEGATIVE); Color Urine UA YELLOW; Glucose Urine UA NEGATIVE (Negative); Ketones Urine UA NEGATIVE (NEGATIVE); Leukocyte Esterase Urine UA NEGATIVE (NEGATIVE); Nitrite Urine UA NEGATIVE (Negative); Occult Blood Urine UA TRACE-INTACT (Negative); Protein Urine UA NEGATIVE (Negative); Specific Gravity Urine UA 1.015 (1.000-1.035); Urobilinogen Urine UA 0.2 E.U./dL (0.2)
[2020-05-23 15:46] LABS: RBC Urine 5-10/HPF (0-5/HPF); WBC Urine 5-10/HPF (0-5/HPF)
[2020-05-23 15:47] LABS: Bacteria Urine Occasional (0-1); Culture Indicated Urine Specimen Cultured; Transitional Epi Cells Urine 0-1/HPF (0-5/HPF)
--- NOTE | 2020-05-28 10:40 | ONC.MSW ---
Description: New Referral Navigation Activity: Reviewed referral for acuity, medical status, and immediate needs. Forwarded to scheduling for next available consult time. No immediate needs identified at this time.
== END ==
PROVIDERS: PCP Family Medicine; Referring Provider Family Medicine; Visit Provider Family Medicine
DX: M81.0 Age-related osteoporosis without current pathological fracture (principal); R53.83 Other fatigue
CPT/HCPCS: 36415; 80053; 81001; 82306; 84443; 85025; 87086

== ENCOUNTER → 2021-06-22 17:05 | Outpatient (CLI) | payer MEDICARE, SELFPAY ==
[2020-10-15 13:56] VITALS: BMI 17.6
--- NOTE | 2021-06-22 17:07 | DI.MRI.S_ITS ---
PROCEDURE: MR ANGIO HEAD WO CON INDICATIONS: Recent fall TECHNIQUE: Noncontrast axial 3-D [id number] MR angiogram, with 3-dimensional maximum intensity projection (MIP) reformats of the internal carotid arteries and posterior circulation then performed. COMPARISON: [facility], CT, CT HEAD/BRAIN WO CON, 12/31/2017, 8:36. FINDINGS: Image quality: Excellent. Anterior circulation: Intracranial internal carotid arteries demonstrate normal size and intraluminal flow signal. The flow within the paired anterior cerebral arteries is normal and symmetric. The flow within the middle cerebral arteries is normal and symmetric. The anterior communicating artery is seen. No stenoses, occlusions, or aneurysms. Posterior circulation: Visualized portions of the vertebral arteries demonstrate normal caliber, and join to form a normal appearing basilar artery. The flow within the posterior cerebral arteries is normal and symmetric. No stenoses, occlusions, or aneurysms. IMPRESSION: Normal MR angiogram of the head. Dictated by: Brii Mix MD, PhD on 06/23/2021 at 10:38 Approved by: Brii Mix MD, PhD on 06/23/2021 at 10:44
== END ==
PROVIDERS: PCP Family Medicine; Referring Provider Family Medicine; Visit Provider Family Medicine
DX: R29.6 Repeated falls (principal); R47.9 Unspecified speech disturbances; Z91.81 History of falling; W19.XXXA Unspecified fall, initial encounter; Y92.009 Unspecified place in unspecified non-institutional (private) residence as the place of occurrence of the external cause
CPT/HCPCS: 70544

== ENCOUNTER 2021-08-28 10:02 | Emergency (ER) | payer MEDICARE, SELFPAY ==
[2020-10-15 13:56] VITALS: BMI 17.6
[2021-08-28] VITALS (11 sets, daily range): BP systolic 122–165; BP diastolic 60–76; PULSE 77–83; RESP 19–24; TEMP 37.1; O2SAT 94–98; BMI 19.9
--- NOTE | 2021-08-28 10:58 | DI.RAD.S_ITS ---
PROCEDURE: XR CHEST 1V INDICATIONS: chest pain TECHNIQUE: One view of the chest was acquired. COMPARISON: [facility], CR, XR CHEST 1V, 12/31/2017, 8:43. FINDINGS: Surgical changes and devices: None. Lungs and pleura: Lungs are clear. No pleural effusions or pneumothorax. Mediastinum: Mediastinal contours appear normal. Heart size is normal. Bones and chest wall: No suspicious bony lesions. Overlying soft tissues appear unremarkable. IMPRESSION: No acute cardiopulmonary pathology. Dictated by: Jamin Contreras M.D. on 08/28/2021 at 11:29 Approved by: Jamin Contreras M.D. on 08/28/2021 at 11:35
[2021-08-28 11:48] LABS: Add Manual Diff / Slide Review NO; Basophils Absolute Auto 0 /uL (0-100); Basophils Percent Auto 0.3 % (0-2); Eosinophils Absolute Auto 0 /uL (0-450); Eosinophils Percent Auto 0.7 % (2-4); Hematocrit 34.8 % (36-46); Hemoglobin 11.8 g/dL (12.0-16.0); Lymphocytes Absolute Auto 400 /uL (1100-4500); Lymphocytes Percent Auto 6.6 % (25-40); Mean Corpuscular HGB Conc 33.9 % (30-36); Mean Corpuscular Hemoglobin 31.8 PG (26-34); Mean Corpuscular Volume 93.9 fL (80-100); Monocytes Absolute Auto 500 /uL (0-900); Monocytes Percent Auto 7.6 % (3-14); Neutrophils Absolute Auto 5500 /uL (1500-7000); Neutrophils Percent Auto 84.8 % (50-75); Platelet Count 202 X10^3/uL (150-400); Red Blood Cell Count 3.71 X10^6/uL (4.0-5.2); Red Cell Distribution Width 13.4 % (11.6-14.8); White Blood Cell Count 6.5 X10^3/uL (4.5-11.0)
--- NOTE | 2021-08-28 11:51 | ED_ITS ---
HPI - Chest Pain General Chief Complaint: Chest Pain Stated Complaint: chest pains Time Seen by Provider: 08/28/21 11:15 Source: patient and family Mode of arrival: Family Vehicle Limitations: no limitations History of Present Illness HPI narrative: 81F nonsmoker presents with her in the chief complaint of sharp and stabbing right anterior chest pain upon waking this morning. She states she went to bed in her normal state of health. She denies any recent travel, overuse or obvious injury. She has a sharp and stabbing pain that is worse with deep breath, palpation and use of her right arm. She denies associated cardiac equivalent such as dizziness, weakness or lightheadedness. She denies any hiram rtness of breath, cough hemoptysis nausea or unexplained diaphoresis. She denies any unexplained fatigue or exertional dyspnea. She denies recent travel. Related Data Previous Rx's Medication Instructions Recorded pantoprazole 20 mg tablet,delayed See Rx Instructions .ROUTE 07/09/20 release .COMPLEX #90 tab denosumab 60 mg/mL subcutaneous 60 mg SUBCUT [id number] #1 ml 05/07/21 syringe atorvastatin 10 mg tablet See Rx Instructions .ROUTE 06/16/21 .COMPLEX #90 tab duloxetine 40 mg capsule,delayed 40 mg PO DAILY #90 cap 07/15/21 release gabapentin 300 mg capsule See Rx Instructions .ROUTE 07/15/21 .COMPLEX #810 cap tramadol 50 mg tablet 50 mg PO Q8H PRN #120 tab 07/28/21 fluticasone propionate 50 See Rx Instructions .ROUTE 08/07/21 mcg/actuation nasal .COMPLEX #16 g spray,suspension Parking Permit... #1 ea 08/10/21 Allergies Allergy/AdvReac Type Severity Reaction Status Date / Time aspirin [ASPIRIN] AdvReac Mild GI UPSET Verified 08/28/21 11:03 codeine [CODEINE] AdvReac Mild GI UPSET Verified 08/28/21 11:03 Review of Systems Review of Systems Narrative: GENERAL: Denies chills, fatigue, malaise, fever, sweats. HEENT: Denies sinus pain, ear pain, sore throat, difficulty swallowing, dizziness. RESPIRATORY: Denies dyspnea, cough, wheezing, hemoptysis, sputum. CARDIOVASCULAR: See HPI GASTROINTESTINAL: Denies nausea, vomiting, abdominal pain, diarrhea, c onstipation, melena. : Denies dysuria, frequency, incontinence, hematuria, urinary retention. MUSCULOSKELETAL: denies weakness, joint pain, or bony pain SKIN: Denies rash, skin lesions, or other NEUROLOGIC: Denies weakness, headache, numbness, change in speech, confusion, seizures, incoordination. PSYCHIATRIC: No concerning psychosocial issues. 12 point review of systems is negative except for those stated above Patient History Medical History Acute conjunctivitis, bilateral Anxiety (Unknown) Ataxia (06/15/16) Bilateral lower extremity edema Cataracts, bilateral (Unknown) Chronic cough (Unknown) Chronic low back pain without sciatica Chronic pain syndrome Compression fx, thoracic spine Eczema Essential tremor (06/15/16) Glaucoma (Unknown) History of adenomatous polyp of colon Hyperlipemia (2015) Lymphocytopenia Mixed hyperlipidemia (06/15/16) Osteoarthritis (2005) Osteoporosis Post herpetic neuralgia Primary insomnia (06/15/16) Recurrent sinusitis (Unknown) Surgical History History of cataract removal with insertion of prosthetic lens Family History Brother Age: 86 Cancer Grandmother Cancer Father No problems noted. Grandfather No problems noted. Mother Cancer Grandfather No problems noted. Grandmother No problems noted. Social History household members: spouse Smoking Status: Never smoker alcohol intake: never Smoking Status: Never smoker alcohol intake frequency: 0-2 drinks per day Substance Use Type: does not use Exam Narrative Exam Narrative: GENERAL: [81] year old patient appears stated age. Well-developed patient, in mild distress. HEAD: Atraumatic. Normocephalic. EYES: Pupils equal round and reactive. Extraocular motions intact. No scleral icterus. No injection or drainage. ENT: Nose without bleeding, purulent drainage. Throat without erythema, tonsillar hypertrophy or exudate. Airway patent. NECK: Trachea midline. Non tender CARDIOVASCULAR: Regular rate and rhythm without murmurs, gallops, or rubs. Reproducible sharp and stabbing pain on palpation of right anterior chest, no rash, inflammation erythema or edema noted. Subcu emphysema. This pain is exac erbated by deep breath and use of right upper extremity. RESPIRATORY: Clear to auscultation. Breath sounds equal bilaterally. No wheezes, rales, or rhonchi. GASTROINTESTINAL: Abdomen soft, non-tender, nondistended. EXTREMITIES: No edema or joint tenderness. BACK: Nontender without deformity or crepitance. No flank tenderness. NEURO: AOx3. SKIN: No rash or erythema of visible areas Initial Vital Signs Initial Vital Signs: Vital Signs Temperature 98.8 F 08/28/21 10:59 Pulse Rate 79 08/28/21 10:59 Respiratory Rate 19 08/28/21 10:59 Blood Pressure 148/65 H 08/28/21 10:59 Pulse Oximetry 98 08/28/21 10:59 Course Orders Ordered: ED Orders 08/28/21 10:58 XR chest 1V Stat EKG-12 Lead Stat 08/28/21 11:31 CRP [C-Reactive Protein Quant] Stat Complete Blood Count AUTO DIFF Stat Comprehensive Metabolic Panel Stat D Dimer Stat ESR [Erythrocyte Sedimentation Rate] Stat Lipase Stat Magnesium Stat Troponin & CK Cardiac Panel Stat 08/28/21 12:55 Urinalysis and Microscopic Stat Urine Culture Stat 08/28/21 13:20 Troponin & CK Cardiac Panel Stat 08/28/21 15:10 US abdomen limited Stat Vital Signs Vital signs: Vital Signs - 8 hr 08/28/21 10:59 08/28/21 11:40 08/28/21 12:00 Temperature 98.8 F Pulse Rate 79 77 78 Respiratory Rate 19 22 23 Blood Pressure 148/65 H 142/67 H Pulse Oximetry 98 96 94 08/28/21 12:30 08/28/21 12:51 08/28/21 13:00 Temperature Pulse Rate 82 81 82 Respiratory Rate 22 24 24 Blood Pressure 156/74 H 165/76 H 152/65 H Pulse Oximetry 95 97 98 08/28/21 13:30 08/28/21 14:00 08/28/21 14:41 Temperature Pulse Rate 83 83 81 Respiratory Rate 20 22 24 Blood Pressure 139/65 144/67 H 129/60 Pulse Oximetry 97 96 97 08/28/21 15:00 08/28/21 15:30 Temperature Pulse Rate 82 80 Respiratory Rate 21 24 Blood Pressure 137/62 122/60 Pulse Oximetry 96 96 MDM - Chest Pain Lab Data Result diagrams: 08/28/21 11:31 08/28/21 11:31 Labs: Lab Results 08/28/21 08/28/21 08/28/21 Range/Units 11:31 11:31 11:31 WBC 6.5 (4.5-11.0) X10^3/uL RBC 3.71 L (4.0-5.2) X10^6/uL Hgb 11.8 L (12.0-16.0) g/dL Hct 34.8 L (36-46) % MCV 93.9 (80-100) fL MCH 31.8 (26-34) PG MCHC 33.9 (30-36) % RDW 13.4 (11.6-14.8) % Plt Count 202 (150-400) X10^3/uL Neut % (Auto) 84.8 H (50-75) % Lymph % (Auto) 6.6 L (25-40) % Shannon % (Auto) 7.6 (3-14) % Eos % (Auto) 0.7 L (2-4) % Baso % (Auto) 0.3 (0-2) % Neut # (Auto) 5500 (2544-1949) /uL Lymph # (Auto) 400 L (7721-5121) /uL Shannon # (Auto) 500 (0-900) /uL Eos # (Auto) 0 (0-450) /uL Baso # (Auto) 0 (0-100) /uL ESR 43 H (0-20) MM/HR D-Dimer (<230) ng/mL Sodium 139 (137-145) mmol/L Potassium 4.0 (3.4-5.1) mmol/L Chloride 104 (98-107) mmol/L Carbon Dioxide 31 (22-32) mmol/L BUN 19 H (7-17) mg/dL Creatinine 0.69 (0.52-1.04) mg/dL Estimated GFR > 60 (>60) mL/min BUN/Creatinine Ratio 27.5 H (6-22) Glucose 109 (80-110) mg/dL Calcium 8.5 (8.4-10.2) mg/dL Magnesium 2.2 (1.6-2.3) mg/dL Total Bilirubin 0.7 (0.2-1.3) mg/dL AST 29 (14-36) IU/L ALT 14 (<35) IU/L Alkaline Phosphatase 62 (38-126) U/L Total Creatine Kinase 37 (30-135) U/L CK-MB (CK-2) TNP CK-MB (CK-2) Rel Index TNP Troponin I < 0.012 (0.01-0.034) ng/mL C-Reactive Protein (<1.0) mg/dL Total Protein 7.3 (6.3-8.2) g/dL Albumin 3.9 (3.5-5.0) g/dL Globulin 3.4 (1.7-4.1) g/dL Albumin/Globulin Ratio 1.1 (1.0-2.8) Lipase 95 (23-300) U/L Urine Color Urine Appearance Urine pH (4.5-8.0) Ur Specific Silver [place] (1.000-1.035) Urine Protein (Negative) Urine Glucose (UA) (Negative) g/dL Urine Ketones (NEGATIVE) Urine Occult Blood (Negative) Urine Nitrate (Negative) Urine Bilirubin (NEGATIVE) Urine Urobilinogen (0.2) E.U./dL Ur Leukocyte Esterase (NEGATIVE) Urine RBC (0-5/HPF) Urine WBC (0-5/HPF) Amorphous Sediment Urine Bacteria (None) Ur Culture Indicated? 08/28/21 08/28/21 08/28/21 Range/Units 11:31 11:31 12:55 WBC (4.5-11.0) X10^3/uL RBC (4.0-5.2) X10^6/uL Hgb (12.0-16.0) g/dL Hct (36-46) % MCV (80-100) fL MCH (26-34) PG MCHC (30-36) % RDW (11.6-14.8) % Plt Count (150-400) X10^3/uL Neut % (Auto) (50-75) % Lymph % (Auto) (25-40) % Shannon % (Auto) (3-14) % Eos % (Auto) (2-4) % Baso % (Auto) (0-2) % Neut # (Auto) (7380-5698) /uL Lymph # (Auto) (0007-3454) /uL Shannon # (Auto) (0-900) /uL Eos # (Auto) (0-450) /uL Baso # (Auto) (0-100) /uL ESR (0-20) MM/HR D-Dimer < 200 (<230) ng/mL Sodium (137-145) mmol/L Potassium (3.4-5.1) mmol/L Chloride (98-107) mmol/L Carbon Dioxide (22-32) mmol/L BUN (7-17) mg/dL Creatinine (0.52-1.04) mg/dL Estimated GFR (>60) mL/min BUN/Creatinine Ratio (6-22) Glucose (80-110) mg/dL Calcium (8.4-10.2) mg/dL Magnesium (1.6-2.3) mg/dL Total Bilirubin (0.2-1.3) mg/dL AST (14-36) IU/L ALT (<35) IU/L Alkaline Phosphatase (38-126) U/L Total Creatine Kinase (30-135) U/L CK-MB (CK-2) CK-MB (CK-2) Rel Index Troponin I (0.01-0.034) ng/mL C-Reactive Protein 0.8 (<1.0) mg/dL Total Protein (6.3-8.2) g/dL Albumin (3.5-5.0) g/dL Globulin (1.7-4.1) g/dL Albumin/Globulin Ratio (1.0-2.8) Lipase (23-300) U/L Urine Color Yellow Urine Appearance Clear Urine pH 8.5 H (4.5-8.0) Ur Specific [place] 1.015 (1.000-1.035) Urine Protein Negative (Negative) Urine Glucose (UA) Negative (Negative) g/dL Urine Ketones Trace H (NEGATIVE) Urine Occult Blood 3+ H (Negative) Urine Nitrate Negative (Negative) Urine Bilirubin Negative (NEGATIVE) Urine Urobilinogen 0.2 (0.2) E.U./dL Ur Leukocyte Esterase Trace H (NEGATIVE) Urine RBC 10-30/hpf H (0-5/HPF) Urine WBC 5-10/hpf H (0-5/HPF) Amorphous Sediment 3+ Urine Bacteria Few (2-10) H (None) Ur Culture Indicated? Specimen cultured 08/28/21 Range/Units 13:20 WBC (4.5-11.0) X10^3/uL RBC (4.0-5.2) X10^6/uL Hgb (12.0-16.0) g/dL Hct (36-46) % MCV (80-100) fL MCH (26-34) PG MCHC (30-36) % RDW (11.6-14.8) % Plt Count (150-400) X10^3/uL Neut % (Auto) (50-75) % Lymph % (Auto) (25-40) % Shannon % (Auto) (3-14) % Eos % (Auto) (2-4) % Baso % (Auto) (0-2) % Neut # (Auto) (2796-6471) /uL Lymph # (Auto) (4197-2203) /uL Shannon # (Auto) (0-900) /uL Eos # (Auto) (0-450) /uL Baso # (Auto) (0-100) /uL ESR (0-20) MM/HR D-Dimer (<230) ng/mL Sodium (137-145) mmol/L Potassium (3.4-5.1) mmol/L Chloride (98-107) mmol/L Carbon Dioxide (22-32) mmol/L BUN (7-17) mg/dL Creatinine (0.52-1.04) mg/dL Estimated GFR (>60) mL/min BUN/Creatinine Ratio (6-22) Glucose (80-110) mg/dL Calcium (8.4-10.2) mg/dL Magnesium (1.6-2.3) mg/dL Total Bilirubin (0.2-1.3) mg/dL AST (14-36) IU/L ALT (<35) IU/L Alkaline Phosphatase (38-126) U/L Total Creatine Kinase 38 (30-135) U/L CK-MB (CK-2) TNP CK-MB (CK-2) Rel Index TNP Troponin I < 0.012 (0.01-0.034) ng/mL C-Reactive Protein (<1.0) mg/dL Total Protein (6.3-8.2) g/dL Albumin (3.5-5.0) g/dL Globulin (1.7-4.1) g/dL Albumin/Globulin Ratio (1.0-2.8) Lipase (23-300) U/L Urine Color Urine Appearance Urine pH (4.5-8.0) Ur Specific [place] (1.000-1.035) Urine Protein (Negative) Urine Glucose (UA) (Negative) g/dL Urine Ketones (NEGATIVE) Urine Occult Blood (Negative) Urine Nitrate (Negative) Urine Bilirubin (NEGATIVE) Urine Urobilinogen (0.2) E.U./dL Ur Leukocyte Esterase (NEGATIVE) Urine RBC (0-5/HPF) Urine WBC (0-5/HPF) Amorphous Sediment Urine Bacteria (None) Ur Culture Indicated? Imaging Data US - abdomen: Radiologist's Impression: Launch?[address] [address] Ultrasound Report Signed Patient: Kaylah Renteria MR#: [id number] : 1940 Acct:[id number] Age/Sex: 81 / F Date of Service: 08/28/21 Loc: ED Accession Number: [id number] ?? Procedure: US abdomen limited Ordering Provider: Christiano Fung D.O. PROCEDURE: US ABDOMEN LIMITED ? INDICATIONS:? RUQ PAIN ? TECHNIQUE:? Real-time focused scanning was performed of the abdomen, with image documentation.? ? COMPARISON:? None. ? FINDINGS:? Incidentally noted renal cyst measuring 1.4 x 1.8 cm.? Normal hepatic parenchymal echogenicity, echotexture, and contour.? No focal hepatic mass.? No intrahepatic or extrahepatic biliary ductal dilatation.? The gallbladder is normally distended with no wall thickening or pericholecystic fluid.? No sludge or gall stone identified.? Visualized portions of the pancreas are normal. ? IMPRESSION:? ? Incidentally noted right renal cyst measuring 1.8 cm, of no clinical significance.? Otherwise normal study. ? ? Dictated by: Ranjith Jensen M.D. on 08/28/2021 at 16:03 ? ? Approved by: Ranjith Jensen M.D. on 08/28/2021 at 16:03 ? MDM Narrative Medical decision making narrative: Multiple causes of chest pain considered including IN, PE, pneumothorax, pneumonia, aortic dissection, and pleurisy. Patient reports no radiation, no diaphoresis, no provocation with exertion, and no vomiting Also considered biliary disease but no abnormal labs and reassuring ultrasound. Patient's symptoms improved over duration of stay with above-stated therapies. Findings and discharge diagnosis discussed with patient/family followed by verbalization of understanding Return precautions discussed with patient/family whom verbalize understanding. Discharge Plan Departure Patient Disposition: Home Clinical Impression: Atypical chest pain Instructions: DI for Atypical Chest Pain Activity Restrictions/Additional Instructions: *You have been diagnosed with [atypical chest pain. As we discussed your history and physical exam, labs, EKGs are very reassuring and there is no evidence of heart attack, blood clot, pneumonia or other significant diagnosis that would require any specific intervention *What to do: *Please continue to take your regular medications as directed. [ ] New medication prescriptions sent to your pharmacy: [ ] [ ] New medication written as a paper prescription [ x] No new medications given *Please follow up with your primary care provider in 2-3 days, call for an appointment. Let them know you were seen in the Emergency Department and that we ask that you be seen in follow up. We will electronically transmit a record of today's note if your PCP is in our system *If you do not have a primary care provider please contact the [facility] Resource line at [phone]. They will ask some questions about your medical history and help get you set up with a doctor in the community. *Return to Emergency Department if you should have any new, worsening or concerning symptoms, such as [fever greater than 101 F, shaking chills, worsening pain, persistent vomiting or other bothersome symptoms] Prescriptions: No Action pantoprazole 20 mg tablet,delayed release (DR/EC) See Rx Instructions .ROUTE .COMPLEX Qty: 90 0RF Dose Instruction: TAKE 1 TABLET BY MOUTH AT BEDTIME Rx Instructions: TAKE 1 TABLET BY MOUTH AT BEDTIME denosumab 60 mg/mL syringe 60 mg SUBCUT [id number] Qty: 1 1RF atorvastatin 10 mg tablet See Rx Instructions .ROUTE .COMPLEX Qty: 90 3RF Dose Instruction: TAKE 1 TABLET BY MOUTH DAILY Rx Instructions: TAKE 1 TABLET BY MOUTH DAILY duloxetine 40 mg capsule,delayed release(DR/EC) 40 mg PO DAILY Qty: 90 1RF gabapentin 300 mg capsule See Rx Instructions .ROUTE .COMPLEX Qty: 810 3RF Dose Instruction: TAKE 1 CAPSULE BY MOUTH IN THE MORNING , 1 CAPSULE AT NOON, 1 CAPSULE AT 4 PM AND 2 CAPSULES AT BEDTIME Rx Instructions: TAKE 3 CAPSULE BY MOUTH IN THE MORNING , 3 CAPSULE AT NOON, 1 CAPSULE AT 4 PM AND 2 CAPSULES AT BEDTIME tramadol 50 mg tablet 50 mg PO Q8H PRN (Reason: pain) Qty: 120 0RF (DME) Parking Permit... See Rx Instructions .Route .MEDSUPPLY Qty: 1 0RF Rx Instructions: I fond this patient to be medically disabled and qualified for Disabled Parking as indicated, and signed, on the Accompanying Disabled Parking Application for Individuals. fluticasone propionate 50 mcg/actuation spray,suspension See Rx Instructions .ROUTE .COMPLEX Qty: 16 3RF Dose Instruction: USE 1 SPRAY NASALLY TWICE DAILY Rx Instructions: USE 1 SPRAY NASALLY TWICE DAILY Referrals: Colt Cardenas MD [Primary Care Provider] -
[2021-08-28 11:53] LABS: D Dimer < 200 ng/mL (<230)
[2021-08-28 11:58] LABS: C-Reactive Protein Quant 0.8 mg/dL (<1.0)
[2021-08-28 12:00] LABS: Erythrocyte Sedimentation Rate 43 MM/HR (0-20)
[2021-08-28 12:44] LABS: Alanine Aminotransferase 14 IU/L (<35); Albumin 3.9 g/dL (3.5-5.0); Albumin Globulin Ratio 1.1 (1.0-2.8); Alkaline Phosphatase 62 U/L (38-126); Aspartate Aminotransferase 29 IU/L (14-36); BUN Creatinine Ratio 27.5 (6-22); Bilirubin Total 0.7 mg/dL (0.2-1.3); Blood Urea Nitrogen 19 mg/dL (7-17); Calcium 8.5 mg/dL (8.4-10.2); Carbon Dioxide 31 mmol/L (22-32); Chloride 104 mmol/L (98-107); Creatine Kinase 37 U/L (30-135); Estimated Glomerular Filt Rate > 60 mL/min (>60); Globulin 3.4 g/dL (1.7-4.1); Glucose 109 mg/dL (80-110); HEMOLYSIS < 15 (0-50); Lipase 95 U/L (23-300); Magnesium 2.2 mg/dL (1.6-2.3); Sodium 139 mmol/L (137-145); Total Protein 7.3 g/dL (6.3-8.2)
[2021-08-28 12:55] LABS: Troponin I < 0.012 ng/mL (0.01-0.034)
[2021-08-28 13:08] LABS: Appearance Urine UA CLEAR; Bilirubin Urine UA NEGATIVE (NEGATIVE); Color Urine UA YELLOW; Glucose Urine UA NEGATIVE (Negative); Ketones Urine UA TRACE (NEGATIVE); Leukocyte Esterase Urine UA TRACE (NEGATIVE); Nitrite Urine UA NEGATIVE (Negative); Occult Blood Urine UA 3+ (Negative); Protein Urine UA NEGATIVE (Negative); Specific Gravity Urine UA 1.015 (1.000-1.035); Urobilinogen Urine UA 0.2 E.U./dL (0.2)
[2021-08-28 13:09] LABS: RBC Urine 10-30/HPF (0-5/HPF); WBC Urine 5-10/HPF (0-5/HPF); pH Urine UA 8.5 (4.5-8.0)
[2021-08-28 13:10] LABS: Amorphous Sediment Urine 3+; Bacteria Urine Few (2-10); Culture Indicated Urine Specimen Cultured
[2021-08-28 13:47] LABS: Creatine Kinase 38 U/L (30-135)
[2021-08-28 13:58] LABS: Troponin I < 0.012 ng/mL (0.01-0.034)
--- NOTE | 2021-08-28 15:10 | DI.US.S_ITS ---
PROCEDURE: US ABDOMEN LIMITED INDICATIONS: RUQ PAIN TECHNIQUE: Real-time focused scanning was performed of the abdomen, with image documentation. COMPARISON: None. FINDINGS: Incidentally noted renal cyst measuring 1.4 x 1.8 cm. Normal hepatic parenchymal echogenicity, echotexture, and contour. No focal hepatic mass. No intrahepatic or extrahepatic biliary ductal dilatation. The gallbladder is normally distended with no wall thickening or pericholecystic fluid. No sludge or gallstone identified. Visualized portions of the pancreas are normal. IMPRESSION: Incidentally noted right renal cyst measuring 1.8 cm, of no clinical significance. Otherwise normal study. Dictated by: Ranjith Jensen M.D. on 08/28/2021 at 16:03 Approved by: Ranjith Jensen M.D. on 08/28/2021 at 16:03
== END 2021-08-28 16:08 | disposition home or self-care (01) ==
PROVIDERS: Emergency Provider Emergency Medicine; PCP Family Medicine
DX: R07.89 Other chest pain (principal); R10.11 Right upper quadrant pain
CPT/HCPCS: 36415; 71045; 76705; 80053; 81001; 82550; 83690; 83735; 84484; 85025; 85379; 85651; 86140; 87086; 93005; 93010; 99284

== ENCOUNTER → 2021-09-14 14:05 | Outpatient (CLI) | payer MEDICARE, SELFPAY ==
[2020-10-15 13:56] VITALS: BMI 17.6
[2021-09-14 15:08] LABS: COVID19 -Nasal RAPID Negative (Negative)
== END ==
PROVIDERS: PCP Family Medicine; Visit Provider Family Medicine
DX: Z20.822 Contact with and (suspected) exposure to COVID-19 (principal)
CPT/HCPCS: 87635

== ENCOUNTER → 2021-09-14 15:47 | Outpatient (CLI) | payer MEDICARE, SELFPAY ==
[2020-10-15 13:56] VITALS: BMI 17.6
[2021-09-14 16:32] LABS: Add Manual Diff / Slide Review NO; Basophils Absolute Auto 0 /uL (0-100); Basophils Percent Auto 0.6 % (0-2); Eosinophils Absolute Auto 0 /uL (0-450); Eosinophils Percent Auto 0.7 % (2-4); Hematocrit 33.9 % (36-46); Hemoglobin 11.5 g/dL (12.0-16.0); Lymphocytes Absolute Auto 400 /uL (1100-4500); Lymphocytes Percent Auto 10.8 % (25-40); Mean Corpuscular HGB Conc 33.9 % (30-36); Mean Corpuscular Hemoglobin 31.3 PG (26-34); Mean Corpuscular Volume 92.4 fL (80-100); Monocytes Absolute Auto 300 /uL (0-900); Monocytes Percent Auto 7.2 % (3-14); Neutrophils Absolute Auto 3200 /uL (1500-7000); Neutrophils Percent Auto 80.7 % (50-75); Platelet Count 231 X10^3/uL (150-400); Red Blood Cell Count 3.67 X10^6/uL (4.0-5.2); Red Cell Distribution Width 13.4 % (11.6-14.8); White Blood Cell Count 3.9 X10^3/uL (4.5-11.0)
[2021-09-14 16:50] LABS: Alanine Aminotransferase 15 IU/L (<35); Albumin 3.8 g/dL (3.5-5.0); Albumin Globulin Ratio 1.1 (1.0-2.8); Alkaline Phosphatase 58 U/L (38-126); Aspartate Aminotransferase 24 IU/L (14-36); BUN Creatinine Ratio 23.1 (6-22); Bilirubin Total 0.5 mg/dL (0.2-1.3); Blood Urea Nitrogen 21 mg/dL (7-17); Calcium 8.3 mg/dL (8.4-10.2); Carbon Dioxide 29 mmol/L (22-32); Chloride 100 mmol/L (98-107); Cholesterol 165 mg/dL (140-199); Estimated Glomerular Filt Rate > 60 mL/min (>60); Globulin 3.4 g/dL (1.7-4.1); Glucose 184 mg/dL (80-110); HDL Cholesterol 50 mg/dL (40-60); HEMOLYSIS < 15 (0-50); LDL Cholesterol Calculated 93 mg/dL (<100); Potassium 3.6 mmol/L (3.4-5.1); Sodium 137 mmol/L (137-145); Total Protein 7.2 g/dL (6.3-8.2); Triglycerides 111 mg/dL (35-150)
[2021-09-14 19:30] LABS: Appearance Urine UA CLEAR; Bilirubin Urine UA NEGATIVE (NEGATIVE); Color Urine UA YELLOW; Glucose Urine UA NEGATIVE (Negative); Ketones Urine UA NEGATIVE (NEGATIVE); Leukocyte Esterase Urine UA TRACE (NEGATIVE); Nitrite Urine UA NEGATIVE (Negative); Occult Blood Urine UA TRACE-LYSED (Negative); Protein Urine UA 1+ (Negative); Urobilinogen Urine UA 0.2 E.U./dL (0.2)
[2021-09-14 20:03] LABS: Bacteria Urine Occasional (0-1); RBC Urine 0-1/HPF (0-5/HPF); Squamous Epithelial Cell Urine 0-1 /HPF (0-5/HPF); WBC Urine 5-10/HPF (0-5/HPF); pH Urine UA 6.5 (4.5-8.0)
[2021-09-14 20:04] LABS: Culture Indicated Urine Specimen Cultured; Hyaline Casts Urine 5-10/LPF
[2021-09-14 20:13] LABS: Creatinine Urine Random 134.5 mg/dL
[2021-09-14 20:18] LABS: Microalbumi Creatinin Ratio Ur 85.5 ug/mg CR (<30); Microalbumin Urine Random 11.5 mg/dL (0-1.6)
== END ==
PROVIDERS: PCP Family Medicine; Referring Provider Family Medicine; Visit Provider Family Medicine
DX: E78.2 Mixed hyperlipidemia (principal); D72.810 Lymphocytopenia; F41.9 Anxiety disorder, unspecified; G89.4 Chronic pain syndrome; D64.9 Anemia, unspecified; R31.9 Hematuria, unspecified; Z20.822 Contact with and (suspected) exposure to COVID-19; F43.10 Post-traumatic stress disorder, unspecified; Z68.29 Body mass index [BMI] 29.0-29.9, adult
CPT/HCPCS: 36415; 80053; 80061; 81001; 82043; 82570; 85025; 87077; 87086; 87186; 87635

== ENCOUNTER → 2022-04-07 15:11 | Outpatient (CLI) | payer MEDICARE, SELFPAY ==
[2022-04-02 11:34] VITALS: BMI 17.6
== END ==
PROVIDERS: PCP Family Medicine; Visit Provider Nurse Practitioner Family
DX: L08.9 Local infection of the skin and subcutaneous tissue, unspecified (principal)
CPT/HCPCS: 87070; 87075; 87077; 87186; 87205

== ENCOUNTER → 2022-05-21 12:59 | Outpatient (CLI) | payer MEDICARE, SELFPAY ==
[2022-04-02 11:34] VITALS: BMI 17.6
[2022-05-21 13:39] LABS: Add Manual Diff / Slide Review NO; Basophils Absolute Auto 0 /uL (0-100); Basophils Percent Auto 0.5 % (0-2); Eosinophils Absolute Auto 0 /uL (0-450); Eosinophils Percent Auto 1.1 % (2-4); Hematocrit 36.9 % (36-46); Lymphocytes Absolute Auto 700 /uL (1100-4500); Lymphocytes Percent Auto 17.9 % (25-40); Mean Corpuscular HGB Conc 32.7 % (30-36); Mean Corpuscular Hemoglobin 31.3 PG (26-34); Mean Corpuscular Volume 95.7 fL (80-100); Monocytes Absolute Auto 300 /uL (0-900); Monocytes Percent Auto 6.7 % (3-14); Neutrophils Absolute Auto 3000 /uL (1500-7000); Neutrophils Percent Auto 73.8 % (50-75); Platelet Count 183 X10^3/uL (150-400); Red Blood Cell Count 3.85 X10^6/uL (4.0-5.2); Red Cell Distribution Width 14.1 % (11.6-14.8); White Blood Cell Count 4.1 X10^3/uL (4.5-11.0)
[2022-05-21 13:46] LABS: Hemoglobin A1C% w Est Avg Glu 5.5 % (4.0-6.0)
[2022-05-21 14:02] LABS: Alanine Aminotransferase 19 IU/L (<35); Albumin 4.1 g/dL (3.5-5.0); Albumin Globulin Ratio 1.1 (1.0-2.8); Alkaline Phosphatase 67 U/L (38-126); Aspartate Aminotransferase 29 IU/L (14-36); Bilirubin Total 0.7 mg/dL (0.2-1.3); Blood Urea Nitrogen 19 mg/dL (7-17); Calcium 8.7 mg/dL (8.4-10.2); Carbon Dioxide 30 mmol/L (22-32); Chloride 98 mmol/L (98-107); Cholesterol 180 mg/dL (140-199); Estimated Glomerular Filt Rate > 60 mL/min (>60); Globulin 3.7 g/dL (1.7-4.1); Glucose 86 mg/dL (80-110); HDL Cholesterol 85 mg/dL (40-60); HEMOLYSIS < 15 (0-50); LDL Cholesterol Calculated 81 mg/dL (<100); Lactate Dehydrogenase 170 U/L (120-246); Potassium 3.9 mmol/L (3.4-5.1); Sodium 137 mmol/L (137-145); Total Protein 7.8 g/dL (6.3-8.2); Triglycerides 72 mg/dL (35-150)
[2022-05-21 14:03] LABS: HEMOLYSIS < 15 (0-50); Iron 121 ug/dL (37-170)
[2022-05-21 14:14] LABS: Percent Iron Saturation 47 % (15-50); Total Iron Binding Capacity 259 ug/dL (265-497); Transferrin 218 mg/dL (206-381)
[2022-05-21 14:30] LABS: TSH w/ Reflex to FT4 1.47 uIU/mL (0.47-4.68)
[2022-05-21 14:34] LABS: Ferritin 50 ng/mL (11-264)
== END ==
PROVIDERS: PCP Family Medicine; Referring Provider Family Medicine; Visit Provider Family Medicine
DX: D72.810 Lymphocytopenia (principal); R73.9 Hyperglycemia, unspecified; D64.9 Anemia, unspecified; E78.9 Disorder of lipoprotein metabolism, unspecified; E78.2 Mixed hyperlipidemia; G89.4 Chronic pain syndrome; M81.0 Age-related osteoporosis without current pathological fracture; R53.83 Other fatigue; M54.50 Low back pain, unspecified
CPT/HCPCS: 36415; 80053; 80061; 82728; 83036; 83540; 83550; 83615; 84443; 85025

== ENCOUNTER → 2022-12-28 15:38 | Outpatient (CLI) | payer MEDICARE, SELFPAY ==
[2022-04-02 11:34] VITALS: BMI 17.6
[2022-12-28 17:51] LABS: Add Manual Diff / Slide Review NO; Basophils Absolute Auto 0 /uL (0-100); Basophils Percent Auto 0.8 % (0-2); Eosinophils Absolute Auto 100 /uL (0-450); Eosinophils Percent Auto 1.9 % (2-4); Hematocrit 34.1 % (36-46); Hemoglobin 11.6 g/dL (12.0-16.0); Lymphocytes Absolute Auto 600 /uL (1100-4500); Lymphocytes Percent Auto 17.1 % (25-40); Mean Corpuscular HGB Conc 33.8 % (30-36); Mean Corpuscular Hemoglobin 32.2 PG (26-34); Mean Corpuscular Volume 95.3 fL (80-100); Monocytes Absolute Auto 300 /uL (0-900); Monocytes Percent Auto 9.3 % (3-14); Neutrophils Absolute Auto 2700 /uL (1500-7000); Neutrophils Percent Auto 70.9 % (50-75); Platelet Count 182 X10^3/uL (150-400); Red Blood Cell Count 3.58 X10^6/uL (4.0-5.2); Red Cell Distribution Width 15.8 % (11.6-14.8); White Blood Cell Count 3.8 X10^3/uL (4.5-11.0)
[2022-12-28 18:10] LABS: Alanine Aminotransferase 16 IU/L (<35); Albumin 4.1 g/dL (3.5-5.0); Albumin Globulin Ratio 1.2 (1.0-2.8); Alkaline Phosphatase 68 U/L (38-126); Aspartate Aminotransferase 26 IU/L (14-36); BUN Creatinine Ratio 23.9 (6-22); Bilirubin Total 0.6 mg/dL (0.2-1.3); Blood Urea Nitrogen 21 mg/dL (7-17); C-Reactive Protein Quant < 0.5 mg/dL (<1.0); Calcium 8.7 mg/dL (8.4-10.2); Carbon Dioxide 29 mmol/L (22-32); Chloride 101 mmol/L (98-107); Estimated Glomerular Filt Rate > 60 mL/min (>60); Globulin 3.5 g/dL (1.7-4.1); Glucose 95 mg/dL (80-110); HEMOLYSIS < 15 (0-50); Potassium 4.3 mmol/L (3.4-5.1); Rheumatoid Factor 10.5 IU/mL (<12.0); Sodium 138 mmol/L (137-145); Total Protein 7.6 g/dL (6.3-8.2)
[2022-12-28 18:36] LABS: TSH w/ Reflex to FT4 1.43 uIU/mL (0.47-4.68)
[2022-12-28 21:51] LABS: Erythrocyte Sedimentation Rate 39 MM/HR (0-20)
[2022-12-29 17:41] LABS: Appearance Urine UA CLEAR; Bilirubin Urine UA NEGATIVE (NEGATIVE); Color Urine UA YELLOW; Glucose Urine UA NEGATIVE (Negative); Ketones Urine UA NEGATIVE (NEGATIVE); Leukocyte Esterase Urine UA NEGATIVE (NEGATIVE); Nitrite Urine UA NEGATIVE (Negative); Occult Blood Urine UA NEGATIVE (Negative); Protein Urine UA NEGATIVE (Negative); Specific Gravity Urine UA 1.015 (1.000-1.035); Urobilinogen Urine UA 0.2 E.U./dL (0.2); pH Urine UA 6.5 (4.5-8.0)
[2022-12-29 17:59] LABS: Bacteria Urine Occasional (0-1); Culture Indicated Urine Cult Not Indicated; Granular Casts Urine 0-1/LPF; Hyaline Casts Urine 5-10/LPF; Mucus Urine 1+ (Negative); RBC Urine 0-1/HPF (0-5/HPF); Squamous Epithelial Cell Urine 0-1 /HPF (0-5/HPF); WBC Urine 0-1/HPF (0-5/HPF)
[2022-12-30 21:13] LABS: ANA Screen, IFA Positive (.)
== END ==
PROVIDERS: PCP Family Medicine; Referring Provider Family Medicine; Visit Provider Family Medicine
DX: D64.9 Anemia, unspecified (principal); D72.810 Lymphocytopenia; E78.2 Mixed hyperlipidemia; G89.29 Other chronic pain; G89.4 Chronic pain syndrome; R53.83 Other fatigue; M81.0 Age-related osteoporosis without current pathological fracture; M54.59 Other low back pain
CPT/HCPCS: 36415; 80053; 81001; 84443; 85025; 85651; 86038; 86140; 86430

== ENCOUNTER → 2023-01-10 14:16 | Outpatient (CLI) | payer MEDICARE, SELFPAY ==
[2022-12-30 14:56] VITALS: BMI 17.6
--- NOTE | 2023-01-10 14:17 | DI.RAD.S_ITS ---
Bone Density Report Name: MONAE DOMINGUEZ Age: 82 Sex: Female Ethnicity: Date of : 1940 Indication: postmenopausal osteoporosis; monitoring treatment; Referring Provider: NEEL SALDANA Study: Bone densitometry was performed. Exam Date: January 10, 2023 Accession number: [id number] Bone Density: Region BMD T-score Z-score Classification AP Spine(L1-L4) 0.675 -3.4 -0.6 Osteoporosis Femoral Neck (Left) 0.463 -3.5 -1.0 Osteoporosis Total Hip (Left) 0.583 -2.9 -0.7 Osteoporosis Femoral Neck (Right) 0.397 -4.1 -1.6 Osteoporosis Total Hip (Right) 0.524 -3.4 -1.2 Osteoporosis Total Hip Mean 0.554 -3.2 -1.0 Osteoporosis World Health Organization criteria for BMD impression classify patients as: Normal (T-score at or above -1.0), Osteopenia (T-score between -1.0 and -2.5), or Osteoporosis (T-score at or below -2.5). 10-year Fracture Risk: FRAX not reported because: Some T-score for Spine Total or Hip Total or Femoral Neck at or below -2.5 Treated for osteoporosis Previous Exams: -- Region Exam Age BMD T-score BMD Change BMD Change Date g/cm2 vs Baseline vs Previous -- AP Spine (L1-L4) 01/10/2023 82 0.675 -3.4 0.015 (2.3%)# 0.015 (2.3%)# 05/09/2020 79 0.660 -3.5 Total Hip(Left) 01/10/2023 82 0.583 -2.9 0.055 (10.4%)# 0.055 (10.4%)# 05/09/2020 79 0.528 -3.4 Total Hip(Right) 01/10/2023 82 0.524 -3.4 -0.010 (-1.9%)# -0.010 (-1.9%)# 05/09/2020 79 0.535 -3.3 -- *Denotes significance at 95% confidence level, LSC for AP Spine = 0.022 g/cm2, LSC for Total Hip = 0.027 g/cm2 # Denotes dissimilar scan types or analysis methods Impression: The patient has osteoporosis, based on the Right Femoral Neck T-score. No significant bone loss was observed. Discussion: PATIENT UNDER TREATMENT WITH NO SIGNIFICANT BMD LOSS SINCE LAST EXAM. In an untreated patient, BMD typically declines with age. A lack of decline or gain is usually a sign that treatment is efficacious and fracture risk is reduced. It is important to ask patients whether they are taking their medications and to encourage continued and appropriate compliance with their osteoporosis therapies to reduce fracture risk. It is also important to review their risk factors and encourage appropriate calcium and vitamin D intakes, exercise, fall prevention and other lifestyle measures. Follow-Up: Consider a repeat BMD and Vertebral Fracture Assessment (VFA) exam in 2 years or sooner if medically necessary, to reassess this patient's status. Reported by: SAL VAZQUEZ M.D on 01/10/2023 2:57:00 PM.
--- NOTE | 2023-01-10 14:17 | DI.CT.S_ITS ---
PROCEDURE: CT CHEST ABD PEL W CON INDICATIONS: unintended weight loss TECHNIQUE: After the administration of intravenous contrast, 5 mm thick sections acquired from the lung apices to the symphysis. 5 mm coronal and sagittal reformats were performed, with additional 7 mm MIP reformats through the lungs. For radiation dose reduction, the following was used: automated exposure control, adjustment of mA and/or kV according to patient size. COMPARISON: [facility], CT, CT ABDOMEN PELVIS W CON, 12/28/2017, 18:59. [facility], CT, THORAX WITHOUT CONTRAST, 10/24/2015, 11:19. FINDINGS: Image quality: Excellent. CHEST: Lungs and pleura: Biapical pleuroparenchymal scarring. Scattered areas of bronchiectasis with associated ground-glass and consolidative opacities with some tree-in-bud nodularity within the right upper lobe, right middle lobe, left upper lobe and lingula. This is increased within the lingula. Mild bibasilar subsegmental atelectasis. Mediastinum: Heart size is normal. No pericardial effusion. No mediastinal or hilar adenopathy by size criteria. Thoracic aorta and main pulmonary arteries are normal in size. Dilation of the right main pulmonary artery. Atherosclerotic vascular calcifications are present. Esophagus is normal in caliber. No hiatal hernia. Chest wall: No axillary or supraclavicular adenopathy by size criteria. Thyroid gland is within normal limits . ABDOMEN: Solid organs: Liver is normal in size and enhancement. Gallbladder is within normal limits . Biliary system is non dilated. Pancreas enhances normally. Spleen is normal in size and enhancement. No adrenal nodules. Kidneys demonstrate normal size and enhancement, without hydronephrosis. Bilateral renal cysts. Peritoneum and bowel: Bowel loops demonstrate normal wall thickness and caliber. Moderate burden of stool throughout the colon. No free fluid or air. Nodes and vessels: No retroperitoneal or mesenteric adenopathy by size criteria. Aorta and inferior vena cava are normal in size. Mild atherosclerotic vascular calcifications. Miscellaneous: No ventral hernias. PELVIS: Genitourinary: Bladder wall thickness is normal. Prominent vasculature is seen adjacent to the uterus. Miscellaneous: No inguinal hernias or adenopathy. Bones: No suspicious bony lesions. Compression deformity of the T11 vertebral body with approximately 50 percent height loss anteriorly. Mild retropulsion without high-grade central canal stenosis. IMPRESSION: 1. Chronic lung findings are again seen scattered throughout the bilateral upper lobes, right middle lobe and lingula, increased within the lingula. Findings may represent residual parenchymal scarring from prior infection. Acute infectious etiology is not excluded and clinical correlation is recommended. 2. No findings concerning for malignancy are identified within the chest, abdomen or pelvis. 3. T11 vertebral body compression deformity is new compared to 2016. Recommend correlation with point tenderness if concern for acute fracture. There is mild retropulsion and mild osseous spinal canal narrowing. 4. Moderate burden of stool throughout the colon, correlate for constipation. 5. Prominent pelvic vasculature, recommend correlation with pelvic pain for pelvic congestion syndrome. Dictated by: Raymond Lea M.D. on 01/10/2023 at 16:21 Approved by: Raymond Lea M.D. on 01/10/2023 at 16:35
== END ==
PROVIDERS: PCP Family Medicine; Referring Provider Family Medicine; Visit Provider Family Medicine
DX: J98.11 Atelectasis (principal); N28.1 Cyst of kidney, acquired; M43.8X4 Other specified deforming dorsopathies, thoracic region; R63.4 Abnormal weight loss; R53.83 Other fatigue; D72.810 Lymphocytopenia; M81.0 Age-related osteoporosis without current pathological fracture; J47.9 Bronchiectasis, uncomplicated; M54.50 Low back pain, unspecified; E78.2 Mixed hyperlipidemia; D64.9 Anemia, unspecified; G89.4 Chronic pain syndrome
CPT/HCPCS: 71260; 74177; 77080; Q9967

== ENCOUNTER 2023-02-08 13:22 | Day surgery (SDC) | payer MEDICARE, SELFPAY ==
[2022-12-30 14:56] VITALS: BMI 17.6
--- NOTE | 2023-02-08 | PATH_ITS ---
[facility] Accession Number: [id number] No. of containers..01 Tissue . 01 Material submitted: . gastrointestinal site - GASTRIC BIOPSIES . 01 Diagnosis: Stomach, Biopsies: Gastric body mucosa with mild chronic inflammation. Negative for Helicobacter organisms by immunohistochemistry. Negative for intestinal metaplasia. Negative for dysplasia or malignancy. MRV 02/11/2023 1241 Local . 01 Electronically signed: . Broderick Mcgregor MD, PhD, Pathologist NPI- [id number] . 01 Gross description: . GASTRIC BIOPSIES: Received in formalin is 1 fragment(s) of hunt, soft tissue measuring 0.4 x 0.3 x 0.2 cm submitted entirely in 1 cassette(s) /AAY 02/09/2023 0545 Local . 01 Microscopic: . An immunohistochemical stain was performed to evaluate for Helicobacter organisms and is negative. The control stain showed appropriate reactivity. . * This test was developed and its performance characteristics determined by [facility]. It has not been cleared or approved by the U.S. Food and Drug Administration. The FDA has determined that such clearance or approval is not necessary. This test is used for clinical purposes. It should not be regarded as investigational or for research. . 01 Pathologist provided ICD-10: K29.70 . 01 CPT . 052124, [id number] Specimen Comment: A courtesy copy of this report has been sent to [phone] Performed at: 01 [facility] [address] [place] [address], [place], [place] [id number] MD Anthony Park MD Phone: [phone]
[2023-02-08 14:18] VITALS: BP 144/74; PULSE 67; RESP 16; TEMP 36.9; O2SAT 100; BMI 16.9
[2023-02-08] MEDS: LACTATED RINGERS 1,000 ML 150 ML IV (14:32)
--- NOTE | 2023-02-08 14:48 | PM.HP.1 ---
History of Present Illness History of Present Illness Date Patient Seen: 02/08/23 Time Patient Seen: 14:48 Chief complaint: EGD & Colonoscopy w/poss bx's Narrative: 82-year-old woman with history of anemia here for diagnostic esophagoduodenoscopy and colonoscopy. Reports 10 lb weight loss unintentional over the past 1 year. Family history significant for mother who had stomach cancer in her brother who developed colon cancer at age 55. No abdominal pain blood per rectum. Occasionally she has small amounts of blood-tinged saliva. [facility] Medical History Unintended weight loss Lymphocytopenia Chronic low back pain without sciatica Chronic pain syndrome Compression fx, thoracic spine Acute conjunctivitis, bilateral Osteoporosis History of adenomatous polyp of colon Post herpetic neuralgia Eczema Bilateral lower extremity edema Chronic cough (Unknown) Anxiety (Unknown) Osteoarthritis (2005) Recurrent sinusitis (Unknown) Hyperlipemia (2015) Cataracts, bilateral (Unknown) Glaucoma (Unknown) Primary insomnia (06/15/16) Mixed hyperlipidemia (06/15/16) Essential tremor (06/15/16) Ataxia (06/15/16) Surgical History History of cataract removal with insertion of prosthetic lens Family History Brother Age: 88 Cancer Grandmother Cancer Father No problems noted. Grandfather No problems noted. Mother Cancer Grandfather No problems noted. Grandmother No problems noted. Social History household members: spouse Smoking Status: Never smoker alcohol intake: never Meds Home Medications and Allergies Home Medications Medication Instructions Recorded Confirmed Type Parking Permit... #1 ea 08/10/21 12/28/22 Rx gabapentin 300 mg capsule See Rx Instructions .Route 05/04/22 02/08/23 Rx .COMPLEX #810 caps duloxetine 20 mg capsule,delayed See Rx Instructions .Route 07/06/22 02/08/23 Rx release .COMPLEX #90 caps fluticasone propionate 50 1 spray intranasal BID #16 grams 12/15/22 02/08/23 Rx mcg/actuation nasal spray,suspension meloxicam 7.5 mg tablet 7.5 mg PO DAILY #60 tabs 12/28/22 12/28/22 Rx prednisone 10 mg tablet 10 mg PO DAILY #40 tabs 12/31/22 Rx tramadol 50 mg tablet 50 mg PO Q8H PRN pain #120 tabs 01/26/23 02/08/23 Rx sodium,potassium,mag sulfates 17.5 See Rx Instructions PO .COMPLEX 01/28/23 02/08/23 Rx gram-3.13 gram-1.6 gram oral soln #354 mL (Suprep Bowel Prep Kit) propranolol 10 mg tablet PO 02/08/23 History Allergies Allergy/AdvReac Type Severity Reaction Status Date / Time aspirin [ASPIRIN] AdvReac Mild GI UPSET Verified 12/28/22 14:39 codeine [CODEINE] AdvReac Mild GI UPSET Verified 12/28/22 14:39 Exam Vital Signs (past 8 hours): - 02/08/23 14:18 Temperature 98.4 F Pulse Rate 67 Respiratory Rate 16 Blood Pressure 144/74 H Pulse Oximetry 100 Oxygen Delivery Method Room Air Oxygen Delivery Method Room Air Narrative Exam Narrative: General elderly woman thin alert oriented no acute distress Chest nonlabored respiration Extremities warm well perfused Assessment & Plan Assessment and plan (1) Anemia: Qualifiers: Anemia type: unspecified type Qualified Code(s): D64.9 - Anemia, unspecified Status: Acute Assessment & Plan narrative: 82-year-old woman with anemia and unintentional weight loss here for diagnostic esophagoduodenoscopy and colonoscopy. Technical details were discussed. Risks, benefits, alternatives explained. Risks including but not limited to myocardial infarction, aspiration, bleeding, pain, missed lesion, incomplete examination, need for further radiographic studies, intestinal injury, and need for major abdominal surgery were discussed. All questions were answered to their satisfaction, and they are in agreement with this plan.
--- NOTE | 2023-02-08 15:19 | PM.OP.EC ---
Operative Date/Time/Diagnoses Date of procedure: 02/08/23 Time of procedure: 15:19 Pre-op diagnosis: Anemia Post-op diagnosis: other (Gastritis) Procedure & Clinicians Study performed: Esophagoduodenoscopy and sigmoidoscopy Same procedure as scheduled: Yes Indications: 82-year-old woman with anemia and unintentional weight loss here for diagnostic esophagoduodenoscopy and colonoscopy Surgeon: Curtis Soliz Procedure Notes Procedure in detail: The history and physical was performed/updated and the patient is ASA class is 2. The procedure was discussed in detail with the patient. Potential risks complications including infection, bleeding, missed diagnosis, perforation, need for surgery, and were explained. Their questions were answered and informed consent was obtained. Patient placed in left lateral decubitus position. Time out was performed. Procedural sedation was administered by Anesthesia. A bite block was placed. the scope was inserted into the mouth and advanced through the esophagus and into the stomach. The stomach was notable for diffuse gastritis no distinct ulcer or active hemorrhage. There were scattered clots of old blood within the body of the stomach. Biopsy of the stomach was performed with forceps. The pylorus was intubated and the duodenum was examined to the 2nd portion was normal. The scope was withdrawn into the esophagus the Z line was seen at 35 cm from the incisions. There was no Parry's esophagitis, esophageal masses or strictures. Stomach was desufflated and scope removed. Examination began with a thorough inspection of the perianal area there was no evidence of fissures, fistulae, external hemorrhoids or cutaneous malignancy. The colonoscopy scope was then placed into the anal canal and was advanced forward. We reached the level of the sigmoid colon however the colon was very tortuous and we could not proceed further. We stiff in the scope and tried multiple attempts at external pressure but could not make safe forward progress and therefore only a sigmoidoscopy was performed. The patient tolerated the procedure well. They will be discharged once criteria are met. The prep was of good/excellent quality. Findings: gastritis Specimen(s): other (Gastric biopsy) Impression: Gastritis Post-procedure Plan for aftercare: Start omeprazole 20 mg twice daily Disposition: same day surgery
[2023-02-08 15:21] VITALS: BP 120/73; PULSE 71; RESP 14; TEMP 37.1; O2SAT 99
[2023-02-08 15:29] VITALS: BP 116/64; PULSE 75; RESP 18; O2SAT 100
[2023-02-08 15:34] VITALS: BP 120/70; PULSE 68; RESP 18; TEMP 37; O2SAT 98
[2023-02-08 16:00] VITALS: BP 159/78; PULSE 71; RESP 15; TEMP 36.7; O2SAT 97
== END 2023-02-08 16:00 | disposition home or self-care (01) ==
PROVIDERS: PCP Family Medicine; Referring Provider Surgery; Visit Provider Surgery
PROC: 0DJ08ZZ Inspection of Upper Intestinal Tract, Via Natural or Artificial Opening Endoscopic (ICD-10-PCS; CPT 43235; principal; 2023-02-08 14:30)
PROC: 0DJD8ZZ Inspection of Lower Intestinal Tract, Via Natural or Artificial Opening Endoscopic (ICD-10-PCS; CPT 45378; 2023-02-08 14:30)
DX: D64.9 Anemia, unspecified (principal); R63.4 Abnormal weight loss; K29.70 Gastritis, unspecified, without bleeding; K29.50 Unspecified chronic gastritis without bleeding
CPT/HCPCS: 45330; 43239; J2704

== ENCOUNTER 2023-06-10 12:35 | Observation (INO) | payer MEDICARE, SELFPAY ==
[2022-12-30 14:56] VITALS: BMI 17.6
[2023-06-10] VITALS (11 sets, daily range): BP systolic 137–177; BP diastolic 65–75; PULSE 63–74; RESP 15–20; TEMP 36.5–36.8; O2SAT 94–100; BMI 16.4; BMI 15.7
--- NOTE | 2023-06-10 12:53 | DI.RAD.S_ITS ---
PROCEDURE: XR CHEST 1V INDICATIONS: chest pain TECHNIQUE: One view of the chest was acquired. COMPARISON: [facility], CR, XR CHEST 1V, 08/28/2021, 11:10. [facility], CR, XR CHEST 1V, 12/31/2017, 8:43. FINDINGS: Surgical changes and devices: None. Lungs and pleura: Lungs are mildly abnormal with a mild interstitial prominence. No pleural effusions or pneumothorax. Mediastinum: Mediastinal contours appear normal. Heart size is at or just above the upper limits of normal. Bones and chest wall: No suspicious bony lesions. Overlying soft tissues appear unremarkable. IMPRESSION: Interstitial prominence, mild, nonspecific. Heart size at or just above the upper limits of normal. No definite pneumonia seen. Dictated by: Milton Lopez M.D. on 06/10/2023 at 13:46 Approved by: Milton Lopez M.D. on 06/10/2023 at 13:47
[2023-06-10 13:32] LABS: Add Manual Diff / Slide Review NO; Basophils Absolute Auto 0 /uL (0-100); Basophils Percent Auto 0.8 % (0-2); Eosinophils Absolute Auto 200 /uL (0-450); Eosinophils Percent Auto 3.6 % (2-4); Hematocrit 32.9 % (36-46); Hemoglobin 10.7 g/dL (12.0-16.0); Lymphocytes Absolute Auto 700 /uL (1100-4500); Lymphocytes Percent Auto 13.9 % (25-40); Mean Corpuscular HGB Conc 32.6 % (30-36); Mean Corpuscular Hemoglobin 30.3 PG (26-34); Monocytes Absolute Auto 500 /uL (0-900); Monocytes Percent Auto 9.3 % (3-14); Neutrophils Absolute Auto 3800 /uL (1500-7000); Neutrophils Percent Auto 72.4 % (50-75); Platelet Count 212 X10^3/uL (150-400); Red Blood Cell Count 3.54 X10^6/uL (4.0-5.2); Red Cell Distribution Width 14.1 % (11.6-14.8); White Blood Cell Count 5.3 X10^3/uL (4.5-11.0)
[2023-06-10 13:38] LABS: Prothrombin Time 11.8 SECONDS (9.4-12.5)
[2023-06-10 13:40] LABS: PTT Partial Thromboplastin Tim 30 SECONDS (25.1-36.5)
[2023-06-10 13:42] LABS: Alanine Aminotransferase 13 IU/L (<35); Albumin 3.7 g/dL (3.5-5.0); Alkaline Phosphatase 54 U/L (38-126); Aspartate Aminotransferase 26 IU/L (14-36); BUN Creatinine Ratio 42.5 (6-22); Bilirubin Total 0.5 mg/dL (0.2-1.3); Blood Urea Nitrogen 31 mg/dL (7-17); Calcium 8.8 mg/dL (8.4-10.2); Carbon Dioxide 27 mmol/L (22-32); Chloride 105 mmol/L (98-107); Creatine Kinase 43 U/L (30-135); Estimated Glomerular Filt Rate > 60 mL/min (>60); Globulin 3.6 g/dL (1.7-4.1); Glucose 76 mg/dL (80-110); HEMOLYSIS 28 (0-50); Lipase 330 U/L (23-300); Magnesium 2.2 mg/dL (1.6-2.3); Potassium 4.1 mmol/L (3.4-5.1); Sodium 141 mmol/L (137-145); Total Protein 7.3 g/dL (6.3-8.2)
[2023-06-10 13:54] LABS: Troponin I < 0.012 ng/mL (0.01-0.034)
--- NOTE | 2023-06-10 14:04 | PC.NURSE ---
Dr Larkin in room evaluating pt,activated code stroke.
--- NOTE | 2023-06-10 14:06 | ED.DIZZY ---
HPI - Dizziness General Chief Complaint: Dizziness Stated Complaint: DIZZINESS, HBP, SENT FROM PT Time Seen by Provider: 06/10/23 13:46 Source: patient Mode of arrival: Ambulatory History of Present Illness HPI Narrative: Patient here with . Complains of lightheadedness high blood pressure tachycardia at physical therapy today. She has been doing physical therapy for the past 2 weeks and never had this episode before. No slurred speech or facial droop. Patient had tremendous difficulty walking and required help from physical therapist to sit down. No prior history of stroke. Has history of Parkinson's. There is family history of coronary disease. Patient in no distress at this time. Blood pressure is reassuring. It has improved as well as heart rate according to patient and . Fast exam is negative at this time. Code stroke was called. There was no slurred speech or facial droop. There was no limb numbness tingling or weakness. Related Data Home Medications Medication Instructions Recorded Confirmed propranolol 10 mg tablet 10 mg PO DAILY 02/08/23 06/10/23 duloxetine 20 mg capsule,delayed 20 mg PO BID 06/10/23 06/10/23 release Previous Rx's Medication Instructions Recorded Parking Permit... #1 ea 08/10/21 gabapentin 300 mg capsule See Rx Instructions .Route 05/04/22 .COMPLEX #810 caps fluticasone propionate 50 1 spray intranasal BID #16 grams 12/15/22 mcg/actuation nasal spray,suspension tramadol 50 mg tablet 50 mg PO Q8H PRN pain #120 tabs 06/28/23 Allergies Allergy/AdvReac Type Severity Reaction Status Date / Time aspirin [ASPIRIN] AdvReac Mild GI UPSET Verified 06/10/23 12:59 codeine [CODEINE] AdvReac Mild GI UPSET Verified 06/10/23 12:59 Review of Systems Review of Systems Narrative: GENERAL: negative chills, fatigue, malaise, fever, sweats. HEENT: negative sinus pain, ear pain, sore throat RESPIRATORY: negative dyspnea, cough CARDIOVASCULAR: negative chest pain, palpitations GASTROINTESTINAL: negative nausea, vomiting, abdominal pain : negative dysuria, frequency, hematuria MUSCULOSKELETAL: negative muscle or bony pain SKIN: negative rash, skin lesions NEUROLOGIC: negative weakness, numbness, positive dizziness ROS Unobtainable: All systems reviewed & are unremarkable except as noted in HPI and below Patient History Medical History Unintended weight loss Lymphocytopenia Chronic low back pain without sciatica Chronic pain syndrome Compression fx, thoracic spine Acute conjunctivitis, bilateral Osteoporosis History of adenomatous polyp of colon Post herpetic neuralgia Eczema Bilateral lower extremity edema Chronic cough (Unknown) Anxiety (Unknown) Osteoarthritis (2006) Recurrent sinusitis (Unknown) Hyperlipemia (2016) Cataracts, bilateral (Unknown) Glaucoma (Unknown) Primary insomnia (06/15/16) Mixed hyperlipidemia (06/15/16) Essential tremor (06/15/16) Ataxia (06/15/16) Surgical History History of cataract removal with insertion of prosthetic lens Family History Brother Age: 88 Cancer Grandmother Cancer Father No problems noted. Grandfather No problems noted. Mother Cancer Grandfather No problems noted. Grandmother No problems noted. Social History household members: spouse Smoking Status: Never smoker alcohol intake: current Smoking Status: Never smoker alcohol intake frequency: holidays/special occasions only Substance Use Type: does not use Exam Narrative Exam Narrative: GENERAL: in no distress, not toxic not dyspneic HEAD: Normocephalic. EYES: Pupils equal round ENT: Mucous membranes moist. NECK: Trachea midline. CARDIOVASCULAR: Regular rate and rhythm RESPIRATORY: Clear to auscultation. Breath sounds equal bilaterally. No wheezes, rales, or rhonchi. GASTROINTESTINAL: Abdomen soft, non-tender EXTREMITIES: No gross deformities. BACK: No flank tenderness. NEURO: AOx4. Clear speech no facial droop. ?Light touch intact to bilateral face hands and legs. Voifid-ap-irzg intact bilaterally. ?Strong equal insurance claims specialist bilaterally and ankle flexion hip flexion and knee flexion. ?Strong bilateral patellar reflexes. ?No pronator drift. ? SKIN: Warm and dry PSYCH: Not anxious, is cooperative Initial Vital Signs Initial Vital Signs: Vital Signs Temperature 98.3 F 06/10/23 12:37 Pulse Rate 68 06/10/23 12:37 Respiratory Rate 15 06/10/23 12:37 Blood Pressure 177/75 H 06/10/23 12:37 Pulse Oximetry 100 06/10/23 12:37 Oxygen Delivery Method Room Air 06/10/23 12:37 Scores NIH Stroke Scale Level of Conciousness: Alert, keenly responsive Ask month/age: Answers both questions correctly. Open/close eyes, close hand: Performs both tasks correctly Best gaze horizontal: Normal Visual zelaya: No visual loss Facial palsy: Normal symetrical movement Left arm drift: No drift for full 10 sec Right arm drift: No drift for full 10 sec Left leg drift: No drift for full 5 sec Right leg drift: No drift for full 5 sec Limb ataxia: Absent Sensory on face/arms/legs: Normal, no sensory loss Best language: No aphasia, normal Dysarthria: Normal Extinction or inattention: No abnormality Total NIH Stroke scale score: 0 Course Orders Ordered: Discontinued Medications Acetaminophen (Acetaminophen 325 Mg Tablet) 650 mg PO Q6H PRN PRN Reason: Fever/Mild Pain (1-3) Aspirin (Aspirin 81 Mg Chew Tab) 324 mg PO NOW ONE Stop: 06/10/23 15:37 Last Admin: 06/10/23 16:12 Dose: Not Given Documented By: SAMM Aspirin (Aspirin Ec 325 Mg Tablet) 325 mg PO NOW ONE Stop: 06/10/23 16:12 Last Admin: 06/10/23 16:14 Dose: 325 mg Documented By: SAMM Atorvastatin Calcium (Atorvastatin 20 Mg Tablet) 40 mg PO NOW ONE Stop: 06/10/23 15:37 Last Admin: 06/10/23 15:59 Dose: 40 mg Documented By: SAMM Clopidogrel Bisulfate (Clopidogrel 75 Mg Tablet) 300 mg PO NOW ONE Stop: 06/10/23 15:37 Last Admin: 06/10/23 15:59 Dose: 300 mg Documented By: SAMM Gabapentin (Gabapentin 300 Mg Capsule) 300 mg PO TID [facility] Last Admin: 06/11/23 08:58 Dose: 300 mg Documented By: Admin: 06/10/23 21:05 Dose: 300 mg Documented By: Admin: 06/10/23 18:52 Dose: 300 mg Documented By: FRENCH Sodium Chloride (Normal Saline 0.9%) 500 mls @ 1,000 mls/hr IV BOLUS ONE Stop: 06/10/23 14:41 Last Infusion: 06/10/23 15:58 Dose: Infused Documented By: Admin: 06/10/23 14:50 Dose: 1,000 mls/hr Documented By: SAMM Magnesium Hydroxide (Magnesium Hydroxide 30 Ml Udc) 30 ml PO DAILY PRN PRN Reason: Constipation Naloxone HCl (Naloxone 0.4 Mg/Ml Vial) 0.2 mg IV Q2MIN PRN PRN Reason: Opiate Reversal Propranolol HCl (Propranolol 10 Mg Tablet) 10 mg PO DAILY HECTOR Propranolol HCl (Propranolol 10 Mg Tablet) 10 mg PO TID HECTOR Last Admin: 06/11/23 08:58 Dose: 10 mg Documented By: NOLBERTO Tramadol HCl (Tramadol 50 Mg Tablet) 50 mg PO Q8H PRN PRN Reason: pain Last Admin: 06/10/23 18:52 Dose: 50 mg Documented By: FRENCH Vital Signs Vital signs: Vital Signs - 8 hr 06/10/23 12:37 06/10/23 12:50 06/10/23 12:50 Temperature 98.3 F Pulse Rate 68 69 Respiratory Rate 15 Blood Pressure 177/75 H 177/75 H Pulse Oximetry 100 Oxygen Delivery Method Room Air 06/10/23 13:00 06/10/23 13:00 06/10/23 13:30 Temperature Pulse Rate 63 Respiratory Rate 17 Blood Pressure 153/72 H 137/65 Pulse Oximetry 100 Oxygen Delivery Method 06/10/23 13:30 06/10/23 14:00 06/10/23 14:00 Temperature Pulse Rate 63 66 Respiratory Rate 17 20 Blood Pressure 147/67 H Pulse Oximetry 99 98 Oxygen Delivery Method MDM - Dizziness Lab Data 06/11/23 07:00 06/11/23 07:00 Labs: Lab Results 06/10/23 Range/Units 13:13 WBC 5.3 (4.5-11.0) X10^3/uL RBC 3.54 L (4.0-5.2) X10^6/uL Hgb 10.7 L (12.0-16.0) g/dL Hct 32.9 L (36-46) % MCV 93.0 (80-100) fL MCH 30.3 (26-34) PG MCHC 32.6 (30-36) % RDW 14.1 (11.6-14.8) % Plt Count 212 (150-400) X10^3/uL Neut % (Auto) 72.4 (50-75) % Lymph % (Auto) 13.9 L (25-40) % [place] % (Auto) 9.3 (3-14) % Eos % (Auto) 3.6 (2-4) % Baso % (Auto) 0.8 (0-2) % Neut # (Auto) 3800 (7527-9220) /uL Lymph # (Auto) 700 L (0798-5501) /uL [place] # (Auto) 500 (0-900) /uL Eos # (Auto) 200 (0-450) /uL Baso # (Auto) 0 (0-100) /uL PT 11.8 (9.4-12.5) SECONDS INR 1.0 (0.9-1.3) APTT 30 (25.1-36.5) SECONDS Sodium 141 (137-145) mmol/L Potassium 4.1 (3.4-5.1) mmol/L Chloride 105 (98-107) mmol/L Carbon Dioxide 27 (22-32) mmol/L BUN 31 H (7-17) mg/dL Creatinine 0.73 (0.52-1.04) mg/dL Estimated GFR > 60 (>60) mL/min BUN/Creatinine Ratio 42.5 H (6-22) Glucose 76 L (80-110) mg/dL Calcium 8.8 (8.4-10.2) mg/dL Magnesium 2.2 (1.6-2.3) mg/dL Total Bilirubin 0.5 (0.2-1.3) mg/dL AST 26 (14-36) IU/L ALT 13 (<35) IU/L Alkaline Phosphatase 54 (38-126) U/L Total Creatine Kinase 43 (30-135) U/L Troponin I < 0.012 (0.01-0.034) ng/mL Total Protein 7.3 (6.3-8.2) g/dL Albumin 3.7 (3.5-5.0) g/dL Globulin 3.6 (1.7-4.1) g/dL Albumin/Globulin Ratio 1.0 (1.0-2.8) Lipase 330 H (23-300) U/L Imaging Data CT scan - head: Radiologist's Impression: [address] [address] [address] Scan Report Signed Patient: Kaylah Renteria MR#: [id number] : 1940 Acct:[id number] Age/Sex: 83 / F Date of Service: 06/10/23 Loc: ED Accession Number: [id number] Procedure: CT Stroke Ordering Provider: Blaise Larkin MD PROCEDURE: CT STROKE INDICATIONS: Ataxia TECHNIQUE: Noncontrast 4.5 mm thick angled axial sections acquired from the foramen magnum to the vertex, with coronal reformats. For radiation dose reduction, the following was used: automated exposure control, adjustment of mA and/or kV according to patient size. COMPARISON: CT, CT HEAD/BRAIN WO CON, 12/31/2017, 8:36. FINDINGS: Image quality: Diagnostic. CSF spaces: Basal cisterns are patent. No extra-axial fluid collections. The ventricles are symmetric in size and shape. Brain: No intracranial bleeds or masses. There is cerebral volume loss for age, with resultant ventricular and sulcal prominence. There are periventricular and deep white matter chronic small vessel ischemic changes. There is intracranial internal carotid artery atherosclerosis. Skull and face: Calvarium and visualized facial bones appear intact, without suspicious lesions. Sinuses: Visualized sinuses and mastoids are clear. IMPRESSION: 1. No acute intracranial abnormalities. 2. Cerebral volume loss and chronic microvascular ischemic changes. The result was discussed with Dr. Larkin in ER prior to dictation. This study fulfills neurological imaging criteria for inclusion or exclusion of acute stroke therapies based on available published neurological guidelines. Dictated by: Yamile Minaya M.D. on 06/10/2023 at 14:18 Approved by: Yamile Minaya M.D. on 06/10/2023 at 14:20 CTA - brain/neck: Radiologist's Impression: [place] [address] CT Scan Report Signed Patient: Kaylah Renteria MR#: [id number] : 1940 Acct:[id number] Age/Sex: 83 / F Date of Service: 06/10/23 Loc: ED Accession Number: [id number] Procedure: CT angio head and neck Ordering Provider: Blaise Larkin MD PROCEDURE: CT ANGIO HEAD AND NECK INDICATIONS: Ataxia TECHNIQUE: After the administration of intravenous contrast, 1 mm thick sections acquired from the aortic arch through the [place] of [place]. 3-dimensional gldynqm-vqpujeurh-hgbalfgaok (MIP) and/or volume rendering reformats were acquired of the central intracranial vasculature and neck separately. For radiation dose reduction, the following was used: automated exposure control, adjustment of mA and/or kV according to patient size. COMPARISON: None. FINDINGS: Image quality: Diagnostic. BRAIN: CSF spaces: Ventricles are normal in size and shape. Basal cisterns are patent. No extra-axial fluid collections. Brain: No significant abnormality of the brain can be seen. Skull and face: Calvarium and facial bones appear intact, without suspicious lesions. Orbits appear normal. Sinuses: Sinuses and mastoids are clear. HEAD CT ANGIOGRAPHY: Anterior circulation: Intracranial internal carotid arteries are normal in size and flow. The flow within the paired anterior cerebral arteries is normal and symmetric. The flow within the middle cerebral arteries is normal and symmetric. The anterior communicating artery is seen. No aneurysms are seen. Posterior circulation: Visualized portions of the vertebral arteries demonstrate normal caliber, and join to form a normal appearing basilar artery. Flow within the posterior cerebral arteries is normal and symmetric. No aneurysms are seen. NECK CT ANGIOGRAPHY: Carotid system: The great vessels demonstrate a conventional anatomy as they arise from the aortic arch. The origins of the common carotid arteries appear patent. The common carotid arteries demonstrate normal caliber and courses. The bifurcation regions are both widely patent. The internal carotid arteries demonstrate normal calibers and courses. Posterior circulation: The origins of the vertebral arteries both appear widely patent. The more superior extracranial portions of both vertebral arteries also demonstrate normal courses and calibers. They join to form a normal appearing basilar artery. Soft tissues: Visualized neck soft tissues demonstrate no suspicious abnormalities. Bones: No suspicious bony lesions. Visualized cervical spine appears normally aligned. IMPRESSION: No significant intracranial arterial abnormality is seen. No significant abnormality is seen within the arteries of the neck. Any quantitative measurements of stenosis were performed using NASCET criteria. Dictated by: Milton Lopez M.D. on 06/10/2023 at 14:46 Approved by: Milton Lopez M.D. on 06/10/2023 at 14:47 MDM Narrative Medical decision making narrative: Patient here with . Complains of lightheadedness high blood pressure tachycardia at physical therapy today. She has been doing physical therapy for the past 2 weeks and never had this episode before. No slurred speech or facial droop. Patient had tremendous difficulty walking and required help from physical therapist to sit down. No prior history of stroke. Has history of Parkinson's. There is family history of coronary disease. Patient in no distress at this time. Blood pressure is reassuring. It has improved as well as heart rate according to patient and . Fast exam is negative at this time. Code stroke was called. There was no slurred speech or facial droop. There was no limb numbness tingling or weakness. After history and exam CBC CMP troponin EKG CT head CT angiogram head and neck normal saline urinalysis [facility] CC: Dizziness Complicating co-morbidities: Parkinson's Data collected from: Patient and Medical records reviewed: No recent visit for this complaint Differential considered: Includes but not limited to TIA stroke vertigo arrhythmia hypoglycemia dehydration Exam documented above, pertinent findings include: Fast exam is negative Lab Test results independently reviewed as above. Pertinent findings: WBC 5.3 hemoglobin 10.7 sodium 141 potassium 4.1 GFR greater than 60 glucose 76 troponin less than 0.012 Independently reviewed EKG junctional rhythm rate [address] elevation or depression Imaging studies independently reviewed: CT head CT angiogram head and neck no acute findings Consultations: 2:20 p.m.. Spoke with radiologist CT without contrast head no acute finding 3:30 p.m.. Spoke with tele stroke Dr. Vaughn with [facility], no tPA indicated this time. Start aspirin and Plavix and atorvastatin. Admit for observation and MRI 3:[address] Noyola, hospitalist, who will admit patient Treatments: Normal saline aspirin Plavix atorvastatin Re-evaluations: 3:40 p.m.. Patient and understand need for admit. At this time at baseline. Exam and laboratory studies are reassuring at this time. Discussion: Appropriate for admission for balance of workup for likely TIA including but not limited to MRI of the brain. Patient and agree and understand. I did review with tele stroke as well as hospitalist Diagnosis: TIA Discharge Plan Departure Patient Disposition: Admitted as Observation Clinical Impression: Transient cerebral ischemia Qualifiers: Transient cerebral ischemia type: unspecified Qualified Code(s): G45.9 - Transient cerebral ischemic attack, unspecified Admit Date/Time: 06/10/23 15:39 Admit Provider: Rishabh Noyola
--- NOTE | 2023-06-10 14:30 | PC.NURSE ---
back from CT w/o issue. alert, oriented, no drift noted to any upper or lower extremities. denies cp/sob/dizziness. denies needs.
[2023-06-10] MEDS: SODIUM CHLORIDE 0.9% 500 ML 1000 ML IV (14:50)
[2023-06-10] MEDS: ATORVASTATIN 20 MG TABLET 40 MG PO (15:59)
[2023-06-10] MEDS: CLOPIDOGREL 75 MG TABLET 300 MG PO (15:59)
[2023-06-10] MEDS: ASPIRIN EC 325 MG TABLET PO (16:14)
--- NOTE | 2023-06-10 16:48 | P.HP_ITS ---
History of Present Illness History of Present Illness Date Patient Seen: 06/10/23 Time Patient Seen: 17:29 Chief complaint: DIZZINESS, HBP, SENT FROM PT Narrative: The patient is a pleasant 83-year-old female who was at physical therapy today when she became acutely lightheaded and had high blood pressure and a rapid heart rate. She felt somewhat unsteady but had no focal neurologic symptoms according to her and her . She had no droop or difficulty speaking. There was no weakness of an arm or a leg. She did not feel like she was going to fall to 1 side or the other. She has had done in chair in the symptoms slowly improved over the next 5-10 minutes. Blood pressure readings from that time are not available. The patient does have a history of Parkinson's with a pronounced tremor of the left arm as well as a post herpetic neuralgia and takes gabapentin and tramadol for this. She denies headache, no visual changes. No speech difficulties. She does not have high blood pressure, or smoke. In the ED a code stroke was called, initial imaging was negative. Her NIH score was 0. She has been doing well recently with no abnormalities. She weighs 84 lb. She denies diarrhea, chest pain or dyspnea. [facility] Medical History Unintended weight loss Lymphocytopenia Chronic low back pain without sciatica Chronic pain syndrome Compression fx, thoracic spine Acute conjunctivitis, bilateral Osteoporosis History of adenomatous polyp of colon Post herpetic neuralgia Eczema Bilateral lower extremity edema Chronic cough (Unknown) Anxiety (Unknown) Osteoarthritis (2005) Recurrent sinusitis (Unknown) Hyperlipemia (2015) Cataracts, bilateral (Unknown) Glaucoma (Unknown) Primary insomnia (06/15/16) Mixed hyperlipidemia (06/15/16) Essential tremor (06/15/16) Ataxia (06/15/16) Surgical History History of cataract removal with insertion of prosthetic lens Family History Brother Age: 88 Cancer Grandmother Cancer Father No problems noted. Grandfather No problems noted. Mother Cancer Grandfather No problems noted. Grandmother No problems noted. Social History household members: spouse Smoking Status: Never smoker alcohol intake: current Meds Home Medications and Allergies Home Medications Medication Instructions Recorded Confirmed Type Parking Permit... #1 ea 08/10/21 06/10/23 Rx gabapentin 300 mg capsule See Rx Instructions .Route 05/04/22 06/10/23 Rx .COMPLEX #810 caps duloxetine 20 mg capsule,delayed See Rx Instructions .Route 07/06/22 06/10/23 Rx release .COMPLEX #90 caps fluticasone propionate 50 1 spray intranasal BID #16 grams 12/15/22 06/10/23 Rx mcg/actuation nasal spray,suspension propranolol 10 mg tablet 10 mg PO DAILY 02/08/23 06/10/23 History tramadol 50 mg tablet 50 mg PO Q8H PRN pain #120 tabs 04/21/23 06/10/23 Rx Allergies Allergy/AdvReac Type Severity Reaction Status Date / Time aspirin [ASPIRIN] AdvReac Mild GI UPSET Verified 06/10/23 12:59 codeine [CODEINE] AdvReac Mild GI UPSET Verified 06/10/23 12:59 Review of Systems Review of Systems Narrative: All else reviewed and otherwise unremarkable except as noted in history and physical. Exam Vital Signs (past 8 hours): - 06/10/23 12:37 06/10/23 12:50 06/10/23 12:50 Temperature 98.3 F Pulse Rate 68 69 Respiratory Rate 15 Blood Pressure 177/75 H 177/75 H Pulse Oximetry 100 Oxygen Delivery Method Room Air 06/10/23 13:00 06/10/23 13:00 06/10/23 13:30 Temperature Pulse Rate 63 Respiratory Rate 17 Blood Pressure 153/72 H 137/65 Pulse Oximetry 100 Oxygen Delivery Method 06/10/23 13:30 06/10/23 14:00 06/10/23 14:00 Temperature Pulse Rate 63 66 Respiratory Rate 17 20 Blood Pressure 147/67 H Pulse Oximetry 99 98 Oxygen Delivery Method 06/10/23 14:30 06/10/23 15:00 06/10/23 15:30 Temperature Pulse Rate 68 69 69 Respiratory Rate 18 15 17 Blood Pressure Pulse Oximetry 99 99 97 Oxygen Delivery Method 06/10/23 16:10 Temperature Pulse Rate 74 Respiratory Rate 19 Blood Pressure Pulse Oximetry 94 Oxygen Delivery Method Oxygen Delivery Method Room Air Narrative Exam Narrative: NAD, fluent speech. Normal affect. Normocephalic skull, EOMI, anicteric sclera. Symmetric pupils. Oropharynx with normal mucosa, no facial droop. Neck is supple, normal trachea and no adenopathy. Lungs are clear with normal rate and effort. Heart is regular without murmur, gallop or rub. Abdomen is nondistended and nontender. Extremities are free of edema, she is good pedal and radial pulses. Neurologically CN 2 through 12 are intact, speech is normal. Judgment is normal. Motor strength is 5 5 all extremities. Normal rapid alternating movements. Joints are not swollen or deformed. Skin is free of rash or lesions. Objective ECG Impression: NSR Imaging CT scan - head: Radiologist's impression: No significant intracranial arterial abnormality is seen. No significant abnormality is seen within the arteries of the neck. Brain CT: 1. No acute intracranial abnormalities. 2. Cerebral volume loss and chronic microvascular ischemic changes. Chest x-ray: Radiologist's impression: Interstitial prominence, mild, nonspecific. Heart size at or just above the upper limits of normal. No definite pneumonia seen. Labs 06/10/23 13:13 06/10/23 13:13 Labs: Laboratory Results - last 24 hr 06/10/23 13:13 WBC 5.3 RBC 3.54 L Hgb 10.7 L Hct 32.9 L MCV 93.0 MCH 30.3 MCHC 32.6 RDW 14.1 Plt Count 212 Neut % (Auto) 72.4 Lymph % (Auto) 13.9 L [place] % (Auto) 9.3 Eos % (Auto) 3.6 Baso % (Auto) 0.8 Neut # (Auto) 3800 Lymph # (Auto) 700 L [place] # (Auto) 500 Eos # (Auto) 200 Baso # (Auto) 0 PT 11.8 INR 1.0 APTT 30 Sodium 141 Potassium 4.1 Chloride 105 Carbon Dioxide 27 BUN 31 H Creatinine 0.73 Estimated GFR > 60 BUN/Creatinine Ratio 42.5 H Glucose 76 L Calcium 8.8 Magnesium 2.2 Total Bilirubin 0.5 AST 26 ALT 13 Alkaline Phosphatase 54 Total Creatine Kinase 43 Troponin I < 0.012 Total Protein 7.3 Albumin 3.7 Globulin 3.6 Albumin/Globulin Ratio 1.0 Lipase 330 H Assessment & Plan Assessment & Plan narrative: 1. Episode of dizziness and lightheadedness without focal specific neurologic symptoms or signs, present before admission and resolved. 2. Parkinson's disease, present on admission and active. 3. Post herpetic neuralgia, present on admission and active. 4. HLD, present on admission and active. 5. Underweight with BMI of 15, present on admission and active. Plan: -telemetry, observation overnight. Anticipate 1 minute of hospital level care. -PT and OT assessment in the morning. -low suspicion for stroke or other neurologic event, at this point no further imaging will be ordered. -we will continue all chronic medications including tramadol and gabapentin. At with and patient at the same time, both are happy with the plan. Full resuscitation, is proxy decision maker. Time Spent With Patient Time with patient: 30 to 49 minutes with 50% spent counseling/coordinating care Quality MIPS - Admit I confirm the patient?s Advance Care Plan is present, Code status is documented, Surrogate decision maker is in patient?s record [If Yes, STOP here]: Yes [facility] - Meds 'Current medications' to include all prescriptions, [id number]-[id number] products, herbals, cannabis/cannabidiol products, and vitamin/mineral/dietary (nutritional) supplements. I have utilized all available resources to obtain, update, or review the patient?s current medications. [If Yes, STOP here]: Yes
[2023-06-10] MEDS: GABAPENTIN 300 MG CAPSULE PO ×2 (18:52→21:05)
[2023-06-10] MEDS: TRAMADOL 50 MG TABLET PO (18:52)
[2023-06-11 00:28] VITALS: BP 118/64; PULSE 63; RESP 16; TEMP 36.4; O2SAT 96
[2023-06-11 05:10] VITALS: BP 124/62; PULSE 67; RESP 16; TEMP 36.3; O2SAT 100
[2023-06-11 08:24] LABS: Add Manual Diff / Slide Review NO; Basophils Absolute Auto 0 /uL (0-100); Basophils Percent Auto 0.9 % (0-2); Eosinophils Absolute Auto 300 /uL (0-450); Eosinophils Percent Auto 5.8 % (2-4); Hematocrit 32.4 % (36-46); Hemoglobin 10.8 g/dL (12.0-16.0); Lymphocytes Absolute Auto 1100 /uL (1100-4500); Lymphocytes Percent Auto 24.4 % (25-40); Mean Corpuscular HGB Conc 33.4 % (30-36); Mean Corpuscular Hemoglobin 30.8 PG (26-34); Mean Corpuscular Volume 92.2 fL (80-100); Monocytes Absolute Auto 400 /uL (0-900); Monocytes Percent Auto 9.4 % (3-14); Neutrophils Absolute Auto 2600 /uL (1500-7000); Neutrophils Percent Auto 59.5 % (50-75); Platelet Count 216 X10^3/uL (150-400); Red Blood Cell Count 3.51 X10^6/uL (4.0-5.2); Red Cell Distribution Width 14.5 % (11.6-14.8); White Blood Cell Count 4.3 X10^3/uL (4.5-11.0)
[2023-06-11 08:30] LABS: Cholesterol 180 mg/dL (140-199); HDL Cholesterol 73 mg/dL (40-60); LDL Cholesterol Calculated 95 mg/dL (<100); Triglycerides 60 mg/dL (35-150)
[2023-06-11 08:32] LABS: Blood Urea Nitrogen 22 mg/dL (7-17); Calcium 8.2 mg/dL (8.4-10.2); Carbon Dioxide 28 mmol/L (22-32); Chloride 107 mmol/L (98-107); Estimated Glomerular Filt Rate > 60 mL/min (>60); Glucose 83 mg/dL (80-110); HEMOLYSIS < 15 (0-50); Potassium 3.6 mmol/L (3.4-5.1); Sodium 140 mmol/L (137-145)
[2023-06-11] MEDS: PROPRANOLOL 10 MG TABLET PO (08:58)
[2023-06-11] MEDS: GABAPENTIN 300 MG CAPSULE PO (08:58)
[2023-06-11 09:00] VITALS: BP 131/62; PULSE 57; RESP 16; TEMP 36.4; O2SAT 100
[2023-06-11 12:00] VITALS: BP 133/61; PULSE 60; RESP 16; TEMP 36.3; O2SAT 98
--- NOTE | 2023-06-11 13:04 | P.DS_ITS ---
History of Present Illness History of Present Illness Chief complaint: DIZZINESS, HBP, SENT FROM PT Narrative: The patient is a pleasant 83-year-old female who was at physical therapy today when she became acutely lightheaded and had high blood pressure and a rapid heart rate. She felt somewhat unsteady but had no focal neurologic symptoms according to her and her . She had no droop or difficulty speaking. There was no weakness of an arm or a leg. She did not feel like she was going to fall to 1 side or the other. She has had done in chair in the symptoms slowly improved over the next 5-10 minutes. Blood pressure readings from that time are not available. The patient does have a history of Parkinson's with a pronounced tremor of the left arm as well as a post herpetic neuralgia and takes gabapentin and tramadol for this. She denies headache, no visual changes. No speech difficulties. She does not have high blood pressure, or smoke. In the ED a code stroke was called, initial imaging was negative. Her NIH score was 0. She has been doing well recently with no abnormalities. She weighs 84 lb. She denies diarrhea, chest pain or dyspnea. Discharge Providers Provider Date of admission: 06/10/23 15:39 Discharge Date: 06/11/23 Primary care physician: Colt Cardenas MD Consults: 06/10/23 17:39 Consult to Occupational Therapy Evaluate & Treat Comment: Physician Instructions: Evaluate and treat Consult to Physical Therapy Evaluate & Treat Comment: Physician Instructions: Evaluate and Treat Discharge provider: Broderick Shrestha DO Summary Hospital Course Discharge Diagnosis: 1. Episode of dizziness and lightheadedness without focal specific neurologic symptoms or signs, present before admission and resolved. 2. Parkinson's disease, present on admission and active. 3. Post herpetic neuralgia, present on admission and active. 4. HLD, present on admission and active. 5. Underweight with BMI of 15, present on admission and active. Hospital Course: Admitted for possible stroke. Dizziness resolved with IVF and CT head scans normal. MRI not done due to low suspicion for stroke. Patient able to ambulate at baseline. Discharged home with and will resume her outpatient PT. Exam Vital Signs (past 8 hours): - 06/11/23 05:10 06/11/23 09:00 06/11/23 12:00 Temperature 97.3 F L 97.6 F 97.3 F L Pulse Rate 67 57 L 60 Respiratory Rate 16 16 16 Blood Pressure 124/62 131/62 133/61 Pulse Oximetry 100 100 98 Oxygen Flow Rate 0 0 0 Oxygen Delivery Method Room Air Oxygen Flow Rate 0 Narrative Exam Narrative: NAD, fluent speech. Normal affect. Normocephalic skull, EOMI, anicteric sclera. Symmetric pupils. Oropharynx with normal mucosa, no facial droop. Neck is supple, normal trachea and no adenopathy. Lungs are clear with normal rate and effort. Heart is regular without murmur, gallop or rub. Abdomen is nondistended and nontender. Extremities are free of edema, she is good pedal and radial pulses. Neurologically CN 2 through 12 are intact, speech is normal. Judgment is normal. Motor strength is 5 5 all extremities. Normal rapid alternating movements. Joints are not swollen or deformed. Skin is free of rash or lesions. Objective Labs 06/11/23 07:00 06/11/23 07:00 Labs: Laboratory Results - last 24 hr 06/10/23 06/11/23 13:13 07:00 WBC 5.3 4.3 L RBC 3.54 L 3.51 L Hgb 10.7 L 10.8 L Hct 32.9 L 32.4 L MCV 93.0 92.2 MCH 30.3 30.8 MCHC 32.6 33.4 RDW 14.1 14.5 Plt Count 212 216 Neut % (Auto) 72.4 59.5 Lymph % (Auto) 13.9 L 24.4 L Sharp % (Auto) 9.3 9.4 Eos % (Auto) 3.6 5.8 H Baso % (Auto) 0.8 0.9 Neut # (Auto) 3800 2600 Lymph # (Auto) 700 L 1100 Sharp # (Auto) 500 400 Eos # (Auto) 200 300 Baso # (Auto) 0 0 PT 11.8 INR 1.0 APTT 30 Sodium 141 140 Potassium 4.1 3.6 Chloride 105 107 Carbon Dioxide 27 28 BUN 31 H 22 H Creatinine 0.73 0.71 Estimated GFR > 60 > 60 BUN/Creatinine Ratio 42.5 H 31.0 H Glucose 76 L 83 Calcium 8.8 8.2 L Magnesium 2.2 Total Bilirubin 0.5 AST 26 ALT 13 Alkaline Phosphatase 54 Total Creatine Kinase 43 Troponin I < 0.012 Total Protein 7.3 Albumin 3.7 Globulin 3.6 Albumin/Globulin Ratio 1.0 Triglycerides 60 Cholesterol 180 LDL Cholesterol, Calc 95 HDL Cholesterol 73 H Lipase 330 H PFSH Medical History Unintended weight loss Lymphocytopenia Chronic low back pain without sciatica Chronic pain syndrome Compression fx, thoracic spine Acute conjunctivitis, bilateral Osteoporosis History of adenomatous polyp of colon Post herpetic neuralgia Eczema Bilateral lower extremity edema Chronic cough (Unknown) Anxiety (Unknown) Osteoarthritis (2006) Recurrent sinusitis (Unknown) Hyperlipemia (2016) Cataracts, bilateral (Unknown) Glaucoma (Unknown) Primary insomnia (06/15/16) Mixed hyperlipidemia (06/15/16) Essential tremor (06/15/16) Ataxia (06/15/16) Surgical History History of cataract removal with insertion of prosthetic lens Family History Brother Age: 88 Cancer Grandmother Cancer Father No problems noted. Grandfather No problems noted. Mother Cancer Grandfather No problems noted. Grandmother No problems noted. Social History household members: spouse Smoking Status: Never smoker alcohol intake: current Discharge Plan Discharge Plan Patient Disposition: Home Provider Discharge Comment: We have very low suspicion that you had a stroke to explain your dizziness. Please follow-up with your PCP. Discharge orders & Medications Prescriptions: Continued (DME) Parking Permit... See Rx Instructions .Route .MEDSUPPLY Qty: 1 0RF Rx Instructions: I fond this patient to be medically disabled and qualified for Disabled Parking as indicated, and signed, on the Accompanying Disabled Parking Application for Individuals. gabapentin 300 mg capsule See Rx Instructions .ROUTE .COMPLEX Qty: 810 3RF Dose Instruction: TAKE 1 CAPSULE BY MOUTH IN THE MORNING , 1 CAPSULE AT NOON, 1 CAPSULE AT 4 PM AND 2 CAPSULES AT BEDTIME Rx Instructions: TAKE 3 CAPSULE BY MOUTH IN THE MORNING , 3 CAPSULE AT NOON, 1 CAPSULE AT 4 PM AND 2 CAPSULES AT BEDTIME fluticasone propionate 50 mcg/actuation spray,suspension 1 spray intranasal BID Qty: 16 11RF tramadol 50 mg tablet 50 mg PO Q8H PRN (Reason: pain) Qty: 120 1RF propranolol 10 mg tablet 10 mg PO DAILY duloxetine 20 mg capsule,delayed release(DR/EC) 20 mg PO BID Follow up/Referrals: Colt Cardenas MD [Primary Care Provider] - 2 Weeks Visit Report/Discharge Packet Stand Alone Forms: Patient Portal/API, Stroke Signs & Symptoms Discharge Data Primary Care Provider: Colt Cardenas Attending Provider: Rishabh Noyola Admit Date/Time: 06/10/23 15:39 Quality VTE Deep Vein Thrombosis/Pulmonary Embolism Present on Admission: No
--- NOTE | 2023-06-11 13:25 | PT.IIE ---
Surgical History (Last Reviewed 06/10/23 @ 14:08 by Blaise Larkin MD) History of cataract removal with insertion of prosthetic lens Medical History (Last Reviewed 06/10/23 @ 14:08 by Blaise Larkin MD) Acute conjunctivitis, bilateral Anxiety (Unknown) Ataxia (06/15/16) Bilateral lower extremity edema Cataracts, bilateral (Unknown) Chronic cough (Unknown) Chronic low back pain without sciatica Chronic pain syndrome Compression fx, thoracic spine Eczema Essential tremor (06/15/16) Glaucoma (Unknown) History of adenomatous polyp of colon Hyperlipemia (2016) Lymphocytopenia Mixed hyperlipidemia (06/15/16) Osteoarthritis (2006) Osteoporosis Post herpetic neuralgia Primary insomnia (06/15/16) Recurrent sinusitis (Unknown) Unintended weight loss Physical Therapy Inpatient Evaluation/Re-Eval M1 PT/OT-IP Prior Functional Status Start: 06/11/23 15:47 Freq: NEEDED Status: Active Protocol: Document 06/11/23 13:25 AB (Rec: 06/11/23 16:04 AB [id number]) Medical Review Prior Functional Status Medical History Reviewed Yes Communication able to make needs known Mobility and Gait pt stated that she was modified independent with all mobilities and ambulation without AD indoors but uses a SPC outdoors and holds on to her spouse Prior Functional Level (Other details) pt with h/o falls and stated that she has been going to outpt PT for balance training Social History Household Members spouse Living Arrangements House Number of Floors (Floors) Two Floors Number of Stairs To Enter/Railing? pt stays on main level of the house 3 steps B rail to enter the house Home Environment Standard Height Toilet,Walk in Shower Home Equipment Straight Cane,Shower Seat with Backrest,Hand Held Shower M2 PT-IP Current Condition Start: 06/11/23 15:47 Freq: NEEDED Status: Active Protocol: Document 06/11/23 13:25 AB (Rec: 06/11/23 16:04 AB [id number]) Physical Therapy Current Condition Current Condition Evaluation Date 06/11/23 Treatment Diagnosis r/o CVA;TIA; difficulty in walking Onset Date 06/10/23 M3 PT-IP Subjective Start: 06/11/23 15:47 Freq: NEEDED Status: Active Protocol: Document 06/11/23 13:25 AB (Rec: 06/11/23 16:04 AB [id number]) Subjective Physical Therapy Visit Type Type Initial Evaluation Visit Start Time 13:25 Visit Stop Time 14:10 Number of TEACHER'S AIDE Visits 45 Physical Therapy Visit Comments Patient Comments agreeable to do PT Therapy Pain Assessment Pain Present Pain Present Denied Pain M4 PT-IP Mobility and Gait Start: 06/11/23 15:47 Freq: NEEDED Status: Active Protocol: Document 06/11/23 13:25 AB (Rec: 06/11/23 16:04 AB [id number]) PT-Bed Mobility Assessment Supine to Sit Supine to Sit Standby Assistance PT-Transfer Assessment Sit to and From Stand Sit to and from Stand Contact Guard Assistance,1 Person Assistance,Use of Upper Extremities Equipment Transfer Assistive Device None,Gait Belt,Straight Cane Orthotic/Prosthetic Devices or Brace: No Transfers Transfer Destination Chair Transfer Technique ambulated Transfer Ability Level of Assist Contact Guard Assistance,1 Person Assistance,Use of Upper Extremities Comments Mobility Comments pt supine in bed and agreeable to do PT. spouse in room. obtained PLOF and home set up. pt completed supine to sit SBA. able to sit on EOB SBA. completed sit to stand CGA and ambulated in room using SPC CGA. presents with decrease step length/width and very guarded gait. assessed ambulation without AD and required CGA. pt more tentative with her movement without AD. pt sat on the chair and rested. agreed to do stairs. ambulated to the hallway ~ 150 ft using SPC CGA (+) LOB x 2 posteriorly with CGA to min A provided for steadiness. pt completed up/ down stairs using B rails SBA step through gait. pt ambulated back to the room. sat on the chair and positioned. call light and table placed within reach. informed spouse to continue assisting pt during ambulation due to pt's unsteadiness and to continue with outpt PT . pt and spouse understood. Gait Assessment Gait Gait Assistance Required: Contact Guard Assist,Minimum Assistance Distance (Feet) 150 Able to Maintain Weight Bearing Status Yes During Gait Assistive Devices Assistive Device None,Gait Belt,Straight Cane Orthotic/Prosthetic Devices or Brace: No Gait Deviations General Gait Pattern Decreased Stride Length, Decreased Feet Clearance, Narrow Based Gait,Step-to Gait Factors Limiting Gait Function Factors Limiting Gait Function Decreased Activity Tolerance, Decreased Strength,Poor Balance,Poor Safety Awareness Stair Climbing Assessment Evaluation Level of Assist On Stairs Standby Assistance Devices Stair Climbing Assistive Devices Left Railing,Right Railing PT-Balance Assessment Sitting Balance and Reactions Static Sitting Balance Ability Normal Dynamic Sitting Balance Ability Good Standing Balance and Reactions Static Standing Balance Ability Fair Dynamic Standing Balance Ability Fair Device Used SPC M5 PT-IP Objective Assessments Start: 06/11/23 15:47 Freq: NEEDED Status: Active Protocol: Document 06/11/23 13:25 AB (Rec: 06/11/23 16:04 AB [id number]) Orientation Orientation/Cognition Level of Alertness Alert Orientation Name,Situation Safety Awareness Decreased Safety Awareness Memory Description No Deficits Noted Gross Range of Motion Lower Extremity ROM Assessment Within Functional Limits Strength Lower Extremity Strength Assessment Left Impaired Comments Strength Comments RLE: 4/5 LLE: 4-/5 Coordination Assessment Gross Coordination Gross Coordination WNL Sensation Assessment Sensation Gross Sensation Right LE Impaired,Left LE Impaired Comments Sensation Comments decrease sensation B feet per pt Muscle Tone Muscle Tone WNL Yes M6 PT-IP Treatment Start: 06/11/23 15:47 Freq: NEEDED Status: Active Protocol: Document 06/11/23 13:25 AB (Rec: 06/11/23 16:04 AB [id number]) Physical Therapy Treatment Education Education Provided Safety M7 PT-IP Assessment and Plan Start: 06/11/23 15:47 Freq: NEEDED Status: Active Protocol: Document 06/11/23 13:25 AB (Rec: 06/11/23 16:04 AB [id number]) PT Summary Assessment and Plan Potential Rehabilitation Potential Fair Status of Condition at Evaluation Stable Summary Impairments Pain,ROM,Strength,Balance, Coordination,Sensation,Tone, Cognition,Bed Mobility, Transfers,Gait,Activity Tolerance Assessment Summary pt is an 83 y/o F who presented to the ED with c/o ligtheadedness and high BP while in the PT clinic. pt in the hospital for observation r/o CVA. pt requiring CGA with mobility using SPC but with (+) LOB requiring CGA to min A for steadiness. pt has her spouse at home and spouse has been assisting pt since pt has h/o falls and has balance issues prior to admission. pt has been going to outpt PT for balance training per pt. pt may go home with assist when medically stable and to continue with outpt PT. Goals Bed Mobility Goal Independent Transfer Goal Independent Gait Goal Independent Gait Distance 200 Other Goals up/down 3 steps B rails mod I Days to Meet Goals 5 Frequency of Treatment Frequency Of Treatment Once a Day Treatment Plan Physical Therapy Treatment Plan Bed Mobility Training,Transfer Training,Gait Training, Therapeutic Exercise,Balance Retraining,Discharge Planning, Hot or Cold Pack,Neuromuscular Re-ed,Coordination Retraining Precautions Other Precautions falls Recommendations To Nursing Amount of Assist Needed 1 Person Assist Discharge Recommendations PT Discharge Recommendations Home with Assistance, Outpatient PT Transportation Needs at Discharge Private Vehicle
--- NOTE | 2023-06-11 13:57 | CM.DANOTE ---
Discharge Planning/Care Management CM Discharge Assessment Start: 06/11/23 13:56 Freq: Status: Active Protocol: Document 06/11/23 13:56 PREMA (Rec: 06/11/23 13:57 PREMA [id number]) Discharge Planning Assessment Assigned Licensed Dispensing Optician STEVE Adame DPOA/Assigned Designee Name Sd Renteria, spouse Contact Information [phone] Advance Directives? Yes Advance Directives on File No: full code History Provided By Patient,Family Member,Medical Record Prior Living Arrangements House Household Members spouse Type of transporation used prior to Relies on Others admit Independent with ADL's Yes Is patient alert and oriented? Yes Barriers to Discharge No Discharge Plan Home Transportation Arrangement Spouse Referrals Initiated None needed
--- NOTE | 2023-06-11 15:17 | PC.NURSE ---
Day shift: Paperwork signed and all questions answered. Cleared by PT. No new scripts. No c/o pain or nausea. Taken to car via WC by ALBERT Wright. Pt's Spouse is driving her home. They live local. Pt has all personal belongings.
== END 2023-06-11 15:20 | disposition home or self-care (01) ==
LOC: ED 15:34 → AC 15:39
PROVIDERS: Admitting Provider Hospitalist; Emergency Provider Emergency Medicine; Family Provider Family Medicine; PCP Family Medicine; Referring Provider Emergency Medicine; Visit Provider Hospitalist
DX: R42 Dizziness and giddiness (principal); R03.0 Elevated blood-pressure reading, without diagnosis of hypertension; R00.0 Tachycardia, unspecified; R29.700 NIHSS score 0; R63.6 Underweight; Z68.1 Body mass index [BMI] 19.9 or less, adult; G20.A1 Parkinson's disease without dyskinesia, without mention of fluctuations; B02.29 Other postherpetic nervous system involvement; E78.5 Hyperlipidemia, unspecified
CPT/HCPCS: 36415; 70450; 70496; 70498; 71045; 80048; 80053; 80061; 82550; 83690; 83735; 84484; 85025; 85610; 85730; 93005; 93010; 96360; 97116; 97161; 99285; G0378; Q9967

== ENCOUNTER 2023-07-12 14:30 | Outpatient (RCR) | payer MEDICARE, SELFPAY ==
[2022-12-30 14:56] VITALS: BMI 17.6
--- NOTE | 2023-05-19 16:17 | PT.OIE ---
Current Diagnoses Parkinsonism, unspecified (05/19/23) Essential tremor (05/19/23) Past Medical History (Last Reviewed 02/08/23 @ 14:49 by Curtis Soliz MD) Acute conjunctivitis, bilateral Anxiety (Unknown) Ataxia (06/15/16) Bilateral lower extremity edema Cataracts, bilateral (Unknown) Chronic cough (Unknown) Chronic low back pain without sciatica Chronic pain syndrome Compression fx, thoracic spine Eczema Essential tremor (06/15/16) Glaucoma (Unknown) History of adenomatous polyp of colon Hyperlipemia (2015) Lymphocytopenia Mixed hyperlipidemia (06/15/16) Osteoarthritis (2006) Osteoporosis Post herpetic neuralgia Primary insomnia (06/15/16) Recurrent sinusitis (Unknown) Unintended weight loss Past Surgical History (Last Reviewed 02/08/23 @ 14:49 by Curtis Soliz MD) History of cataract removal with insertion of prosthetic lens Visit Care Team Role Provider Type Colt Cardenas MD Attending Provider Physician Family Provider Primary Care Provider Referring Provider Specialty: [facility] Address: [address] [place] [address] Email: [email or web address] Physical Therapy Initial Evaluation PT-OP-A Visit Information Start: 05/19/23 14:30 Freq: Status: Active Protocol: Document 05/19/23 14:31 NM (Rec: 05/19/23 16:16 NM [id number]) Out-Patient Physical Therapy Visit Information Visit Information Visit Type Initial Evaluation Visit Start Time 14:30 Visit Stop Time 15:15 Visit Number 1 Evaluation Information Evaluation Date 05/19/23 Precautions Precautions PD, fall risk PT-OP-B Current Condition Start: 05/19/23 14:30 Freq: Status: Active Protocol: Document 05/19/23 14:31 NM (Rec: 05/19/23 16:16 NM [id number]) Current Condition History of Current Condition Onset Date 5 years ago Current Complaints balance and gait problems, unsteady History of Current Condition Pt presents with balance and gait abnormalities. She has PD , dx 2 years ago. She uses a spc for community ambulation on R side, no AD home. She reports difficulty with coming to stand, unsteady with standing and ambulation. She feels like her body is always moving. She is on gabapentin and several parkinson's drugs . She has had several falls, usually backward; most recently 6 months ago when she was cleaning the toilet. She was unable to get herself up off the ground but was uninjured. Motor signs: tremor , unable to write, bradykinesia, small movements; no reports of freezing with gait. She lives with her . They have stairs with rails but she does not normally perform stairs; she can perform the stairs outside of her home with the hand rails. She reports pain in her R trunk from shingles. PT-OP-C Subjective Start: 05/19/23 14:30 Freq: Status: Active Protocol: Document 05/19/23 14:31 NM (Rec: 05/19/23 16:16 NM [id number]) OP-PT Subjective Patient Comments Patient Comments see hx above for pt report Patient Questionnaires ABC- Activity Specific Balance Confidence Scale ABC Score 50 Other Questionnaire Name and Score FES- 33/64 OP-PT Pain Assessment Location R trunk Pain Location Details anterior-posterior R trunk Intensity 7 Scale Used Numeric (0 - 10) Description Burning Description- Other along thoracic dermatome Frequency Intermittent Pain Aggravating Factors None Pain Alleviating Factors None Comments Pain Comments Depends on the day PT-OP-D Balance Start: 05/19/23 14:30 Freq: Status: Active Protocol: Document 05/19/23 14:31 NM (Rec: 05/19/23 16:16 NM [id number]) OP-PT Balance Assessment Sitting Balance Static Sitting Balance Ability Good Dynamic Sitting Balance Ability Good Standing Balance Static Standing Balance Ability Fair Dynamic Standing Balance Ability Fair Balance Tests Romberg Romberg 10 seconds; moderate trunk sway Single Limb Standing Single Limb- Right 3 sec Single Limb- Left 0 sec Tandem Tandem Standing unable to achieve or maintain position without LOB Marshall Fall Scale Copyright Permission PT-OP-E Functional Tests Start: 05/19/23 14:30 Freq: Status: Active Protocol: Document 05/19/23 14:31 NM (Rec: 05/19/23 16:16 NM [id number]) Functional Tests 6 Minute Walk Test Distance 560 ft Device Used spc, gait belt Comments increased sway, decreased foot clearance, unstable turns, staggers Five Times Sit to Stand Test Score 28.21 sec Comments without UE, slow movement pattern, retropulses with lowering Timed Up and Go (TUG) Score 29.12 sec Comments using spc Other DGI Score 04/17 Comment using spc; difficulty with clearing cones, changing directions PT-OP-F Manual Assessment Start: 05/19/23 14:30 Freq: Status: Active Protocol: Document 05/19/23 14:31 NM (Rec: 05/19/23 16:16 NM [id number]) Manual Assessments Soft Tissue Assessment Soft Tissue Mobility Assessment Rigidity of trunk, BLE. Decreased B hamstring length Joint Mobility Assessment Joint Mobility Assessment Decreased trunk rotation with gait. B hip and shoulder PROM within functional limits PT-OP-G Mobility & Gait Start: 05/19/23 14:30 Freq: Status: Active Protocol: Document 05/19/23 14:31 NM (Rec: 05/19/23 16:16 NM [id number]) OP Gait Assessment Gait Gait Assistance Required: Contact Guard Assist Distance (Feet) 560 Assistive Devices Assistive Device Gait Belt,Straight Cane Gait Deviations General Gait Pattern Decreased Stride Length, Decreased Feet Clearance, Flexed Trunk Factors Limiting Gait Function Factors Limiting Gait Function Abnormal Tonal Influences, Decreased Activity Tolerance, Decreased Sensation,Decreased Strength,Incoordination,Poor Balance Stair Climbing Evaluation Evaluation Level of Assist On Stairs Contact Guard Assistance Devices Stair Climbing Assistive Devices Right Railing Technique/Endurance Stair Climbing Direction Ascend and Descend Stair Climbing Technique Step to Step Number of Steps Climbed 4 Stair Climbing Set # Repetitions (reps) 1 Comments Stair Climbing Comments Only used rail to descend. Catches foot on step frequently, increased trunk sway PT-OP-H Neuro Start: 05/19/23 14:30 Freq: Status: Active Protocol: Document 05/19/23 14:31 NM (Rec: 05/19/23 16:16 NM [id number]) Sensation Evaluation Gross Sensation Gross Sensation Trunk Impaired Sensation Description Hyperesthesia,Burning Coordination Evaluation Upper Extremity Tests Right Finger to Nose Test Moderate Impairment Finger to Therapist's Finger Test Moderate Impairment Finger to Finger Test Moderate Impairment Alternate Nose to Finger Test Severe Impairment Left Finger to Nose Test Severe Impairment Finger to Therapist's Finger Test Moderate Impairment Finger to Finger Test Moderate Impairment Alternate Nose to Finger Test Moderate Impairment Lower Extremity Tests Right Heel on Mahoney Test Minimal Impairment Foot Tapping Test Moderate Impairment Left Heel on Mahoney Test Minimal Impairment Foot Tapping Test Moderate Impairment PT-OP-J Posture/Palpation/Skin Start: 05/19/23 14:30 Freq: Status: Active Protocol: Document 05/19/23 14:31 NM (Rec: 05/19/23 16:16 NM [id number]) Posture Evaluation Position Standing Evaluation View Lateral Head/C-Spine Posture Forward Head T-Spine Posture Increased Kyphosis L-Spine Posture Neutral Shoulder Posture (L) Rounded,(R) Rounded,(L) Forward,(R) Forward Scapula Posture (L) Protracted,(R) Protracted Pelvis Posture Neutral Weight Distribution Weight Shifted Posterior Hip Posture (L) Neutral,(R) Neutral Palpation Assessment Location Trunk Palpation Location R mid-thoracic trunk Palpation Findings Tenderness PT-OP-K Range of Motion Start: 05/19/23 14:30 Freq: Status: Active Protocol: Document 05/19/23 14:31 NM (Rec: 05/19/23 16:16 NM [id number]) Hip Goniometric Range of Motion Hip Right Comments Hamstring length: 140 deg Left Comments Hamstring length: 130 deg PT-OP-M Strength Start: 05/19/23 14:30 Freq: Status: Active Protocol: Document 05/19/23 14:31 NM (Rec: 05/19/23 16:16 NM [id number]) Shoulder Strength Shoulder Manual Muscle Testing Right Flexion 4- Good- Extension 4- Good- Abduction (C5) 4- Good- Left Flexion 4- Good- Extension 4- Good- Abduction (C5) 4- Good- Elbow/Forearm Strength Elbow and Forearm Manual Muscle Testing Right Flexion (C6) 4- Good- Extension (C7) 4- Good- Left Flexion (C6) 4- Good- Extension (C7) 4- Good- Wrist Strength Wrist Manual Muscle Testing Right Flexion (C7) 3+ Fair+ Extension (C6) 3+ Fair+ Left Flexion (C7) 3+ Fair+ Extension (C6) 3+ Fair+ Hip Strength Hip Manual Muscle Testing Right Flexion (L2) 4- Good- Extension (S1) 4- Good- Abduction 4- Good- Adduction 4- Good- External Rotation 4- Good- Internal Rotation 4- Good- Left Flexion (L2) 3+ Fair+ Extension (S1) 3+ Fair+ Abduction 3+ Fair+ Adduction 3+ Fair+ External Rotation 3+ Fair+ Internal Rotation 3+ Fair+ Knee Strength Knee Manual Muscle Testing Right Flexion (S2) 4- Good- Extension (L3) 4- Good- Left Flexion (S2) 3+ Fair+ Extension (L3) 3+ Fair+ Ankle/Foot Strength Ankle and Foot Manual Muscle Testing Right Dorsiflexion (L4) 4 Good Plantarflexion (S1) 4 Good Left Dorsiflexion (L4) 4 Good Plantarflexion (S1) 4 Good PT-OP-Q Treatments Start: 05/19/23 14:30 Freq: Status: Active Protocol: Document 05/19/23 14:31 NM (Rec: 05/19/23 16:16 NM [id number]) Self-Care/Home Management Treatment Education Patient Education Body Mechanics,Fall Risk, Posture,Safety Other Education 8 min: PT educated pt on exam findings and POC. Discussed with pt about need for greater stability during gait, recommending using more stable AD such as 4ww or FWW depending in pt progression. PT also educated pt on fall risk, ways to increase safety during gait in home/community, PD-related posture. Pt verbalizes understanding PT-OP-T Assessment and Plan Start: 05/19/23 14:30 Freq: Status: Active Protocol: Document 05/19/23 14:31 NM (Rec: 05/19/23 16:16 NM [id number]) Physical Therapy Assessment Rehab Potential Rehabilitation Potential Good Evaluation Complexity Number of Personal Factors/Comorbidities 1-2 Number of Body Systems Impaired 1-2 Clinical Presentation at Evaluation Stable Impairments Impairments Activity Tolerance,Balance, Coordination,Functional Activities,Functional Mobility ,Gait,Pain,Posture,ROM, Sensation,Soft Tissue Mobility ,Strength,Tone,Transfers Goals Four Impairment gait Impairment 6 MWT 560 ft using spc Short Term Goal (STG) Pt will increase 6 MWT distance by at least 50 ft using LRAD with improved B foot clearance in order to demonstrate improved gait and balance. STG Duration 4 weeks Senior Care Goal (LTG) Pt will increase 6 MWT distance by at least 100 ft using LRAD with improved B foot clearance in order to demonstrate improved gait and balance. LTG Duration 8 weeks Three Impairment strength Impairment 5x STS 28.21 seconds Short Term Goal (STG) Pt will decrease 5x STS to less than 24 seconds in order to demonstrate improved BLE strength STG Duration 4 weeks [employer] Worker Goal (LTG) Pt will decrease 5x STS to less than 20 seconds in order to demonstrate improved BLE strength LTG Duration 8 weeks Two Impairment balance Impairment Burch 35/56 Short Term Goal (STG) Pt will increase Burch score to at least >40/56 in order to demonstrate improved balance and decreased fall risk STG Duration 4 weeks Senior Care Goal (LTG) Pt will increase Burch score to at least >45/56 in order to demonstrate improved balance and decreased fall risk LTG Duration 8 weeks One Impairment balance Impairment TUG 29.12 seconds using spc, close SBA Short Term Goal (STG) Pt will complete TUG in less than 25 seconds using LRAD and SBA or better in order to demonstrate improved balance and decreased fall risk STG Duration 4 weeks [employer] Worker Goal (LTG) Pt will complete TUG in less than 20 seconds using LRAD and SBA or better in order to demonstrate improved balance and decreased fall risk LTG Duration 8 weeks Assessment Summary Assessment Pt is a 82 y.o. female with Parkinson's Disease presenting to clinic with gait and balance abnormalities. She has a hx of falls and is unable to get up from the floor if she falls. Pt has standard parkinsonian features including forward flexed trunk , B resting tremors, and bradykinesia. Pt uses a single point cane for community ambulation, but not for household ambulation. Her gait pattern demonstrates decreased foot clearance but gait is not festinating; no occurrences of freezing. Pt able to perform 6 MWT slowly using spc for 560 ft; however, she demonstrates increased trunk sway, staggers especially with fatigue or turns, and decreased trunk rotation. Pt also demonstrates rigidity of trunk and has decreased B hamstring length. She has hyper-sensitivity along her R trunk after shingles, which is painful. Pt 's BLE strength is globally limited, LLE is weaker than RLE. She demonstrates very slow movements with 5x sit to stand test, completing test in 28.21 seconds without UE support; however, she does demonstrate a posterior trunk lean during eccentric lowering . Pt's Burch score was 35.56, TUG time of 29.12 seconds using spc, and DGI score of 12 /24; all indicate moderate fall risk, even with AD use. Pt is able to perform stairs, but requires CGA to steady upon descent and has difficulty with stepping onto stair without catching foot. PT educated pt on exam findings regarding fall risk, safety, gait, balance, in addition to recommendation for more stable AD (e.g. 4ww) during gait and POC; pt verbalizes understading. Pt would benefit from skilled PT for progressive BLE strengthening, balance, and gait training in order to decrease fall risk, decrease caregiver burden, and improve QOL. Physical Therapy Plan Frequency and Duration Frequency of Treatment 2x/Week Duration of treatment (weeks) 8 Plan of Care Start Date 05/19/23 Plan of Care End Date 07/15/23 Therapeutic Interventions Therapeutic Interventions Balance Training,Coordination Training,Gait Training,Home Exercise Program,Joint Mobilizations,Manual Therapy, Neuromuscular Re-education, Orthotic/Prosthetic Management ,Patient/Caregiver Education, Self-Care/Home Management, Sensory Integration,Soft Tissue Mobilization,Taping, Therapeutic Activities, Therapeutic Exercises Modalities Cold Pack/Ice Massage,Electric Stimulation,Hot Packs, Ultrasound,Vasopneumatic Devices Other Therapeutic Interventions Fall-risk training Next Visit Focus/Plan Next Note Type Treatment Note Next Visit Plan Gait training with 4ww vs spc. BLE strengthening: STS, seated abd, seated march, heel raise.
--- NOTE | 2023-05-23 15:54 | PT.OTN ---
Current Diagnoses Parkinsonism, unspecified (05/23/23) Essential tremor (05/23/23) Physical Therapy Treatment Note PT-OP-A Visit Information Start: 05/19/23 14:30 Freq: Status: Active Protocol: Document 05/23/23 14:34 NM (Rec: 05/23/23 15:53 NM [id number]) Out-Patient Physical Therapy Visit Information Visit Information Visit Type Treatment Note Visit Start Time 14:35 Visit Stop Time 15:15 Visit Number 2 Evaluation Information Evaluation Date 05/19/23 Precautions Precautions PD, fall risk PT-OP-B Current Condition Start: 05/19/23 14:30 Freq: Status: Active Protocol: Document 05/19/23 14:31 NM (Rec: 05/19/23 16:16 NM [id number]) Current Condition History of Current Condition Onset Date 5 years ago Current Complaints balance and gait problems, unsteady History of Current Condition Pt presents with balance and gait abnormalities. She has PD , dx 2 years ago. She uses a spc for community ambulation on R side, no AD home. She reports difficulty with coming to stand, unsteady with standing and ambulation. She feels like her body is always moving. She is on gabapentin and several parkinson's drugs . She has had several falls, usually backward; most recently 6 months ago when she was cleaning the toilet. She was unable to get herself up off the ground but was uninjured. Motor signs: tremor , unable to write, bradykinesia, small movements; no reports of freezing with gait. She lives with her . They have stairs with rails but she does not normally perform stairs; she can perform the stairs outside of her home with the hand rails. She reports pain in her R trunk from shingles. PT-OP-C Subjective Start: 05/19/23 14:30 Freq: Status: Active Protocol: Document 05/23/23 14:34 NM (Rec: 05/23/23 15:53 NM [id number]) OP-PT Subjective Patient Comments Patient Comments Pt presents to clinic with spc in R hand. Reports that she is not feeling well and is unable to find her walker to bring to PT. PT-OP-D Balance Start: 05/19/23 14:30 Freq: Status: Active Protocol: Document 05/19/23 14:31 NM (Rec: 05/19/23 16:16 NM [id number]) OP-PT Balance Assessment Sitting Balance Static Sitting Balance Ability Good Dynamic Sitting Balance Ability Good Standing Balance Static Standing Balance Ability Fair Dynamic Standing Balance Ability Fair Balance Tests Romberg Romberg 10 seconds; moderate trunk sway Single Limb Standing Single Limb- Right 3 sec Single Limb- Left 0 sec Tandem Tandem Standing unable to achieve or maintain position without LOB Marshall Fall Scale Copyright Permission PT-OP-E Functional Tests Start: 05/19/23 14:30 Freq: Status: Active Protocol: Document 05/19/23 14:31 NM (Rec: 05/19/23 16:16 NM [id number]) Functional Tests 6 Minute Walk Test Distance 560 ft Device Used spc, gait belt Comments increased sway, decreased foot clearance, unstable turns, staggers Five Times Sit to Stand Test Score 28.21 sec Comments without UE, slow movement pattern, retropulses with lowering Timed Up and Go (TUG) Score 29.12 sec Comments using spc Other DGI Score 04/17 Comment using spc; difficulty with clearing cones, changing directions PT-OP-F Manual Assessment Start: 05/19/23 14:30 Freq: Status: Active Protocol: Document 05/19/23 14:31 NM (Rec: 05/19/23 16:16 NM [id number]) Manual Assessments Soft Tissue Assessment Soft Tissue Mobility Assessment Rigidity of trunk, BLE. Decreased B hamstring length Joint Mobility Assessment Joint Mobility Assessment Decreased trunk rotation with gait. B hip and shoulder PROM within functional limits PT-OP-G Mobility & Gait Start: 05/19/23 14:30 Freq: Status: Active Protocol: Document 05/19/23 14:31 NM (Rec: 05/19/23 16:16 NM [id number]) OP Gait Assessment Gait Gait Assistance Required: Contact Guard Assist Distance (Feet) 560 Assistive Devices Assistive Device Gait Belt,Straight Cane Gait Deviations General Gait Pattern Decreased Stride Length, Decreased Feet Clearance, Flexed Trunk Factors Limiting Gait Function Factors Limiting Gait Function Abnormal Tonal Influences, Decreased Activity Tolerance, Decreased Sensation,Decreased Strength,Incoordination,Poor Balance Stair Climbing Evaluation Evaluation Level of Assist On Stairs Contact Guard Assistance Devices Stair Climbing Assistive Devices Right Railing Technique/Endurance Stair Climbing Direction Ascend and Descend Stair Climbing Technique Step to Step Number of Steps Climbed 4 Stair Climbing Set # Repetitions (reps) 1 Comments Stair Climbing Comments Only used rail to descend. Catches foot on step frequently, increased trunk sway PT-OP-H Neuro Start: 05/19/23 14:30 Freq: Status: Active Protocol: Document 05/19/23 14:31 NM (Rec: 05/19/23 16:16 NM [id number]) Sensation Evaluation Gross Sensation Gross Sensation Trunk Impaired Sensation Description Hyperesthesia,Burning Coordination Evaluation Upper Extremity Tests Right Finger to Nose Test Moderate Impairment Finger to Therapist's Finger Test Moderate Impairment Finger to Finger Test Moderate Impairment Alternate Nose to Finger Test Severe Impairment Left Finger to Nose Test Severe Impairment Finger to Therapist's Finger Test Moderate Impairment Finger to Finger Test Moderate Impairment Alternate Nose to Finger Test Moderate Impairment Lower Extremity Tests Right Heel on Mahoney Test Minimal Impairment Foot Tapping Test Moderate Impairment Left Heel on Mahoney Test Minimal Impairment Foot Tapping Test Moderate Impairment PT-OP-J Posture/Palpation/Skin Start: 05/19/23 14:30 Freq: Status: Active Protocol: Document 05/19/23 14:31 NM (Rec: 05/19/23 16:16 NM [id number]) Posture Evaluation Position Standing Evaluation View Lateral Head/C-Spine Posture Forward Head T-Spine Posture Increased Kyphosis L-Spine Posture Neutral Shoulder Posture (L) Rounded,(R) Rounded,(L) Forward,(R) Forward Scapula Posture (L) Protracted,(R) Protracted Pelvis Posture Neutral Weight Distribution Weight Shifted Posterior Hip Posture (L) Neutral,(R) Neutral Palpation Assessment Location Trunk Palpation Location R mid-thoracic trunk Palpation Findings Tenderness PT-OP-K Range of Motion Start: 05/19/23 14:30 Freq: Status: Active Protocol: Document 05/19/23 14:31 NM (Rec: 05/19/23 16:16 NM [id number]) Hip Goniometric Range of Motion Hip Right Comments Hamstring length: 140 deg Left Comments Hamstring length: 130 deg PT-OP-M Strength Start: 05/19/23 14:30 Freq: Status: Active Protocol: Document 05/19/23 14:31 NM (Rec: 05/19/23 16:16 NM [id number]) Shoulder Strength Shoulder Manual Muscle Testing Right Flexion 4- Good- Extension 4- Good- Abduction (C5) 4- Good- Left Flexion 4- Good- Extension 4- Good- Abduction (C5) 4- Good- Elbow/Forearm Strength Elbow and Forearm Manual Muscle Testing Right Flexion (C6) 4- Good- Extension (C7) 4- Good- Left Flexion (C6) 4- Good- Extension (C7) 4- Good- Wrist Strength Wrist Manual Muscle Testing Right Flexion (C7) 3+ Fair+ Extension (C6) 3+ Fair+ Left Flexion (C7) 3+ Fair+ Extension (C6) 3+ Fair+ Hip Strength Hip Manual Muscle Testing Right Flexion (L2) 4- Good- Extension (S1) 4- Good- Abduction 4- Good- Adduction 4- Good- External Rotation 4- Good- Internal Rotation 4- Good- Left Flexion (L2) 3+ Fair+ Extension (S1) 3+ Fair+ Abduction 3+ Fair+ Adduction 3+ Fair+ External Rotation 3+ Fair+ Internal Rotation 3+ Fair+ Knee Strength Knee Manual Muscle Testing Right Flexion (S2) 4- Good- Extension (L3) 4- Good- Left Flexion (S2) 3+ Fair+ Extension (L3) 3+ Fair+ Ankle/Foot Strength Ankle and Foot Manual Muscle Testing Right Dorsiflexion (L4) 4 Good Plantarflexion (S1) 4 Good Left Dorsiflexion (L4) 4 Good Plantarflexion (S1) 4 Good PT-OP-Q Treatments Start: 05/19/23 14:30 Freq: Status: Active Protocol: Document 05/23/23 14:34 NM (Rec: 05/23/23 15:53 NM [id number]) Therapeutic Exercises Sitting Exercises hip abduction Sitting Exercise Name for hip abd strengthening Side bilateral Resistance light blue lvl 1 band Reps/Minutes 1x10 with 3 hold at end range Comments cue for feet fwd for neutral hip; reports hard scapular retractions Sitting Exercise Name for fwd trunk posture Side bilateral Resistance AROM Reps/Minutes 1x10 with 5 hold Comments performed in sitting, then with STS; very kyphotic, reports feels goods Standing Exercises pectoral stretch Standing Exercise Name corner stretch with 1 leg fwd Side bilateral Equipment Used corner Reps/Minutes 2x30 (switch front leg) Comments cued gentle stretch, upright posture sit to stand Standing Exercise Name with fwd reach to external target Side bilateral Resistance light blue band around thighs for hip abd and to cue against knee valgus Equipment Used Manual assist to limit valgus; close SBA to steady; prn retropulse Reps/Minutes 3x8, 3rd set with scap retraction/upright posture in standing Comments cue for shoulder retraction in stand for tall posture, mod cue for valgus Neuro Re-Education Treatment Balance Activities Step overs Details in //bars, 2 finger support 1 UE Surface stable Equipment box of gloves (width x4) Reps/Duration 2x10 ea LE Comments Pt standing on stable ground, stepping over small box of gloves width cantrell with 1 LE into staggered stance, then weight shift and step back to feet together. Min A to steady with 2 finger support of LUE on //bars Weight shifts Details A/P weight shifts Surface stable Equipment in //bars, no UE support; CGA to steady prn Reps/Duration 1x10 Comments Pt with anterior shift onto toes in standing, feet shoulder-width apart. Cued for small posterior weight shift onto midfoot. PT performing tactile cues at hips and trunk to prevent fwd lean, PT finger tips at ea hip as cue to shift posterior Step taps Details in //bars, 2 finger on 1 UE support Surface stable Equipment 2 foam surface Reps/Duration 2x10 ea LE Comments Pt standing in //bars, tapping midfoot on 2 foam pad with 2 support for balance. CGA to steady, 2 instances LOB with min A to steady when LLE lifting onto pad. Movement pattern is slow, minimal foot clearance. PT cued pt verbally for dorsiflexion and knee flexion as lifting onto foam for foot clearance Self-Care/Home Management Treatment Education Patient Education Fall Risk,Home Exercise Program,Posture,Safety Other Education 3 min: PT educated pt on fwd trunk posture due to parkinson 's, importance of stretching and postural re-education. Issued HEP: standing pectoral stretch, sit to stand with band around knees, seated hip abduction, and scapular retractions. Asked pt's to be near her during exercises due to decreased balance, both verbalize agreement. PT-OP-T Assessment and Plan Start: 05/19/23 14:30 Freq: Status: Active Protocol: Document 05/23/23 14:34 NM (Rec: 05/23/23 15:53 NM [id number]) Physical Therapy Assessment Goals Four Impairment gait Impairment 6 MWT 560 ft using spc Short Term Goal (STG) Pt will increase 6 MWT distance by at least 50 ft using LRAD with improved B foot clearance in order to demonstrate improved gait and balance. STG Duration 4 weeks [employer] Helper Goal (LTG) Pt will increase 6 MWT distance by at least 100 ft using LRAD with improved B foot clearance in order to demonstrate improved gait and balance. LTG Duration 8 weeks Three Impairment strength Impairment 5x STS 28.21 seconds Short Term Goal (STG) Pt will decrease 5x STS to less than 24 seconds in order to demonstrate improved BLE strength STG Duration 4 weeks [employer] Helper Goal (LTG) Pt will decrease 5x STS to less than 20 seconds in order to demonstrate improved BLE strength LTG Duration 8 weeks Two Impairment balance Impairment Burch 35/56 Short Term Goal (STG) Pt will increase Burch score to at least >40/56 in order to demonstrate improved balance and decreased fall risk STG Duration 4 weeks Senior Living Goal (LTG) Pt will increase Burch score to at least >45/56 in order to demonstrate improved balance and decreased fall risk LTG Duration 8 weeks One Impairment balance Impairment TUG 29.12 seconds using spc, close SBA Short Term Goal (STG) Pt will complete TUG in less than 25 seconds using LRAD and SBA or better in order to demonstrate improved balance and decreased fall risk STG Duration 4 weeks [employer] Helper Goal (LTG) Pt will complete TUG in less than 20 seconds using LRAD and SBA or better in order to demonstrate improved balance and decreased fall risk LTG Duration 8 weeks Assessment Summary Assessment Pt tolerated session well. Initiated functional BLE strengthening and balance exercises with decreased UE support. Pt has forward trunk posture during standing and gait, so issued standing pectoral stretch in corner and scapular retractions for trunk elongation and postural re-education. Initiated sit to stand with forward reach to external target to promote anterior weight shift and prevent retropulsion as coming to stand. Pt with good control during descent, but requires verbal/visual cue to rise and prevent multiple attempts. During standing balance activities, pt requires verbal, tactile, and visual cues to promote ankle dorsiflexion for foot clearance during step taps on 2 step and step over a box. Pt is CGA to steady during step tap, but has difficulty initiating weight shift out of anterior position in order to step over object or maintain BELLE over midfoot. Pt would benefit from skilled PT for further balance and gait training in addition to functional BLE strengthening and postural re-education in order to decrease fall risk. Physical Therapy Plan Frequency and Duration Frequency of Treatment 2x/Week Duration of treatment (weeks) 8 Plan of Care Start Date 05/19/23 Plan of Care End Date 03/22/24 Therapeutic Interventions Therapeutic Interventions Balance Training,Coordination Training,Gait Training,Home Exercise Program,Joint Mobilizations,Manual Therapy, Neuromuscular Re-education, Orthotic/Prosthetic Management ,Patient/Caregiver Education, Self-Care/Home Management, Sensory Integration,Soft Tissue Mobilization,Taping, Therapeutic Activities, Therapeutic Exercises Modalities Cold Pack/Ice Massage,Electric Stimulation,Hot Packs, Ultrasound,Vasopneumatic Devices Other Therapeutic Interventions Fall-risk training Next Visit Focus/Plan Next Note Type Treatment Note Next Visit Plan Gait training with 4ww vs spc. BLE strengthening: STS, seated abd, seated march, heel raise. Balance: weight shifts , add steps up/over, hurdles, decrease hand use
--- NOTE | 2023-05-26 14:00 | PT-OP ANOTE ---
Pt DNS for today's appt, SUPERVISOR ENGINE REPAIR called and spoke with (states helps her with her appts) and thought remember reading her appt was 230 on a card. SUPERVISOR ENGINE REPAIR discussed PT appts printed on a piece of paper from our clinic and will tell what therapist seeing on R side. reports pt stated was just tired and in a good work out way after last tx. SUPERVISOR ENGINE REPAIR reminded of next appt on 05/31, verbal confirmation.
--- NOTE | 2023-05-31 15:43 | PT.OTN ---
Current Diagnoses Parkinsonism, unspecified (05/31/23) Essential tremor (05/31/23) Physical Therapy Treatment Note PT-OP-A Visit Information Start: 05/19/23 14:30 Freq: Status: Active Protocol: Document 05/31/23 14:38 NM (Rec: 05/31/23 15:43 NM [id number]) Out-Patient Physical Therapy Visit Information Visit Information Visit Type Treatment Note Visit Note Pt late and then went to bathroom during session Visit Start Time 14:35 Visit Stop Time 15:15 Visit Number 3 Evaluation Information Evaluation Date 05/19/23 Precautions Precautions PD, fall risk PT-OP-B Current Condition Start: 05/19/23 14:30 Freq: Status: Active Protocol: Document 05/19/23 14:31 NM (Rec: 05/19/23 16:16 NM [id number]) Current Condition History of Current Condition Onset Date 5 years ago Current Complaints balance and gait problems, unsteady History of Current Condition Pt presents with balance and gait abnormalities. She has PD , dx 2 years ago. She uses a spc for community ambulation on R side, no AD home. She reports difficulty with coming to stand, unsteady with standing and ambulation. She feels like her body is always moving. She is on gabapentin and several parkinson's drugs . She has had several falls, usually backward; most recently 6 months ago when she was cleaning the toilet. She was unable to get herself up off the ground but was uninjured. Motor signs: tremor , unable to write, bradykinesia, small movements; no reports of freezing with gait. She lives with her . They have stairs with rails but she does not normally perform stairs; she can perform the stairs outside of her home with the hand rails. She reports pain in her R trunk from shingles. PT-OP-C Subjective Start: 05/19/23 14:30 Freq: Status: Active Protocol: Document 05/31/23 14:38 NM (Rec: 05/31/23 15:43 NM [id number]) OP-PT Subjective Patient Comments Patient Comments Pt presents to clinic with spc . Reports increased R trunk pain from shingles. No difficulty with exercises except for corner pec stretch. She found her FWW and planning to bring it to PT next time. PT-OP-D Balance Start: 05/19/23 14:30 Freq: Status: Active Protocol: Document 05/19/23 14:31 NM (Rec: 05/19/23 16:16 NM [id number]) OP-PT Balance Assessment Sitting Balance Static Sitting Balance Ability Good Dynamic Sitting Balance Ability Good Standing Balance Static Standing Balance Ability Fair Dynamic Standing Balance Ability Fair Balance Tests Romberg Romberg 10 seconds; moderate trunk sway Single Limb Standing Single Limb- Right 3 sec Single Limb- Left 0 sec Tandem Tandem Standing unable to achieve or maintain position without LOB Marshall Fall Scale Copyright Permission PT-OP-E Functional Tests Start: 05/19/23 14:30 Freq: Status: Active Protocol: Document 05/19/23 14:31 NM (Rec: 05/19/23 16:16 NM [id number]) Functional Tests 6 Minute Walk Test Distance 560 ft Device Used spc, gait belt Comments increased sway, decreased foot clearance, unstable turns, staggers Five Times Sit to Stand Test Score 28.21 sec Comments without UE, slow movement pattern, retropulses with lowering Timed Up and Go (TUG) Score 29.12 sec Comments using spc Other DGI Score 12 Comment using spc; difficulty with clearing cones, changing directions PT-OP-F Manual Assessment Start: 05/19/23 14:30 Freq: Status: Active Protocol: Document 05/19/23 14:31 NM (Rec: 05/19/23 16:16 NM [id number]) Manual Assessments Soft Tissue Assessment Soft Tissue Mobility Assessment Rigidity of trunk, BLE. Decreased B hamstring length Joint Mobility Assessment Joint Mobility Assessment Decreased trunk rotation with gait. B hip and shoulder PROM within functional limits PT-OP-G Mobility & Gait Start: 05/19/23 14:30 Freq: Status: Active Protocol: Document 05/19/23 14:31 NM (Rec: 05/19/23 16:16 NM [id number]) OP Gait Assessment Gait Gait Assistance Required: Contact Guard Assist Distance (Feet) 560 Assistive Devices Assistive Device Gait Belt,Straight Cane Gait Deviations General Gait Pattern Decreased Stride Length, Decreased Feet Clearance, Flexed Trunk Factors Limiting Gait Function Factors Limiting Gait Function Abnormal Tonal Influences, Decreased Activity Tolerance, Decreased Sensation,Decreased Strength,Incoordination,Poor Balance Stair Climbing Evaluation Evaluation Level of Assist On Stairs Contact Guard Assistance Devices Stair Climbing Assistive Devices Right Railing Technique/Endurance Stair Climbing Direction Ascend and Descend Stair Climbing Technique Step to Step Number of Steps Climbed 4 Stair Climbing Set # Repetitions (reps) 1 Comments Stair Climbing Comments Only used rail to descend. Catches foot on step frequently, increased trunk sway PT-OP-H Neuro Start: 05/19/23 14:30 Freq: Status: Active Protocol: Document 05/19/23 14:31 NM (Rec: 05/19/23 16:16 NM [id number]) Sensation Evaluation Gross Sensation Gross Sensation Trunk Impaired Sensation Description Hyperesthesia,Burning Coordination Evaluation Upper Extremity Tests Right Finger to Nose Test Moderate Impairment Finger to Therapist's Finger Test Moderate Impairment Finger to Finger Test Moderate Impairment Alternate Nose to Finger Test Severe Impairment Left Finger to Nose Test Severe Impairment Finger to Therapist's Finger Test Moderate Impairment Finger to Finger Test Moderate Impairment Alternate Nose to Finger Test Moderate Impairment Lower Extremity Tests Right Heel on Mahoney Test Minimal Impairment Foot Tapping Test Moderate Impairment Left Heel on Mahoney Test Minimal Impairment Foot Tapping Test Moderate Impairment PT-OP-J Posture/Palpation/Skin Start: 05/19/23 14:30 Freq: Status: Active Protocol: Document 05/19/23 14:31 NM (Rec: 05/19/23 16:16 NM [id number]) Posture Evaluation Position Standing Evaluation View Lateral Head/C-Spine Posture Forward Head T-Spine Posture Increased Kyphosis L-Spine Posture Neutral Shoulder Posture (L) Rounded,(R) Rounded,(L) Forward,(R) Forward Scapula Posture (L) Protracted,(R) Protracted Pelvis Posture Neutral Weight Distribution Weight Shifted Posterior Hip Posture (L) Neutral,(R) Neutral Palpation Assessment Location Trunk Palpation Location R mid-thoracic trunk Palpation Findings Tenderness PT-OP-K Range of Motion Start: 05/19/23 14:30 Freq: Status: Active Protocol: Document 05/19/23 14:31 NM (Rec: 05/19/23 16:16 NM [id number]) Hip Goniometric Range of Motion Hip Right Comments Hamstring length: 140 deg Left Comments Hamstring length: 130 deg PT-OP-M Strength Start: 05/19/23 14:30 Freq: Status: Active Protocol: Document 05/19/23 14:31 NM (Rec: 05/19/23 16:16 NM [id number]) Shoulder Strength Shoulder Manual Muscle Testing Right Flexion 4- Good- Extension 4- Good- Abduction (C5) 4- Good- Left Flexion 4- Good- Extension 4- Good- Abduction (C5) 4- Good- Elbow/Forearm Strength Elbow and Forearm Manual Muscle Testing Right Flexion (C6) 4- Good- Extension (C7) 4- Good- Left Flexion (C6) 4- Good- Extension (C7) 4- Good- Wrist Strength Wrist Manual Muscle Testing Right Flexion (C7) 3+ Fair+ Extension (C6) 3+ Fair+ Left Flexion (C7) 3+ Fair+ Extension (C6) 3+ Fair+ Hip Strength Hip Manual Muscle Testing Right Flexion (L2) 4- Good- Extension (S1) 4- Good- Abduction 4- Good- Adduction 4- Good- External Rotation 4- Good- Internal Rotation 4- Good- Left Flexion (L2) 3+ Fair+ Extension (S1) 3+ Fair+ Abduction 3+ Fair+ Adduction 3+ Fair+ External Rotation 3+ Fair+ Internal Rotation 3+ Fair+ Knee Strength Knee Manual Muscle Testing Right Flexion (S2) 4- Good- Extension (L3) 4- Good- Left Flexion (S2) 3+ Fair+ Extension (L3) 3+ Fair+ Ankle/Foot Strength Ankle and Foot Manual Muscle Testing Right Dorsiflexion (L4) 4 Good Plantarflexion (S1) 4 Good Left Dorsiflexion (L4) 4 Good Plantarflexion (S1) 4 Good PT-OP-Q Treatments Start: 05/19/23 14:30 Freq: Status: Active Protocol: Document 05/31/23 14:38 NM (Rec: 05/31/23 15:43 NM [id number]) Cardio Equipment Recumbent Stepper (Sci-Fit) Duration (Minutes) 4 Resistance 0 Seat Position 4 Other warm up for reciprocal trunk/ UE/LE motion Therapeutic Exercises Standing Exercises pectoral stretch Standing Exercise Name reviewed HEP as pt does not have corner at home; using wall instead Side bilateral Equipment Used wall Reps/Minutes 1x30 ea (front leg in staggered or by side) Comments cued for execution; pt jacobos, instructed pt's Gait Training Gait Activity FWW Device Used FWW Level of Assistance close SBA Surface stable Distance/Duration 200 ft Treatment Focus turns, FWW mgmt, nml gait Comments Pt ambulates more smoothly and with more stability using FWW than with spc. Demos difficulty with turns, managing thresholds; however first attempt at use. Close SBA for safety, moderate cues for mgmt during turns and for upright posture. Gait speed is slower when approaching objects or making turns. SPC Device Used spc Level of Assistance CGA- min A Surface stable and unstable Distance/Duration 1. 2 sets x 10 ft on mat; 2. 200ft and various distances around clinic Treatment Focus nml gait patterns, foot clearance, balance, endurance, stance wt shift Comments 1. Ambulation over unstable surface (mat with incline, steps) CGA to for gait with 2 occasions Min A to prevent fall; pt unable to correct without assistance Pt using spc in R hand, normal gait pattern. Cued for big steps, spc placement and coordination , weight shifting onto stance leg 2. normal gait on stable surface (floor): close SBA with prn CGA, cued for sequencing 2 pt pattern (pt uses spc in R hand) Neuro Re-Education Treatment Balance Activities TUG Surface stable Equipment close SBA Reps/Duration 2 reps with spc, 1 rep with FWW Comments With spc: 23.44 sec, 18.49 sec With FWW: 29 sec (1st attempt) ; difficulty with turns Unstable surface Details no UE support to achieve or maintain position Surface unstable Equipment foam pad Reps/Duration 2x30 ea Comments 1. For stance time on foam- close SBA with prn CGA to steady, cued to look ahead to stabilize, no UE support 2. With horizontal head turns- challening, but only CGA to steady. Cued for slower head turns; good ankle strategy to stabilize, more difficulty with med/lat vs ant/post strategy 3. With vertical head turns- more challenging; min A to CGA to steady. Cued for slower movements Step taps Details in //bars, no UE support Surface stable Equipment 4 step Reps/Duration 2x10 ea LE, alternating Comments Pt standing on stable surface, performing alternating step taps onto 4 step to external target (large black spot on step). Cued for big, hard step, act like you're stomping on a bug, lift toes for toe clearance. Minimal facilitation of weight shift onto stance LE. close SBA with prn CGA to steady 1. fwd stepping 2. lateral stepping (performed ea direction) PT-OP-T Assessment and Plan Start: 05/19/23 14:30 Freq: Status: Active Protocol: Document 05/31/23 14:38 NM (Rec: 05/31/23 15:43 NM [id number]) Physical Therapy Assessment Goals Four Impairment gait Impairment 6 MWT 560 ft using spc Short Term Goal (STG) Pt will increase 6 MWT distance by at least 50 ft using LRAD with improved B foot clearance in order to demonstrate improved gait and balance. STG Duration 4 weeks Custodial Goal (LTG) Pt will increase 6 MWT distance by at least 100 ft using LRAD with improved B foot clearance in order to demonstrate improved gait and balance. LTG Duration 8 weeks Three Impairment strength Impairment 5x STS 28.21 seconds Short Term Goal (STG) Pt will decrease 5x STS to less than 24 seconds in order to demonstrate improved BLE strength STG Duration 4 weeks [employer]isher Goal (LTG) Pt will decrease 5x STS to less than 20 seconds in order to demonstrate improved BLE strength LTG Duration 8 weeks Two Impairment balance Impairment Burch 35/56 Short Term Goal (STG) Pt will increase Burch score to at least >40/56 in order to demonstrate improved balance and decreased fall risk STG Duration 4 weeks [employer]isher Goal (LTG) Pt will increase Burch score to at least >45/56 in order to demonstrate improved balance and decreased fall risk LTG Duration 8 weeks One Impairment balance Impairment TUG 29.12 seconds using spc, close SBA Short Term Goal (STG) Pt will complete TUG in less than 25 seconds using LRAD and SBA or better in order to demonstrate improved balance and decreased fall risk 05/31/23: 23.44 sec, 18.49 sec with spc, close SBA; 29 sec with FWW (1st attempt) STG Duration 4 weeks [employer] Goal (LTG) Pt will complete TUG in less than 20 seconds using LRAD and SBA or better in order to demonstrate improved balance and decreased fall risk LTG Duration 8 weeks Assessment Summary Assessment Pt tolerated session well and demos improved stability during stepping activities compared to previous session. Pt continues to have difficulty performing weight shifts onto stance LE whenever she is taking a step onto a surface/step. Progressed to alternating pattern and no UE support during step taps. PT cued pt for big, hard steps and for ankle dorsiflexion to promote better foot clearance and to maximize movements related to smaller movements caused by parkinsons. Trialed gait on unstable surface with spc. Pt requires increased support for stability, and cueing for safety, at least min A to prevent LOB. Performed gait training using FWW vs spc today. Pt demos better stability during gait with FWW with decreased sway, more smooth gait and faster andrey; however, demos difficulty with FWW magmt during turns or with obstacles (e.g. threshold). Pt progressing well toward TUG time goal, able to achieve less than 20 seconds using spc and close SBA. Pt would benefit from further BLE strengthening, gait and balance training, in addition to managing motor effects related to parkinson's dx in order to decrease fall risk and improve activity tolerance . Physical Therapy Plan Frequency and Duration Frequency of Treatment 2x/Week Duration of treatment (weeks) 8 Plan of Care Start Date 05/19/23 Plan of Care End Date 07/15/23 Therapeutic Interventions Therapeutic Interventions Balance Training,Coordination Training,Gait Training,Home Exercise Program,Joint Mobilizations,Manual Therapy, Neuromuscular Re-education, Orthotic/Prosthetic Management ,Patient/Caregiver Education, Self-Care/Home Management, Sensory Integration,Soft Tissue Mobilization,Taping, Therapeutic Activities, Therapeutic Exercises Modalities Cold Pack/Ice Massage,Electric Stimulation,Hot Packs, Ultrasound,Vasopneumatic Devices Other Therapeutic Interventions Fall-risk training Next Visit Focus/Plan Next Note Type Treatment Note Next Visit Plan Gait training with 4ww vs spc, focus on turns/obstacles/ thresholds. BLE strengthening: STS, seated abd, seated march , heel raise. Balance: weight shifts, add steps up/over, hurdles, decrease hand use, change surface and BELLE
--- NOTE | 2023-06-03 15:18 | PT.OTN ---
Current Diagnoses Parkinsonism, unspecified (06/03/23) Essential tremor (06/03/23) Physical Therapy Treatment Note PT-OP-A Visit Information Start: 05/19/23 14:30 Freq: Status: Active Protocol: Document 06/03/23 14:40 SP (Rec: 06/03/23 16:16 SP [id number]) Out-Patient Physical Therapy Visit Information Visit Information Visit Type Treatment Note Visit Start Time 14:40 Visit Stop Time 15:18 Visit Number 4 Number of FILM EXAMINER Visits 1 PT-OP-B Current Condition Start: 05/19/23 14:30 Freq: Status: Active Protocol: Document 05/19/23 14:31 NM (Rec: 05/19/23 16:16 NM [id number]) Current Condition History of Current Condition Onset Date 5 years ago Current Complaints balance and gait problems, unsteady History of Current Condition Pt presents with balance and gait abnormalities. She has PD , dx 2 years ago. She uses a spc for community ambulation on R side, no AD home. She reports difficulty with coming to stand, unsteady with standing and ambulation. She feels like her body is always moving. She is on gabapentin and several parkinson's drugs . She has had several falls, usually backward; most recently 6 months ago when she was cleaning the toilet. She was unable to get herself up off the ground but was uninjured. Motor signs: tremor , unable to write, bradykinesia, small movements; no reports of freezing with gait. She lives with her . They have stairs with rails but she does not normally perform stairs; she can perform the stairs outside of her home with the hand rails. She reports pain in her R trunk from shingles. PT-OP-C Subjective Start: 05/19/23 14:30 Freq: Status: Active Protocol: Document 05/31/23 14:38 NM (Rec: 05/31/23 15:43 NM [id number]) OP-PT Subjective Patient Comments Patient Comments Pt presents to clinic with spc . Reports increased R trunk pain from shingles. No difficulty with exercises except for corner pec stretch. She found her FWW and planning to bring it to PT next time. PT-OP-D Balance Start: 05/19/23 14:30 Freq: Status: Active Protocol: Document 05/19/23 14:31 NM (Rec: 05/19/23 16:16 NM [id number]) OP-PT Balance Assessment Sitting Balance Static Sitting Balance Ability Good Dynamic Sitting Balance Ability Good Standing Balance Static Standing Balance Ability Fair Dynamic Standing Balance Ability Fair Balance Tests Romberg Romberg 10 seconds; moderate trunk sway Single Limb Standing Single Limb- Right 3 sec Single Limb- Left 0 sec Tandem Tandem Standing unable to achieve or maintain position without LOB Marshall Fall Scale Copyright Permission PT-OP-E Functional Tests Start: 05/19/23 14:30 Freq: Status: Active Protocol: Document 05/19/23 14:31 NM (Rec: 05/19/23 16:16 NM [id number]) Functional Tests 6 Minute Walk Test Distance 560 ft Device Used spc, gait belt Comments increased sway, decreased foot clearance, unstable turns, staggers Five Times Sit to Stand Test Score 28.21 sec Comments without UE, slow movement pattern, retropulses with lowering Timed Up and Go (TUG) Score 29.12 sec Comments using spc Other DGI Score 04/17 Comment using spc; difficulty with clearing cones, changing directions PT-OP-F Manual Assessment Start: 05/19/23 14:30 Freq: Status: Active Protocol: Document 05/19/23 14:31 NM (Rec: 05/19/23 16:16 NM [id number]) Manual Assessments Soft Tissue Assessment Soft Tissue Mobility Assessment Rigidity of trunk, BLE. Decreased B hamstring length Joint Mobility Assessment Joint Mobility Assessment Decreased trunk rotation with gait. B hip and shoulder PROM within functional limits PT-OP-G Mobility & Gait Start: 05/19/23 14:30 Freq: Status: Active Protocol: Document 05/19/23 14:31 NM (Rec: 05/19/23 16:16 NM [id number]) OP Gait Assessment Gait Gait Assistance Required: Contact Guard Assist Distance (Feet) 560 Assistive Devices Assistive Device Gait Belt,Straight Cane Gait Deviations General Gait Pattern Decreased Stride Length, Decreased Feet Clearance, Flexed Trunk Factors Limiting Gait Function Factors Limiting Gait Function Abnormal Tonal Influences, Decreased Activity Tolerance, Decreased Sensation,Decreased Strength,Incoordination,Poor Balance Stair Climbing Evaluation Evaluation Level of Assist On Stairs Contact Guard Assistance Devices Stair Climbing Assistive Devices Right Railing Technique/Endurance Stair Climbing Direction Ascend and Descend Stair Climbing Technique Step to Step Number of Steps Climbed 4 Stair Climbing Set # Repetitions (reps) 1 Comments Stair Climbing Comments Only used rail to descend. Catches foot on step frequently, increased trunk sway PT-OP-H Neuro Start: 05/19/23 14:30 Freq: Status: Active Protocol: Document 05/19/23 14:31 NM (Rec: 05/19/23 16:16 NM [id number]) Sensation Evaluation Gross Sensation Gross Sensation Trunk Impaired Sensation Description Hyperesthesia,Burning Coordination Evaluation Upper Extremity Tests Right Finger to Nose Test Moderate Impairment Finger to Therapist's Finger Test Moderate Impairment Finger to Finger Test Moderate Impairment Alternate Nose to Finger Test Severe Impairment Left Finger to Nose Test Severe Impairment Finger to Therapist's Finger Test Moderate Impairment Finger to Finger Test Moderate Impairment Alternate Nose to Finger Test Moderate Impairment Lower Extremity Tests Right Heel on Mahoney Test Minimal Impairment Foot Tapping Test Moderate Impairment Left Heel on Mahoney Test Minimal Impairment Foot Tapping Test Moderate Impairment PT-OP-J Posture/Palpation/Skin Start: 05/19/23 14:30 Freq: Status: Active Protocol: Document 05/19/23 14:31 NM (Rec: 05/19/23 16:16 NM [id number]) Posture Evaluation Position Standing Evaluation View Lateral Head/C-Spine Posture Forward Head T-Spine Posture Increased Kyphosis L-Spine Posture Neutral Shoulder Posture (L) Rounded,(R) Rounded,(L) Forward,(R) Forward Scapula Posture (L) Protracted,(R) Protracted Pelvis Posture Neutral Weight Distribution Weight Shifted Posterior Hip Posture (L) Neutral,(R) Neutral Palpation Assessment Location Trunk Palpation Location R mid-thoracic trunk Palpation Findings Tenderness PT-OP-K Range of Motion Start: 05/19/23 14:30 Freq: Status: Active Protocol: Document 05/19/23 14:31 NM (Rec: 05/19/23 16:16 NM [id number]) Hip Goniometric Range of Motion Hip Right Comments Hamstring length: 140 deg Left Comments Hamstring length: 130 deg PT-OP-M Strength Start: 05/19/23 14:30 Freq: Status: Active Protocol: Document 05/19/23 14:31 NM (Rec: 05/19/23 16:16 NM [id number]) Shoulder Strength Shoulder Manual Muscle Testing Right Flexion 4- Good- Extension 4- Good- Abduction (C5) 4- Good- Left Flexion 4- Good- Extension 4- Good- Abduction (C5) 4- Good- Elbow/Forearm Strength Elbow and Forearm Manual Muscle Testing Right Flexion (C6) 4- Good- Extension (C7) 4- Good- Left Flexion (C6) 4- Good- Extension (C7) 4- Good- Wrist Strength Wrist Manual Muscle Testing Right Flexion (C7) 3+ Fair+ Extension (C6) 3+ Fair+ Left Flexion (C7) 3+ Fair+ Extension (C6) 3+ Fair+ Hip Strength Hip Manual Muscle Testing Right Flexion (L2) 4- Good- Extension (S1) 4- Good- Abduction 4- Good- Adduction 4- Good- External Rotation 4- Good- Internal Rotation 4- Good- Left Flexion (L2) 3+ Fair+ Extension (S1) 3+ Fair+ Abduction 3+ Fair+ Adduction 3+ Fair+ External Rotation 3+ Fair+ Internal Rotation 3+ Fair+ Knee Strength Knee Manual Muscle Testing Right Flexion (S2) 4- Good- Extension (L3) 4- Good- Left Flexion (S2) 3+ Fair+ Extension (L3) 3+ Fair+ Ankle/Foot Strength Ankle and Foot Manual Muscle Testing Right Dorsiflexion (L4) 4 Good Plantarflexion (S1) 4 Good Left Dorsiflexion (L4) 4 Good Plantarflexion (S1) 4 Good PT-OP-Q Treatments Start: 05/19/23 14:30 Freq: Status: Active Protocol: Document 06/03/23 14:40 SP (Rec: 06/03/23 16:16 SP [id number]) Therapeutic Exercises Sitting Exercises hip abduction Sitting Exercise Name for hip abd strengthening Side bilateral Resistance light blue lvl 1 band Reps/Minutes 1x10 with 3 hold at end range Comments cue for feet fwd for neutral hip; reports good effort hip abd/lat thigh Standing Exercises sit to stand Standing Exercise Name arms across chest, arms ER anatomical position into standing (BIG) Side bilateral Resistance light blue band around thighs for hip abd and to cue against knee valgus Equipment Used improved pacing asc/desc Reps/Minutes 10 reps x2 sets Comments cues knee alignment with forfoot asc/desc, impr stabil stand UE ER at side Gait Training Gait Activity dynamic gait Device Used (carrying SPC), near hallway rail Distance/Duration 20 ft x3 laps back step/high knee, fwd HTs 50 ft hallway x2 laps Treatment Focus midline stability Comments -fwd /c head turns- self corrections and BELLE -back stepping-cued increase BELLE and bigger stride -high knee marching L lean with LLE lift 1/2 20 ft distance, CG-5% A recovery midline. FWW Device Used FWW Level of Assistance close SBA Surface stable Distance/Duration 170 ft Treatment Focus turns, FWW mgmt, nml gait Comments Pt ambulates more smoothly and with more stability using FWW than with spc. Demos difficulty with turns, managing thresholds; however first attempt at use. Close SBA for safety, moderate cues for mgmt during turns and for upright posture. Gait speed is slower when approaching objects or making turns. SPC Device Used spc Level of Assistance CGA/SBA Surface stable Distance/Duration various distances around clinic Treatment Focus nml gait patterns, foot clearance, balance, endurance, stance wt shift Comments normal gait on stable surface (floor): close SBA with prn CGA, improved self sequencing 2 pt pattern consistancy. Neuro Re-Education Treatment Balance Activities hurdles Details foam 4 x3 laps, then hurdles 4 x3 laps, together Comments CG-15%A for LOB lateral R>L uneven and hurdles together most challenging, improved cues scap and elongated posture, wt shift into ft foot 4/5 steps Unstable surface Details no UE support to achieve or maintain position Surface unstable Equipment blue foam stones stride stance Reps/Duration 2x30 ea Comments 1. Horizontal and vertical head turns 2. balance recovery after removal isometric trunk lean f /b/lateral, 1 LOB left and 1 LOB retro < 5%A recovery via gait belt PT-OP-T Assessment and Plan Start: 05/19/23 14:30 Freq: Status: Active Protocol: Document 06/03/23 14:40 SP (Rec: 06/03/23 16:16 SP [id number]) Physical Therapy Assessment Goals Four Impairment gait Impairment 6 MWT 560 ft using spc Short Term Goal (STG) Pt will increase 6 MWT distance by at least 50 ft using LRAD with improved B foot clearance in order to demonstrate improved gait and balance. STG Duration 4 weeks Auto Body Repairer Goal (LTG) Pt will increase 6 MWT distance by at least 100 ft using LRAD with improved B foot clearance in order to demonstrate improved gait and balance. LTG Duration 8 weeks Three Impairment strength Impairment 5x STS 28.21 seconds Short Term Goal (STG) Pt will decrease 5x STS to less than 24 seconds in order to demonstrate improved BLE strength STG Duration 4 weeks Auto Body Repairer Goal (LTG) Pt will decrease 5x STS to less than 20 seconds in order to demonstrate improved BLE strength LTG Duration 8 weeks Two Impairment balance Impairment Burch 35/56 Short Term Goal (STG) Pt will increase Burch score to at least >40/56 in order to demonstrate improved balance and decreased fall risk STG Duration 4 weeks Auto Body Repairer Goal (LTG) Pt will increase Burch score to at least >45/56 in order to demonstrate improved balance and decreased fall risk LTG Duration 8 weeks One Impairment balance Impairment TUG 29.12 seconds using spc, close SBA Short Term Goal (STG) Pt will complete TUG in less than 25 seconds using LRAD and SBA or better in order to demonstrate improved balance and decreased fall risk 05/31/23: 23.44 sec, 18.49 sec with spc, close SBA; 29 sec with FWW (1st attempt) STG Duration 4 weeks Detention Goal (LTG) Pt will complete TUG in less than 20 seconds using LRAD and SBA or better in order to demonstrate improved balance and decreased fall risk LTG Duration 8 weeks Assessment Summary Assessment Pt tolerated HEP review with reports lat thigh muscle tiring STS and hip abd holds. Education for lift pivot FWW march step during turns with body centered improved understanding, she is fine straight distance. Gait SPC in RUE occasional L lateral lean /wt shift but self recovery midline corrections. Good tolerance to dynamic gait /s AD near wall with instructed head turns and back stepping cued increase BELLE/rhomboid/ core fac assisted midline corrections, high knee stepping most challenging LOB lateral lean L with LLE lift, Min A for recovery. Physical Therapy Plan Frequency and Duration Frequency of Treatment 2x/Week Duration of treatment (weeks) 8 Plan of Care Start Date 05/19/23 Plan of Care End Date 07/15/23 Therapeutic Interventions Therapeutic Interventions Balance Training,Coordination Training,Gait Training,Home Exercise Program,Joint Mobilizations,Manual Therapy, Neuromuscular Re-education, Orthotic/Prosthetic Management ,Patient/Caregiver Education, Self-Care/Home Management, Sensory Integration,Soft Tissue Mobilization,Taping, Therapeutic Activities, Therapeutic Exercises Modalities Cold Pack/Ice Massage,Electric Stimulation,Hot Packs, Ultrasound,Vasopneumatic Devices Other Therapeutic Interventions Fall-risk training Next Visit Focus/Plan Next Note Type Treatment Note Next Visit Plan Gait training with 4ww vs spc, focus on turns/obstacles/ thresholds. BLE strengthening: STS, seated abd, seated march , heel raise. Balance: weight shifts, uneven surface isometric reactive bal recovery, add steps up/over, hurdles, decrease hand use, change surface and BELLE
--- NOTE | 2023-06-07 16:20 | PT.OTN ---
Current Diagnoses Parkinsonism, unspecified (06/07/23) Essential tremor (06/07/23) Physical Therapy Treatment Note PT-OP-A Visit Information Start: 05/19/23 14:30 Freq: Status: Active Protocol: Document 06/07/23 08:18 AB (Rec: 06/07/23 16:20 AB [id number]) Out-Patient Physical Therapy Visit Information Visit Information Visit Type Treatment Note Visit Note Access Code: [email or web address] Visit Start Time 13:03 Visit Stop Time 13:49 Visit Number 5 Number of TRAILER TECHNICIAN Visits 2 Evaluation Information Evaluation Date 05/19/23 Precautions Precautions PD, fall risk PT-OP-B Current Condition Start: 05/19/23 14:30 Freq: Status: Active Protocol: Document 05/19/23 14:31 NM (Rec: 05/19/23 16:16 NM [id number]) Current Condition History of Current Condition Onset Date 5 years ago Current Complaints balance and gait problems, unsteady History of Current Condition Pt presents with balance and gait abnormalities. She has PD , dx 2 years ago. She uses a spc for community ambulation on R side, no AD home. She reports difficulty with coming to stand, unsteady with standing and ambulation. She feels like her body is always moving. She is on gabapentin and several parkinson's drugs . She has had several falls, usually backward; most recently 6 months ago when she was cleaning the toilet. She was unable to get herself up off the ground but was uninjured. Motor signs: tremor , unable to write, bradykinesia, small movements; no reports of freezing with gait. She lives with her . They have stairs with rails but she does not normally perform stairs; she can perform the stairs outside of her home with the hand rails. She reports pain in her R trunk from shingles. PT-OP-C Subjective Start: 05/19/23 14:30 Freq: Status: Active Protocol: Document 06/07/23 08:18 AB (Rec: 06/07/23 16:20 AB [id number]) OP-PT Subjective Patient Comments Patient Comments Patient reports she has not had any falls. Patient reports the pec stretch doesn't make sense to her. Patient reports the shingles pain right side of trunk persists. PT-OP-D Balance Start: 05/19/23 14:30 Freq: Status: Active Protocol: Document 05/19/23 14:31 NM (Rec: 05/19/23 16:16 NM [id number]) OP-PT Balance Assessment Sitting Balance Static Sitting Balance Ability Good Dynamic Sitting Balance Ability Good Standing Balance Static Standing Balance Ability Fair Dynamic Standing Balance Ability Fair Balance Tests Romberg Romberg 10 seconds; moderate trunk sway Single Limb Standing Single Limb- Right 3 sec Single Limb- Left 0 sec Tandem Tandem Standing unable to achieve or maintain position without LOB Marshall Fall Scale Copyright Permission PT-OP-E Functional Tests Start: 05/19/23 14:30 Freq: Status: Active Protocol: Document 05/19/23 14:31 NM (Rec: 05/19/23 16:16 NM [id number]) Functional Tests 6 Minute Walk Test Distance 560 ft Device Used spc, gait belt Comments increased sway, decreased foot clearance, unstable turns, staggers Five Times Sit to Stand Test Score 28.21 sec Comments without UE, slow movement pattern, retropulses with lowering Timed Up and Go (TUG) Score 29.12 sec Comments using spc Other DGI Score 12 Comment using spc; difficulty with clearing cones, changing directions PT-OP-F Manual Assessment Start: 05/19/23 14:30 Freq: Status: Active Protocol: Document 05/19/23 14:31 NM (Rec: 05/19/23 16:16 NM [id number]) Manual Assessments Soft Tissue Assessment Soft Tissue Mobility Assessment Rigidity of trunk, BLE. Decreased B hamstring length Joint Mobility Assessment Joint Mobility Assessment Decreased trunk rotation with gait. B hip and shoulder PROM within functional limits PT-OP-G Mobility & Gait Start: 05/19/23 14:30 Freq: Status: Active Protocol: Document 05/19/23 14:31 NM (Rec: 05/19/23 16:16 NM [id number]) OP Gait Assessment Gait Gait Assistance Required: Contact Guard Assist Distance (Feet) 560 Assistive Devices Assistive Device Gait Belt,Straight Cane Gait Deviations General Gait Pattern Decreased Stride Length, Decreased Feet Clearance, Flexed Trunk Factors Limiting Gait Function Factors Limiting Gait Function Abnormal Tonal Influences, Decreased Activity Tolerance, Decreased Sensation,Decreased Strength,Incoordination,Poor Balance Stair Climbing Evaluation Evaluation Level of Assist On Stairs Contact Guard Assistance Devices Stair Climbing Assistive Devices Right Railing Technique/Endurance Stair Climbing Direction Ascend and Descend Stair Climbing Technique Step to Step Number of Steps Climbed 4 Stair Climbing Set # Repetitions (reps) 1 Comments Stair Climbing Comments Only used rail to descend. Catches foot on step frequently, increased trunk sway PT-OP-H Neuro Start: 05/19/23 14:30 Freq: Status: Active Protocol: Document 05/19/23 14:31 NM (Rec: 05/19/23 16:16 NM [id number]) Sensation Evaluation Gross Sensation Gross Sensation Trunk Impaired Sensation Description Hyperesthesia,Burning Coordination Evaluation Upper Extremity Tests Right Finger to Nose Test Moderate Impairment Finger to Therapist's Finger Test Moderate Impairment Finger to Finger Test Moderate Impairment Alternate Nose to Finger Test Severe Impairment Left Finger to Nose Test Severe Impairment Finger to Therapist's Finger Test Moderate Impairment Finger to Finger Test Moderate Impairment Alternate Nose to Finger Test Moderate Impairment Lower Extremity Tests Right Heel on Mahoney Test Minimal Impairment Foot Tapping Test Moderate Impairment Left Heel on [place]oney Test Minimal Impairment Foot Tapping Test Moderate Impairment PT-OP-J Posture/Palpation/Skin Start: 05/19/23 14:30 Freq: Status: Active Protocol: Document 05/19/23 14:31 NM (Rec: 05/19/23 16:16 NM [id number]) Posture Evaluation Position Standing Evaluation View Lateral Head/C-Spine Posture Forward Head T-Spine Posture Increased Kyphosis L-Spine Posture Neutral Shoulder Posture (L) Rounded,(R) Rounded,(L) Forward,(R) Forward Scapula Posture (L) Protracted,(R) Protracted Pelvis Posture Neutral Weight Distribution Weight Shifted Posterior Hip Posture (L) Neutral,(R) Neutral Palpation Assessment Location Trunk Palpation Location R mid-thoracic trunk Palpation Findings Tenderness PT-OP-K Range of Motion Start: 05/19/23 14:30 Freq: Status: Active Protocol: Document 05/19/23 14:31 NM (Rec: 05/19/23 16:16 NM [id number]) Hip Goniometric Range of Motion Hip Right Comments Hamstring length: 140 deg Left Comments Hamstring length: 130 deg PT-OP-M Strength Start: 05/19/23 14:30 Freq: Status: Active Protocol: Document 05/19/23 14:31 NM (Rec: 05/19/23 16:16 NM [id number]) Shoulder Strength Shoulder Manual Muscle Testing Right Flexion 4- Good- Extension 4- Good- Abduction (C5) 4- Good- Left Flexion 4- Good- Extension 4- Good- Abduction (C5) 4- Good- Elbow/Forearm Strength Elbow and Forearm Manual Muscle Testing Right Flexion (C6) 4- Good- Extension (C7) 4- Good- Left Flexion (C6) 4- Good- Extension (C7) 4- Good- Wrist Strength Wrist Manual Muscle Testing Right Flexion (C7) 3+ Fair+ Extension (C6) 3+ Fair+ Left Flexion (C7) 3+ Fair+ Extension (C6) 3+ Fair+ Hip Strength Hip Manual Muscle Testing Right Flexion (L2) 4- Good- Extension (S1) 4- Good- Abduction 4- Good- Adduction 4- Good- External Rotation 4- Good- Internal Rotation 4- Good- Left Flexion (L2) 3+ Fair+ Extension (S1) 3+ Fair+ Abduction 3+ Fair+ Adduction 3+ Fair+ External Rotation 3+ Fair+ Internal Rotation 3+ Fair+ Knee Strength Knee Manual Muscle Testing Right Flexion (S2) 4- Good- Extension (L3) 4- Good- Left Flexion (S2) 3+ Fair+ Extension (L3) 3+ Fair+ Ankle/Foot Strength Ankle and Foot Manual Muscle Testing Right Dorsiflexion (L4) 4 Good Plantarflexion (S1) 4 Good Left Dorsiflexion (L4) 4 Good Plantarflexion (S1) 4 Good PT-OP-Q Treatments Start: 05/19/23 14:30 Freq: Status: Active Protocol: Document 06/07/23 08:18 AB (Rec: 06/07/23 16:20 AB [id number]) Therapeutic Exercises Sitting Exercises seated pec stretch Sitting Exercise Name hands behind head Side bilateral Reps/Minutes 60 seconds X 3 Comments Verbal and visual cues Therapeutic Activity Therapeutic Activity chair to mat transfer Name 90 deg turn mat to and from chair with FWW Reps/Minutes 4 Comments turning to left and to right backing to chair, Verbal cues to fully back to chair until LE's touch, to avoid hands on walker when transferring sit to stand. Gait Training Gait Activity FWW Device Used FWW Level of Assistance close SBA Surface stable Distance/Duration 60 feet Treatment Focus Verbal cues for lifting FWW over transition strip, heel strike and posture SPC Device Used SPC Level of Assistance CGA Surface stable Distance/Duration during ambulation between activites and exercise Treatment Focus visual scanning and head turns Comments Slightly unsteady with head turns, but no physical assist required. Neuro Re-Education Treatment Balance Activities retro stepping Details hands above bars Surface floor Reps/Duration 10 feet X 4 Comments CGA grapevine Details one step verbal cues on initiation with UE support Surface floor Equipment parallel bars Reps/Duration 10 feet X 3 Comments CGA and one step verbal cues, minimal cues on final trial tandem stepping Details with and without visual scanning and head turns Surface floor Reps/Duration 10 feetX6 Comments CGA Rhythmic stabilization standing Details without UE support Surface floor Reps/Duration X5 gentle fwd, back Comments Verbal cues to hold posture hurdles Details hurdles Comments CGA 10 feet X3 difficulty clearing [place] on 3rd set, hands above parallel bars using bars as needed Unstable surface Details hands above parallel bars to use as needed Surface foam pad Equipment foam pad Reps/Duration marching X 10, Romberg with eyes closed one min Comments CGA to very minimal assist for marching CGA for Romberg Step taps Details in //bars, no UE support Surface stable Equipment 4 step Reps/Duration X10 X2 each LE Comments CGA with gait belt first set with eyes on step, second set eyes straight ahead PT-OP-T Assessment and Plan Start: 05/19/23 14:30 Freq: Status: Active Protocol: Document 06/07/23 08:18 AB (Rec: 06/07/23 16:20 AB [id number]) Physical Therapy Assessment Goals Four Impairment gait Impairment 6 MWT 560 ft using spc Short Term Goal (STG) Pt will increase 6 MWT distance by at least 50 ft using LRAD with improved B foot clearance in order to demonstrate improved gait and balance. STG Duration 4 weeks Elevator Tender Goal (LTG) Pt will increase 6 MWT distance by at least 100 ft using LRAD with improved B foot clearance in order to demonstrate improved gait and balance. LTG Duration 8 weeks Three Impairment strength Impairment 5x STS 28.21 seconds Short Term Goal (STG) Pt will decrease 5x STS to less than 24 seconds in order to demonstrate improved BLE strength STG Duration 4 weeks Jail Goal (LTG) Pt will decrease 5x STS to less than 20 seconds in order to demonstrate improved BLE strength LTG Duration 8 weeks Two Impairment balance Impairment Burch 35/56 Short Term Goal (STG) Pt will increase Burch score to at least >40/56 in order to demonstrate improved balance and decreased fall risk STG Duration 4 weeks Jail Goal (LTG) Pt will increase Burch score to at least >45/56 in order to demonstrate improved balance and decreased fall risk LTG Duration 8 weeks One Impairment balance Impairment TUG 29.12 seconds using spc, close SBA Short Term Goal (STG) Pt will complete TUG in less than 25 seconds using LRAD and SBA or better in order to demonstrate improved balance and decreased fall risk 05/31/23: 23.44 sec, 18.49 sec with spc, close SBA; 29 sec with FWW (1st attempt) STG Duration 4 weeks Elevator Tender Goal (LTG) Pt will complete TUG in less than 20 seconds using LRAD and SBA or better in order to demonstrate improved balance and decreased fall risk LTG Duration 8 weeks Assessment Summary Assessment Single leg stance without UE use 8+ seconds left and right LE with CGA with gait belt during session. Evidence of fatigue with balance training as seen by patient having difficulty clearing hurdles on 3rd set of 10. Patient would benefit from continued balance training/exercise. Physical Therapy Plan Frequency and Duration Frequency of Treatment 2x/Week Duration of treatment (weeks) 8 Plan of Care Start Date 05/19/23 Plan of Care End Date 07/15/23 Next Visit Focus/Plan Next Note Type Treatment Note Next Visit Plan Gait training with 4ww vs spc, focus on turns/obstacles/ thresholds. BLE strengthening: STS, seated abd, seated march , heel raise. Balance: weight shifts, uneven surface isometric reactive bal recovery, continue steps up/ over, hurdles, decrease hand use, change surface and BELLE
--- NOTE | 2023-06-10 11:50 | PT.OTN ---
Current Diagnoses Parkinsonism, unspecified (06/10/23) Essential tremor (06/10/23) Physical Therapy Treatment Note PT-OP-A Visit Information Start: 05/19/23 14:30 Freq: Status: Active Protocol: Document 06/10/23 08:24 AB (Rec: 06/10/23 11:50 AB [id number]) Out-Patient Physical Therapy Visit Information Visit Information Visit Type Treatment Note Visit Note Access Code: [email or web address] Visit Start Time 10:36 Visit Stop Time 11:20 Visit Number 6 Number of REST ROOM MAID Visits 3 Evaluation Information Evaluation Date 05/19/23 Precautions Precautions PD, fall risk PT-OP-B Current Condition Start: 05/19/23 14:30 Freq: Status: Active Protocol: Document 05/19/23 14:31 NM (Rec: 05/19/23 16:16 NM [id number]) Current Condition History of Current Condition Onset Date 5 years ago Current Complaints balance and gait problems, unsteady History of Current Condition Pt presents with balance and gait abnormalities. She has PD , dx 2 years ago. She uses a spc for community ambulation on R side, no AD home. She reports difficulty with coming to stand, unsteady with standing and ambulation. She feels like her body is always moving. She is on gabapentin and several parkinson's drugs . She has had several falls, usually backward; most recently 6 months ago when she was cleaning the toilet. She was unable to get herself up off the ground but was uninjured. Motor signs: tremor , unable to write, bradykinesia, small movements; no reports of freezing with gait. She lives with her . They have stairs with rails but she does not normally perform stairs; she can perform the stairs outside of her home with the hand rails. She reports pain in her R trunk from shingles. PT-OP-C Subjective Start: 05/19/23 14:30 Freq: Status: Active Protocol: Document 06/10/23 08:24 AB (Rec: 06/10/23 11:50 AB [id number]) OP-PT Subjective Patient Comments Patient Comments Kaylah reports she was OK, but tired post previous session. Patient denies falls since previous session. PT-OP-D Balance Start: 05/19/23 14:30 Freq: Status: Active Protocol: Document 05/19/23 14:31 NM (Rec: 05/19/23 16:16 NM [id number]) OP-PT Balance Assessment Sitting Balance Static Sitting Balance Ability Good Dynamic Sitting Balance Ability Good Standing Balance Static Standing Balance Ability Fair Dynamic Standing Balance Ability Fair Balance Tests Romberg Romberg 10 seconds; moderate trunk sway Single Limb Standing Single Limb- Right 3 sec Single Limb- Left 0 sec Tandem Tandem Standing unable to achieve or maintain position without LOB Marshall Fall Scale Copyright Permission PT-OP-E Functional Tests Start: 05/19/23 14:30 Freq: Status: Active Protocol: Document 05/19/23 14:31 NM (Rec: 05/19/23 16:16 NM [id number]) Functional Tests 6 Minute Walk Test Distance 560 ft Device Used spc, gait belt Comments increased sway, decreased foot clearance, unstable turns, staggers Five Times Sit to Stand Test Score 28.21 sec Comments without UE, slow movement pattern, retropulses with lowering Timed Up and Go (TUG) Score 29.12 sec Comments using spc Other DGI Score 04/17 Comment using spc; difficulty with clearing cones, changing directions PT-OP-F Manual Assessment Start: 05/19/23 14:30 Freq: Status: Active Protocol: Document 05/19/23 14:31 NM (Rec: 05/19/23 16:16 NM [id number]) Manual Assessments Soft Tissue Assessment Soft Tissue Mobility Assessment Rigidity of trunk, BLE. Decreased B hamstring length Joint Mobility Assessment Joint Mobility Assessment Decreased trunk rotation with gait. B hip and shoulder PROM within functional limits PT-OP-G Mobility & Gait Start: 05/19/23 14:30 Freq: Status: Active Protocol: Document 05/19/23 14:31 NM (Rec: 05/19/23 16:16 NM [id number]) OP Gait Assessment Gait Gait Assistance Required: Contact Guard Assist Distance (Feet) 560 Assistive Devices Assistive Device Gait Belt,Straight Cane Gait Deviations General Gait Pattern Decreased Stride Length, Decreased Feet Clearance, Flexed Trunk Factors Limiting Gait Function Factors Limiting Gait Function Abnormal Tonal Influences, Decreased Activity Tolerance, Decreased Sensation,Decreased Strength,Incoordination,Poor Balance Stair Climbing Evaluation Evaluation Level of Assist On Stairs Contact Guard Assistance Devices Stair Climbing Assistive Devices Right Railing Technique/Endurance Stair Climbing Direction Ascend and Descend Stair Climbing Technique Step to Step Number of Steps Climbed 4 Stair Climbing Set # Repetitions (reps) 1 Comments Stair Climbing Comments Only used rail to descend. Catches foot on step frequently, increased trunk sway PT-OP-H Neuro Start: 05/19/23 14:30 Freq: Status: Active Protocol: Document 05/19/23 14:31 NM (Rec: 05/19/23 16:16 NM [id number]) Sensation Evaluation Gross Sensation Gross Sensation Trunk Impaired Sensation Description Hyperesthesia,Burning Coordination Evaluation Upper Extremity Tests Right Finger to Nose Test Moderate Impairment Finger to Therapist's Finger Test Moderate Impairment Finger to Finger Test Moderate Impairment Alternate Nose to Finger Test Severe Impairment Left Finger to Nose Test Severe Impairment Finger to Therapist's Finger Test Moderate Impairment Finger to Finger Test Moderate Impairment Alternate Nose to Finger Test Moderate Impairment Lower Extremity Tests Right Heel on Mahoney Test Minimal Impairment Foot Tapping Test Moderate Impairment Left Heel on Mahoney Test Minimal Impairment Foot Tapping Test Moderate Impairment PT-OP-J Posture/Palpation/Skin Start: 05/19/23 14:30 Freq: Status: Active Protocol: Document 05/19/23 14:31 NM (Rec: 05/19/23 16:16 NM [id number]) Posture Evaluation Position Standing Evaluation View Lateral Head/C-Spine Posture Forward Head T-Spine Posture Increased Kyphosis L-Spine Posture Neutral Shoulder Posture (L) Rounded,(R) Rounded,(L) Forward,(R) Forward Scapula Posture (L) Protracted,(R) Protracted Pelvis Posture Neutral Weight Distribution Weight Shifted Posterior Hip Posture (L) Neutral,(R) Neutral Palpation Assessment Location Trunk Palpation Location R mid-thoracic trunk Palpation Findings Tenderness PT-OP-K Range of Motion Start: 05/19/23 14:30 Freq: Status: Active Protocol: Document 05/19/23 14:31 NM (Rec: 05/19/23 16:16 NM [id number]) Hip Goniometric Range of Motion Hip Right Comments Hamstring length: 140 deg Left Comments Hamstring length: 130 deg PT-OP-M Strength Start: 05/19/23 14:30 Freq: Status: Active Protocol: Document 05/19/23 14:31 NM (Rec: 05/19/23 16:16 NM [id number]) Shoulder Strength Shoulder Manual Muscle Testing Right Flexion 4- Good- Extension 4- Good- Abduction (C5) 4- Good- Left Flexion 4- Good- Extension 4- Good- Abduction (C5) 4- Good- Elbow/Forearm Strength Elbow and Forearm Manual Muscle Testing Right Flexion (C6) 4- Good- Extension (C7) 4- Good- Left Flexion (C6) 4- Good- Extension (C7) 4- Good- Wrist Strength Wrist Manual Muscle Testing Right Flexion (C7) 3+ Fair+ Extension (C6) 3+ Fair+ Left Flexion (C7) 3+ Fair+ Extension (C6) 3+ Fair+ Hip Strength Hip Manual Muscle Testing Right Flexion (L2) 4- Good- Extension (S1) 4- Good- Abduction 4- Good- Adduction 4- Good- External Rotation 4- Good- Internal Rotation 4- Good- Left Flexion (L2) 3+ Fair+ Extension (S1) 3+ Fair+ Abduction 3+ Fair+ Adduction 3+ Fair+ External Rotation 3+ Fair+ Internal Rotation 3+ Fair+ Knee Strength Knee Manual Muscle Testing Right Flexion (S2) 4- Good- Extension (L3) 4- Good- Left Flexion (S2) 3+ Fair+ Extension (L3) 3+ Fair+ Ankle/Foot Strength Ankle and Foot Manual Muscle Testing Right Dorsiflexion (L4) 4 Good Plantarflexion (S1) 4 Good Left Dorsiflexion (L4) 4 Good Plantarflexion (S1) 4 Good PT-OP-Q Treatments Start: 05/19/23 14:30 Freq: Status: Active Protocol: Document 06/10/23 08:24 AB (Rec: 06/10/23 11:50 AB [id number]) Therapeutic Exercises Sitting Exercises AROM DF Side bilateral Reps/Minutes X15 Comments visual cues, patient ed rat of this ex to avoid tripping over feet hip abduction Sitting Exercise Name for hip abd strengthening Side bilateral Resistance light blue lvl 1 band Reps/Minutes 1X10 slowly then one one minute hold for activation Comments cue for feet fwd for neutral hip; reports good effort hip abd/lat thigh Standing Exercises bilateral heel raise Standing Exercise Name with UE support Side bilateral Reps/Minutes X10 Comments verbal cues to lower heels to floor slowly sit to stand Standing Exercise Name with/without UE use Side bilateral Reps/Minutes 2X5 Comments VC lean fwd to stand fully upright when reaching upright, sit down slowly Neuro Re-Education Treatment Balance Activities Shuttle Details feet on 4's then stagger stance Surface unsteady Equipment shuttle Reps/Duration 4 minutes Comments CGA with gait belt, performed with visual challenges and head turns Step taps Details at stairs hand above rail Surface stable Equipment 6 inch step Reps/Duration X10 each LE Comments CGA with gait belt first set with eyes on step, second set eyes straight ahead PT-OP-T Assessment and Plan Start: 05/19/23 14:30 Freq: Status: Active Protocol: Document 06/10/23 08:24 AB (Rec: 06/10/23 11:50 AB [id number]) Physical Therapy Assessment Goals Four Impairment gait Impairment 6 MWT 560 ft using spc Short Term Goal (STG) Pt will increase 6 MWT distance by at least 50 ft using LRAD with improved B foot clearance in order to demonstrate improved gait and balance. STG Duration 4 weeks Party Bus Driver Goal (LTG) Pt will increase 6 MWT distance by at least 100 ft using LRAD with improved B foot clearance in order to demonstrate improved gait and balance. LTG Duration 8 weeks Three Impairment strength Impairment 5x STS 28.21 seconds Short Term Goal (STG) Pt will decrease 5x STS to less than 24 seconds in order to demonstrate improved BLE strength STG Duration 4 weeks Group Home Goal (LTG) Pt will decrease 5x STS to less than 20 seconds in order to demonstrate improved BLE strength LTG Duration 8 weeks Two Impairment balance Impairment Burch 35/56 Short Term Goal (STG) Pt will increase Burch score to at least >40/56 in order to demonstrate improved balance and decreased fall risk STG Duration 4 weeks Group Home Goal (LTG) Pt will increase Burch score to at least >45/56 in order to demonstrate improved balance and decreased fall risk LTG Duration 8 weeks One Impairment balance Impairment TUG 29.12 seconds using spc, close SBA Short Term Goal (STG) Pt will complete TUG in less than 25 seconds using LRAD and SBA or better in order to demonstrate improved balance and decreased fall risk 05/31/23: 23.44 sec, 18.49 sec with spc, close SBA; 29 sec with FWW (1st attempt) STG Duration 4 weeks Party Bus Driver Goal (LTG) Pt will complete TUG in less than 20 seconds using LRAD and SBA or better in order to demonstrate improved balance and decreased fall risk LTG Duration 8 weeks Assessment Summary Assessment Noted a slight hip strategy ambulating with cane post step up taps, CGA to correct, patient reported feeling dizzy when questioned BP 161/78 HR 64 seated R UE, reports feeling foggy amb out of session. Spouse agreeable to take Kaylah to walk in clinic. Phoned office for Colt Cardenas MD and left message re : BP, dizziness, C/O feeling foggy and Spouse plan to take patient to walk in clinic. Physical Therapy Plan Frequency and Duration Frequency of Treatment 2x/Week Duration of treatment (weeks) 8 Plan of Care Start Date 05/19/23 Plan of Care End Date 07/15/23 Next Visit Focus/Plan Next Note Type Treatment Note Next Visit Plan Gait training with 4ww vs spc, focus on turns/obstacles/ thresholds. BLE strengthening: STS, seated abd, seated march , heel raise. (seated march and possibly seated cheerleader w/o band to HEP) Balance: weight shifts, uneven surface isometric reactive bal recovery, continue steps up/over, hurdles, decrease hand use, change surface and BELLE
--- NOTE | 2023-06-13 12:57 | PT.OTN ---
Current Diagnoses Parkinsonism, unspecified (06/10/23) Essential tremor (06/10/23) Physical Therapy Treatment Note PT-OP-A Visit Information Start: 05/19/23 14:30 Freq: Status: Active Protocol: Document 06/13/23 11:08 AB (Rec: 06/13/23 12:57 AB [id number]) Out-Patient Physical Therapy Visit Information Visit Information Visit Type Treatment Note Visit Note Access Code: [email or web address] Visit Start Time 11:29 Visit Stop Time 12:13 Visit Number 7 Number of ACADEMIC GUIDANCE SPECIALIST Visits 4 Evaluation Information Evaluation Date 05/19/23 PT-OP-B Current Condition Start: 05/19/23 14:30 Freq: Status: Active Protocol: Document 05/19/23 14:31 NM (Rec: 05/19/23 16:16 NM [id number]) Current Condition History of Current Condition Onset Date 5 years ago Current Complaints balance and gait problems, unsteady History of Current Condition Pt presents with balance and gait abnormalities. She has PD , dx 2 years ago. She uses a spc for community ambulation on R side, no AD home. She reports difficulty with coming to stand, unsteady with standing and ambulation. She feels like her body is always moving. She is on gabapentin and several parkinson's drugs . She has had several falls, usually backward; most recently 6 months ago when she was cleaning the toilet. She was unable to get herself up off the ground but was uninjured. Motor signs: tremor , unable to write, bradykinesia, small movements; no reports of freezing with gait. She lives with her . They have stairs with rails but she does not normally perform stairs; she can perform the stairs outside of her home with the hand rails. She reports pain in her R trunk from shingles. PT-OP-C Subjective Start: 05/19/23 14:30 Freq: Status: Active Protocol: Document 06/13/23 11:08 AB (Rec: 06/13/23 12:57 AB [id number]) OP-PT Subjective Patient Comments Patient Comments Kaylah reports feeling tired. Spouse reports that they went to the walk in clinic and Kaylah was admitted for observation one night, comments they ran lots of tests. Kaylah reports BP was high, but also reports having no change in medication . End of session comments was worried about the possibility she was having a small stroke, referring to previous Tuesday symptoms and visit to Walk in clinic. PT-OP-D Balance Start: 05/19/23 14:30 Freq: Status: Active Protocol: Document 05/19/23 14:31 NM (Rec: 05/19/23 16:16 NM [id number]) OP-PT Balance Assessment Sitting Balance Static Sitting Balance Ability Good Dynamic Sitting Balance Ability Good Standing Balance Static Standing Balance Ability Fair Dynamic Standing Balance Ability Fair Balance Tests Romberg Romberg 10 seconds; moderate trunk sway Single Limb Standing Single Limb- Right 3 sec Single Limb- Left 0 sec Tandem Tandem Standing unable to achieve or maintain position without LOB Marshall Fall Scale Copyright Permission PT-OP-E Functional Tests Start: 05/19/23 14:30 Freq: Status: Active Protocol: Document 05/19/23 14:31 NM (Rec: 05/19/23 16:16 NM [id number]) Functional Tests 6 Minute Walk Test Distance 560 ft Device Used spc, gait belt Comments increased sway, decreased foot clearance, unstable turns, staggers Five Times Sit to Stand Test Score 28.21 sec Comments without UE, slow movement pattern, retropulses with lowering Timed Up and Go (TUG) Score 29.12 sec Comments using spc Other DGI Score 04/17 Comment using spc; difficulty with clearing cones, changing directions PT-OP-F Manual Assessment Start: 05/19/23 14:30 Freq: Status: Active Protocol: Document 05/19/23 14:31 NM (Rec: 05/19/23 16:16 NM [id number]) Manual Assessments Soft Tissue Assessment Soft Tissue Mobility Assessment Rigidity of trunk, BLE. Decreased B hamstring length Joint Mobility Assessment Joint Mobility Assessment Decreased trunk rotation with gait. B hip and shoulder PROM within functional limits PT-OP-G Mobility & Gait Start: 05/19/23 14:30 Freq: Status: Active Protocol: Document 05/19/23 14:31 NM (Rec: 05/19/23 16:16 NM [id number]) OP Gait Assessment Gait Gait Assistance Required: Contact Guard Assist Distance (Feet) 560 Assistive Devices Assistive Device Gait Belt,Straight Cane Gait Deviations General Gait Pattern Decreased Stride Length, Decreased Feet Clearance, Flexed Trunk Factors Limiting Gait Function Factors Limiting Gait Function Abnormal Tonal Influences, Decreased Activity Tolerance, Decreased Sensation,Decreased Strength,Incoordination,Poor Balance Stair Climbing Evaluation Evaluation Level of Assist On Stairs Contact Guard Assistance Devices Stair Climbing Assistive Devices Right Railing Technique/Endurance Stair Climbing Direction Ascend and Descend Stair Climbing Technique Step to Step Number of Steps Climbed 4 Stair Climbing Set # Repetitions (reps) 1 Comments Stair Climbing Comments Only used rail to descend. Catches foot on step frequently, increased trunk sway PT-OP-H Neuro Start: 05/19/23 14:30 Freq: Status: Active Protocol: Document 05/19/23 14:31 NM (Rec: 05/19/23 16:16 NM [id number]) Sensation Evaluation Gross Sensation Gross Sensation Trunk Impaired Sensation Description Hyperesthesia,Burning Coordination Evaluation Upper Extremity Tests Right Finger to Nose Test Moderate Impairment Finger to Therapist's Finger Test Moderate Impairment Finger to Finger Test Moderate Impairment Alternate Nose to Finger Test Severe Impairment Left Finger to Nose Test Severe Impairment Finger to Therapist's Finger Test Moderate Impairment Finger to Finger Test Moderate Impairment Alternate Nose to Finger Test Moderate Impairment Lower Extremity Tests Right Heel on Mahoney Test Minimal Impairment Foot Tapping Test Moderate Impairment Left Heel on Mahoney Test Minimal Impairment Foot Tapping Test Moderate Impairment PT-OP-J Posture/Palpation/Skin Start: 05/19/23 14:30 Freq: Status: Active Protocol: Document 05/19/23 14:31 NM (Rec: 05/19/23 16:16 NM [id number]) Posture Evaluation Position Standing Evaluation View Lateral Head/C-Spine Posture Forward Head T-Spine Posture Increased Kyphosis L-Spine Posture Neutral Shoulder Posture (L) Rounded,(R) Rounded,(L) Forward,(R) Forward Scapula Posture (L) Protracted,(R) Protracted Pelvis Posture Neutral Weight Distribution Weight Shifted Posterior Hip Posture (L) Neutral,(R) Neutral Palpation Assessment Location Trunk Palpation Location R mid-thoracic trunk Palpation Findings Tenderness PT-OP-K Range of Motion Start: 05/19/23 14:30 Freq: Status: Active Protocol: Document 05/19/23 14:31 NM (Rec: 05/19/23 16:16 NM [id number]) Hip Goniometric Range of Motion Hip Right Comments Hamstring length: 140 deg Left Comments Hamstring length: 130 deg PT-OP-M Strength Start: 05/19/23 14:30 Freq: Status: Active Protocol: Document 05/19/23 14:31 NM (Rec: 05/19/23 16:16 NM [id number]) Shoulder Strength Shoulder Manual Muscle Testing Right Flexion 4- Good- Extension 4- Good- Abduction (C5) 4- Good- Left Flexion 4- Good- Extension 4- Good- Abduction (C5) 4- Good- Elbow/Forearm Strength Elbow and Forearm Manual Muscle Testing Right Flexion (C6) 4- Good- Extension (C7) 4- Good- Left Flexion (C6) 4- Good- Extension (C7) 4- Good- Wrist Strength Wrist Manual Muscle Testing Right Flexion (C7) 3+ Fair+ Extension (C6) 3+ Fair+ Left Flexion (C7) 3+ Fair+ Extension (C6) 3+ Fair+ Hip Strength Hip Manual Muscle Testing Right Flexion (L2) 4- Good- Extension (S1) 4- Good- Abduction 4- Good- Adduction 4- Good- External Rotation 4- Good- Internal Rotation 4- Good- Left Flexion (L2) 3+ Fair+ Extension (S1) 3+ Fair+ Abduction 3+ Fair+ Adduction 3+ Fair+ External Rotation 3+ Fair+ Internal Rotation 3+ Fair+ Knee Strength Knee Manual Muscle Testing Right Flexion (S2) 4- Good- Extension (L3) 4- Good- Left Flexion (S2) 3+ Fair+ Extension (L3) 3+ Fair+ Ankle/Foot Strength Ankle and Foot Manual Muscle Testing Right Dorsiflexion (L4) 4 Good Plantarflexion (S1) 4 Good Left Dorsiflexion (L4) 4 Good Plantarflexion (S1) 4 Good PT-OP-Q Treatments Start: 05/19/23 14:30 Freq: Status: Active Protocol: Document 06/13/23 11:08 AB (Rec: 06/13/23 12:57 AB [id number]) Therapeutic Exercises Sitting Exercises seated marching Sitting Exercise Name marchin/seated Side bilateral Resistance level one light blue band Reps/Minutes 15X 2 first set without band Comments verbal cues monitored for pain seated cheerleaders Sitting Exercise Name cheerleader seateed for posture Side bilateral Reps/Minutes X5 Comments no band, visual cues hip abduction Sitting Exercise Name for hip abd strengthening Side bilateral Resistance light blue lvl 1 band Reps/Minutes 2X10 slowly then one one minute hold for activation Comments cue for feet fwd for neutral hip; reports good effort hip abd/lat thigh Standing Exercises bilateral heel raise Standing Exercise Name with UE support Side bilateral Reps/Minutes X10 Comments verbal cues to lower heels to floor slowly Neuro Re-Education Treatment Balance Activities Shuttle Details feet on 4's then stagger stance Surface unsteady Equipment shuttle Reps/Duration 4 minutes Comments CGA with gait belt, performed with visual challenges and head turns tandem stepping Details with and without visual scanning and head turns Surface floor Reps/Duration 10 feetX6 Comments CGA Unstable surface Details hands above parallel bars to use as needed Surface foam pad. sandoval cushion pad Equipment foam pad, sandoval cushion pad Reps/Duration marching X 10 on each pad Comments CGA to very minimal assist for marching Step taps Details at stairs hand above rail Surface stable Equipment 6 inch step Reps/Duration X10 each LE Comments CGA with gait belt first set with eyes on step, second set eyes straight ahead PT-OP-T Assessment and Plan Start: 05/19/23 14:30 Freq: Status: Active Protocol: Document 06/13/23 11:08 AB (Rec: 06/13/23 12:57 AB [id number]) Physical Therapy Assessment Goals Four Impairment gait Impairment 6 MWT 560 ft using spc Short Term Goal (STG) Pt will increase 6 MWT distance by at least 50 ft using LRAD with improved B foot clearance in order to demonstrate improved gait and balance. STG Duration 4 weeks [employer] Goal (LTG) Pt will increase 6 MWT distance by at least 100 ft using LRAD with improved B foot clearance in order to demonstrate improved gait and balance. LTG Duration 8 weeks Three Impairment strength Impairment 5x STS 28.21 seconds Short Term Goal (STG) Pt will decrease 5x STS to less than 24 seconds in order to demonstrate improved BLE strength STG Duration 4 weeks [employer] Goal (LTG) Pt will decrease 5x STS to less than 20 seconds in order to demonstrate improved BLE strength LTG Duration 8 weeks Two Impairment balance Impairment Burch 35/56 Short Term Goal (STG) Pt will increase Burch score to at least >40/56 in order to demonstrate improved balance and decreased fall risk STG Duration 4 weeks Snf Goal (LTG) Pt will increase Burch score to at least >45/56 in order to demonstrate improved balance and decreased fall risk LTG Duration 8 weeks One Impairment balance Impairment TUG 29.12 seconds using spc, close SBA Short Term Goal (STG) Pt will complete TUG in less than 25 seconds using LRAD and SBA or better in order to demonstrate improved balance and decreased fall risk 05/31/23: 23.44 sec, 18.49 sec with spc, close SBA; 29 sec with FWW (1st attempt) STG Duration 4 weeks Snf Goal (LTG) Pt will complete TUG in less than 20 seconds using LRAD and SBA or better in order to demonstrate improved balance and decreased fall risk LTG Duration 8 weeks Assessment Summary Assessment Seated BP start of session left UE seated 135/74 HR 70, end of session 127/67 HR 70 BPM. Kaylah reports having no pain end of session, and demonstrates improved veena to exercises this session with no reports of dizzness and lower BP readings compared to previous session. Increased difficulty, decreased clearance with marching on sandoval pad vs foam. Physical Therapy Plan Frequency and Duration Frequency of Treatment 2x/Week Duration of treatment (weeks) 8 Plan of Care Start Date 05/19/23 Plan of Care End Date 07/15/23 Next Visit Focus/Plan Next Note Type Treatment Note Next Visit Plan Gait training with 4ww vs spc, focus on turns/obstacles/ thresholds. BLE strengthening: STS, possibly seated cheerleader w/o band in clinic Balance: weight shifts, uneven surface isometric reactive bal recovery, continue steps up/over, hurdles, decrease hand use, change surface and BELLE
--- NOTE | 2023-06-16 16:37 | PT.OTN ---
Current Diagnoses Parkinsonism, unspecified (06/16/23) Essential tremor (06/16/23) Physical Therapy Treatment Note PT-OP-A Visit Information Start: 05/19/23 14:30 Freq: Status: Active Protocol: Document 06/16/23 12:45 NM (Rec: 06/16/23 13:47 NM [id number]) Out-Patient Physical Therapy Visit Information Visit Information Visit Type Progress Note Visit Note post 6 MWT 131/69 mmHg, not symptomatic Visit Start Time 13:05 Visit Stop Time 13:45 Visit Number 8 Evaluation Information Evaluation Date 05/19/23 Precautions Precautions PD, fall risk PT-OP-B Current Condition Start: 05/19/23 14:30 Freq: Status: Active Protocol: Document 05/19/23 14:31 NM (Rec: 05/19/23 16:16 NM [id number]) Current Condition History of Current Condition Onset Date 5 years ago Current Complaints balance and gait problems, unsteady History of Current Condition Pt presents with balance and gait abnormalities. She has PD , dx 2 years ago. She uses a spc for community ambulation on R side, no AD home. She reports difficulty with coming to stand, unsteady with standing and ambulation. She feels like her body is always moving. She is on gabapentin and several parkinson's drugs . She has had several falls, usually backward; most recently 6 months ago when she was cleaning the toilet. She was unable to get herself up off the ground but was uninjured. Motor signs: tremor , unable to write, bradykinesia, small movements; no reports of freezing with gait. She lives with her . They have stairs with rails but she does not normally perform stairs; she can perform the stairs outside of her home with the hand rails. She reports pain in her R trunk from shingles. PT-OP-C Subjective Start: 05/19/23 14:30 Freq: Status: Active Protocol: Document 06/16/23 12:45 NM (Rec: 06/16/23 13:47 NM [id number]) OP-PT Subjective Patient Comments Patient Comments Pt reports did not sleep well last night, so she is very tired. Report no changes from walk in clinic visit, no dizziness, or changes in blood pressure. PT-OP-D Balance Start: 05/19/23 14:30 Freq: Status: Active Protocol: Document 05/19/23 14:31 NM (Rec: 05/19/23 16:16 NM [id number]) OP-PT Balance Assessment Sitting Balance Static Sitting Balance Ability Good Dynamic Sitting Balance Ability Good Standing Balance Static Standing Balance Ability Fair Dynamic Standing Balance Ability Fair Balance Tests Romberg Romberg 10 seconds; moderate trunk sway Single Limb Standing Single Limb- Right 3 sec Single Limb- Left 0 sec Tandem Tandem Standing unable to achieve or maintain position without LOB Marshall Fall Scale Copyright Permission PT-OP-E Functional Tests Start: 05/19/23 14:30 Freq: Status: Active Protocol: Document 05/19/23 14:31 NM (Rec: 05/19/23 16:16 NM [id number]) Functional Tests 6 Minute Walk Test Distance 560 ft Device Used spc, gait belt Comments increased sway, decreased foot clearance, unstable turns, staggers Five Times Sit to Stand Test Score 28.21 sec Comments without UE, slow movement pattern, retropulses with lowering Timed Up and Go (TUG) Score 29.12 sec Comments using spc Other DGI Score 12 Comment using spc; difficulty with clearing cones, changing directions PT-OP-F Manual Assessment Start: 05/19/23 14:30 Freq: Status: Active Protocol: Document 05/19/23 14:31 NM (Rec: 05/19/23 16:16 NM [id number]) Manual Assessments Soft Tissue Assessment Soft Tissue Mobility Assessment Rigidity of trunk, BLE. Decreased B hamstring length Joint Mobility Assessment Joint Mobility Assessment Decreased trunk rotation with gait. B hip and shoulder PROM within functional limits PT-OP-G Mobility & Gait Start: 05/19/23 14:30 Freq: Status: Active Protocol: Document 05/19/23 14:31 NM (Rec: 05/19/23 16:16 NM [id number]) OP Gait Assessment Gait Gait Assistance Required: Contact Guard Assist Distance (Feet) 560 Assistive Devices Assistive Device Gait Belt,Straight Cane Gait Deviations General Gait Pattern Decreased Stride Length, Decreased Feet Clearance, Flexed Trunk Factors Limiting Gait Function Factors Limiting Gait Function Abnormal Tonal Influences, Decreased Activity Tolerance, Decreased Sensation,Decreased Strength,Incoordination,Poor Balance Stair Climbing Evaluation Evaluation Level of Assist On Stairs Contact Guard Assistance Devices Stair Climbing Assistive Devices Right Railing Technique/Endurance Stair Climbing Direction Ascend and Descend Stair Climbing Technique Step to Step Number of Steps Climbed 4 Stair Climbing Set # Repetitions (reps) 1 Comments Stair Climbing Comments Only used rail to descend. Catches foot on step frequently, increased trunk sway PT-OP-H Neuro Start: 05/19/23 14:30 Freq: Status: Active Protocol: Document 05/19/23 14:31 NM (Rec: 05/19/23 16:16 NM [id number]) Sensation Evaluation Gross Sensation Gross Sensation Trunk Impaired Sensation Description Hyperesthesia,Burning Coordination Evaluation Upper Extremity Tests Right Finger to Nose Test Moderate Impairment Finger to Therapist's Finger Test Moderate Impairment Finger to Finger Test Moderate Impairment Alternate Nose to Finger Test Severe Impairment Left Finger to Nose Test Severe Impairment Finger to Therapist's Finger Test Moderate Impairment Finger to Finger Test Moderate Impairment Alternate Nose to Finger Test Moderate Impairment Lower Extremity Tests Right Heel on Mahoney Test Minimal Impairment Foot Tapping Test Moderate Impairment Left Heel on [place]oney Test Minimal Impairment Foot Tapping Test Moderate Impairment PT-OP-J Posture/Palpation/Skin Start: 05/19/23 14:30 Freq: Status: Active Protocol: Document 05/19/23 14:31 NM (Rec: 05/19/23 16:16 NM [id number]) Posture Evaluation Position Standing Evaluation View Lateral Head/C-Spine Posture Forward Head T-Spine Posture Increased Kyphosis L-Spine Posture Neutral Shoulder Posture (L) Rounded,(R) Rounded,(L) Forward,(R) Forward Scapula Posture (L) Protracted,(R) Protracted Pelvis Posture Neutral Weight Distribution Weight Shifted Posterior Hip Posture (L) Neutral,(R) Neutral Palpation Assessment Location Trunk Palpation Location R mid-thoracic trunk Palpation Findings Tenderness PT-OP-K Range of Motion Start: 05/19/23 14:30 Freq: Status: Active Protocol: Document 05/19/23 14:31 NM (Rec: 05/19/23 16:16 NM [id number]) Hip Goniometric Range of Motion Hip Right Comments Hamstring length: 140 deg Left Comments Hamstring length: 130 deg PT-OP-M Strength Start: 05/19/23 14:30 Freq: Status: Active Protocol: Document 05/19/23 14:31 NM (Rec: 05/19/23 16:16 NM [id number]) Shoulder Strength Shoulder Manual Muscle Testing Right Flexion 4- Good- Extension 4- Good- Abduction (C5) 4- Good- Left Flexion 4- Good- Extension 4- Good- Abduction (C5) 4- Good- Elbow/Forearm Strength Elbow and Forearm Manual Muscle Testing Right Flexion (C6) 4- Good- Extension (C7) 4- Good- Left Flexion (C6) 4- Good- Extension (C7) 4- Good- Wrist Strength Wrist Manual Muscle Testing Right Flexion (C7) 3+ Fair+ Extension (C6) 3+ Fair+ Left Flexion (C7) 3+ Fair+ Extension (C6) 3+ Fair+ Hip Strength Hip Manual Muscle Testing Right Flexion (L2) 4- Good- Extension (S1) 4- Good- Abduction 4- Good- Adduction 4- Good- External Rotation 4- Good- Internal Rotation 4- Good- Left Flexion (L2) 3+ Fair+ Extension (S1) 3+ Fair+ Abduction 3+ Fair+ Adduction 3+ Fair+ External Rotation 3+ Fair+ Internal Rotation 3+ Fair+ Knee Strength Knee Manual Muscle Testing Right Flexion (S2) 4- Good- Extension (L3) 4- Good- Left Flexion (S2) 3+ Fair+ Extension (L3) 3+ Fair+ Ankle/Foot Strength Ankle and Foot Manual Muscle Testing Right Dorsiflexion (L4) 4 Good Plantarflexion (S1) 4 Good Left Dorsiflexion (L4) 4 Good Plantarflexion (S1) 4 Good PT-OP-Q Treatments Start: 05/19/23 14:30 Freq: Status: Active Protocol: Document 06/16/23 12:45 NM (Rec: 06/16/23 13:47 NM [id number]) Therapeutic Exercises Standing Exercises step up Standing Exercise Name 6 step Side bilateral Resistance AROM Equipment Used 1 hand rail assist for balance Reps/Minutes 2x10 ea, R more challenging than L Comments PT facilitating weight shift initially; cued BIG step with DF for toe clear sit to stand Standing Exercise Name 5x STS performed Side bilateral Equipment Used plinth, 20 height Reps/Minutes 2x5 Comments improved anterior weight shift , increased time required, no UE assist Gait Training Gait Activity 6 MWT Device Used spc Level of Assistance close SBA > 1 instance CGA as pt fatigues Surface stable: tile, carpet, obstacles Distance/Duration 6 minutes: 680 ft Treatment Focus endurance, sequencing, gait pattern, balance Comments Pt with slow gait speed, intermittent 2-3pt sequencing with spc. Cued for spc placement more in front of pt vs to side of pt. As pt fatigues, tends to demo more course deviation and slower gait pattern. 1 instance CGA to steady, pt with hip strategy, reports only fatigue . stairs Description reciprocal stairs Device Used 1 hand rail assist Level of Assistance CGA to steady Distance/Duration 2 sets x 4 stairs Treatment Focus reciprocal gait ascend/descend , eccentric control, weight shift, balance Comments Pt with increased time during descent. Cued for large step during ascent, dorsiflexion for toe clearance. Reciprocal gait for both, R hand rail assist for balance. SPC Comments 686 ft Neuro Re-Education Treatment Balance Activities Burch Comments 42/56 (difficulty with fwd reach, standing 1 foot, tandem , eyes closed, 360 turn and step tap) Requires increased time for 360 turning. Challenged with forward weight shift during forward reach. Difficulty with stepping to achieve tandem, even with support tandem stepping Surface floor Reps/Duration x 10 ft Comments CGA to steady hurdles Equipment 4 hurdles Reps/Duration 2 sets ea Comments 1. forward stepping in // bars , hands hovering but no UE use CGA to steady 2. lateral stepping in // bars , hands hovering but no UE use CGA to steady 3. forward stepping while on elevated mat with hurdles CGA>min A to steady, no LOB but challenged. Cued closer foot placement prior to stepping over [place] for safety, weight shift to center BELLE over foot TUG Details spc Surface stable Reps/Duration 3 reps Comments 22 sec, 21 sec, 17 sec Increased time as pt transfers to/from chair with first 2 reps, turning around cone. close SBA but no instances LOB Unstable surface Surface unstable blue mat Reps/Duration 2 reps fwd ambulation, no spc Comments Ambulation on unstable, raised mat Balance significantly challenged. 2 instances min A to prevent LOB. Pt cued for large step onto mat, forward weight shift to center BELLE over mid foot. Improved stepping with repetitions, slower gait. Demos hip strategy, stepping strategy to balance. PT hand support to step off mat 1x Weight shifts Details A/P weight shifts Surface foam Equipment in //bars, no UE support; CGA to steady prn Reps/Duration 1x10 Comments Pt with anterior shift onto toes in standing, feet shoulder-width apart. Cued for small anterior weight shift onto midfoot. PT performing tactile cues at hips and trunk to prevent post lean, PT finger tips at ea hip as cue to shift anterior Step taps Details at stairs hand above rail Surface stable Equipment 6 inch step Reps/Duration 2x8 reps for Burch ea LE Comments CGA with gait belt first set with eyes on step, second set eyes straight ahead PT-OP-T Assessment and Plan Start: 05/19/23 14:30 Freq: Status: Active Protocol: Document 06/16/23 12:45 NM (Rec: 06/16/23 13:47 NM [id number]) Physical Therapy Assessment Goals Four Impairment gait Impairment 6 MWT 560 ft using spc Short Term Goal (STG) Pt will increase 6 MWT distance by at least 50 ft using LRAD with improved B foot clearance in order to demonstrate improved gait and balance. 06/16/23: 680 ft spc STG Duration 4 weeks Mcfp Goal (LTG) Pt will increase 6 MWT distance by at least 100 ft using LRAD with improved B foot clearance in order to demonstrate improved gait and balance. 06/16/23: 680 ft with spc LTG Duration 8 weeks MET Three Impairment strength Impairment 5x STS 28.21 seconds Short Term Goal (STG) Pt will decrease 5x STS to less than 24 seconds in order to demonstrate improved BLE strength 06/16/23: 23.5 sec, 20 table; requires increased time, bradykinesia STG Duration 4 weeks MET Manager Roofing Goal (LTG) Pt will decrease 5x STS to less than 20 seconds in order to demonstrate improved BLE strength LTG Duration 8 weeks Two Impairment balance Impairment Burch 35/56 Short Term Goal (STG) Pt will increase Burch score to at least >40/56 in order to demonstrate improved balance and decreased fall risk 06/16/23: 42/56 (difficulty with fwd reach, standing 1 foot, tandem, eyes closed, 360 turn and step tap) STG Duration 4 weeks MET Manager Roofing Goal (LTG) Pt will increase Burch score to at least >45/56 in order to demonstrate improved balance and decreased fall risk LTG Duration 8 weeks One Impairment balance Impairment TUG 29.12 seconds using spc, close SBA Short Term Goal (STG) Pt will complete TUG in less than 25 seconds using LRAD and SBA or better in order to demonstrate improved balance and decreased fall risk 05/31/23: 23.44 sec, 18.49 sec with spc, close SBA; 29 sec with FWW (1st attempt) 06/16/23: 21 sec, 22 sec, 17 sec with spc STG Duration 4 weeks Mcfp Goal (LTG) Pt will complete TUG in less than 20 seconds using LRAD and SBA or better in order to demonstrate improved balance and decreased fall risk 06/16/23: 22 sec, 21 sec, 17 sec with spc LTG Duration 8 weeks MET Progress Towards Goals Progress Towards Goals Progressing Toward Goals,Goals Met Progress Comments Pt progressing toward goals. Met TUG and 6 MWT distance goals today. Assessment Summary Assessment Pt tolerated session well, PN today. Performed 6 MWT for gait training, endurance. Pt met distance goal using spc and close SBA with only 1 instance of CGA to steady pt. As pt fatigues, demos increased deviation in gait path. Pt cued for spc placement more forward with prn cues for sequencing. Trialed stairs with pt using only 1 hand rail to assist, CGA to steady with cues for toe clearance. Pt demos difficulty with weight shifting today onto stance LE during balance activities and demos increased posterior lean while standing today. PT cued pt to center BELLE over midfoot , facilitating at hips as needed. Improved with repetitions. Pt continues to be challenged by activities involving narrow BELLE or unstable surfaces. Pt has been seen since x7 sessions since IE to address balance and gait abnormalities . Pt is progressing toward goals and has met 2 LTG regarding 6 MWT and TUG time. She is progressing well toward Burch balance goal and 5x STS goal. Pt demonstrates bradykinesia with movement, which decreases her reaction time and affects her balance and other movement patterns. She is a good candidate for LSVT BIG to address decreasing Parkinsonian symptoms. Pt would benefit from skilled PT for further gait and balance training, in addition to BLE strengthening in order to decrease fall risk and caregiver burden. Physical Therapy Plan Frequency and Duration Frequency of Treatment 2x/Week Duration of treatment (weeks) 8 Plan of Care Start Date 05/19/23 Plan of Care End Date 07/15/23 Therapeutic Interventions Therapeutic Interventions Balance Training,Coordination Training,Gait Training,Home Exercise Program,Joint Mobilizations,Manual Therapy, Neuromuscular Re-education, Orthotic/Prosthetic Management ,Patient/Caregiver Education, Self-Care/Home Management, Sensory Integration,Soft Tissue Mobilization,Taping, Therapeutic Activities, Therapeutic Exercises Modalities Cold Pack/Ice Massage,Electric Stimulation,Hot Packs, Ultrasound,Vasopneumatic Devices Other Therapeutic Interventions Fall-risk training Next Visit Focus/Plan Next Note Type Treatment Note Next Visit Plan Gait training with spc, focus on turns/obstacles/thresholds. BLE strengthening: STS, possibly seated cheerleader w/ o band in clinic Balance: weight shifts, uneven surface isometric reactive bal recovery, continue steps up/ over, hurdles, decrease hand use, change surface and BELLE Emphasize weight shifts, centered BELLE with balance activities, BIG movements
--- NOTE | 2023-06-21 14:12 | PT.OTN ---
Current Diagnoses Parkinsonism, unspecified (06/21/23) Essential tremor (06/21/23) Physical Therapy Treatment Note PT-OP-A Visit Information Start: 05/19/23 14:30 Freq: Status: Active Protocol: Document 06/21/23 12:18 AB (Rec: 06/21/23 14:11 AB [id number]) Out-Patient Physical Therapy Visit Information Visit Information Visit Type Treatment Note Visit Note Access Code: [email or web address] Visit Start Time 13:12 Visit Stop Time 13:54 Visit Number 9 Number of INDEPENDENT PRODUCER Visits 1 Evaluation Information Evaluation Date 05/19/23 Precautions Precautions PD, fall risk PT-OP-B Current Condition Start: 05/19/23 14:30 Freq: Status: Active Protocol: Document 05/19/23 14:31 NM (Rec: 05/19/23 16:16 NM [id number]) Current Condition History of Current Condition Onset Date 5 years ago Current Complaints balance and gait problems, unsteady History of Current Condition Pt presents with balance and gait abnormalities. She has PD , dx 2 years ago. She uses a spc for community ambulation on R side, no AD home. She reports difficulty with coming to stand, unsteady with standing and ambulation. She feels like her body is always moving. She is on gabapentin and several parkinson's drugs . She has had several falls, usually backward; most recently 6 months ago when she was cleaning the toilet. She was unable to get herself up off the ground but was uninjured. Motor signs: tremor , unable to write, bradykinesia, small movements; no reports of freezing with gait. She lives with her . They have stairs with rails but she does not normally perform stairs; she can perform the stairs outside of her home with the hand rails. She reports pain in her R trunk from shingles. PT-OP-C Subjective Start: 05/19/23 14:30 Freq: Status: Active Protocol: Document 06/21/23 12:18 AB (Rec: 06/21/23 14:11 AB [id number]) OP-PT Subjective Patient Comments Patient Comments Patient reports back has been hurting for the past 2 days, attributes to doing the laundry. Kaylah rates right sided back pain 4-5/10 start of session. PT-OP-D Balance Start: 05/19/23 14:30 Freq: Status: Active Protocol: Document 05/19/23 14:31 NM (Rec: 05/19/23 16:16 NM [id number]) OP-PT Balance Assessment Sitting Balance Static Sitting Balance Ability Good Dynamic Sitting Balance Ability Good Standing Balance Static Standing Balance Ability Fair Dynamic Standing Balance Ability Fair Balance Tests Romberg Romberg 10 seconds; moderate trunk sway Single Limb Standing Single Limb- Right 3 sec Single Limb- Left 0 sec Tandem Tandem Standing unable to achieve or maintain position without LOB Marshall Fall Scale Copyright Permission PT-OP-E Functional Tests Start: 05/19/23 14:30 Freq: Status: Active Protocol: Document 05/19/23 14:31 NM (Rec: 05/19/23 16:16 NM [id number]) Functional Tests 6 Minute Walk Test Distance 560 ft Device Used spc, gait belt Comments increased sway, decreased foot clearance, unstable turns, staggers Five Times Sit to Stand Test Score 28.21 sec Comments without UE, slow movement pattern, retropulses with lowering Timed Up and Go (TUG) Score 29.12 sec Comments using spc Other DGI Score 12 Comment using spc; difficulty with clearing cones, changing directions PT-OP-F Manual Assessment Start: 05/19/23 14:30 Freq: Status: Active Protocol: Document 05/19/23 14:31 NM (Rec: 05/19/23 16:16 NM [id number]) Manual Assessments Soft Tissue Assessment Soft Tissue Mobility Assessment Rigidity of trunk, BLE. Decreased B hamstring length Joint Mobility Assessment Joint Mobility Assessment Decreased trunk rotation with gait. B hip and shoulder PROM within functional limits PT-OP-G Mobility & Gait Start: 05/19/23 14:30 Freq: Status: Active Protocol: Document 05/19/23 14:31 NM (Rec: 05/19/23 16:16 NM [id number]) OP Gait Assessment Gait Gait Assistance Required: Contact Guard Assist Distance (Feet) 560 Assistive Devices Assistive Device Gait Belt,Straight Cane Gait Deviations General Gait Pattern Decreased Stride Length, Decreased Feet Clearance, Flexed Trunk Factors Limiting Gait Function Factors Limiting Gait Function Abnormal Tonal Influences, Decreased Activity Tolerance, Decreased Sensation,Decreased Strength,Incoordination,Poor Balance Stair Climbing Evaluation Evaluation Level of Assist On Stairs Contact Guard Assistance Devices Stair Climbing Assistive Devices Right Railing Technique/Endurance Stair Climbing Direction Ascend and Descend Stair Climbing Technique Step to Step Number of Steps Climbed 4 Stair Climbing Set # Repetitions (reps) 1 Comments Stair Climbing Comments Only used rail to descend. Catches foot on step frequently, increased trunk sway PT-OP-H Neuro Start: 05/19/23 14:30 Freq: Status: Active Protocol: Document 05/19/23 14:31 NM (Rec: 05/19/23 16:16 NM [id number]) Sensation Evaluation Gross Sensation Gross Sensation Trunk Impaired Sensation Description Hyperesthesia,Burning Coordination Evaluation Upper Extremity Tests Right Finger to Nose Test Moderate Impairment Finger to Therapist's Finger Test Moderate Impairment Finger to Finger Test Moderate Impairment Alternate Nose to Finger Test Severe Impairment Left Finger to Nose Test Severe Impairment Finger to Therapist's Finger Test Moderate Impairment Finger to Finger Test Moderate Impairment Alternate Nose to Finger Test Moderate Impairment Lower Extremity Tests Right Heel on Mahoney Test Minimal Impairment Foot Tapping Test Moderate Impairment Left Heel on Mahoney Test Minimal Impairment Foot Tapping Test Moderate Impairment PT-OP-J Posture/Palpation/Skin Start: 05/19/23 14:30 Freq: Status: Active Protocol: Document 05/19/23 14:31 NM (Rec: 05/19/23 16:16 NM [id number]) Posture Evaluation Position Standing Evaluation View Lateral Head/C-Spine Posture Forward Head T-Spine Posture Increased Kyphosis L-Spine Posture Neutral Shoulder Posture (L) Rounded,(R) Rounded,(L) Forward,(R) Forward Scapula Posture (L) Protracted,(R) Protracted Pelvis Posture Neutral Weight Distribution Weight Shifted Posterior Hip Posture (L) Neutral,(R) Neutral Palpation Assessment Location Trunk Palpation Location R mid-thoracic trunk Palpation Findings Tenderness PT-OP-K Range of Motion Start: 05/19/23 14:30 Freq: Status: Active Protocol: Document 05/19/23 14:31 NM (Rec: 05/19/23 16:16 NM [id number]) Hip Goniometric Range of Motion Hip Right Comments Hamstring length: 140 deg Left Comments Hamstring length: 130 deg PT-OP-M Strength Start: 05/19/23 14:30 Freq: Status: Active Protocol: Document 05/19/23 14:31 NM (Rec: 05/19/23 16:16 NM [id number]) Shoulder Strength Shoulder Manual Muscle Testing Right Flexion 4- Good- Extension 4- Good- Abduction (C5) 4- Good- Left Flexion 4- Good- Extension 4- Good- Abduction (C5) 4- Good- Elbow/Forearm Strength Elbow and Forearm Manual Muscle Testing Right Flexion (C6) 4- Good- Extension (C7) 4- Good- Left Flexion (C6) 4- Good- Extension (C7) 4- Good- Wrist Strength Wrist Manual Muscle Testing Right Flexion (C7) 3+ Fair+ Extension (C6) 3+ Fair+ Left Flexion (C7) 3+ Fair+ Extension (C6) 3+ Fair+ Hip Strength Hip Manual Muscle Testing Right Flexion (L2) 4- Good- Extension (S1) 4- Good- Abduction 4- Good- Adduction 4- Good- External Rotation 4- Good- Internal Rotation 4- Good- Left Flexion (L2) 3+ Fair+ Extension (S1) 3+ Fair+ Abduction 3+ Fair+ Adduction 3+ Fair+ External Rotation 3+ Fair+ Internal Rotation 3+ Fair+ Knee Strength Knee Manual Muscle Testing Right Flexion (S2) 4- Good- Extension (L3) 4- Good- Left Flexion (S2) 3+ Fair+ Extension (L3) 3+ Fair+ Ankle/Foot Strength Ankle and Foot Manual Muscle Testing Right Dorsiflexion (L4) 4 Good Plantarflexion (S1) 4 Good Left Dorsiflexion (L4) 4 Good Plantarflexion (S1) 4 Good PT-OP-Q Treatments Start: 05/19/23 14:30 Freq: Status: Active Protocol: Document 06/21/23 12:18 AB (Rec: 06/21/23 14:11 AB [id number]) Therapeutic Exercises Sitting Exercises seated cheerleaders Sitting Exercise Name cheerleader seated for posture Side bilateral Reps/Minutes X6 Comments no band, visual cues hip abduction Sitting Exercise Name for hip abd strengthening Side bilateral Resistance light blue lvl 1 band Reps/Minutes 1X10 slowly then one one minute hold for activation Comments initiated with level 2, the returned to level one due to dec ROM Standing Exercises sit to stand Standing Exercise Name mesh chair Side bilateral Reps/Minutes 2X5 Comments TC at knees, Verbal cues to stand fully upright when reaching upright Neuro Re-Education Treatment Balance Activities Standing cheerleader Details CGA performed with mini lateral lunge without UE use end of // bars Reps/Duration X8 Comments Verbal cues for UE, LE position, direction of movements and to increase depth of lunge slightly Balloon volleyball on blue cushion Details CGA to minimal assist Reps/Duration 3 min Comments does not move more than minimally out of COG wall fall Details 2 pillows behind back Reps/Duration X10 Comments close supervision, mimics a hip strategy Shuttle Details feet on 4's then stagger stance Surface unsteady Equipment shuttle Reps/Duration 4 minutes Comments CGA with gait belt, performed with visual challenges and head turns, eyes closed with feet on 4's X 3 tandem stepping Surface floor Reps/Duration x 10 ft X6 hands above paralle bars Comments CGA hurdles Equipment hurdles Reps/Duration 10 feet in // bars X 6 Comments hands above bars using bars as needed with CGA Unstable surface Details CGA to very minimal assist Surface unstable blue mat Reps/Duration marching X 12 Weight shifts Details A/P weight shifts and lateral Equipment on floor ll bars no UE support CGA Comments Verbal and tactile cues Step taps Details at stairs hand above rail Surface stable Equipment 6 inch step Reps/Duration X12 Comments CGA with gait belt first set with eyes on step, second set eyes straight ahead PT-OP-T Assessment and Plan Start: 05/19/23 14:30 Freq: Status: Active Protocol: Document 06/21/23 12:18 AB (Rec: 06/21/23 14:11 AB [id number]) Physical Therapy Assessment Goals Four Impairment gait Impairment 6 MWT 560 ft using spc Short Term Goal (STG) Pt will increase 6 MWT distance by at least 50 ft using LRAD with improved B foot clearance in order to demonstrate improved gait and balance. 06/16/23: 680 ft spc STG Duration 4 weeks Detention Goal (LTG) Pt will increase 6 MWT distance by at least 100 ft using LRAD with improved B foot clearance in order to demonstrate improved gait and balance. 06/16/23: 680 ft with spc LTG Duration 8 weeks MET Three Impairment strength Impairment 5x STS 28.21 seconds Short Term Goal (STG) Pt will decrease 5x STS to less than 24 seconds in order to demonstrate improved BLE strength 06/16/23: 23.5 sec, 20 table; requires increased time, bradykinesia STG Duration 4 weeks MET Detention Goal (LTG) Pt will decrease 5x STS to less than 20 seconds in order to demonstrate improved BLE strength LTG Duration 8 weeks Two Impairment balance Impairment Burch 35/56 Short Term Goal (STG) Pt will increase Burch score to at least >40/56 in order to demonstrate improved balance and decreased fall risk 06/16/23: 42/56 (difficulty with fwd reach, standing 1 foot, tandem, eyes closed, 360 turn and step tap) STG Duration 4 weeks MET Detention Goal (LTG) Pt will increase Burch score to at least >45/56 in order to demonstrate improved balance and decreased fall risk LTG Duration 8 weeks One Impairment balance Impairment TUG 29.12 seconds using spc, close SBA Short Term Goal (STG) Pt will complete TUG in less than 25 seconds using LRAD and SBA or better in order to demonstrate improved balance and decreased fall risk 05/31/23: 23.44 sec, 18.49 sec with spc, close SBA; 29 sec with FWW (1st attempt) 06/16/23: 21 sec, 22 sec, 17 sec with spc STG Duration 4 weeks Marketing Rep Goal (LTG) Pt will complete TUG in less than 20 seconds using LRAD and SBA or better in order to demonstrate improved balance and decreased fall risk 06/16/23: 22 sec, 21 sec, 17 sec with spc LTG Duration 8 weeks MET Assessment Summary Assessment Patient reports right sided back pain / end of session. Noted to instances of slightly posterior weight shift during session. Patient able to correct slightly posterior position with wall fall exercise. Physical Therapy Plan Frequency and Duration Frequency of Treatment 2x/Week Duration of treatment (weeks) 8 Plan of Care Start Date 05/19/23 Plan of Care End Date 07/15/23 Next Visit Focus/Plan Next Note Type Treatment Note Next Visit Plan Gait training with spc, focus on turns/obstacles/thresholds. BLE strengthening: STS, possibly seated cheerleader w/ o band in clinic Balance: weight shifts, uneven surface isometric reactive bal recovery, continue steps up/ over, hurdles, decrease hand use, change surface and BELLE Emphasize weight shifts, centered BELLE with balance activities, BIG movements
--- NOTE | 2023-06-23 14:04 | PT.OTN ---
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 She has PD , dx 2 years ago. She uses a spc for community ambulation on R side, no AD home. She reports difficulty with coming to stand, unsteady with standing and ambulation. She feels like her body is always moving. She is on gabapentin and several parkinson's drugs . She has had several falls, usually backward; most recently 6 months ago when she was cleaning the toilet. She was unable to get herself up off the ground but was uninjured. Motor signs: tremor , unable to write, bradykinesia, small movements; no reports of freezing with gait. She lives with her . They have stairs with rails but she does not normally perform stairs; she can perform the stairs outside of her home with the hand rails. She reports pain in her R trunk from shingles. PT-OP-C Subjective Start: 05/19/23 14:30 Freq: Status: Active Protocol: Document 06/23/23 12:45 AB (Rec: 06/23/23 14:04 AB [id number]) OP-PT Subjective Patient Comments Patient Comments Patient reports her big toe was hurting on right foot, but is not hurting in the shoes she is wearing now, declines allowing toe to be examined. Patient reports the toe is not red and she was treated for this toe last February. Patient comments that it is hard to find shoes for the toenail and she poked it the other day, which made it sore. Patient reports having no back pain this session other than the regular pain. PT-OP-D Balance Start: 05/19/23 14:30 Freq: Status: Active Protocol: Document 05/19/23 14:31 NM (Rec: 05/19/23 16:16 NM [id number]) OP-PT Balance Assessment Sitting Balance Static Sitting Balance Ability Good Dynamic Sitting Balance Ability Good Standing Balance Static Standing Balance Ability Fair Dynamic Standing Balance Ability Fair Balance Tests Romberg Romberg 10 seconds; moderate trunk sway Single Limb Standing Single Limb- Right 3 sec Single Limb- Left 0 sec Tandem Tandem Standing unable to achieve or maintain position without LOB Marshall Fall Scale Copyright Permission PT-OP-E Functional Tests Start: 05/19/23 14:30 Freq: Status: Active Protocol: Document 05/19/23 14:31 NM (Rec: 05/19/23 16:16 NM [id number]) Functional Tests 6 Minute Walk Test Distance 560 ft Device Used spc, gait belt Comments increased sway, decreased foot clearance, unstable turns, staggers Five Times Sit to Stand Test Score 28.21 sec Comments without UE, slow movement pattern, retropulses with lowering Timed Up and Go (TUG) Score 29.12 sec Comments using spc Other DGI Score 12/24 Comment using spc; difficulty with clearing cones, changing directions PT-OP-F Manual Assessment Start: 05/19/23 14:30 Freq: Status: Active Protocol: Document 05/19/23 14:31 NM (Rec: 05/19/23 16:16 NM [id number]) Manual Assessments Soft Tissue Assessment Soft Tissue Mobility Assessment Rigidity of trunk, BLE. Decreased B hamstring length Joint Mobility Assessment Joint Mobility Assessment Decreased trunk rotation with gait. B hip and shoulder PROM within functional limits PT-OP-G Mobility & Gait Start: 05/19/23 14:30 Freq: Status: Active Protocol: Document 05/19/23 14:31 NM (Rec: 05/19/23 16:16 NM [id number]) OP Gait Assessment Gait Gait Assistance Required: Contact Guard Assist Distance (Feet) 560 Assistive Devices Assistive Device Gait Belt,Straight Cane Gait Deviations General Gait Pattern Decreased Stride Length, Decreased Feet Clearance, Flexed Trunk Factors Limiting Gait Function Factors Limiting Gait Function Abnormal Tonal Influences, Decreased Activity Tolerance, Decreased Sensation,Decreased Strength,Incoordination,Poor Balance Stair Climbing Evaluation Evaluation Level of Assist On Stairs Contact Guard Assistance Devices Stair Climbing Assistive Devices Right Railing Technique/Endurance Stair Climbing Direction Ascend and Descend Stair Climbing Technique Step to Step Number of Steps Climbed 4 Stair Climbing Set # Repetitions (reps) 1 Comments Stair Climbing Comments Only used rail to descend. Catches foot on step frequently, increased trunk sway PT-OP-H Neuro Start: 05/19/23 14:30 Freq: Status: Active Protocol: Document 05/19/23 14:31 NM (Rec: 05/19/23 16:16 NM [id number]) Sensation Evaluation Gross Sensation Gross Sensation Trunk Impaired Sensation Description Hyperesthesia,Burning Coordination Evaluation Upper Extremity Tests Right Finger to Nose Test Moderate Impairment Finger to Therapist's Finger Test Moderate Impairment Finger to Finger Test Moderate Impairment Alternate Nose to Finger Test Severe Impairment Left Finger to Nose Test Severe Impairment Finger to Therapist's Finger Test Moderate Impairment Finger to Finger Test Moderate Impairment Alternate Nose to Finger Test Moderate Impairment Lower Extremity Tests Right Heel on Mahoney Test Minimal Impairment Foot Tapping Test Moderate Impairment Left Heel on Mahoney Test Minimal Impairment Foot Tapping Test Moderate Impairment PT-OP-J Posture/Palpation/Skin Start: 05/19/23 14:30 Freq: Status: Active Protocol: Document 05/19/23 14:31 NM (Rec: 05/19/23 16:16 NM [id number]) Posture Evaluation Position Standing Evaluation View Lateral Head/C-Spine Posture Forward Head T-Spine Posture Increased Kyphosis L-Spine Posture Neutral Shoulder Posture (L) Rounded,(R) Rounded,(L) Forward,(R) Forward Scapula Posture (L) Protracted,(R) Protracted Pelvis Posture Neutral Weight Distribution Weight Shifted Posterior Hip Posture (L) Neutral,(R) Neutral Palpation Assessment Location Trunk Palpation Location R mid-thoracic trunk Palpation Findings Tenderness PT-OP-K Range of Motion Start: 05/19/23 14:30 Freq: Status: Active Protocol: Document 05/19/23 14:31 NM (Rec: 05/19/23 16:16 NM [id number]) Hip Goniometric Range of Motion Hip Right Comments Hamstring length: 140 deg Left Comments Hamstring length: 130 deg PT-OP-M Strength Start: 05/19/23 14:30 Freq: Status: Active Protocol: Document 05/19/23 14:31 NM (Rec: 05/19/23 16:16 NM [id number]) Shoulder Strength Shoulder Manual Muscle Testing Right Flexion 4- Good- Extension 4- Good- Abduction (C5) 4- Good- Left Flexion 4- Good- Extension 4- Good- Abduction (C5) 4- Good- Elbow/Forearm Strength Elbow and Forearm Manual Muscle Testing Right Flexion (C6) 4- Good- Extension (C7) 4- Good- Left Flexion (C6) 4- Good- Extension (C7) 4- Good- Wrist Strength Wrist Manual Muscle Testing Right Flexion (C7) 3+ Fair+ Extension (C6) 3+ Fair+ Left Flexion (C7) 3+ Fair+ Extension (C6) 3+ Fair+ Hip Strength Hip Manual Muscle Testing Right Flexion (L2) 4- Good- Extension (S1) 4- Good- Abduction 4- Good- Adduction 4- Good- External Rotation 4- Good- Internal Rotation 4- Good- Left Flexion (L2) 3+ Fair+ Extension (S1) 3+ Fair+ Abduction 3+ Fair+ Adduction 3+ Fair+ External Rotation 3+ Fair+ Internal Rotation 3+ Fair+ Knee Strength Knee Manual Muscle Testing Right Flexion (S2) 4- Good- Extension (L3) 4- Good- Left Flexion (S2) 3+ Fair+ Extension (L3) 3+ Fair+ Ankle/Foot Strength Ankle and Foot Manual Muscle Testing Right Dorsiflexion (L4) 4 Good Plantarflexion (S1) 4 Good Left Dorsiflexion (L4) 4 Good Plantarflexion (S1) 4 Good PT-OP-Q Treatments Start: 05/19/23 14:30 Freq: Status: Active Protocol: Document 06/23/23 12:45 AB (Rec: 06/23/23 14:04 AB [id number]) Therapeutic Exercises Sitting Exercises hip abduction Sitting Exercise Name for hip abd strengthening Side bilateral Resistance light blue lvl 1 band Reps/Minutes 1X10 slowly then one one minute hold for activation Standing Exercises bilateral heel raise Standing Exercise Name eccentric and single leg heel raise Side bilateral Equipment Used parallel bars Reps/Minutes X4 and X 8 eccen then single LE Comments Verbal and visual cues Neuro Re-Education Treatment Balance Activities ambulation with SPC with object sweet pickle maker and tranfsers Details CGA, verbal cues for cane position and position of UE on rails Equipment chairs, cones Reps/Duration 8 min Comments Verbal cues to sweet pickle maker cones from floor and varying heights , 90 deg chair transfer, over rug to tile conversion on floor with quick turn on tile, ascending and descending stairs with rail and SPC, step to, and turns marching in place Details CGA to minimal assist Equipment on blue cushion and black foam Reps/Duration X5 and X 10 Comments increased assist required on blue cushion Standing cheerleader Details CGA performed with mini lateral lunge without UE use end of // bars Reps/Duration X8 Comments Verbal cues for UE, LE position, direction of movements and to increase depth of lunge slightly tandem stepping Details with and without visual scanning and head turns Surface floor Reps/Duration x 10 ft X6 hands above paralle bars Comments CGA hurdles Equipment hurdles Reps/Duration 10 feet in // bars X 6 Comments hands above bars using bars as needed with CGA, performed pre and post glute med activation Step taps Details at stairs hand above rail Surface stable Equipment 6 inch step Reps/Duration X12 Comments CGA with gait belt PT-OP-T Assessment and Plan Start: 05/19/23 14:30 Freq: Status: Active Protocol: Document 06/23/23 12:45 AB (Rec: 06/23/23 14:04 AB [id number]) Physical Therapy Assessment Goals Four Impairment gait Impairment 6 MWT 560 ft using spc Short Term Goal (STG) Pt will increase 6 MWT distance by at least 50 ft using LRAD with improved B foot clearance in order to demonstrate improved gait and balance. 06/16/23: 680 ft spc STG Duration 4 weeks Halfway Goal (LTG) Pt will increase 6 MWT distance by at least 100 ft using LRAD with improved B foot clearance in order to demonstrate improved gait and balance. 06/16/23: 680 ft with spc LTG Duration 8 weeks MET Three Impairment 5x STS 28.21 seconds Short Term Goal (STG) Pt will decrease 5x STS to less than 24 seconds in order to demonstrate improved BLE strength 06/16/23: 23.5 sec, 20 table; requires increased time, bradykinesia STG Duration 4 weeks MET Halfway Goal (LTG) Pt will decrease 5x STS to less than 20 seconds in order to demonstrate improved BLE strength LTG Duration 8 weeks Two Impairment balance Impairment Burch 35/56 Short Term Goal (STG) Pt will increase Burch score to at least >40/56 in order to demonstrate improved balance and decreased fall risk 06/16/23: 42/56 (difficulty with fwd reach, standing 1 foot, tandem, eyes closed, 360 turn and step tap) STG Duration 4 weeks MET Halfway Goal (LTG) Pt will increase Burch score to at least >45/56 in order to demonstrate improved balance and decreased fall risk LTG Duration 8 weeks One Impairment TUG 29.12 seconds using spc, close SBA Short Term Goal (STG) Pt will complete TUG in less than 25 seconds using LRAD and SBA or better in order to demonstrate improved balance and decreased fall risk 05/31/23: 23.44 sec, 18.49 sec with spc, close SBA; 29 sec with FWW (1st attempt) 06/16/23: 21 sec, 22 sec, 17 sec with spc STG Duration 4 weeks Halfway Goal (LTG) Pt will complete TUG in less than 20 seconds using LRAD and SBA or better in order to demonstrate improved balance and decreased fall risk 06/16/23: 22 sec, 21 sec, 17 sec with spc LTG Duration 8 weeks MET Assessment Summary Assessment Patient requires increased verbal cues for cane placement when ascending and descending stairs, more diffculty with positioning SPC when desc. Kaylah also, keeps SPC in air when stepping through turns. Physical Therapy Plan Frequency and Duration Frequency of Treatment 2x/Week Duration of treatment (weeks) 8 Plan of Care Start Date 05/19/23 Plan of Care End Date 07/15/23 Next Visit Focus/Plan Next Visit Plan Gait training with spc, focus on turns/obstacles/thresholds. BLE strengthening: STS, possibly standing lunge with cheerleader w/o band in clinic Balance: weight shifts, uneven surface isometric reactive bal recovery, continue steps up/over, hurdles, decrease hand use, change surface and BELLE Emphasize weight shifts, centered BELLE with balance activities, BIG movements
--- NOTE | 2023-06-27 15:17 | PT.OTN ---
Current Diagnoses Parkinsonism, unspecified (06/27/23) Essential tremor (06/27/23) Physical Therapy Treatment Note PT-OP-A Visit Information Start: 05/19/23 14:30 Freq: Status: Active Protocol: Document 06/27/23 14:35 SP (Rec: 06/27/23 15:52 SP [id number]) Out-Patient Physical Therapy Visit Information Visit Information Visit Type Treatment Note Visit Note PN due on visit 3 post PN Visit Start Time 14:35 Visit Stop Time 15:17 Visit Number 11 Number of HAND CANDLE MOLDER Visits 3 Evaluation Information Evaluation Date 05/19/23 Precautions Precautions PD, fall risk PT-OP-B Current Condition Start: 05/19/23 14:30 Freq: Status: Active Protocol: Document 05/19/23 14:31 NM (Rec: 05/19/23 16:16 NM [id number]) Current Condition History of Current Condition Onset Date 5 years ago Current Complaints balance and gait problems, unsteady History of Current Condition Pt presents with balance and gait abnormalities. She has PD , dx 2 years ago. She uses a spc for community ambulation on R side, no AD home. She reports difficulty with coming to stand, unsteady with standing and ambulation. She feels like her body is always moving. She is on gabapentin and several parkinson's drugs . She has had several falls, usually backward; most recently 6 months ago when she was cleaning the toilet. She was unable to get herself up off the ground but was uninjured. Motor signs: tremor , unable to write, bradykinesia, small movements; no reports of freezing with gait. She lives with her . They have stairs with rails but she does not normally perform stairs; she can perform the stairs outside of her home with the hand rails. She reports pain in her R trunk from shingles. PT-OP-C Subjective Start: 05/19/23 14:30 Freq: Status: Active Protocol: Document 06/27/23 14:35 SP (Rec: 06/27/23 15:52 SP [id number]) OP-PT Subjective Patient Comments Patient Comments Pt reports she thinks doing better overall, today her hands are more shaky. She takes small steps using SPC in RUE back to the gym. She is considering BIG after this PT encounter is over. PT-OP-D Balance Start: 05/19/23 14:30 Freq: Status: Active Protocol: Document 05/19/23 14:31 NM (Rec: 05/19/23 16:16 NM [id number]) OP-PT Balance Assessment Sitting Balance Static Sitting Balance Ability Good Dynamic Sitting Balance Ability Good Standing Balance Static Standing Balance Ability Fair Dynamic Standing Balance Ability Fair Balance Tests Romberg Romberg 10 seconds; moderate trunk sway Single Limb Standing Single Limb- Right 3 sec Single Limb- Left 0 sec Tandem Tandem Standing unable to achieve or maintain position without LOB Marshall Fall Scale Copyright Permission PT-OP-E Functional Tests Start: 05/19/23 14:30 Freq: Status: Active Protocol: Document 05/19/23 14:31 NM (Rec: 05/19/23 16:16 NM [id number]) Functional Tests 6 Minute Walk Test Distance 560 ft Device Used spc, gait belt Comments increased sway, decreased foot clearance, unstable turns, staggers Five Times Sit to Stand Test Score 28.21 sec Comments without UE, slow movement pattern, retropulses with lowering Timed Up and Go (TUG) Score 29.12 sec Comments using spc Other DGI Score 12 Comment using spc; difficulty with clearing cones, changing directions PT-OP-F Manual Assessment Start: 05/19/23 14:30 Freq: Status: Active Protocol: Document 05/19/23 14:31 NM (Rec: 05/19/23 16:16 NM [id number]) Manual Assessments Soft Tissue Assessment Soft Tissue Mobility Assessment Rigidity of trunk, BLE. Decreased B hamstring length Joint Mobility Assessment Joint Mobility Assessment Decreased trunk rotation with gait. B hip and shoulder PROM within functional limits PT-OP-G Mobility & Gait Start: 05/19/23 14:30 Freq: Status: Active Protocol: Document 05/19/23 14:31 NM (Rec: 05/19/23 16:16 NM [id number]) OP Gait Assessment Gait Gait Assistance Required: Contact Guard Assist Distance (Feet) 560 Assistive Devices Assistive Device Gait Belt,Straight Cane Gait Deviations General Gait Pattern Decreased Stride Length, Decreased Feet Clearance, Flexed Trunk Factors Limiting Gait Function Factors Limiting Gait Function Abnormal Tonal Influences, Decreased Activity Tolerance, Decreased Sensation,Decreased Strength,Incoordination,Poor Balance Stair Climbing Evaluation Evaluation Level of Assist On Stairs Contact Guard Assistance Devices Stair Climbing Assistive Devices Right Railing Technique/Endurance Stair Climbing Direction Ascend and Descend Stair Climbing Technique Step to Step Number of Steps Climbed 4 Stair Climbing Set # Repetitions (reps) 1 Comments Stair Climbing Comments Only used rail to descend. Catches foot on step frequently, increased trunk sway PT-OP-H Neuro Start: 05/19/23 14:30 Freq: Status: Active Protocol: Document 05/19/23 14:31 NM (Rec: 05/19/23 16:16 NM [id number]) Sensation Evaluation Gross Sensation Gross Sensation Trunk Impaired Sensation Description Hyperesthesia,Burning Coordination Evaluation Upper Extremity Tests Right Finger to Nose Test Moderate Impairment Finger to Therapist's Finger Test Moderate Impairment Finger to Finger Test Moderate Impairment Alternate Nose to Finger Test Severe Impairment Left Finger to Nose Test Severe Impairment Finger to Therapist's Finger Test Moderate Impairment Finger to Finger Test Moderate Impairment Alternate Nose to Finger Test Moderate Impairment Lower Extremity Tests Right Heel on Mahoney Test Minimal Impairment Foot Tapping Test Moderate Impairment Left Heel on Mahoney Test Minimal Impairment Foot Tapping Test Moderate Impairment PT-OP-J Posture/Palpation/Skin Start: 05/19/23 14:30 Freq: Status: Active Protocol: Document 05/19/23 14:31 NM (Rec: 05/19/23 16:16 NM [id number]) Posture Evaluation Position Standing Evaluation View Lateral Head/C-Spine Posture Forward Head T-Spine Posture Increased Kyphosis L-Spine Posture Neutral Shoulder Posture (L) Rounded,(R) Rounded,(L) Forward,(R) Forward Scapula Posture (L) Protracted,(R) Protracted Pelvis Posture Neutral Weight Distribution Weight Shifted Posterior Hip Posture (L) Neutral,(R) Neutral Palpation Assessment Location Trunk Palpation Location R mid-thoracic trunk Palpation Findings Tenderness PT-OP-K Range of Motion Start: 05/19/23 14:30 Freq: Status: Active Protocol: Document 05/19/23 14:31 NM (Rec: 05/19/23 16:16 NM [id number]) Hip Goniometric Range of Motion Hip Right Comments Hamstring length: 140 deg Left Comments Hamstring length: 130 deg PT-OP-M Strength Start: 05/19/23 14:30 Freq: Status: Active Protocol: Document 05/19/23 14:31 NM (Rec: 05/19/23 16:16 NM [id number]) Shoulder Strength Shoulder Manual Muscle Testing Right Flexion 4- Good- Extension 4- Good- Abduction (C5) 4- Good- Left Flexion 4- Good- Extension 4- Good- Abduction (C5) 4- Good- Elbow/Forearm Strength Elbow and Forearm Manual Muscle Testing Right Flexion (C6) 4- Good- Extension (C7) 4- Good- Left Flexion (C6) 4- Good- Extension (C7) 4- Good- Wrist Strength Wrist Manual Muscle Testing Right Flexion (C7) 3+ Fair+ Extension (C6) 3+ Fair+ Left Flexion (C7) 3+ Fair+ Extension (C6) 3+ Fair+ Hip Strength Hip Manual Muscle Testing Right Flexion (L2) 4- Good- Extension (S1) 4- Good- Abduction 4- Good- Adduction 4- Good- External Rotation 4- Good- Internal Rotation 4- Good- Left Flexion (L2) 3+ Fair+ Extension (S1) 3+ Fair+ Abduction 3+ Fair+ Adduction 3+ Fair+ External Rotation 3+ Fair+ Internal Rotation 3+ Fair+ Knee Strength Knee Manual Muscle Testing Right Flexion (S2) 4- Good- Extension (L3) 4- Good- Left Flexion (S2) 3+ Fair+ Extension (L3) 3+ Fair+ Ankle/Foot Strength Ankle and Foot Manual Muscle Testing Right Dorsiflexion (L4) 4 Good Plantarflexion (S1) 4 Good Left Dorsiflexion (L4) 4 Good Plantarflexion (S1) 4 Good PT-OP-Q Treatments Start: 05/19/23 14:30 Freq: Status: Active Protocol: Document 06/27/23 14:35 SP (Rec: 06/27/23 15:52 SP [id number]) Cardio Equipment Recumbent Elliptical (Biodex) Duration (Minutes) 6 Resistance 3>2 Seat Position 1 closest Other BUE/ BLEs cued maintain 28-33 PRM, 260 steps Therapeutic Exercises Sitting Exercises seated marching Sitting Exercise Name marchin/seated Side bilateral Resistance TB #2 at thighs Reps/Minutes x15 Comments good effort, no pain seated cheerleaders Sitting Exercise Name 1. cheerleader (hand behind head, elbows out) 2. HABD hold Side bilateral Resistance AROM Reps/Minutes X6 each 3 SH Comments cued follow me, eyes open hip abduction Sitting Exercise Name for hip abd strengthening Side bilateral Resistance TB #1 blue> #2 aqua Equipment Used sit front chair Reps/Minutes x10 each resistance Comments cued feet flat on ground Standing Exercises sit to stand Standing Exercise Name fwd wt shift arms front then at side palms fwd, reverse sit Side bilateral Equipment Used mesh chair Reps/Minutes 2X5 Comments cued tall posture shld ER at side standing, hip hinge eccentric sit Gait Training Gait Activity stairs Description receiprocal MAP bldg stairs Device Used L hand slide on rail support ascend, light lens coater R descend Level of Assistance close SBA Distance/Duration 28 stairs Treatment Focus reciprocal gait ascend/descend , eccentric control, weight shift, balance Comments Pt slower time descend. Cued slight tall trunk wt shift into advance LE asc/desc. Cued for large step during ascent trialed no UE but 2 steps and challenged cued slide LUE, dorsiflexion for toe clearance, improved stability. dynamic gait Description fwd head turns, back stepping Device Used no AD open area gym Level of Assistance close SBA/light contact A Distance/Duration 40 ft x2 laps Treatment Focus midline stability trunk over BELLE, increase BELLE, Comments -fwd /c head turns- self corrections and BELLE, LOB L x1 during R HT Min A recover -back stepping-cued increase BELLE and bigger stride, improved able increase distance 40 ft at time Neuro Re-Education Treatment Balance Activities ambulation with SPC with object quill picking machine operator and tranfsers Details close SBA Equipment chairs timers on floor x6 Reps/Duration 1 min Comments Verbal cues to quill picking machine operator cones from floor PT-OP-T Assessment and Plan Start: 05/19/23 14:30 Freq: Status: Active Protocol: Document 06/27/23 14:35 SP (Rec: 06/27/23 15:52 SP [id number]) Physical Therapy Assessment Goals Four Impairment gait Impairment 6 MWT 560 ft using spc Short Term Goal (STG) Pt will increase 6 MWT distance by at least 50 ft using LRAD with improved B foot clearance in order to demonstrate improved gait and balance. 06/16/23: 680 ft spc STG Duration 4 weeks GOAL MET 06/16/23 Parachute Accessories Attacher Goal (LTG) Pt will increase 6 MWT distance by at least 100 ft using LRAD with improved B foot clearance in order to demonstrate improved gait and balance. 06/16/23: 680 ft with spc LTG Duration 8 weeks MET 06/16/23 Three Impairment 5x STS 28.21 seconds Short Term Goal (STG) Pt will decrease 5x STS to less than 24 seconds in order to demonstrate improved BLE strength 2/22/24: 23.5 sec, 20 table; requires increased time, bradykinesia STG Duration 4 weeks MET Parachute Accessories Attacher Goal (LTG) Pt will decrease 5x STS to less than 20 seconds in order to demonstrate improved BLE strength 06/16/23: 23.5 sec, 20 table; requires increased time, bradykinesia 06/27/23: Progressing pt completed STS x5 not times, cued for fwd wt shift arms front then at side and reverse sit with BIGGER posture, no LOB. LTG Duration 8 weeks progressing 06/27/23 Two Impairment balance Impairment Burch 35/56 Short Term Goal (STG) Pt will increase Burch score to at least >40/56 in order to demonstrate improved balance and decreased fall risk 06/16/23: 42/56 (difficulty with fwd reach, standing 1 foot, tandem, eyes closed, 360 turn and step tap) STG Duration 4 weeks MET Parachute Accessories Attacher Goal (LTG) Pt will increase Burch score to at least >45/56 in order to demonstrate improved balance and decreased fall risk 06/16/23: 42/56 (difficulty with fwd reach, standing 1 foot, tandem, eyes closed, 360 turn and step tap) LTG Duration 8 weeks progressing 06/16/23 One Impairment TUG 29.12 seconds using spc, close SBA Short Term Goal (STG) Pt will complete TUG in less than 25 seconds using LRAD and SBA or better in order to demonstrate improved balance and decreased fall risk 05/31/23: 23.44 sec, 18.49 sec with spc, close SBA; 29 sec with FWW (1st attempt) 06/16/23: MET 21 sec, 22 sec, 17 sec with spc STG Duration 4 weeks MET GOAL 06/16/23 Parachute Accessories Attacher Goal (LTG) Pt will complete TUG in less than 20 seconds using LRAD and SBA or better in order to demonstrate improved balance and decreased fall risk 06/16/23: 22 sec, 21 sec, 17 sec with spc LTG Duration 8 weeks MET 06/16/23 Assessment Summary Assessment Pt was able to ascend/descend staircase light glide L HR receiprocal stepping, slower pacing cautious stepping descending improved /c cues tall wt shift into advance LE. Pt improved receiprocal stepping with arms swing with cuing for increase ROM and wider BELLE for safety, able head turns, back stepping improved BELLE as distance progressed. and pt agreed she should talk louder to get better at, HAND CANDLE MOLDER in agreement to bigger than think but is a therapist that assist with LOUD voice projection if wish to persue. Physical Therapy Plan Frequency and Duration Frequency of Treatment 2x/Week Duration of treatment (weeks) 8 Plan of Care Start Date 05/19/23 Plan of Care End Date 07/15/23 Therapeutic Interventions Therapeutic Interventions Balance Training,Coordination Training,Gait Training,Home Exercise Program,Joint Mobilizations,Manual Therapy, Neuromuscular Re-education, Orthotic/Prosthetic Management ,Patient/Caregiver Education, Self-Care/Home Management, Sensory Integration,Soft Tissue Mobilization,Taping, Therapeutic Activities, Therapeutic Exercises Modalities Cold Pack/Ice Massage,Electric Stimulation,Hot Packs, Ultrasound,Vasopneumatic Devices Other Therapeutic Interventions Fall-risk training Next Visit Focus/Plan Next Note Type Treatment Note Next Visit Plan 2 visits before update POC, appts scheduled out into mid Jul. Gait training with spc, focus on turns/obstacles/thresholds. BLE strengthening: STS, possibly standing lunge with cheerleader w/o band in clinic Balance: weight shifts, uneven surface isometric reactive bal recovery, continue steps up/over, hurdles, decrease hand use, change surface and BELLE Emphasize weight shifts, centered BELLE with balance activities, BIG movements
--- NOTE | 2023-06-30 16:19 | PT.OTN ---
Current Diagnoses Parkinsonism, unspecified (06/30/23) Essential tremor (06/30/23) Physical Therapy Treatment Note PT-OP-A Visit Information Start: 05/19/23 14:30 Freq: Status: Active Protocol: Document 06/30/23 13:01 NM (Rec: 06/30/23 13:48 NM [id number]) Out-Patient Physical Therapy Visit Information Visit Information Visit Type Treatment Note Visit Start Time 13:01 Visit Stop Time 13:45 Visit Number 12 Evaluation Information Evaluation Date 05/19/23 PT-OP-B Current Condition Start: 05/19/23 14:30 Freq: Status: Active Protocol: Document 05/19/23 14:31 NM (Rec: 05/19/23 16:16 NM [id number]) Current Condition History of Current Condition Onset Date 5 years ago Current Complaints balance and gait problems, unsteady History of Current Condition Pt presents with balance and gait abnormalities. She has PD , dx 2 years ago. She uses a spc for community ambulation on R side, no AD home. She reports difficulty with coming to stand, unsteady with standing and ambulation. She feels like her body is always moving. She is on gabapentin and several parkinson's drugs . She has had several falls, usually backward; most recently 6 months ago when she was cleaning the toilet. She was unable to get herself up off the ground but was uninjured. Motor signs: tremor , unable to write, bradykinesia, small movements; no reports of freezing with gait. She lives with her . They have stairs with rails but she does not normally perform stairs; she can perform the stairs outside of her home with the hand rails. She reports pain in her R trunk from shingles. PT-OP-C Subjective Start: 05/19/23 14:30 Freq: Status: Active Protocol: Document 06/30/23 13:01 NM (Rec: 06/30/23 13:48 NM [id number]) OP-PT Subjective Patient Comments Patient Comments Pt reports that she is doing well. Reports said she is getting stronger and pt believes that she has improved since beginning PT. PT-OP-D Balance Start: 05/19/23 14:30 Freq: Status: Active Protocol: Document 05/19/23 14:31 NM (Rec: 05/19/23 16:16 NM [id number]) OP-PT Balance Assessment Sitting Balance Static Sitting Balance Ability Good Dynamic Sitting Balance Ability Good Standing Balance Static Standing Balance Ability Fair Dynamic Standing Balance Ability Fair Balance Tests Romberg Romberg 10 seconds; moderate trunk sway Single Limb Standing Single Limb- Right 3 sec Single Limb- Left 0 sec Tandem Tandem Standing unable to achieve or maintain position without LOB Marshall Fall Scale Copyright Permission PT-OP-E Functional Tests Start: 05/19/23 14:30 Freq: Status: Active Protocol: Document 05/19/23 14:31 NM (Rec: 05/19/23 16:16 NM [id number]) Functional Tests 6 Minute Walk Test Distance 560 ft Device Used spc, gait belt Comments increased sway, decreased foot clearance, unstable turns, staggers Five Times Sit to Stand Test Score 28.21 sec Comments without UE, slow movement pattern, retropulses with lowering Timed Up and Go (TUG) Score 29.12 sec Comments using spc Other DGI Score 04/17 Comment using spc; difficulty with clearing cones, changing directions PT-OP-F Manual Assessment Start: 05/19/23 14:30 Freq: Status: Active Protocol: Document 05/19/23 14:31 NM (Rec: 05/19/23 16:16 NM [id number]) Manual Assessments Soft Tissue Assessment Soft Tissue Mobility Assessment Rigidity of trunk, BLE. Decreased B hamstring length Joint Mobility Assessment Joint Mobility Assessment Decreased trunk rotation with gait. B hip and shoulder PROM within functional limits PT-OP-G Mobility & Gait Start: 05/19/23 14:30 Freq: Status: Active Protocol: Document 05/19/23 14:31 NM (Rec: 05/19/23 16:16 NM [id number]) OP Gait Assessment Gait Gait Assistance Required: Contact Guard Assist Distance (Feet) 560 Assistive Devices Assistive Device Gait Belt,Straight Cane Gait Deviations General Gait Pattern Decreased Stride Length, Decreased Feet Clearance, Flexed Trunk Factors Limiting Gait Function Factors Limiting Gait Function Abnormal Tonal Influences, Decreased Activity Tolerance, Decreased Sensation,Decreased Strength,Incoordination,Poor Balance Stair Climbing Evaluation Evaluation Level of Assist On Stairs Contact Guard Assistance Devices Stair Climbing Assistive Devices Right Railing Technique/Endurance Stair Climbing Direction Ascend and Descend Stair Climbing Technique Step to Step Number of Steps Climbed 4 Stair Climbing Set # Repetitions (reps) 1 Comments Stair Climbing Comments Only used rail to descend. Catches foot on step frequently, increased trunk sway PT-OP-H Neuro Start: 05/19/23 14:30 Freq: Status: Active Protocol: Document 05/19/23 14:31 NM (Rec: 05/19/23 16:16 NM [id number]) Sensation Evaluation Gross Sensation Gross Sensation Trunk Impaired Sensation Description Hyperesthesia,Burning Coordination Evaluation Upper Extremity Tests Right Finger to Nose Test Moderate Impairment Finger to Therapist's Finger Test Moderate Impairment Finger to Finger Test Moderate Impairment Alternate Nose to Finger Test Severe Impairment Left Finger to Nose Test Severe Impairment Finger to Therapist's Finger Test Moderate Impairment Finger to Finger Test Moderate Impairment Alternate Nose to Finger Test Moderate Impairment Lower Extremity Tests Right Heel on Mahoney Test Minimal Impairment Foot Tapping Test Moderate Impairment Left Heel on Mahoney Test Minimal Impairment Foot Tapping Test Moderate Impairment PT-OP-J Posture/Palpation/Skin Start: 05/19/23 14:30 Freq: Status: Active Protocol: Document 05/19/23 14:31 NM (Rec: 05/19/23 16:16 NM [id number]) Posture Evaluation Position Standing Evaluation View Lateral Head/C-Spine Posture Forward Head T-Spine Posture Increased Kyphosis L-Spine Posture Neutral Shoulder Posture (L) Rounded,(R) Rounded,(L) Forward,(R) Forward Scapula Posture (L) Protracted,(R) Protracted Pelvis Posture Neutral Weight Distribution Weight Shifted Posterior Hip Posture (L) Neutral,(R) Neutral Palpation Assessment Location Trunk Palpation Location R mid-thoracic trunk Palpation Findings Tenderness PT-OP-K Range of Motion Start: 05/19/23 14:30 Freq: Status: Active Protocol: Document 05/19/23 14:31 NM (Rec: 05/19/23 16:16 NM [id number]) Hip Goniometric Range of Motion Hip Right Comments Hamstring length: 140 deg Left Comments Hamstring length: 130 deg PT-OP-M Strength Start: 05/19/23 14:30 Freq: Status: Active Protocol: Document 05/19/23 14:31 NM (Rec: 05/19/23 16:16 NM [id number]) Shoulder Strength Shoulder Manual Muscle Testing Right Flexion 4- Good- Extension 4- Good- Abduction (C5) 4- Good- Left Flexion 4- Good- Extension 4- Good- Abduction (C5) 4- Good- Elbow/Forearm Strength Elbow and Forearm Manual Muscle Testing Right Flexion (C6) 4- Good- Extension (C7) 4- Good- Left Flexion (C6) 4- Good- Extension (C7) 4- Good- Wrist Strength Wrist Manual Muscle Testing Right Flexion (C7) 3+ Fair+ Extension (C6) 3+ Fair+ Left Flexion (C7) 3+ Fair+ Extension (C6) 3+ Fair+ Hip Strength Hip Manual Muscle Testing Right Flexion (L2) 4- Good- Extension (S1) 4- Good- Abduction 4- Good- Adduction 4- Good- External Rotation 4- Good- Internal Rotation 4- Good- Left Flexion (L2) 3+ Fair+ Extension (S1) 3+ Fair+ Abduction 3+ Fair+ Adduction 3+ Fair+ External Rotation 3+ Fair+ Internal Rotation 3+ Fair+ Knee Strength Knee Manual Muscle Testing Right Flexion (S2) 4- Good- Extension (L3) 4- Good- Left Flexion (S2) 3+ Fair+ Extension (L3) 3+ Fair+ Ankle/Foot Strength Ankle and Foot Manual Muscle Testing Right Dorsiflexion (L4) 4 Good Plantarflexion (S1) 4 Good Left Dorsiflexion (L4) 4 Good Plantarflexion (S1) 4 Good PT-OP-Q Treatments Start: 05/19/23 14:30 Freq: Status: Active Protocol: Document 06/30/23 13:01 NM (Rec: 06/30/23 13:48 NM [id number]) Therapeutic Exercises Standing Exercises step up Standing Exercise Name lateral step up x14 steps in MAP building Side bilateral Resistance AROM Equipment Used B flat hands on rail, CGA Reps/Minutes 1 sets ea Comments cued neutral hip rotation, foot placement, large step up sit to stand Standing Exercise Name fwd wt shift arms front then at side palms fwd, reverse sit Side bilateral Equipment Used mesh chair Reps/Minutes 2x5, 1x5 timed 25 sec Comments cued tall posture shld ER at side standing, hip hinge eccentric sit Gait Training Gait Activity stairs Description receiprocal [facility] bldg stairs Device Used L hand slide on rail support ascend, light milling machine tender R descend Level of Assistance close SBA Distance/Duration 28 stairs Treatment Focus reciprocal gait ascend/descend , eccentric control, weight shift, balance Comments fwd ascent/descent x28 steps; close SBA Pt slower time descend. Cued slight tall trunk wt shift into advance LE asc/desc. Cued large, strong step up during ascent with ankle dorsiflexion for toe clearance , improved stability. dynamic gait Description Gait w/o spc, back stepping Device Used no AD open area gym Level of Assistance close SBA/light contact A Distance/Duration 50 ft x2 laps Treatment Focus midline stability trunk over BELLE, increase BELLE, Comments 1.Normal gait w.o AD using BIG walking strategy to promote arm swing, trunk rotation, larger steps. close SBA with prn CGA to steady. Demos hip strategy with stepping if LOB. Challenged to coordinate arm swing with stepping 2.back stepping-Cued increase BELLE and bigger stride, Close SBA with more frequent CGA Neuro Re-Education Treatment Balance Activities Turns Details 90 deg turns Surface stable Equipment close SBA Reps/Duration 2 sets ea direction Comments To improve turning w/o AD use. PT cued pt for big steps, instructing pt to turn at 90 deg ~4x to make complete [place]. Pt challenged with activity, R>L. Able to take steps with R foot about 45 degt, 90 deg with L foot single leg stance Details close SBA Surface stable Equipment B flat hand support on //bars Reps/Duration 2x30 Comments Pt standing for time in single leg stance. No LOB, stable with prn ankle strategy. Added to HEP with instruction to perform with by side. [place]es Reps/Duration 2 sets ea direction, several minutes ea set Comments 1. M drill to address larger steps when turning: fwd gait with turns to make M, ea about 8 ft apart CGA to steady with moderate cues for execution. cued larger steps with turns to prevent shuffling, wider BELLE 2. Square drill: fwd gait, side step, bwd gait, side step ea about 8 ft apart CGA to steady with direction changes. Cued larger steps for fwd/bwd gait, neutral hip rotation to prevent toe out with side steps. R more challenging than L side steps Standing cheerleader Details close SBA performed with mini lateral lunge without UE use end of // bars Reps/Duration 1x10 ea Comments Verbal cues for UE, LE position, direction of movements and to increase depth of lunge slightly Burch Comments Most challenged with 360 turns , tandem. However, able to maintain tandem stance x10 seconds w/o LOB after achieving position without LOB . Able to lemon picker small object from floor for multiple reps using squat with close SBA. Able to perform SLS for 10 sec ea leg retro stepping Details hands above bars Surface floor Reps/Duration 10 feet X 4 Comments CGA , band around anklesl lvl 1 tandem stepping Details with and without visual scanning Surface floor Reps/Duration 2x 10 ft hands above parallel bars Comments CGA to steady Self-Care/Home Management Treatment Education Patient Education Home Exercise Program Other Education HEP: SLS with hand support, nearby and aware during HEP PT-OP-T Assessment and Plan Start: 05/19/23 14:30 Freq: Status: Active Protocol: Document 06/30/23 13:01 NM (Rec: 06/30/23 13:48 NM [id number]) Physical Therapy Assessment Goals Three Impairment 5x STS 28.21 seconds Short Term Goal (STG) Pt will decrease 5x STS to less than 24 seconds in order to demonstrate improved BLE strength 06/16/23: 23.5 sec, 20 table; requires increased time, bradykinesia STG Duration 4 weeks MET Halfway Goal (LTG) Pt will decrease 5x STS to less than 20 seconds in order to demonstrate improved BLE strength 06/16/23: 23.5 sec, 20 table; requires increased time, bradykinesia 06/27/23: Progressing pt completed STS x5 not times, cued for fwd wt shift arms front then at side and reverse sit with BIGGER posture, no LOB. 06/30/23: 25 seconds BIG STS LTG Duration 8 weeks progressing 06/27/23 Two Impairment balance Impairment Burch 35/56 Short Term Goal (STG) Pt will increase Burch score to at least >40/56 in order to demonstrate improved balance and decreased fall risk 06/16/23: 42/56 (difficulty with fwd reach, standing 1 foot, tandem, eyes closed, 360 turn and step tap) STG Duration 4 weeks MET Veneer Marker Goal (LTG) Pt will increase Burch score to at least >45/56 in order to demonstrate improved balance and decreased fall risk 06/16/23: 42/56 (difficulty with fwd reach, standing 1 foot, tandem, eyes closed, 360 turn and step tap) 06/30/23: LTG Duration 8 weeks progressing 06/16/23 Assessment Summary Assessment Pt tolerated session well and is progressing toward goals. When cued, pt able to perform activities with bigger movements and demos improved stability during gait and STS without AD. Continued with stair training using 1 hand rail assist. Pt slower descent on stairs; cued upright posture and for foot clearance . Initiated lateral step ups for hip abduction strengthening; cued for foot placement and neutral hip. Continued with balance training, particularly with turning during gait and in stance to promote improved foot clearance. Pt challenged with changing directions, turns without AD use and requires moderate cues for correct executions. However, no instances LOB and CGA to steady. Requires increased time. Pt would benefit from skilled PT for further BLE strengthening, gait, and balance training in order to decrease fall risk and improve QOL. Physical Therapy Plan Frequency and Duration Frequency of Treatment 2x/Week Duration of treatment (weeks) 8 Plan of Care Start Date 05/19/23 Plan of Care End Date 07/15/23 Therapeutic Interventions Therapeutic Interventions Balance Training,Coordination Training,Gait Training,Home Exercise Program,Joint Mobilizations,Manual Therapy, Neuromuscular Re-education, Orthotic/Prosthetic Management ,Patient/Caregiver Education, Self-Care/Home Management, Sensory Integration,Soft Tissue Mobilization,Taping, Therapeutic Activities, Therapeutic Exercises Modalities Cold Pack/Ice Massage,Electric Stimulation,Hot Packs, Ultrasound,Vasopneumatic Devices Other Therapeutic Interventions Fall-risk training Next Visit Focus/Plan Next Note Type Treatment Note Next Visit Plan Gait training with spc, focus on turns/obstacles/thresholds. BLE strengthening: STS, possibly standing lunge with cheerleader w/o band in clinic Balance: weight shifts, uneven surface isometric reactive bal recovery, continue steps up/over, hurdles, decrease hand use, change surface and BELLE Emphasize weight shifts, centered BELLE with balance activities, BIG movements goals and POC 07/11 visit
--- NOTE | 2023-07-06 14:09 | PT.OTN ---
Current Diagnoses Parkinsonism, unspecified (07/06/23) Essential tremor (07/06/23) Physical Therapy Treatment Note PT-OP-A Visit Information Start: 05/19/23 14:30 Freq: Status: Active Protocol: Document 07/06/23 12:06 AB (Rec: 07/06/23 14:09 AB [id number]) Out-Patient Physical Therapy Visit Information Visit Information Visit Type Treatment Note Visit Note PN due 19th visit Visit Start Time 01:04 Visit Stop Time 01:46 Visit Number 13 Number of [employer] Visits 1 Evaluation Information Evaluation Date 05/19/23 Precautions Precautions PD, fall risk PT-OP-B Current Condition Start: 05/19/23 14:30 Freq: Status: Active Protocol: Document 05/19/23 14:31 NM (Rec: 05/19/23 16:16 NM [id number]) Current Condition History of Current Condition Onset Date 5 years ago Current Complaints balance and gait problems, unsteady History of Current Condition Pt presents with balance and gait abnormalities. She has PD , dx 2 years ago. She uses a spc for community ambulation on R side, no AD home. She reports difficulty with coming to stand, unsteady with standing and ambulation. She feels like her body is always moving. She is on gabapentin and several parkinson's drugs . She has had several falls, usually backward; most recently 6 months ago when she was cleaning the toilet. She was unable to get herself up off the ground but was uninjured. Motor signs: tremor , unable to write, bradykinesia, small movements; no reports of freezing with gait. She lives with her . They have stairs with rails but she does not normally perform stairs; she can perform the stairs outside of her home with the hand rails. She reports pain in her R trunk from shingles. PT-OP-C Subjective Start: 05/19/23 14:30 Freq: Status: Active Protocol: Document 07/06/23 12:06 AB (Rec: 07/06/23 14:09 AB [id number]) OP-PT Subjective Patient Comments Patient Comments Kaylah reports she is the same. Patient into session with reports of glasses are lost. Kaylah reports she is able to perform her HEP daily. PT-OP-D Balance Start: 05/19/23 14:30 Freq: Status: Active Protocol: Document 05/19/23 14:31 NM (Rec: 05/19/23 16:16 NM [id number]) OP-PT Balance Assessment Sitting Balance Static Sitting Balance Ability Good Dynamic Sitting Balance Ability Good Standing Balance Static Standing Balance Ability Fair Dynamic Standing Balance Ability Fair Balance Tests Romberg Romberg 10 seconds; moderate trunk sway Single Limb Standing Single Limb- Right 3 sec Single Limb- Left 0 sec Tandem Tandem Standing unable to achieve or maintain position without LOB Marshall Fall Scale Copyright Permission PT-OP-E Functional Tests Start: 05/19/23 14:30 Freq: Status: Active Protocol: Document 05/19/23 14:31 NM (Rec: 05/19/23 16:16 NM [id number]) Functional Tests 6 Minute Walk Test Distance 560 ft Device Used spc, gait belt Comments increased sway, decreased foot clearance, unstable turns, staggers Five Times Sit to Stand Test Score 28.21 sec Comments without UE, slow movement pattern, retropulses with lowering Timed Up and Go (TUG) Score 29.12 sec Comments using spc Other DGI Score 04/17 Comment using spc; difficulty with clearing cones, changing directions PT-OP-F Manual Assessment Start: 05/19/23 14:30 Freq: Status: Active Protocol: Document 05/19/23 14:31 NM (Rec: 05/19/23 16:16 NM [id number]) Manual Assessments Soft Tissue Assessment Soft Tissue Mobility Assessment Rigidity of trunk, BLE. Decreased B hamstring length Joint Mobility Assessment Joint Mobility Assessment Decreased trunk rotation with gait. B hip and shoulder PROM within functional limits PT-OP-G Mobility & Gait Start: 05/19/23 14:30 Freq: Status: Active Protocol: Document 05/19/23 14:31 NM (Rec: 05/19/23 16:16 NM [id number]) OP Gait Assessment Gait Gait Assistance Required: Contact Guard Assist Distance (Feet) 560 Assistive Devices Assistive Device Gait Belt,Straight Cane Gait Deviations General Gait Pattern Decreased Stride Length, Decreased Feet Clearance, Flexed Trunk Factors Limiting Gait Function Factors Limiting Gait Function Abnormal Tonal Influences, Decreased Activity Tolerance, Decreased Sensation,Decreased Strength,Incoordination,Poor Balance Stair Climbing Evaluation Evaluation Level of Assist On Stairs Contact Guard Assistance Devices Stair Climbing Assistive Devices Right Railing Technique/Endurance Stair Climbing Direction Ascend and Descend Stair Climbing Technique Step to Step Number of Steps Climbed 4 Stair Climbing Set # Repetitions (reps) 1 Comments Stair Climbing Comments Only used rail to descend. Catches foot on step frequently, increased trunk sway PT-OP-H Neuro Start: 05/19/23 14:30 Freq: Status: Active Protocol: Document 05/19/23 14:31 NM (Rec: 05/19/23 16:16 NM [id number]) Sensation Evaluation Gross Sensation Gross Sensation Trunk Impaired Sensation Description Hyperesthesia,Burning Coordination Evaluation Upper Extremity Tests Right Finger to Nose Test Moderate Impairment Finger to Therapist's Finger Test Moderate Impairment Finger to Finger Test Moderate Impairment Alternate Nose to Finger Test Severe Impairment Left Finger to Nose Test Severe Impairment Finger to Therapist's Finger Test Moderate Impairment Finger to Finger Test Moderate Impairment Alternate Nose to Finger Test Moderate Impairment Lower Extremity Tests Right Heel on Mahoney Test Minimal Impairment Foot Tapping Test Moderate Impairment Left Heel on Mahoney Test Minimal Impairment Foot Tapping Test Moderate Impairment PT-OP-J Posture/Palpation/Skin Start: 05/19/23 14:30 Freq: Status: Active Protocol: Document 05/19/23 14:31 NM (Rec: 05/19/23 16:16 NM [id number]) Posture Evaluation Position Standing Evaluation View Lateral Head/C-Spine Posture Forward Head T-Spine Posture Increased Kyphosis L-Spine Posture Neutral Shoulder Posture (L) Rounded,(R) Rounded,(L) Forward,(R) Forward Scapula Posture (L) Protracted,(R) Protracted Pelvis Posture Neutral Weight Distribution Weight Shifted Posterior Hip Posture (L) Neutral,(R) Neutral Palpation Assessment Location Trunk Palpation Location R mid-thoracic trunk Palpation Findings Tenderness PT-OP-K Range of Motion Start: 05/19/23 14:30 Freq: Status: Active Protocol: Document 05/19/23 14:31 NM (Rec: 05/19/23 16:16 NM [id number]) Hip Goniometric Range of Motion Hip Right Comments Hamstring length: 140 deg Left Comments Hamstring length: 130 deg PT-OP-M Strength Start: 05/19/23 14:30 Freq: Status: Active Protocol: Document 05/19/23 14:31 NM (Rec: 05/19/23 16:16 NM [id number]) Shoulder Strength Shoulder Manual Muscle Testing Right Flexion 4- Good- Extension 4- Good- Abduction (C5) 4- Good- Left Flexion 4- Good- Extension 4- Good- Abduction (C5) 4- Good- Elbow/Forearm Strength Elbow and Forearm Manual Muscle Testing Right Flexion (C6) 4- Good- Extension (C7) 4- Good- Left Flexion (C6) 4- Good- Extension (C7) 4- Good- Wrist Strength Wrist Manual Muscle Testing Right Flexion (C7) 3+ Fair+ Extension (C6) 3+ Fair+ Left Flexion (C7) 3+ Fair+ Extension (C6) 3+ Fair+ Hip Strength Hip Manual Muscle Testing Right Flexion (L2) 4- Good- Extension (S1) 4- Good- Abduction 4- Good- Adduction 4- Good- External Rotation 4- Good- Internal Rotation 4- Good- Left Flexion (L2) 3+ Fair+ Extension (S1) 3+ Fair+ Abduction 3+ Fair+ Adduction 3+ Fair+ External Rotation 3+ Fair+ Internal Rotation 3+ Fair+ Knee Strength Knee Manual Muscle Testing Right Flexion (S2) 4- Good- Extension (L3) 4- Good- Left Flexion (S2) 3+ Fair+ Extension (L3) 3+ Fair+ Ankle/Foot Strength Ankle and Foot Manual Muscle Testing Right Dorsiflexion (L4) 4 Good Plantarflexion (S1) 4 Good Left Dorsiflexion (L4) 4 Good Plantarflexion (S1) 4 Good PT-OP-Q Treatments Start: 05/19/23 14:30 Freq: Status: Active Protocol: Document 07/06/23 12:06 AB (Rec: 07/06/23 14:09 AB [id number]) Therapeutic Exercises Sitting Exercises seated cheerleaders Sitting Exercise Name horizontal abduction then at angle with right UE elevated, then angle w/ L Side bilateral Resistance AROM Reps/Minutes X10 Comments visual cues hip abduction Sitting Exercise Name for hip abd strengthening Side bilateral Resistance blue level one Equipment Used sit front chair Reps/Minutes X10 w/o hold and X1 with one minute hold Comments VC to keep holding for a full minute Standing Exercises bilateral heel raise Side bilateral Equipment Used parallel bars Reps/Minutes 2X10 Comments Verbal and visual cues sit to stand Standing Exercise Name without UE use Side bilateral Equipment Used mesh chair Reps/Minutes 3X10 Comments first set without weight or band, Neuro Re-Education Treatment Balance Activities obstical course Details hurdles, slalom cones, step up 6 inch step, mat with objects under Reps/Duration 7 minutes Comments CGA to mostly minimal assist nearly mod assist X 1, first trial with SPC 2nd and 3rd without device marching in place Details CGA to minimal assist Equipment on blue cushion and black foam Reps/Duration X15 Standing cheerleader Details close SBA performed with mini lateral lunge without UE use end of // bars Reps/Duration 1x10 ea Comments Verbal cues for UE, LE position, direction of movements and to increase depth of lunge slightly grapevine Details one step verbal cues on initiation with UE support Surface floor Equipment parallel bars Reps/Duration 10 feet X 4 Comments CGA and one step verbal cues, minimal cues on final trial, increased UE use on final sets with initiating with hands above bars tandem stepping Details with and without visual scanning Surface floor Reps/Duration 4x 10 ft hands above parallel bars Comments CGA to very minimal assist Step taps Details at stairs hand above rail Surface stable Equipment 6 inch step Reps/Duration X12 Comments CGA with gait belt PT-OP-T Assessment and Plan Start: 05/19/23 14:30 Freq: Status: Active Protocol: Document 07/06/23 12:06 AB (Rec: 07/06/23 14:09 AB [id number]) Physical Therapy Assessment Goals Three Impairment 5x STS 28.21 seconds Short Term Goal (STG) Pt will decrease 5x STS to less than 24 seconds in order to demonstrate improved BLE strength 06/16/23: 23.5 sec, 20 table; requires increased time, bradykinesia STG Duration 4 weeks [facility] Shel[facility] Goal (LTG) Pt will decrease 5x STS to less than 20 seconds in order to demonstrate improved BLE strength 06/16/23: 23.5 sec, 20 table; requires increased time, bradykinesia 06/27/23: Progressing pt completed STS x5 not times, cued for fwd wt shift arms front then at side and reverse sit with BIGGER posture, no LOB. 06/30/23: 25 seconds BIG STS LTG Duration 8 weeks progressing 06/27/23 Two Impairment balance Impairment Burch 35/56 Short Term Goal (STG) Pt will increase Burch score to at least >40/56 in order to demonstrate improved balance and decreased fall risk 06/16/23: 42/56 (difficulty with fwd reach, standing 1 foot, tandem, eyes closed, 360 turn and step tap) STG Duration 4 weeks [facility] Shelter Goal (LTG) Pt will increase Burch score to at least >45/56 in order to demonstrate improved balance and decreased fall risk 06/16/23: 42/56 (difficulty with fwd reach, standing 1 foot, tandem, eyes closed, 360 turn and step tap) 06/30/23: LTG Duration 8 weeks progressing 06/16/23 Assessment Summary Assessment Kaylah into session without glasses, but was able to participate fully in strength and balance exercises, increased assist required stepping on mat with objects under to simulate unsteady surface. Kaylah reports her only pain end of session was the back pain from the shingles which has persisted. Physical Therapy Plan Frequency and Duration Frequency of Treatment 2x/Week Duration of treatment (weeks) 8 Plan of Care Start Date 05/19/23 Plan of Care End Date 07/15/23 Next Visit Focus/Plan Next Note Type Treatment Note Next Visit Plan Gait training with spc, focus on turns/obstacles/thresholds possibe outdoors if weather persists. BLE strengthening: STS alternating 3 # with band above knees, possibly standing lunge with cheerleader w/o band in clinic Balance: weight shifts, uneven surface isometric reactive bal recovery, continue steps up/over, hurdles, decrease hand use, change surface and BELLE Emphasize weight shifts, centered BELLE with balance activities, BIG movements goals and POC 07/11 visit
--- NOTE | 2023-07-12 15:30 | PT.OTN ---
Current Diagnoses Parkinsonism, unspecified (07/12/23) Essential tremor (07/12/23) Physical Therapy Treatment Note PT-OP-A Visit Information Start: 05/19/23 14:30 Freq: Status: Active Protocol: Document 07/12/23 14:40 NM (Rec: 07/12/23 16:06 NM [id number]) Out-Patient Physical Therapy Visit Information Visit Information Visit Type Discharge Summary Visit Start Time 14:35 Visit Stop Time 15:20 Visit Number 14 Evaluation Information Evaluation Date 05/19/23 PT-OP-B Current Condition Start: 05/19/23 14:30 Freq: Status: Active Protocol: Document 05/19/23 14:31 NM (Rec: 05/19/23 16:16 NM [id number]) Current Condition History of Current Condition Onset Date 5 years ago Current Complaints balance and gait problems, unsteady History of Current Condition Pt presents with balance and gait abnormalities. She has PD , dx 2 years ago. She uses a spc for community ambulation on R side, no AD home. She reports difficulty with coming to stand, unsteady with standing and ambulation. She feels like her body is always moving. She is on gabapentin and several parkinson's drugs . She has had several falls, usually backward; most recently 6 months ago when she was cleaning the toilet. She was unable to get herself up off the ground but was uninjured. Motor signs: tremor , unable to write, bradykinesia, small movements; no reports of freezing with gait. She lives with her . They have stairs with rails but she does not normally perform stairs; she can perform the stairs outside of her home with the hand rails. She reports pain in her R trunk from shingles. PT-OP-C Subjective Start: 05/19/23 14:30 Freq: Status: Active Protocol: Document 07/12/23 14:40 NM (Rec: 07/12/23 16:06 NM [id number]) OP-PT Subjective Patient Comments Patient Comments Pt reports that she is very tired today and has not slept well. She reports that she feels like she has improved significantly since beginning PT and is agreeable to discharge. She has been performing HEP daily and is wanting to participate in BIG program in upcoming months PT-OP-D Balance Start: 05/19/23 14:30 Freq: Status: Active Protocol: Document 05/19/23 14:31 NM (Rec: 05/19/23 16:16 NM [id number]) OP-PT Balance Assessment Sitting Balance Static Sitting Balance Ability Good Dynamic Sitting Balance Ability Good Standing Balance Static Standing Balance Ability Fair Dynamic Standing Balance Ability Fair Balance Tests Romberg Romberg 10 seconds; moderate trunk sway Single Limb Standing Single Limb- Right 3 sec Single Limb- Left 0 sec Tandem Tandem Standing unable to achieve or maintain position without LOB Marshall Fall Scale Copyright Permission PT-OP-E Functional Tests Start: 05/19/23 14:30 Freq: Status: Active Protocol: Document 05/19/23 14:31 NM (Rec: 05/19/23 16:16 NM [id number]) Functional Tests 6 Minute Walk Test Distance 560 ft Device Used spc, gait belt Comments increased sway, decreased foot clearance, unstable turns, staggers Five Times Sit to Stand Test Score 28.21 sec Comments without UE, slow movement pattern, retropulses with lowering Timed Up and Go (TUG) Score 29.12 sec Comments using spc Other DGI Score 12 Comment using spc; difficulty with clearing cones, changing directions PT-OP-F Manual Assessment Start: 05/19/23 14:30 Freq: Status: Active Protocol: Document 05/19/23 14:31 NM (Rec: 05/19/23 16:16 NM [id number]) Manual Assessments Soft Tissue Assessment Soft Tissue Mobility Assessment Rigidity of trunk, BLE. Decreased B hamstring length Joint Mobility Assessment Joint Mobility Assessment Decreased trunk rotation with gait. B hip and shoulder PROM within functional limits PT-OP-G Mobility & Gait Start: 05/19/23 14:30 Freq: Status: Active Protocol: Document 05/19/23 14:31 NM (Rec: 05/19/23 16:16 NM [id number]) OP Gait Assessment Gait Gait Assistance Required: Contact Guard Assist Distance (Feet) 560 Assistive Devices Assistive Device Gait Belt,Straight Cane Gait Deviations General Gait Pattern Decreased Stride Length, Decreased Feet Clearance, Flexed Trunk Factors Limiting Gait Function Factors Limiting Gait Function Abnormal Tonal Influences, Decreased Activity Tolerance, Decreased Sensation,Decreased Strength,Incoordination,Poor Balance Stair Climbing Evaluation Evaluation Level of Assist On Stairs Contact Guard Assistance Devices Stair Climbing Assistive Devices Right Railing Technique/Endurance Stair Climbing Direction Ascend and Descend Stair Climbing Technique Step to Step Number of Steps Climbed 4 Stair Climbing Set # Repetitions (reps) 1 Comments Stair Climbing Comments Only used rail to descend. Catches foot on step frequently, increased trunk sway PT-OP-H Neuro Start: 05/19/23 14:30 Freq: Status: Active Protocol: Document 05/19/23 14:31 NM (Rec: 05/19/23 16:16 NM [id number]) Sensation Evaluation Gross Sensation Gross Sensation Trunk Impaired Sensation Description Hyperesthesia,Burning Coordination Evaluation Upper Extremity Tests Right Finger to Nose Test Moderate Impairment Finger to Therapist's Finger Test Moderate Impairment Finger to Finger Test Moderate Impairment Alternate Nose to Finger Test Severe Impairment Left Finger to Nose Test Severe Impairment Finger to Therapist's Finger Test Moderate Impairment Finger to Finger Test Moderate Impairment Alternate Nose to Finger Test Moderate Impairment Lower Extremity Tests Right Heel on Mahoney Test Minimal Impairment Foot Tapping Test Moderate Impairment Left Heel on Mahoney Test Minimal Impairment Foot Tapping Test Moderate Impairment PT-OP-J Posture/Palpation/Skin Start: 05/19/23 14:30 Freq: Status: Active Protocol: Document 05/19/23 14:31 NM (Rec: 05/19/23 16:16 NM [id number]) Posture Evaluation Position Standing Evaluation View Lateral Head/C-Spine Posture Forward Head T-Spine Posture Increased Kyphosis L-Spine Posture Neutral Shoulder Posture (L) Rounded,(R) Rounded,(L) Forward,(R) Forward Scapula Posture (L) Protracted,(R) Protracted Pelvis Posture Neutral Weight Distribution Weight Shifted Posterior Hip Posture (L) Neutral,(R) Neutral Palpation Assessment Location Trunk Palpation Location R mid-thoracic trunk Palpation Findings Tenderness PT-OP-K Range of Motion Start: 05/19/23 14:30 Freq: Status: Active Protocol: Document 05/19/23 14:31 NM (Rec: 05/19/23 16:16 NM [id number]) Hip Goniometric Range of Motion Hip Right Comments Hamstring length: 140 deg Left Comments Hamstring length: 130 deg PT-OP-M Strength Start: 05/19/23 14:30 Freq: Status: Active Protocol: Document 07/12/23 14:40 NM (Rec: 07/12/23 16:06 NM [id number]) Hip Strength Hip Manual Muscle Testing Right Flexion (L2) 4- Good- Extension (S1) 4- Good- Abduction 4- Good- Adduction 4- Good- External Rotation 4- Good- Internal Rotation 4- Good- Comments 07/12/23: 4/5 for all Left Flexion (L2) 3+ Fair+ Extension (S1) 3+ Fair+ Abduction 3+ Fair+ Adduction 3+ Fair+ External Rotation 3+ Fair+ Internal Rotation 3+ Fair+ Comments 07/12/23: 4/5 for all Knee Strength Knee Manual Muscle Testing Right Flexion (S2) 4- Good- Extension (L3) 4- Good- Comments 07/12/23: 4/5 for all Left Flexion (S2) 3+ Fair+ Extension (L3) 3+ Fair+ Comments 07/12/23: 4/5 for all PT-OP-Q Treatments Start: 05/19/23 14:30 Freq: Status: Active Protocol: Document 07/12/23 14:40 NM (Rec: 07/12/23 16:06 NM [id number]) Therapeutic Exercises Sitting Exercises LAQ Side bilateral Resistance 2# ankle weight ea leg Reps/Minutes 2x10 ea hip abduction Sitting Exercise Name for hip abd strengthening Side bilateral Resistance lvl 2 band Equipment Used sit front chair Reps/Minutes 2x10, 1x30 hold Standing Exercises bilateral toe raise Side bilateral Resistance AROM > 2# ankle weight Equipment Used hand support on stairs Reps/Minutes 2x10 bilateral heel raise Side bilateral Resistance AROM> 2# ankle weight Equipment Used hand support on stairs Reps/Minutes 2x10 sit to stand Standing Exercise Name without UE use, BIG STS Side bilateral Equipment Used mesh chair Reps/Minutes 2 5xSTS, 1x10 with lvl 1 tb around thighs Neuro Re-Education Treatment Balance Activities Turns Details Dynamic gait with head turns horizontal/vertical Surface stable Equipment spc Reps/Duration 2x100 ft ea Comments Able to maintain gait with only slight deviation using spc with turning head. Most challenged with looking up and to L CGA to steady single leg stance Details close SBA Surface stable Equipment B flat hand support on //bars Reps/Duration 2x15 Comments Pt standing for time in single leg stance. No LOB, stable with prn ankle strategy. Added to HEP with instruction to perform with by side. Burch Comments Most challenged with SLS and tandem stance. Able to maintain SLS for 3 seconds today, difficulty with both achieving and maintaining tandem. Improved weight shift with looking over shoulder, 360 turns, reaching, and picking up objects from floor 49/56 on 07/12/23 Shuttle Details A/P, M/L Surface unstable Equipment CGA Reps/Duration 2 min ea Comments Cued for weight shifting and upright posture. Tends to demo anterior weight shift with forward trunk lean. tandem stepping Surface floor Equipment stable Reps/Duration 3x5 ft fwd and reverse Comments CGA to min A Self-Care/Home Management Treatment Education Patient Education Fall Risk,Home Exercise Program,Safety Other Education 7 minutes- HEP for maintenance program: toe raises and heel raises with support, sit to stand with band, seated clams with band, LAQ with band or ankle weights PT educated pt on maintenance program at least 3x/wk, reviewed past HEP and created final HEP for strengthening. Educated on safety during exercise, gait, transfers, and balance. Educated further on safety related to fall risk hazards around home, in community. PT-OP-T Assessment and Plan Start: 05/19/23 14:30 Freq: Status: Active Protocol: Document 07/12/23 14:40 NM (Rec: 07/12/23 16:06 NM [id number]) Physical Therapy Assessment Goals Three Impairment 5x STS 28.21 seconds Short Term Goal (STG) Pt will decrease 5x STS to less than 24 seconds in order to demonstrate improved BLE strength 06/16/23: 23.5 sec, 20 table; requires increased time, bradykinesia STG Duration 4 weeks MET Correction Officer Head Goal (LTG) Pt will decrease 5x STS to less than 20 seconds in order to demonstrate improved BLE strength 06/16/23: 23.5 sec, 20 table; requires increased time, bradykinesia 06/27/23: Progressing pt completed STS x5 not times, cued for fwd wt shift arms front then at side and reverse sit with BIGGER posture, no LOB. 06/30/23: 25 seconds BIG STS 07/12/23: 19 seconds, 17 seconds BIG STS LTG Duration 8 weeks MET Two Impairment balance Impairment Burch 35/56 Short Term Goal (STG) Pt will increase Burch score to at least >40/56 in order to demonstrate improved balance and decreased fall risk 06/16/23: 42/56 (difficulty with fwd reach, standing 1 foot, tandem, eyes closed, 360 turn and step tap) STG Duration 4 weeks MET Correction Officer Head Goal (LTG) Pt will increase Burch score to at least >45/56 in order to demonstrate improved balance and decreased fall risk 06/16/23: 42/56 (difficulty with fwd reach, standing 1 foot, tandem, eyes closed, 360 turn and step tap) 07/12/23: 49/56 (difficulty with tandem, single leg stance ) LTG Duration 8 weeks MET Progress Towards Goals Progress Towards Goals Goals Met Progress Comments All goals met Assessment Summary Assessment Pt tolerated session well and met all goals today. Session emphasis on establishing HEP for maintenance program for continued strengthening and to maintain balance. Continued with hip abduction, ankle, and quad strength today. Pt with improved weight shift and speed with 5x STS using BIG STS posture. Progressed to small ankle weights for all strengthening activities and dynamic gait. During Burch training, pt now 49/56. She continues to have difficulty with tandem and single leg stance, any narrow BELLE. However, she is able to perform all activities with good ankle strategy and demos improvements in maintaining stability on unstable surfaces . Pt continues to require periodic cues for wider BELLE during exercise and gait. Pt has been seen x12 visits since IE in April 2023 for Parkinsonian balance and gait changes. She has progressed well toward goals, meeting all in today's session. Pt demonstrates significant improvement in movement speed and amplitude. Her 5x STS score has improved by more than 10 seconds and she no longer demonstrates any retropulsion. Pt's TUG scores and Burch scores have also improved, reducing pt's fall risk classification. Pt has also had increases in 6 MWT distance, exhibiting improved gait speed, sequencing with spc, and endurance. Overall, pt was very motivated to perform well in PT. While pt's impairments found at IE have improved, pt would benefit from additional skilled PT to further address management of Parkinson's symptoms, such as LSVT BIG. PT educated pt on maintenance program for HEP to continue with maintaining progress from recent episode of care. Due to goals met and pt's desire to participate in LSVT BIG, pt and PT discussed and agreed to discharge today. PT educated pt on following up with PCP if symptoms or balance change or worsen. Pt verbalizes agreement and is safe to discharge to maintenance program. Physical Therapy Plan Frequency and Duration Frequency of Treatment 2x/Week Duration of treatment (weeks) 8 Plan of Care Start Date 05/19/23 Plan of Care End Date 07/15/23 Therapeutic Interventions Therapeutic Interventions Balance Training,Coordination Training,Gait Training,Home Exercise Program,Joint Mobilizations,Manual Therapy, Neuromuscular Re-education, Orthotic/Prosthetic Management ,Patient/Caregiver Education, Self-Care/Home Management, Sensory Integration,Soft Tissue Mobilization,Taping, Therapeutic Activities, Therapeutic Exercises Modalities Cold Pack/Ice Massage,Electric Stimulation,Hot Packs, Ultrasound,Vasopneumatic Devices Other Therapeutic Interventions Fall-risk training Discharge Physical Therapy Discharge Reasons Goals Met Discharge Comments All goals met. Estabilished maintenance program. Pt planning to transition over to LSVT BIG Next Visit Focus/Plan Next Visit Plan Discharge from PT services
== END 2023-07-18 10:21 | disposition home or self-care (01) ==
LOC: PHYS 14:30
PROVIDERS: Family Provider Family Medicine; PCP Family Medicine; Referring Provider Family Medicine; Visit Provider Family Medicine
DX: G20.C Parkinsonism, unspecified (principal); G25.0 Essential tremor
CPT/HCPCS: 97110; 97112; 97116; 97161; 97535

== ENCOUNTER → 2023-07-20 14:40 | Outpatient (CLI) | payer MEDICARE, SELFPAY ==
[2023-06-10 17:01] VITALS: BMI 15.7
[2023-07-21 23:02] LABS: Rubella Antibody IgG > 350.0 IU/mL (>15)
[2023-07-22 08:50] LABS: Rubeola Measles IgG > 300.0 AU/mL (Immune >16.4)
[2023-07-22 12:59] LABS: Mumps Virus IgG Antibody >300.0 AU/mL (Immune >10.9)
== END ==
PROVIDERS: Family Provider Family Medicine; PCP Family Medicine; Referring Provider Family Medicine; Visit Provider Family Medicine
DX: Z01.84 Encounter for antibody response examination (principal)
CPT/HCPCS: 36415; 86735; 86762; 86765

== ENCOUNTER 2023-09-15 11:15 | Outpatient (RCR) | payer MEDICARE, SELFPAY ==
[2023-06-10 17:01] VITALS: BMI 15.7
--- NOTE | 2023-08-16 12:24 | PT.OIE ---
Current Diagnoses Parkinsonism, unspecified (08/16/23) Past Medical History (Last Reviewed 06/10/23 @ 14:08 by Blaise Larkin MD) Acute conjunctivitis, bilateral Anxiety (Unknown) Ataxia (06/15/16) Bilateral lower extremity edema Cataracts, bilateral (Unknown) Chronic cough (Unknown) Chronic low back pain without sciatica Chronic pain syndrome Compression fx, thoracic spine Eczema Essential tremor (06/15/16) Glaucoma (Unknown) History of adenomatous polyp of colon Hyperlipemia (2015) Lymphocytopenia Mixed hyperlipidemia (06/15/16) Osteoarthritis (2006) Osteoporosis Post herpetic neuralgia Primary insomnia (06/15/16) Recurrent sinusitis (Unknown) Unintended weight loss Past Surgical History (Last Reviewed 06/10/23 @ 14:08 by Blaise Larkin MD) History of cataract removal with insertion of prosthetic lens Visit Care Team Role Provider Type Colt Cardenas MD Family Provider Physician Primary Care Provider Specialty: Family Practice Address: [address] [place] [address], [id number] Email: [email or web address] Tod Pfeiffer MD Attending Provider Non-Staff Referring Provider Specialty: Neurology Psychiatry Address: [address] [place] [address], [address], [place], [address] Email: Physical Therapy Initial Evaluation PT-OP-A Visit Information Start: 08/16/23 11:13 Freq: Status: Active Protocol: Document 08/16/23 11:18 MB (Rec: 08/16/23 11:24 MB [id number]) Out-Patient Physical Therapy Visit Information Visit Information Visit Type Initial Evaluation Visit Note AARP Medicare Self-Pay Need KX is Sd Visit Start Time 11:18 Visit Stop Time 12:18 Visit Number 1 Number of BANQUET HOUSEPERSON Visits 0 Evaluation Information Evaluation Date 08/16/23 PT-OP-B Current Condition Start: 08/16/23 11:13 Freq: Status: Active Protocol: Document 08/16/23 11:18 MB (Rec: 08/16/23 12:24 MB [id number]) Current Condition History of Current Condition Onset Date 3 years ago Current Complaints Slowness of movement, B hand shaking and imbalance History of Current Condition Pt arrives with , Sd. 3 years ago, pt noticed shaking in left hand, slowness of movement and decreased balance. Pt now has right hand shaking. Pt was diagnosed with Parkinsonianism. She could not tolerate Carbdopa Levodopa. Her stomach got very upset and she had vomiting. She is not taking an PD medication. 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 Pt sleeps well at night. She gets up 2-3 times a night to use the BR. She is not light- headed when she gets up. She does not use her cane when she gets up at night. She only uses cane when she leaves the house. Last fall was one year ago. Pt has been taking augmented NAC as a supplement and that has been helpful for energy level and general outlook. Pt will start Nattokinase next week to try to help with neuropathy pain. Pt is right handed. Treatment Goals Patient/Caregiver Goals To improve balance and shaking PT-OP-C Subjective Start: 08/16/23 11:13 Freq: Status: Active Protocol: Document 08/16/23 11:18 MB (Rec: 08/16/23 12:24 MB [id number]) OP-PT Subjective Patient Comments Patient Comments See history of current condition Patient Questionnaires Other Questionnaire Name and Score FES score is 41/60 reflecting high concern for falling OP-PT Pain Assessment Comments Pain Comments Pt has history of post- herpatic neuralgia side to stomach on the right and rated 3-8/10 PT-OP-D Balance Start: 08/16/23 11:13 Freq: Status: Active Protocol: Document 08/16/23 11:18 MB (Rec: 08/16/23 12:24 MB [id number]) OP-PT Balance Assessment Sitting Balance Static Sitting Balance Ability Normal Dynamic Sitting Balance Ability Normal Standing Balance Static Standing Balance Ability Good Dynamic Standing Balance Ability Fair Device Used SPC Balance Tests Other Other Balance Tests Performed TUG 17 sec, use of SPC Marshall Fall Scale Copyright Permission PT-OP-G Mobility & Gait Start: 08/16/23 11:13 Freq: Status: Active Protocol: Document 08/16/23 11:18 MB (Rec: 08/16/23 12:24 MB [id number]) OP Gait Assessment Comments Gait Comments Gait is very slow and pt uses cane in right UE PT-OP-H Neuro Start: 08/16/23 11:13 Freq: Status: Active Protocol: Document 08/16/23 11:18 MB (Rec: 08/16/23 12:24 MB [id number]) Coordination Evaluation Upper Extremity Tests Left Finger to Nose Test Moderate Impairment Pronation/Supination Test Moderate Impairment Right Finger to Nose Test Moderate Impairment Pronation/Supination Test Moderate Impairment Lower Extremity Tests Left Foot Tapping Test Moderate Impairment Right Foot Tapping Test Moderate Impairment Vital Signs Comments Vital Signs Comments Orthostatic assessment with BP and HR in RUE: supine: 125/79 , 66; standing 108/73, 73; standing 1' 120/80, 75 PT-OP-M Strength Start: 08/16/23 11:13 Freq: Status: Active Protocol: Document 08/16/23 11:18 MB (Rec: 08/16/23 12:24 MB [id number]) Shoulder Strength Shoulder Manual Muscle Testing Bilateral Flexion 4 Good Abduction (C5) 4 Good Knee Strength Knee Manual Muscle Testing Bilateral Extension (L3) 4 Good PT-OP-Q Treatments Start: 08/16/23 11:13 Freq: Status: Active Protocol: Document 08/16/23 11:18 MB (Rec: 08/16/23 12:24 MB [id number]) Therapeutic Activity Therapeutic Activity 30 sec STS Comments 3 reps without hands from gold chair with arm rests Self-Care/Home Management Treatment Education Other Education Education to pt and about BIG program and plan, defining functional activities and examples of things she might want to work on, ed in BP drop supine to sit and why she might not be symptomatic PT-OP-T Assessment and Plan Start: 08/16/23 11:13 Freq: Status: Active Protocol: Document 08/16/23 11:18 MB (Rec: 08/16/23 12:24 MB [id number]) Physical Therapy Assessment Rehab Potential Rehabilitation Potential Fair Evaluation Complexity Number of Personal Factors/Comorbidities 1-2 Number of Body Systems Impaired 3 Clinical Presentation at Evaluation Evolving Impairments Impairments Activity Tolerance,Balance, Coordination,Functional Activities,Functional Mobility ,Gait,Pain,Posture,ROM, Strength,Transfers,Vestibular Goals 4 Impairment Lack of amplitude specific HEP Irrigation Service Technician Goal (LTG) Pt will perform BIG exercises and functional activities daily with no more than superv and cues to improve amplitude of movement and balance. LTG Duration 6 weeks 3 Impairment 3 STS in 30 sec Longterm Goal (LTG) Pt will perform at least 9 reps STS in 30 sec to improve functional balance with transfers. LTG Duration 6 weeks 2 Impairment TUG 17 sec Longterm Goal (LTG) Pt will perform TUG in no more than 10 sec to improve balance and decrease fall risk . LTG Duration 6 weeks 1 Impairment FES 41/64, indicating high concern for falling with many activities Irrigation Service Technician Goal (LTG) Pt will present with a FES score of no more than 30/64 to reflect reduced fear of falling. LTG Duration 6 weeks Assessment Summary Assessment Pt is a pleasant and hypoverbal 83 y/o female presenting to LSVT BIG assessment with who provides most of history. Pt has soft vocal tone. Pt has history of post-herpatic pain and she has not been able to tolerate PD medication. Pt has 17 mmHg systolic drop supine to standing. Pt presents with dysmetria and bradykinesia with coordination testing and slow gait and decreased STS in 30 sec. She requires 17 sec for TUG, indicating increased risk of falling. Pt will benefit from LSVT to improve amplitude of movement, gait speed, functional transfers and balance. She may benefit from LSVT LOUD in the future as well. Physical Therapy Plan Frequency and Duration Frequency of Treatment 4x/Week Duration of treatment (weeks) 6 Plan of Care Start Date 08/16/23 Plan of Care End Date 09/23/23 Therapeutic Interventions Therapeutic Interventions Balance Training,Canalithic Repositioning,Coordination Training,Gait Training,Home Exercise Program,Joint Mobilizations,Manual Therapy, Neuromuscular Re-education, Patient/Caregiver Education, Self-Care/Home Management, Sensory Integration,Soft Tissue Mobilization,Taping, Therapeutic Activities, Therapeutic Exercises, Vestibular Rehabilitation Modalities Cold Pack/Ice Massage,Hot Packs Next Visit Focus/Plan Next Note Type Treatment Note Next Visit Plan Functional tasks to include writing and pt to bring list of other things to work on nex treatment. Initiate BIG exercises
--- NOTE | 2023-08-16 12:24 | PT.OPPOC ---
Physical, Occupational & Speech Therapy At [facility] Current Diagnoses Parkinsonism, unspecified (08/16/23) Visit Care Team Role Provider Type Colt Cardenas MD Family Provider Physician Primary Care Provider Specialty: Family Practice Address: [address] [place] [address], [id number] Email: [email or web address] Tod Pfeiffer MD Attending Provider Non-Staff Referring Provider Specialty: Neurology Psychiatry Address: [address] [place] [address], [address], [place], [address] Email: Plan Of Care PT-OP-T Assessment and Plan Start: 08/16/23 11:13 Freq: Status: Active Protocol: Document 08/16/23 11:18 MB (Rec: 08/16/23 12:24 MB [id number]) Physical Therapy Assessment Rehab Potential Rehabilitation Potential Fair Evaluation Complexity Number of Personal Factors/Comorbidities 1-2 Number of Body Systems Impaired 3 Clinical Presentation at Evaluation Evolving Impairments Impairments Activity Tolerance,Balance, Coordination,Functional Activities,Functional Mobility ,Gait,Pain,Posture,ROM, Strength,Transfers,Vestibular Goals 4 Impairment Lack of amplitude specific HEP Hamper Maker Machine Goal (LTG) Pt will perform BIG exercises and functional activities daily with no more than superv and cues to improve amplitude of movement and balance. LTG Duration 6 weeks 3 Impairment 3 STS in 30 sec Hamper Maker Machine Goal (LTG) Pt will perform at least 9 reps STS in 30 sec to improve functional balance with transfers. LTG Duration 6 weeks 2 Impairment TUG 17 sec Hamper Maker Machine Goal (LTG) Pt will perform TUG in no more than 10 sec to improve balance and decrease fall risk . LTG Duration 6 weeks 1 Impairment FES 41/64, indicating high concern for falling with many activities Hamper Maker Machine Goal (LTG) Pt will present with a FES score of no more than 30/64 to reflect reduced fear of falling. LTG Duration 6 weeks Assessment Summary Assessment Pt is a pleasant and hypoverbal 83 y/o female presenting to [facility] BIG assessment with who provides most of history. Pt has soft vocal tone. Pt has history of post-herpatic pain and she has not been able to tolerate PD medication. Pt has 17 mmHg systolic drop supine to standing. Pt presents with dysmetria and bradykinesia with coordination testing and slow gait and decreased STS in 30 sec. She requires 17 sec for TUG, indicating increased risk of falling. Pt will benefit from LSVT to improve amplitude of movement, gait speed, functional transfers and balance. She may benefit from LSVT LOUD in the future as well. Physical Therapy Plan Frequency and Duration Frequency of Treatment 4x/Week Duration of treatment (weeks) 6 Plan of Care Start Date 08/16/23 Plan of Care End Date 09/23/23 Therapeutic Interventions Therapeutic Interventions Balance Training,Canalithic Repositioning,Coordination Training,Gait Training,Home Exercise Program,Joint Mobilizations,Manual Therapy, Neuromuscular Re-education, Patient/Caregiver Education, Self-Care/Home Management, Sensory Integration,Soft Tissue Mobilization,Taping, Therapeutic Activities, Therapeutic Exercises, Vestibular Rehabilitation Modalities Cold Pack/Ice Massage,Hot Packs Next Visit Focus/Plan Next Note Type Treatment Note Next Visit Plan Functional tasks to include writing and pt to bring list of other things to work on nex treatment. Initiate BIG exercises Plan of Care Dates Plan of Care Start Date 08/16/23 Plan of Care End Date 09/23/23 Electronically Signed by: Susie Dietz, DEBBIE 08/16/23 9575 If you are in agreement with this Plan of Care, please return a signed and dated copy. I have reviewed this Plan of Care and certify that the skilled therapy services above are required to meet the patient?s needs. Physician Signature Date Printed Name and Credentials Clinical Instructor Signature Printed Name and Credentials
--- NOTE | 2023-08-23 12:28 | PT.OTN ---
Current Diagnoses Parkinsonism, unspecified (08/23/23) Physical Therapy Treatment Note PT-OP-A Visit Information Start: 08/16/23 11:13 Freq: Status: Active Protocol: Document 08/23/23 11:22 MB (Rec: 08/23/23 12:28 MB [id number]) Out-Patient Physical Therapy Visit Information Visit Information Visit Type Treatment Note Visit Note AARP Medicare Self-Pay Need KX is Sd Pt is 7' late to appointment Visit Start Time 11:22 Visit Stop Time 12:15 Visit Number 2 Number of CERTIFIED PERSONAL FINANCE COUNSELOR Visits 0 PT-OP-B Current Condition Start: 08/16/23 11:13 Freq: Status: Active Protocol: Document 08/16/23 11:18 MB (Rec: 08/16/23 12:24 MB [id number]) Current Condition History of Current Condition Onset Date 3 years ago Current Complaints Slowness of movement, B hand shaking and imbalance History of Current Condition Pt arrives with , Sd. 3 years ago, pt noticed shaking in left hand, slowness of movement and decreased balance. Pt now has right hand shaking. Pt was diagnosed with Parkinsonianism. She could not tolerate Carbdopa Levodopa. Her stomach got very upset and she had vomiting. She is not taking an PD medication. 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 Pt sleeps well at night. She gets up 2-3 times a night to use the BR. She is not light- headed when she gets up. She does not use her cane when she gets up at night. She only uses cane when she leaves the house. Last fall was one year ago. Pt has been taking augmented NAC as a supplement and that has been helpful for energy level and general outlook. Pt will start Nattokinase next week to try to help with neuropathy pain. Pt is right handed. Treatment Goals Patient/Caregiver Goals To improve balance and shaking PT-OP-C Subjective Start: 08/16/23 11:13 Freq: Status: Active Protocol: Document 08/23/23 11:22 MB (Rec: 08/23/23 12:28 MB [id number]) OP-PT Subjective Patient Comments Patient Comments Pt has post-herpatic shingles pain today on her right side and under right arm. The pain has been bad yesterday and today. PT-OP-D Balance Start: 08/16/23 11:13 Freq: Status: Active Protocol: Document 08/16/23 11:18 MB (Rec: 08/16/23 12:24 MB [id number]) OP-PT Balance Assessment Sitting Balance Static Sitting Balance Ability Normal Dynamic Sitting Balance Ability Normal Standing Balance Static Standing Balance Ability Good Dynamic Standing Balance Ability Fair Device Used SPC Balance Tests Other Other Balance Tests Performed TUG 17 sec, use of SPC Marshall Fall Scale Copyright Permission PT-OP-G Mobility & Gait Start: 08/16/23 11:13 Freq: Status: Active Protocol: Document 08/16/23 11:18 MB (Rec: 08/16/23 12:24 MB [id number]) OP Gait Assessment Comments Gait Comments Gait is very slow and pt uses cane in right UE PT-OP-H Neuro Start: 08/16/23 11:13 Freq: Status: Active Protocol: Document 08/16/23 11:18 MB (Rec: 08/16/23 12:24 MB [id number]) Coordination Evaluation Upper Extremity Tests Left Finger to Nose Test Moderate Impairment Pronation/Supination Test Moderate Impairment Right Finger to Nose Test Moderate Impairment Pronation/Supination Test Moderate Impairment Lower Extremity Tests Left Foot Tapping Test Moderate Impairment Right Foot Tapping Test Moderate Impairment Vital Signs Comments Vital Signs Comments Orthostatic assessment with BP and HR in RUE: supine: 125/79 , 66; standing 108/73, 73; standing 1' 120/80, 75 PT-OP-M Strength Start: 08/16/23 11:13 Freq: Status: Active Protocol: Document 08/16/23 11:18 MB (Rec: 08/16/23 12:24 MB [id number]) Shoulder Strength Shoulder Manual Muscle Testing Bilateral Flexion 4 Good Abduction (C5) 4 Good Knee Strength Knee Manual Muscle Testing Bilateral Extension (L3) 4 Good PT-OP-Q Treatments Start: 08/16/23 11:13 Freq: Status: Active Protocol: Document 08/23/23 11:22 MB (Rec: 08/23/23 12:28 MB [id number]) Therapeutic Exercises Sitting Exercises Side to side Equipment Used BIG chair Reps/Minutes 5 reps to each side Comments Shaping for position, cues to count, cues to open hand, cues bring leg back Floor to ceiling Equipment Used BIG chair Reps/Minutes 5 reps Comments Bradykinesia and tremor in left hand, cues to count loud Standing Exercises Side rock and reach Equipment Used BIG chair behind pt Reps/Minutes 10 reps to each side Comments Cues for palm up, BIG hand, bring arm all the way back Forward rock and reach Equipment Used BIG chair at side Reps/Minutes 10 reps to each side Comments Cues to count, bigger stance Backward step Equipment Used BIG chair at side Reps/Minutes 10 reps to each side Comments Lots of cues for foot and hand but more for today Side step Equipment Used BIG chair at side, need to move in front next time Reps/Minutes 10 reps to each side Comments Cues for head turn Forward step Equipment Used BIG chair at side Reps/Minutes 10 reps to each side Comments Cues for bigger stance Therapeutic Activity Therapeutic Activity BIG STS Reps/Minutes 10 reps Comments Used BIG chair Cues for form and for pt to count Gait Training Gait Activity BIG walking with cane Comments Pt carries cane in right hand and cues for BIG stepping today, may benefit from rollator use PT-OP-T Assessment and Plan Start: 08/16/23 11:13 Freq: Status: Active Protocol: Document 08/23/23 11:22 MB (Rec: 08/23/23 12:28 MB [id number]) Physical Therapy Assessment Rehab Potential Rehabilitation Potential Fair Evaluation Complexity Number of Personal Factors/Comorbidities 1-2 Number of Body Systems Impaired 3 Clinical Presentation at Evaluation Evolving Impairments Impairments Activity Tolerance,Balance, Coordination,Functional Activities,Functional Mobility ,Gait,Pain,Posture,ROM, Strength,Transfers,Vestibular Goals 4 Impairment Lack of amplitude specific HEP Mcfp Goal (LTG) Pt will perform BIG exercises and functional activities daily with no more than superv and cues to improve amplitude of movement and balance. LTG Duration 6 weeks 3 Impairment 3 STS in 30 sec Mcfp Goal (LTG) Pt will perform at least 9 reps STS in 30 sec to improve functional balance with transfers. LTG Duration 6 weeks 2 Impairment TUG 17 sec Licensed Optician Goal (LTG) Pt will perform TUG in no more than 10 sec to improve balance and decrease fall risk . LTG Duration 6 weeks 1 Impairment FES 41/64, indicating high concern for falling with many activities Licensed Optician Goal (LTG) Pt will present with a FES score of no more than 30/64 to reflect reduced fear of falling. LTG Duration 6 weeks Assessment Summary Assessment Parking is challenging and pt and are late to appointment. Good effort with adapted exercises and functional activities listed below. Con't per POC. Bradykinesia and tremor are present and pt cannot take PD meds per . Physical Therapy Plan Frequency and Duration Frequency of Treatment 4x/Week Duration of treatment (weeks) 6 Plan of Care Start Date 08/16/23 Plan of Care End Date 09/23/23 Therapeutic Interventions Therapeutic Interventions Balance Training,Canalithic Repositioning,Coordination Training,Gait Training,Home Exercise Program,Joint Mobilizations,Manual Therapy, Neuromuscular Re-education, Patient/Caregiver Education, Self-Care/Home Management, Sensory Integration,Soft Tissue Mobilization,Taping, Therapeutic Activities, Therapeutic Exercises, Vestibular Rehabilitation Modalities Cold Pack/Ice Massage,Hot Packs Next Visit Focus/Plan Next Note Type Treatment Note Next Visit Plan Review BIG exercises and progress gait and functional activities to include writing, cap return to bottles, pouring and drinking
--- NOTE | 2023-08-24 12:14 | PT.OTN ---
Current Diagnoses Parkinsonism, unspecified (08/24/23) Physical Therapy Treatment Note PT-OP-A Visit Information Start: 08/16/23 11:13 Freq: Status: Active Protocol: Document 08/24/23 11:20 MB (Rec: 08/24/23 12:14 MB [id number]) Out-Patient Physical Therapy Visit Information Visit Information Visit Type Treatment Note Visit Note AARP Medicare Self-Pay Need KX is Sd Pt is 5' late to appointment Visit Start Time 11:20 Visit Stop Time 12:15 Visit Number 3 Number of DRAFTER TOOL DESIGN Visits 0 PT-OP-B Current Condition Start: 08/16/23 11:13 Freq: Status: Active Protocol: Document 08/16/23 11:18 MB (Rec: 08/16/23 12:24 MB [id number]) Current Condition History of Current Condition Onset Date 3 years ago Current Complaints Slowness of movement, B hand shaking and imbalance History of Current Condition Pt arrives with , Sd. 3 years ago, pt noticed shaking in left hand, slowness of movement and decreased balance. Pt now has right hand shaking. Pt was diagnosed with Parkinsonianism. She could not tolerate Carbdopa Levodopa. Her stomach got very upset and she had vomiting. She is not taking an PD medication. 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 Pt sleeps well at night. She gets up 2-3 times a night to use the BR. She is not light- headed when she gets up. She does not use her cane when she gets up at night. She only uses cane when she leaves the house. Last fall was one year ago. Pt has been taking augmented NAC as a supplement and that has been helpful for energy level and general outlook. Pt will start Nattokinase next week to try to help with neuropathy pain. Pt is right handed. Treatment Goals Patient/Caregiver Goals To improve balance and shaking PT-OP-C Subjective Start: 08/16/23 11:13 Freq: Status: Active Protocol: Document 08/24/23 11:20 MB (Rec: 08/24/23 12:14 MB [id number]) OP-PT Subjective Patient Comments Patient Comments Pt states that her back pain is feeling better today. They did not try the exercises as the handouts were too confusing. PT-OP-D Balance Start: 08/16/23 11:13 Freq: Status: Active Protocol: Document 08/16/23 11:18 MB (Rec: 08/16/23 12:24 MB [id number]) OP-PT Balance Assessment Sitting Balance Static Sitting Balance Ability Normal Dynamic Sitting Balance Ability Normal Standing Balance Static Standing Balance Ability Good Dynamic Standing Balance Ability Fair Device Used SPC Balance Tests Other Other Balance Tests Performed TUG 17 sec, use of SPC Marshall Fall Scale Copyright Permission PT-OP-G Mobility & Gait Start: 08/16/23 11:13 Freq: Status: Active Protocol: Document 08/16/23 11:18 MB (Rec: 08/16/23 12:24 MB [id number]) OP Gait Assessment Comments Gait Comments Gait is very slow and pt uses cane in right UE PT-OP-H Neuro Start: 08/16/23 11:13 Freq: Status: Active Protocol: Document 08/16/23 11:18 MB (Rec: 08/16/23 12:24 MB [id number]) Coordination Evaluation Upper Extremity Tests Left Finger to Nose Test Moderate Impairment Pronation/Supination Test Moderate Impairment Right Finger to Nose Test Moderate Impairment Pronation/Supination Test Moderate Impairment Lower Extremity Tests Left Foot Tapping Test Moderate Impairment Right Foot Tapping Test Moderate Impairment Vital Signs Comments Vital Signs Comments Orthostatic assessment with BP and HR in RUE: supine: 125/79 , 66; standing 108/73, 73; standing 1' 120/80, 75 PT-OP-M Strength Start: 08/16/23 11:13 Freq: Status: Active Protocol: Document 08/16/23 11:18 MB (Rec: 08/16/23 12:24 MB [id number]) Shoulder Strength Shoulder Manual Muscle Testing Bilateral Flexion 4 Good Abduction (C5) 4 Good Knee Strength Knee Manual Muscle Testing Bilateral Extension (L3) 4 Good PT-OP-Q Treatments Start: 08/16/23 11:13 Freq: Status: Active Protocol: Document 08/24/23 11:20 MB (Rec: 08/24/23 12:14 MB [id number]) Therapeutic Exercises Sitting Exercises Side to side Sitting Exercise Name More challenging to the left for pt Equipment Used BIG chair Reps/Minutes 5 reps to each side Comments Shaping for position, cues to count, cues to open hand, cues bring leg back Floor to ceiling Equipment Used BIG chair Reps/Minutes 5 reps Comments Bradykinesia and tremor in left hand, cues to count loud Standing Exercises Side rock and reach Equipment Used BIG chair behind pt Reps/Minutes 10 reps to each side Comments Cues for palm up, BIG hand, bring arm all the way back Forward rock and reach Equipment Used BIG chair at side Reps/Minutes 10 reps to each side Comments Pt does well and has trouble coordinating feet Backward step Equipment Used BIG chair at side Reps/Minutes 10 reps to each side Comments Better today Side step Equipment Used BIG chair in front Reps/Minutes 10 reps to each side Comments Cues for head turn Forward step Equipment Used BIG chair at side Reps/Minutes 10 reps to each side Comments Cues for bigger stance and to bring foot back Therapeutic Activity Therapeutic Activity Opening tubes in sitting Comments Small CeraVe bottle and tube. 5 big twist and top off and twist back on and cues for big amplitude. Pt states that she performs in standing at the sink at home and so try standing in the future BIG STS Reps/Minutes 10 reps Comments Used BIG chair Cues for form and for pt to count Gait Training Gait Activity BIG walking with cane Comments Lowered cane one rung and worked on left arm swing and larger amplitude and speed stepping today inside and outside of clinic PT-OP-T Assessment and Plan Start: 08/16/23 11:13 Freq: Status: Active Protocol: Document 08/24/23 11:20 MB (Rec: 08/24/23 12:14 MB [id number]) Physical Therapy Assessment Rehab Potential Rehabilitation Potential Fair Evaluation Complexity Number of Personal Factors/Comorbidities 1-2 Number of Body Systems Impaired 3 Clinical Presentation at Evaluation Evolving Impairments Impairments Activity Tolerance,Balance, Coordination,Functional Activities,Functional Mobility ,Gait,Pain,Posture,ROM, Strength,Transfers,Vestibular Goals 4 Impairment Lack of amplitude specific HEP Information Security Associate Goal (LTG) Pt will perform BIG exercises and functional activities daily with no more than superv and cues to improve amplitude of movement and balance. LTG Duration 6 weeks 3 Impairment 3 STS in 30 sec Halfway Goal (LTG) Pt will perform at least 9 reps STS in 30 sec to improve functional balance with transfers. LTG Duration 6 weeks 2 Impairment TUG 17 sec Halfway Goal (LTG) Pt will perform TUG in no more than 10 sec to improve balance and decrease fall risk . LTG Duration 6 weeks 1 Impairment FES 41/64, indicating high concern for falling with many activities Information Security Associate Goal (LTG) Pt will present with a FES score of no more than 30/64 to reflect reduced fear of falling. LTG Duration 6 weeks Assessment Summary Assessment Better performance of adapted BIG exercises and made a video of PT doing the exercises and so hope that pt and will perform at home today. Add cap opening today for clinic exercise and home. Progress from sitting to standing. Physical Therapy Plan Frequency and Duration Frequency of Treatment 4x/Week Duration of treatment (weeks) 6 Plan of Care Start Date 08/16/23 Plan of Care End Date 09/23/23 Therapeutic Interventions Therapeutic Interventions Balance Training,Canalithic Repositioning,Coordination Training,Gait Training,Home Exercise Program,Joint Mobilizations,Manual Therapy, Neuromuscular Re-education, Patient/Caregiver Education, Self-Care/Home Management, Sensory Integration,Soft Tissue Mobilization,Taping, Therapeutic Activities, Therapeutic Exercises, Vestibular Rehabilitation Modalities Cold Pack/Ice Massage,Hot Packs Next Visit Focus/Plan Next Note Type Treatment Note Next Visit Plan Review BIG exercises and progress gait and functional activities to include writing, cap return to bottles, pouring and drinking
--- NOTE | 2023-08-25 12:17 | PT.OTN ---
Current Diagnoses Parkinsonism, unspecified (08/25/23) Physical Therapy Treatment Note PT-OP-A Visit Information Start: 08/16/23 11:13 Freq: Status: Active Protocol: Document 08/25/23 11:23 SP (Rec: 08/25/23 12:30 SP [id number]) Out-Patient Physical Therapy Visit Information Visit Information Visit Type Treatment Note Visit Note AARP Medicare Self-Pay Need KX Visit Start Time 11:17 Visit Stop Time 12:17 Visit Number 4 Number of SENIOR SAS DEVELOPER Visits 1 Evaluation Information Evaluation Date 08/16/23 PT-OP-B Current Condition Start: 08/16/23 11:13 Freq: Status: Active Protocol: Document 08/16/23 11:18 MB (Rec: 08/16/23 12:24 MB [id number]) Current Condition History of Current Condition Onset Date 3 years ago Current Complaints Slowness of movement, B hand shaking and imbalance History of Current Condition Pt arrives with , Sd. 3 years ago, pt noticed shaking in left hand, slowness of movement and decreased balance. Pt now has right hand shaking. Pt was diagnosed with Parkinsonianism. She could not tolerate Carbdopa Levodopa. Her stomach got very upset and she had vomiting. She is not taking an PD medication. 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 Pt sleeps well at night. She gets up 2-3 times a night to use the BR. She is not light- headed when she gets up. She does not use her cane when she gets up at night. She only uses cane when she leaves the house. Last fall was one year ago. Pt has been taking augmented NAC as a supplement and that has been helpful for energy level and general outlook. Pt will start Nattokinase next week to try to help with neuropathy pain. Pt is right handed. Treatment Goals Patient/Caregiver Goals To improve balance and shaking PT-OP-C Subjective Start: 08/16/23 11:13 Freq: Status: Active Protocol: Document 08/25/23 11:23 SP (Rec: 08/25/23 12:30 SP [id number]) OP-PT Subjective Patient Comments Patient Comments Pt reports was really tired after last tx and didn't do exercises since then. PT-OP-D Balance Start: 08/16/23 11:13 Freq: Status: Active Protocol: Document 08/16/23 11:18 MB (Rec: 08/16/23 12:24 MB [id number]) OP-PT Balance Assessment Sitting Balance Static Sitting Balance Ability Normal Dynamic Sitting Balance Ability Normal Standing Balance Static Standing Balance Ability Good Dynamic Standing Balance Ability Fair Device Used SPC Balance Tests Other Other Balance Tests Performed TUG 17 sec, use of SPC Marshall Fall Scale Copyright Permission PT-OP-G Mobility & Gait Start: 08/16/23 11:13 Freq: Status: Active Protocol: Document 08/16/23 11:18 MB (Rec: 08/16/23 12:24 MB [id number]) OP Gait Assessment Comments Gait Comments Gait is very slow and pt uses cane in right UE PT-OP-H Neuro Start: 08/16/23 11:13 Freq: Status: Active Protocol: Document 08/16/23 11:18 MB (Rec: 08/16/23 12:24 MB [id number]) Coordination Evaluation Upper Extremity Tests Left Finger to Nose Test Moderate Impairment Pronation/Supination Test Moderate Impairment Right Finger to Nose Test Moderate Impairment Pronation/Supination Test Moderate Impairment Lower Extremity Tests Left Foot Tapping Test Moderate Impairment Right Foot Tapping Test Moderate Impairment Vital Signs Comments Vital Signs Comments Orthostatic assessment with BP and HR in RUE: supine: 125/79 , 66; standing 108/73, 73; standing 1' 120/80, 75 PT-OP-M Strength Start: 08/16/23 11:13 Freq: Status: Active Protocol: Document 08/16/23 11:18 MB (Rec: 08/16/23 12:24 MB [id number]) Shoulder Strength Shoulder Manual Muscle Testing Bilateral Flexion 4 Good Abduction (C5) 4 Good Knee Strength Knee Manual Muscle Testing Bilateral Extension (L3) 4 Good PT-OP-Q Treatments Start: 08/16/23 11:13 Freq: Status: Active Protocol: Document 08/25/23 11:23 SP (Rec: 08/25/23 12:30 SP [id number]) Therapeutic Exercises Sitting Exercises Side to side Sitting Exercise Name More challenging to the left for pt Equipment Used BIG chair Reps/Minutes 5 reps to each side Comments Shaping for position knee front knee, cues to open hand, cues stra leg back Floor to ceiling Equipment Used BIG chair Reps/Minutes 5 reps Comments Less Bradykinesia and tremor in left hand, occ cues to count loud Standing Exercises Side rock and reach Equipment Used BIG chair behind pt Reps/Minutes 10 reps to each side Comments Cues for palm up, BIG hand, bring arm all the way back, trunk rotate Forward rock and reach Equipment Used BIG chair at side Reps/Minutes 10 reps to each side Comments cued rock feet 1st then add arm, good form Backward step Equipment Used BIG chair at side Reps/Minutes 10 reps to each side Comments cued front toe up, stomp feet // return, arm up front palm face away Side step Equipment Used BIG chair in front Reps/Minutes 10 reps to each side Comments Cues for head turn, palm up Forward step Equipment Used BIG chair at side Reps/Minutes 10 reps to each side Comments Cues for bigger stance and to bring foot back Therapeutic Activity Therapeutic Activity writing Name Capital alphabet, name Reps/Minutes 2 full sheets Comments cued BIG letters between solid lines, exaggerate letters, maintain spacing. Improved less shakiness with long strokes and spacing. Opening tubes in sitting Name Bradykinesia and tremor in left hand Comments use screws into holes (forgot tubes from home), 5 big twist and top off and twist back on and cues for big amplitude. Pt states that she performs in standing at the sink at home and so try standing in the future BIG STS Reps/Minutes 10 reps Comments Used BIG chair Cues for form BIG arms at side and for pt to count Gait Training Gait Activity BIG walking with cane Device Used SPC in RUE Comments worked on left arm swing and larger amplitude and speed stepping today inside and outside clinic PT-OP-T Assessment and Plan Start: 08/16/23 11:13 Freq: Status: Active Protocol: Document 08/25/23 11:23 SP (Rec: 08/25/23 12:30 SP [id number]) Physical Therapy Assessment Goals 4 Impairment Lack of amplitude specific HEP [facility] Goal (LTG) Pt will perform BIG exercises and functional activities daily with no more than superv and cues to improve amplitude of movement and balance. LTG Duration 6 weeks 3 Impairment 3 STS in 30 sec Chip Separator Goal (LTG) Pt will perform at least 9 reps STS in 30 sec to improve functional balance with transfers. LTG Duration 6 weeks 2 Impairment TUG 17 sec Mcfp Goal (LTG) Pt will perform TUG in no more than 10 sec to improve balance and decrease fall risk . LTG Duration 6 weeks 1 Impairment FES 41/64, indicating high concern for falling with many activities Chip Separator Goal (LTG) Pt will present with a FES score of no more than 30/64 to reflect reduced fear of falling. LTG Duration 6 weeks Three Impairment 5x STS 28.21 seconds Two Impairment Burch 35/56 Assessment Summary Assessment Pt improved increase voice audible counting. Shaped each LE extension more during side reach. Cues for BIGGER L arm swings during gait and BELLE, occasional over wt shift sway left but no LOB self correction. Improved BIGGER strokes during letter writing and name lessening shakiness RUE. Ed of performance of exercises and cap don/doff and writing 2x/day 7 days week, both pt and verbalized understanding end tx. Physical Therapy Plan Frequency and Duration Frequency of Treatment 4x/Week Duration of treatment (weeks) 6 Plan of Care Start Date 08/16/23 Plan of Care End Date 09/23/23 Therapeutic Interventions Therapeutic Interventions Balance Training,Canalithic Repositioning,Coordination Training,Gait Training,Home Exercise Program,Joint Mobilizations,Manual Therapy, Neuromuscular Re-education, Patient/Caregiver Education, Self-Care/Home Management, Sensory Integration,Soft Tissue Mobilization,Taping, Therapeutic Activities, Therapeutic Exercises, Vestibular Rehabilitation Modalities Cold Pack/Ice Massage,Hot Packs Next Visit Focus/Plan Next Note Type Treatment Note Next Visit Plan Review BIG exercises and progress gait and functional activities to include writing letters&name, cap return to bottles, future pouring and drinking
--- NOTE | 2023-08-30 12:16 | PT.OTN ---
Current Diagnoses Parkinsonism, unspecified (08/30/23) Physical Therapy Treatment Note PT-OP-A Visit Information Start: 08/16/23 11:13 Freq: Status: Active Protocol: Document 08/30/23 11:20 MB (Rec: 08/30/23 11:59 MB [id number]) Out-Patient Physical Therapy Visit Information Visit Information Visit Type Treatment Note Visit Note AARP Medicare Self-Pay Need KX Visit Start Time 11:20 Visit Stop Time 12:15 Visit Number 5 Number of PATIENT FINANCIAL COORDINATOR Visits 0 Precautions Precautions Pt with some light-headedness today and she is orthostatic today PT-OP-B Current Condition Start: 08/16/23 11:13 Freq: Status: Active Protocol: Document 08/16/23 11:18 MB (Rec: 08/16/23 12:24 MB [id number]) Current Condition History of Current Condition Onset Date 3 years ago Current Complaints Slowness of movement, B hand shaking and imbalance History of Current Condition Pt arrives with , Sd. 3 years ago, pt noticed shaking in left hand, slowness of movement and decreased balance. Pt now has right hand shaking. Pt was diagnosed with Parkinsonianism. She could not tolerate Carbdopa Levodopa. Her stomach got very upset and she had vomiting. She is not taking an PD medication. 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 Pt sleeps well at night. She gets up 2-3 times a night to use the BR. She is not light- headed when she gets up. She does not use her cane when she gets up at night. She only uses cane when she leaves the house. Last fall was one year ago. Pt has been taking augmented NAC as a supplement and that has been helpful for energy level and general outlook. Pt will start Nattokinase next week to try to help with neuropathy pain. Pt is right handed. Treatment Goals Patient/Caregiver Goals To improve balance and shaking PT-OP-C Subjective Start: 08/16/23 11:13 Freq: Status: Active Protocol: Document 08/30/23 11:20 MB (Rec: 08/30/23 11:59 MB [id number]) OP-PT Subjective Patient Comments Patient Comments Pt reports that she has had some dizziness. When asked, it sounds like she is experiencing light-headedness. PT-OP-D Balance Start: 08/16/23 11:13 Freq: Status: Active Protocol: Document 08/16/23 11:18 MB (Rec: 08/16/23 12:24 MB [id number]) OP-PT Balance Assessment Sitting Balance Static Sitting Balance Ability Normal Dynamic Sitting Balance Ability Normal Standing Balance Static Standing Balance Ability Good Dynamic Standing Balance Ability Fair Device Used SPC Balance Tests Other Other Balance Tests Performed TUG 17 sec, use of SPC Marshall Fall Scale Copyright Permission PT-OP-G Mobility & Gait Start: 08/16/23 11:13 Freq: Status: Active Protocol: Document 08/16/23 11:18 MB (Rec: 08/16/23 12:24 MB [id number]) OP Gait Assessment Comments Gait Comments Gait is very slow and pt uses cane in right UE PT-OP-H Neuro Start: 08/16/23 11:13 Freq: Status: Active Protocol: Document 08/16/23 11:18 MB (Rec: 08/16/23 12:24 MB [id number]) Coordination Evaluation Upper Extremity Tests Left Finger to Nose Test Moderate Impairment Pronation/Supination Test Moderate Impairment Right Finger to Nose Test Moderate Impairment Pronation/Supination Test Moderate Impairment Lower Extremity Tests Left Foot Tapping Test Moderate Impairment Right Foot Tapping Test Moderate Impairment Vital Signs Comments Vital Signs Comments Orthostatic assessment with BP and HR in RUE: supine: 125/79 , 66; standing 108/73, 73; standing 1' 120/80, 75 PT-OP-M Strength Start: 08/16/23 11:13 Freq: Status: Active Protocol: Document 08/16/23 11:18 MB (Rec: 08/16/23 12:24 MB [id number]) Shoulder Strength Shoulder Manual Muscle Testing Bilateral Flexion 4 Good Abduction (C5) 4 Good Knee Strength Knee Manual Muscle Testing Bilateral Extension (L3) 4 Good PT-OP-Q Treatments Start: 08/16/23 11:13 Freq: Status: Active Protocol: Document 08/30/23 11:20 MB (Rec: 08/30/23 11:59 MB [id number]) Therapeutic Exercises Sitting Exercises Side to side Sitting Exercise Name More challenging to the left for pt Equipment Used BIG chair Reps/Minutes 5 reps to each side Comments Shaping for position knee front knee, cues to open hand, cues stra leg back Floor to ceiling Sitting Exercise Name Cues not to move leg until reach across Equipment Used BIG chair Reps/Minutes 5 reps Comments Less Bradykinesia and tremor in left hand Standing Exercises Backward step Equipment Used BIG chair at side Reps/Minutes 10 reps to each side Comments Cues for BIG hand and BIG front toe Side step Equipment Used BIG chair in front Reps/Minutes 10 reps to each side Comments Cues for head turn Forward step Equipment Used BIG chair at side Reps/Minutes 10 reps to each side Comments Cues for bigger stance and to bring foot back Therapeutic Activity Therapeutic Activity Orthostatic assessment with bed mobility Comments BP and HR in LUE: supine: 122/ 65, 68; standin/64, 69; standing 1': 116/68, 69. Bed mobility with CGA and log rolling BIG STS Reps/Minutes 10 reps Comments Used BIG chair Cues for hand position and not to reach down but to reach forward Gait Training Gait Activity BIG walking with cane Device Used SPC in RUE Comments worked on left arm swing and larger amplitude and speed stepping today inside and outside clinic, cues for form, superv on flat surfaces and up to min A for walking up hill on grass and for curb training x4 PT-OP-T Assessment and Plan Start: 08/16/23 11:13 Freq: Status: Active Protocol: Document 08/30/23 11:20 MB (Rec: 08/30/23 11:59 MB [id number]) Physical Therapy Assessment Rehab Potential Rehabilitation Potential Fair Evaluation Complexity Number of Personal Factors/Comorbidities 1-2 Number of Body Systems Impaired 3 Clinical Presentation at Evaluation Evolving Impairments Impairments Activity Tolerance,Balance, Coordination,Functional Activities,Functional Mobility ,Gait,Pain,Posture,ROM, Strength,Transfers,Vestibular Goals 4 Impairment Lack of amplitude specific HEP [facility] Goal (LTG) Pt will perform BIG exercises and functional activities daily with no more than superv and cues to improve amplitude of movement and balance. LTG Duration 6 weeks 3 Impairment 3 STS in 30 sec Chief Recordist Goal (LTG) Pt will perform at least 9 reps STS in 30 sec to improve functional balance with transfers. LTG Duration 6 weeks 2 Impairment TUG 17 sec [facility]cf Goal (LTG) Pt will perform TUG in no more than 10 sec to improve balance and decrease fall risk . LTG Duration 6 weeks 1 Impairment FES 41/64, indicating high concern for falling with many activities [facility] Goal (LTG) Pt will present with a FES score of no more than 30/64 to reflect reduced fear of falling. LTG Duration 6 weeks Assessment Summary Assessment Pt with some light-headedness today and she is orthostatic with assessment. After orthostatic assessment, pt states that when she was sitting on the commode the other night and she fell forward and hit her head on the wall. She had some head pain and it is now better. Spoke with when he returned for pt. Ongoing exercise and balance and gait training today. Physical Therapy Plan Frequency and Duration Frequency of Treatment 4x/Week Duration of treatment (weeks) 6 Plan of Care Start Date 08/16/23 Plan of Care End Date 09/23/23 Therapeutic Interventions Therapeutic Interventions Balance Training,Canalithic Repositioning,Coordination Training,Gait Training,Home Exercise Program,Joint Mobilizations,Manual Therapy, Neuromuscular Re-education, Patient/Caregiver Education, Self-Care/Home Management, Sensory Integration,Soft Tissue Mobilization,Taping, Therapeutic Activities, Therapeutic Exercises, Vestibular Rehabilitation Modalities Cold Pack/Ice Massage,Hot Packs Other Referrals/Consults Referrals/Consults Recommended Check with doctor about orthostatic hypotension Next Visit Focus/Plan Next Note Type Treatment Note Next Visit Plan Review BIG exercises and progress gait and functional activities to include writing letters&name, cap return to bottles, future pouring and drinking
--- NOTE | 2023-08-31 12:18 | PT.OTN ---
Current Diagnoses Parkinsonism, unspecified (08/31/23) Physical Therapy Treatment Note PT-OP-A Visit Information Start: 08/16/23 11:13 Freq: Status: Active Protocol: Document 08/31/23 11:20 MB (Rec: 08/31/23 12:18 MB [id number]) Out-Patient Physical Therapy Visit Information Visit Information Visit Type Treatment Note Visit Note AARP Medicare Self-Pay Need KX Visit Start Time 11:20 Visit Stop Time 12:15 Visit Number 6 Number of CLOTH BURLER Visits 0 PT-OP-B Current Condition Start: 08/16/23 11:13 Freq: Status: Active Protocol: Document 08/16/23 11:18 MB (Rec: 08/16/23 12:24 MB [id number]) Current Condition History of Current Condition Onset Date 3 years ago Current Complaints Slowness of movement, B hand shaking and imbalance History of Current Condition Pt arrives with , Sd. 3 years ago, pt noticed shaking in left hand, slowness of movement and decreased balance. Pt now has right hand shaking. Pt was diagnosed with Parkinsonianism. She could not tolerate Carbdopa Levodopa. Her stomach got very upset and she had vomiting. She is not taking an PD medication. 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 Pt sleeps well at night. She gets up 2-3 times a night to use the BR. She is not light- headed when she gets up. She does not use her cane when she gets up at night. She only uses cane when she leaves the house. Last fall was one year ago. Pt has been taking augmented NAC as a supplement and that has been helpful for energy level and general outlook. Pt will start Nattokinase next week to try to help with neuropathy pain. Pt is right handed. Treatment Goals Patient/Caregiver Goals To improve balance and shaking PT-OP-C Subjective Start: 08/16/23 11:13 Freq: Status: Active Protocol: Document 08/31/23 11:20 MB (Rec: 08/31/23 12:18 MB [id number]) OP-PT Subjective Patient Comments Patient Comments Pt is tired from going to [facility] yesterday afternoon. PT-OP-D Balance Start: 08/16/23 11:13 Freq: Status: Active Protocol: Document 08/16/23 11:18 MB (Rec: 08/16/23 12:24 MB [id number]) OP-PT Balance Assessment Sitting Balance Static Sitting Balance Ability Normal Dynamic Sitting Balance Ability Normal Standing Balance Static Standing Balance Ability Good Dynamic Standing Balance Ability Fair Device Used SPC Balance Tests Other Other Balance Tests Performed TUG 17 sec, use of SPC Marshall Fall Scale Copyright Permission PT-OP-G Mobility & Gait Start: 08/16/23 11:13 Freq: Status: Active Protocol: Document 08/16/23 11:18 MB (Rec: 08/16/23 12:24 MB [id number]) OP Gait Assessment Comments Gait Comments Gait is very slow and pt uses cane in right UE PT-OP-H Neuro Start: 08/16/23 11:13 Freq: Status: Active Protocol: Document 08/16/23 11:18 MB (Rec: 08/16/23 12:24 MB [id number]) Coordination Evaluation Upper Extremity Tests Left Finger to Nose Test Moderate Impairment Pronation/Supination Test Moderate Impairment Right Finger to Nose Test Moderate Impairment Pronation/Supination Test Moderate Impairment Lower Extremity Tests Left Foot Tapping Test Moderate Impairment Right Foot Tapping Test Moderate Impairment Vital Signs Comments Vital Signs Comments Orthostatic assessment with BP and HR in RUE: supine: 125/79 , 66; standing 108/73, 73; standing 1' 120/80, 75 PT-OP-M Strength Start: 08/16/23 11:13 Freq: Status: Active Protocol: Document 08/16/23 11:18 MB (Rec: 08/16/23 12:24 MB [id number]) Shoulder Strength Shoulder Manual Muscle Testing Bilateral Flexion 4 Good Abduction (C5) 4 Good Knee Strength Knee Manual Muscle Testing Bilateral Extension (L3) 4 Good PT-OP-Q Treatments Start: 08/16/23 11:13 Freq: Status: Active Protocol: Document 08/31/23 11:20 MB (Rec: 08/31/23 12:18 MB [id number]) Therapeutic Exercises Sitting Exercises Side to side Equipment Used BIG chair Reps/Minutes 5 reps to each side Comments Cues to not start with leg out to side Floor to ceiling Equipment Used BIG chair Reps/Minutes 5 reps Comments Less Bradykinesia and tremor in left hand Standing Exercises Side rock and reach Equipment Used BIG chair behind pt Reps/Minutes 10 reps to each side Comments Cues for palm up, BIG hand, bring arm all the way back, trunk rotate Forward rock and reach Equipment Used BIG chair at side Reps/Minutes 10 reps to each side Comments cued rock feet 1st then add arm, good form Backward step Equipment Used BIG chair at side Reps/Minutes 10 reps to each side Comments cued front toe up, stomp feet // return, arm up front palm face away Side step Equipment Used BIG chair in front Reps/Minutes 10 reps to each side Comments Cues for head to move with her and to slap thigh Forward step Equipment Used BIG chair at side Reps/Minutes 10 reps to each side Comments Cues for bigger stance and to bring foot back Therapeutic Activity Therapeutic Activity Pouring water from cups Comments Pouring from one cup to another, tremoring is severe both hands, min A to help left hand poor into right cup first attempt and then cues. Modification is that stationary empty cup is resting on towel on table and pouring cup is resting on empty cup writing Comments Writing name in lined sheet and capital letters, tremor does affect writing and pt must bear down with pen, bradykinesia BIG STS Reps/Minutes 10 reps Comments Used BIG chair Gait Training Gait Activity BIG walking with cane Device Used SPC in RUE Comments Better left arm movement and up and down grassy hill x4 with CGA and up and down curb 4 x with CGA, better balance with uphill, cues to power through legs, gait inside clinic and on sidewalk as well PT-OP-T Assessment and Plan Start: 08/16/23 11:13 Freq: Status: Active Protocol: Document 08/31/23 11:20 MB (Rec: 08/31/23 12:18 MB [id number]) Physical Therapy Assessment Rehab Potential Rehabilitation Potential Fair Evaluation Complexity Number of Personal Factors/Comorbidities 1-2 Number of Body Systems Impaired 3 Clinical Presentation at Evaluation Evolving Impairments Impairments Activity Tolerance,Balance, Coordination,Functional Activities,Functional Mobility ,Gait,Pain,Posture,ROM, Strength,Transfers,Vestibular Goals 4 Impairment Lack of amplitude specific HEP Penitentiary Goal (LTG) Pt will perform BIG exercises and functional activities daily with no more than superv and cues to improve amplitude of movement and balance. LTG Duration 6 weeks 3 Impairment 3 STS in 30 sec Evp Managing Director Goal (LTG) Pt will perform at least 9 reps STS in 30 sec to improve functional balance with transfers. LTG Duration 6 weeks 2 Impairment TUG 17 sec Penitentiary Goal (LTG) Pt will perform TUG in no more than 10 sec to improve balance and decrease fall risk . LTG Duration 6 weeks 1 Impairment FES 41/64, indicating high concern for falling with many activities Evp Managing Director Goal (LTG) Pt will present with a FES score of no more than 30/64 to reflect reduced fear of falling. LTG Duration 6 weeks Assessment Summary Assessment Pt with bradykinesia and tremor that is noteworthy with exercise speed and arm movement, gait and fine motor tasks and since pt cannot tolerate pharmaceutical therapy, this may not improve. Great effort with therapy tasks. Physical Therapy Plan Frequency and Duration Frequency of Treatment 4x/Week Duration of treatment (weeks) 6 Plan of Care Start Date 08/16/23 Plan of Care End Date 09/23/23 Therapeutic Interventions Therapeutic Interventions Balance Training,Canalithic Repositioning,Coordination Training,Gait Training,Home Exercise Program,Joint Mobilizations,Manual Therapy, Neuromuscular Re-education, Patient/Caregiver Education, Self-Care/Home Management, Sensory Integration,Soft Tissue Mobilization,Taping, Therapeutic Activities, Therapeutic Exercises, Vestibular Rehabilitation Modalities Cold Pack/Ice Massage,Hot Packs Other Referrals/Consults Referrals/Consults Recommended Check with doctor about orthostatic hypotension Next Visit Focus/Plan Next Note Type Treatment Note Next Visit Plan Review BIG exercises and progress gait and functional activities to include writing letters&name, cap return to bottles, future pouring and drinking
--- NOTE | 2023-09-01 12:16 | PT.OTN ---
Current Diagnoses Parkinsonism, unspecified (09/01/23) Physical Therapy Treatment Note PT-OP-A Visit Information Start: 08/16/23 11:13 Freq: Status: Active Protocol: Document 09/01/23 11:23 SP (Rec: 09/01/23 12:34 SP [id number]) Out-Patient Physical Therapy Visit Information Visit Information Visit Type Treatment Note Visit Note AARP Medicare Self-Pay Need KX Visit Start Time 11:23 Visit Stop Time 12:16 Visit Number 7 Number of OFFICE MANAGER Visits 1 Evaluation Information Evaluation Date 08/16/23 Precautions Precautions 08/30/23 lightheaded, checked orthostatics. PT-OP-B Current Condition Start: 08/16/23 11:13 Freq: Status: Active Protocol: Document 08/16/23 11:18 MB (Rec: 08/16/23 12:24 MB [id number]) Current Condition History of Current Condition Onset Date 3 years ago Current Complaints Slowness of movement, B hand shaking and imbalance History of Current Condition Pt arrives with , Sd. 3 years ago, pt noticed shaking in left hand, slowness of movement and decreased balance. Pt now has right hand shaking. Pt was diagnosed with Parkinsonianism. She could not tolerate Carbdopa Levodopa. Her stomach got very upset and she had vomiting. She is not taking an PD medication. 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 Pt sleeps well at night. She gets up 2-3 times a night to use the BR. She is not light- headed when she gets up. She does not use her cane when she gets up at night. She only uses cane when she leaves the house. Last fall was one year ago. Pt has been taking augmented NAC as a supplement and that has been helpful for energy level and general outlook. Pt will start Nattokinase next week to try to help with neuropathy pain. Pt is right handed. Treatment Goals Patient/Caregiver Goals To improve balance and shaking PT-OP-C Subjective Start: 08/16/23 11:13 Freq: Status: Active Protocol: Document 09/01/23 11:23 SP (Rec: 09/01/23 12:34 SP [id number]) OP-PT Subjective Patient Comments Patient Comments Pt reports does exercises 2x/ day on weekend but yesterday did yard work weeding standing bent over and was really tired didn't get to exercises. PT-OP-D Balance Start: 08/16/23 11:13 Freq: Status: Active Protocol: Document 08/16/23 11:18 MB (Rec: 08/16/23 12:24 MB [id number]) OP-PT Balance Assessment Sitting Balance Static Sitting Balance Ability Normal Dynamic Sitting Balance Ability Normal Standing Balance Static Standing Balance Ability Good Dynamic Standing Balance Ability Fair Device Used SPC Balance Tests Other Other Balance Tests Performed TUG 17 sec, use of SPC Marshall Fall Scale Copyright Permission PT-OP-G Mobility & Gait Start: 08/16/23 11:13 Freq: Status: Active Protocol: Document 08/16/23 11:18 MB (Rec: 08/16/23 12:24 MB [id number]) OP Gait Assessment Comments Gait Comments Gait is very slow and pt uses cane in right UE PT-OP-H Neuro Start: 08/16/23 11:13 Freq: Status: Active Protocol: Document 08/16/23 11:18 MB (Rec: 08/16/23 12:24 MB [id number]) Coordination Evaluation Upper Extremity Tests Left Finger to Nose Test Moderate Impairment Pronation/Supination Test Moderate Impairment Right Finger to Nose Test Moderate Impairment Pronation/Supination Test Moderate Impairment Lower Extremity Tests Left Foot Tapping Test Moderate Impairment Right Foot Tapping Test Moderate Impairment Vital Signs Comments Vital Signs Comments Orthostatic assessment with BP and HR in RUE: supine: 125/79 , 66; standing 108/73, 73; standing 1' 120/80, 75 PT-OP-M Strength Start: 08/16/23 11:13 Freq: Status: Active Protocol: Document 08/16/23 11:18 MB (Rec: 08/16/23 12:24 MB [id number]) Shoulder Strength Shoulder Manual Muscle Testing Bilateral Flexion 4 Good Abduction (C5) 4 Good Knee Strength Knee Manual Muscle Testing Bilateral Extension (L3) 4 Good PT-OP-Q Treatments Start: 08/16/23 11:13 Freq: Status: Active Protocol: Document 09/01/23 11:23 SP (Rec: 09/01/23 12:34 SP [id number]) Therapeutic Exercises Sitting Exercises Side to side Equipment Used BIG chair Reps/Minutes 5 reps to each side Comments cued back leg back in, added flicks open leg something go Floor to ceiling Equipment Used BIG chair Reps/Minutes 10 reps Comments added flicks, cues eyes open Standing Exercises Side rock and reach Equipment Used BIG chair behind pt Reps/Minutes 10 reps to each side Comments Cues for palm up, BIG hand, bring arm all the way back, trunk rotate Forward rock and reach Equipment Used BIG chair at side Reps/Minutes 10 reps to each side Comments cued rock feet 1st then add arm, corrected L arm up not crosss body Backward step Equipment Used BIG chair at side Reps/Minutes 10 reps to each side Comments cued front toe up, stomp feet // return, arm up front fingers wide faceaway Side step Equipment Used BIG chair in front Reps/Minutes 10 reps to each side Comments Cues for head to move with her and to slap thigh Forward step Equipment Used BIG chair at side Reps/Minutes 10 reps to each side Comments Cues for bigger stance and to bring foot back Therapeutic Activity Therapeutic Activity Pouring water from cups Reps/Minutes x5 reps, flicks between sets Comments Pouring from one cup to another, tremoring is severe L >R both hands, better self demo modification stationary empty cup is resting on towel on table and pouring cup is resting on empty cup, no significant reduction hand tremors post flicks Opening tubes in sitting Name Bradykinesia and tremor in left hand Comments 5 big twist and top off and twist back on and cues for BIG each hand amplitude. BIG STS Reps/Minutes 10 reps Comments Used BIG chair Gait Training Gait Activity BIG walking with cane Device [place] [facility] [place] Comments Cued L arm swing, up and down grassy hill x4 with close SBA/ CGA, up and down curb 4 x with close SBA, initial step up R lat lean improves correction L on grassy R slant better balance with uphill and graded descend, cues to power through legs, gait inside clinic and on sidewalk as well PT-OP-T Assessment and Plan Start: 08/16/23 11:13 Freq: Status: Active Protocol: Document 09/01/23 11:23 SP (Rec: 09/01/23 12:34 SP [id number]) Physical Therapy Assessment Goals 4 Impairment Lack of amplitude specific HEP Orthopedic Technician Goal (LTG) Pt will perform BIG exercises and functional activities daily with no more than superv and cues to improve amplitude of movement and balance. LTG Duration 6 weeks 3 Impairment 3 STS in 30 sec Prison Goal (LTG) Pt will perform at least 9 reps STS in 30 sec to improve functional balance with transfers. LTG Duration 6 weeks 2 Impairment TUG 17 sec Prison Goal (LTG) Pt will perform TUG in no more than 10 sec to improve balance and decrease fall risk . LTG Duration 6 weeks 1 Impairment FES 41/64, indicating high concern for falling with many activities Prison Goal (LTG) Pt will present with a FES score of no more than 30/64 to reflect reduced fear of falling. LTG Duration 6 weeks Assessment Summary Assessment Reducation bradykinesia with flicks during exercises today. Cues for L arm swing during gait and effort push off R>LLE on grassy R slanted lawn CGA- min A due to R LOB post LLE push off better 2-4 sets in grassy incline, Ed wt shift over with equal WB into SPC in RUE. Physical Therapy Plan Frequency and Duration Frequency of Treatment 4x/Week Duration of treatment (weeks) 6 Plan of Care Start Date 08/16/23 Plan of Care End Date 09/23/23 Therapeutic Interventions Therapeutic Interventions Balance Training,Canalithic Repositioning,Coordination Training,Gait Training,Home Exercise Program,Joint Mobilizations,Manual Therapy, Neuromuscular Re-education, Patient/Caregiver Education, Self-Care/Home Management, Sensory Integration,Soft Tissue Mobilization,Taping, Therapeutic Activities, Therapeutic Exercises, Vestibular Rehabilitation Modalities Cold Pack/Ice Massage,Hot Packs Other Referrals/Consults Referrals/Consults Recommended Check with doctor about orthostatic hypotension Next Visit Focus/Plan Next Note Type Treatment Note Next Visit Plan Review BIG exercises and progress gait and functional activities to include writing letters&name, cap return to bottles, future pouring and drinking
--- NOTE | 2023-09-05 11:33 | PT.OTN ---
Current Diagnoses Parkinsonism, unspecified (09/05/23) Physical Therapy Treatment Note PT-OP-A Visit Information Start: 08/16/23 11:13 Freq: Status: Active Protocol: Document 09/05/23 10:32 SP (Rec: 09/05/23 11:39 SP [id number]) Out-Patient Physical Therapy Visit Information Visit Information Visit Type Treatment Note Visit Note AARP Medicare Self-Pay KX Visit Start Time 10:45 Visit Stop Time 11:33 Visit Number 8 Number of FIRE WATCHMAN Visits 2 Evaluation Information Evaluation Date 08/16/23 Precautions Precautions 08/30/23 lightheaded, checked orthostatics. PT-OP-B Current Condition Start: 08/16/23 11:13 Freq: Status: Active Protocol: Document 08/16/23 11:18 MB (Rec: 08/16/23 12:24 MB [id number]) Current Condition History of Current Condition Onset Date 3 years ago Current Complaints Slowness of movement, B hand shaking and imbalance History of Current Condition Pt arrives with , Sd. 3 years ago, pt noticed shaking in left hand, slowness of movement and decreased balance. Pt now has right hand shaking. Pt was diagnosed with Parkinsonianism. She could not tolerate Carbdopa Levodopa. Her stomach got very upset and she had vomiting. She is not taking an PD medication. 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 Pt sleeps well at night. She gets up 2-3 times a night to use the BR. She is not light- headed when she gets up. She does not use her cane when she gets up at night. She only uses cane when she leaves the house. Last fall was one year ago. Pt has been taking augmented NAC as a supplement and that has been helpful for energy level and general outlook. Pt will start Nattokinase next week to try to help with neuropathy pain. Pt is right handed. Treatment Goals Patient/Caregiver Goals To improve balance and shaking PT-OP-C Subjective Start: 08/16/23 11:13 Freq: Status: Active Protocol: Document 09/05/23 10:32 SP (Rec: 09/05/23 11:39 SP [id number]) OP-PT Subjective Patient Comments Patient Comments Pt 15 min late for appt. She reports so tired past few days only able to do exercises 2x in past 2days. Pt forgot her items to use. PT-OP-D Balance Start: 08/16/23 11:13 Freq: Status: Active Protocol: Document 08/16/23 11:18 MB (Rec: 08/16/23 12:24 MB [id number]) OP-PT Balance Assessment Sitting Balance Static Sitting Balance Ability Normal Dynamic Sitting Balance Ability Normal Standing Balance Static Standing Balance Ability Good Dynamic Standing Balance Ability Fair Device Used SPC Balance Tests Other Other Balance Tests Performed TUG 17 sec, use of SPC Marshall Fall Scale Copyright Permission PT-OP-G Mobility & Gait Start: 08/16/23 11:13 Freq: Status: Active Protocol: Document 08/16/23 11:18 MB (Rec: 08/16/23 12:24 MB [id number]) OP Gait Assessment Comments Gait Comments Gait is very slow and pt uses cane in right UE PT-OP-H Neuro Start: 08/16/23 11:13 Freq: Status: Active Protocol: Document 08/16/23 11:18 MB (Rec: 08/16/23 12:24 MB [id number]) Coordination Evaluation Upper Extremity Tests Left Finger to Nose Test Moderate Impairment Pronation/Supination Test Moderate Impairment Right Finger to Nose Test Moderate Impairment Pronation/Supination Test Moderate Impairment Lower Extremity Tests Left Foot Tapping Test Moderate Impairment Right Foot Tapping Test Moderate Impairment Vital Signs Comments Vital Signs Comments Orthostatic assessment with BP and HR in RUE: supine: 125/79 , 66; standing 108/73, 73; standing 1' 120/80, 75 PT-OP-M Strength Start: 08/16/23 11:13 Freq: Status: Active Protocol: Document 08/16/23 11:18 MB (Rec: 08/16/23 12:24 MB [id number]) Shoulder Strength Shoulder Manual Muscle Testing Bilateral Flexion 4 Good Abduction (C5) 4 Good Knee Strength Knee Manual Muscle Testing Bilateral Extension (L3) 4 Good PT-OP-Q Treatments Start: 08/16/23 11:13 Freq: Status: Active Protocol: Document 09/05/23 10:32 SP (Rec: 09/05/23 11:39 SP [id number]) Therapeutic Exercises Sitting Exercises Side to side Equipment Used BIG chair Reps/Minutes 5 reps to each side Comments cued back leg back full back in, flicks, open eyes Floor to ceiling Equipment Used BIG chair Reps/Minutes 10 reps Comments /c flicks, cues eyes open little quicker arms up/out Standing Exercises Side rock and reach Equipment Used BIG chair behind pt Reps/Minutes 10 reps to each side Comments Shaped trunk rotate R, cued feet back front Forward rock and reach Equipment Used BIG chair at side Reps/Minutes 10 reps to each side Comments modeled/shaped reach back on R Backward step Equipment Used BIG chair at side Reps/Minutes 10 reps to each side Comments shaped R >L UE reach back Side step Equipment Used BIG chair in front Reps/Minutes 10 reps to each side Comments modeled flick, head and arms turn side on R Forward step Equipment Used BIG chair at side Reps/Minutes 10 reps to each side Comments modeled add flicks Therapeutic Activity Therapeutic Activity Pouring water from cups Reps/Minutes 1 Comments fill water cup from fountain holding cup RUE, pretty stable not need use cup touch for stability. writing Name name, check, Mad Bia Comments Writing name in lined sheet and capital letters, reduction bradykinesia R hand initialy first/last name vs 2-3rd rep BIG STS Reps/Minutes 10 reps Comments Used BIG chair Gait Training Gait Activity BIG walking with cane Device Used SPC in RUE Distance/Duration outside around side/ back MAP bldg only to ER hallway Treatment Focus LE push off up incline, L arm swing Comments Cued L arm swing, up and down gravel x4 with close SBA, up 9 stairs 4 x with close SBA, cued x1 SPC pattern no rail 2 steps then 5 steps only L HR PT-OP-T Assessment and Plan Start: 08/16/23 11:13 Freq: Status: Active Protocol: Document 09/05/23 10:32 SP (Rec: 09/05/23 11:39 SP [id number]) Physical Therapy Assessment Goals 4 Impairment Lack of amplitude specific HEP Greenhouse Instructor Goal (LTG) Pt will perform BIG exercises and functional activities daily with no more than superv and cues to improve amplitude of movement and balance. LTG Duration 6 weeks 3 Impairment 3 STS in 30 sec Skilled Nursing Goal (LTG) Pt will perform at least 9 reps STS in 30 sec to improve functional balance with transfers. LTG Duration 6 weeks 2 Impairment TUG 17 sec Skilled Nursing Goal (LTG) Pt will perform TUG in no more than 10 sec to improve balance and decrease fall risk . LTG Duration 6 weeks 1 Impairment FES 41/64, indicating high concern for falling with many activities Greenhouse Instructor Goal (LTG) Pt will present with a FES score of no more than 30/64 to reflect reduced fear of falling. LTG Duration 6 weeks Assessment Summary Assessment Pt able to incorporate flicks to exercises. Cues for L arm swing during gait, gravel inclines, decline stairs. Improved reduction bradykinesia with smaller spaces writing Madlib but check challenging, missed spelling hundred. She was ableto push button and fill up own cup water at fountain. Physical Therapy Plan Frequency and Duration Frequency of Treatment 4x/Week Duration of treatment (weeks) 6 Plan of Care Start Date 08/16/23 Plan of Care End Date 09/23/23 Therapeutic Interventions Therapeutic Interventions Balance Training,Canalithic Repositioning,Coordination Training,Gait Training,Home Exercise Program,Joint Mobilizations,Manual Therapy, Neuromuscular Re-education, Patient/Caregiver Education, Self-Care/Home Management, Sensory Integration,Soft Tissue Mobilization,Taping, Therapeutic Activities, Therapeutic Exercises, Vestibular Rehabilitation Modalities Cold Pack/Ice Massage,Hot Packs Other Referrals/Consults Referrals/Consults Recommended Check with doctor about orthostatic hypotension Next Visit Focus/Plan Next Note Type Treatment Note Next Visit Plan Continue Review BIG exercises and progress gait and functional activities to include writing letters&name, cap return to bottles, future pouring and drinking
--- NOTE | 2023-09-06 12:09 | PT.OTN ---
Current Diagnoses Parkinsonism, unspecified (09/06/23) Physical Therapy Treatment Note PT-OP-A Visit Information Start: 08/16/23 11:13 Freq: Status: Active Protocol: Document 09/06/23 11:25 MB (Rec: 09/06/23 11:59 MB [id number]) Out-Patient Physical Therapy Visit Information Visit Information Visit Type Progress Note Visit Note AARP Medicare Self-Pay KX Pt is 10' late to appointment Visit Start Time 11:25 Visit Stop Time 12:05 Visit Number 9 Number of ONCOLOGY PHARMACIST Visits 0 Evaluation Information Evaluation Date 08/16/23 Precautions Precautions Pt has had some orthostasis PT-OP-B Current Condition Start: 08/16/23 11:13 Freq: Status: Active Protocol: Document 08/16/23 11:18 MB (Rec: 08/16/23 12:24 MB [id number]) Current Condition History of Current Condition Onset Date 3 years ago Current Complaints Slowness of movement, B hand shaking and imbalance History of Current Condition Pt arrives with , Sd. 3 years ago, pt noticed shaking in left hand, slowness of movement and decreased balance. Pt now has right hand shaking. Pt was diagnosed with Parkinsonianism. She could not tolerate Carbdopa Levodopa. Her stomach got very upset and she had vomiting. She is not taking an PD medication. 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 Pt sleeps well at night. She gets up 2-3 times a night to use the BR. She is not light- headed when she gets up. She does not use her cane when she gets up at night. She only uses cane when she leaves the house. Last fall was one year ago. Pt has been taking augmented NAC as a supplement and that has been helpful for energy level and general outlook. Pt will start Nattokinase next week to try to help with neuropathy pain. Pt is right handed. Treatment Goals Patient/Caregiver Goals To improve balance and shaking PT-OP-C Subjective Start: 08/16/23 11:13 Freq: Status: Active Protocol: Document 09/06/23 11:25 MB (Rec: 09/06/23 11:59 MB [id number]) OP-PT Subjective Patient Comments Patient Comments Pt is 10' late to appointment. She states that she is so tired everyday. She reduced her gabapentin and another medication. Pt did her exercises twice over the weekend because she was tired. PT-OP-D Balance Start: 08/16/23 11:13 Freq: Status: Active Protocol: Document 08/16/23 11:18 MB (Rec: 08/16/23 12:24 MB [id number]) OP-PT Balance Assessment Sitting Balance Static Sitting Balance Ability Normal Dynamic Sitting Balance Ability Normal Standing Balance Static Standing Balance Ability Good Dynamic Standing Balance Ability Fair Device Used SPC Balance Tests Other Other Balance Tests Performed TUG 17 sec, use of SPC Marshall Fall Scale Copyright Permission PT-OP-G Mobility & Gait Start: 08/16/23 11:13 Freq: Status: Active Protocol: Document 08/16/23 11:18 MB (Rec: 08/16/23 12:24 MB [id number]) OP Gait Assessment Comments Gait Comments Gait is very slow and pt uses cane in right UE PT-OP-H Neuro Start: 08/16/23 11:13 Freq: Status: Active Protocol: Document 08/16/23 11:18 MB (Rec: 08/16/23 12:24 MB [id number]) Coordination Evaluation Upper Extremity Tests Left Finger to Nose Test Moderate Impairment Pronation/Supination Test Moderate Impairment Right Finger to Nose Test Moderate Impairment Pronation/Supination Test Moderate Impairment Lower Extremity Tests Left Foot Tapping Test Moderate Impairment Right Foot Tapping Test Moderate Impairment Vital Signs Comments Vital Signs Comments Orthostatic assessment with BP and HR in RUE: supine: 125/79 , 66; standing 108/73, 73; standing 1' 120/80, 75 PT-OP-M Strength Start: 08/16/23 11:13 Freq: Status: Active Protocol: Document 08/16/23 11:18 MB (Rec: 08/16/23 12:24 MB [id number]) Shoulder Strength Shoulder Manual Muscle Testing Bilateral Flexion 4 Good Abduction (C5) 4 Good Knee Strength Knee Manual Muscle Testing Bilateral Extension (L3) 4 Good PT-OP-Q Treatments Start: 08/16/23 11:13 Freq: Status: Active Protocol: Document 09/06/23 11:25 MB (Rec: 09/06/23 11:59 MB [id number]) Therapeutic Activity Therapeutic Activity Pouring water from cups Comments Performed from full bottle today with screw top and pt opens and poors without trouble, performed several times of screwing open and closed, removing bottle top and replacing 30 sec STS Comments 10 reps in 30 sec today Gait Training Gait Activity BIG walking with cane Device Used SPC in RUE Distance/Duration Inside, outside, grass incline , steps, curb Comments Working on BIG stepping, moving arms, how to manage cane on and off curb and steps with use of rail one hand and cane opposite hand Neuro Re-Education Treatment Balance Activities TUG Comments Performs 3 times today and 14 sec each time with use of SPC in right hand PT-OP-T Assessment and Plan Start: 08/16/23 11:13 Freq: Status: Active Protocol: Document 09/06/23 11:25 MB (Rec: 09/06/23 11:59 MB [id number]) Physical Therapy Assessment Rehab Potential Rehabilitation Potential Fair Evaluation Complexity Number of Personal Factors/Comorbidities 1-2 Number of Body Systems Impaired 3 Clinical Presentation at Evaluation Evolving Impairments Impairments Activity Tolerance,Balance, Coordination,Functional Activities,Functional Mobility ,Gait,Pain,Posture,ROM, Strength,Transfers,Vestibular Goals 4 Impairment Lack of amplitude specific HEP Assembler Metal Furniture Goal (LTG) Pt will perform BIG exercises and functional activities daily with no more than superv and cues to improve amplitude of movement and balance. 09/06/23: Pt is performing BIG exercises at home about 2-3x/ week LTG Duration 3 weeks 3 Impairment 3 STS in 30 sec Assembler Metal Furniture Goal (LTG) Pt will perform at least 9 reps STS in 30 sec to improve functional balance with transfers. 09/06/23: Pt performs 10 reps STS in 30 sec from BIG chair today LTG Duration Met 2 Impairment TUG 17 sec Assembler Metal Furniture Goal (LTG) Pt will perform TUG in no more than 10 sec to improve balance and decrease fall risk . 09/06/23: TUG requires 14 sec, 3 sec faster than evaluation x3 trials LTG Duration 3 weeks 1 Impairment FES 41/64, indicating high concern for falling with many activities Assembler Metal Furniture Goal (LTG) Pt will present with a FES score of no more than 30/64 to reflect reduced fear of falling. 09/06/23: FES score is 36/64 and goal is partially met LTG Duration 3 weeks Assessment Summary Assessment Pt states she has been too tired to do exercises everyday and coming to PT 4x/wk is too much for her. She would like to stop the LSVT 16 treatment schedule and drop to 2x/wk through the end of the month. and front office are working on this. Pt has also been late to PT several visits . Pt now also states that she does not want to ask doctor about starting Carbidopa Levodopa again d/t too many side effects. Pt has improved with STS, TUG and gait outside since starting PT. Con't PT at 2x/wk through the end of the month to con't exercise, balance and gait training as pt's balance and functional strength are improving and this will help her in the long -run as far as decreasing fall risk and improving I. Physical Therapy Plan Frequency and Duration Frequency of Treatment 2x/Week Duration of treatment (weeks) 3 Plan of Care Start Date 09/06/23 Plan of Care End Date 09/23/23 Therapeutic Interventions Therapeutic Interventions Balance Training,Canalithic Repositioning,Coordination Training,Gait Training,Home Exercise Program,Joint Mobilizations,Manual Therapy, Neuromuscular Re-education, Patient/Caregiver Education, Self-Care/Home Management, Sensory Integration,Soft Tissue Mobilization,Taping, Therapeutic Activities, Therapeutic Exercises, Vestibular Rehabilitation Modalities Cold Pack/Ice Massage,Hot Packs Other Referrals/Consults Referrals/Consults Recommended Check with doctor about orthostatic hypotension Next Visit Focus/Plan Next Note Type Treatment Note Next Visit Plan Continue Review BIG exercises and progress gait and functional activities to include writing letters&name, cap return to bottles, future pouring and drinking
--- NOTE | 2023-09-06 12:14 | PT.OPPOC ---
Physical, Occupational & Speech Therapy At [facility] Current Diagnoses Parkinsonism, unspecified (09/06/23) Visit Care Team Role Provider Type Colt Cardenas MD Family Provider Physician Primary Care Provider Specialty: Family Practice Address: [address] [place] [address], [address] Email: [email or web address] Tod Pfeiffer MD Attending Provider Non-Staff Referring Provider Specialty: Neurology Psychiatry Address: [address] [place], [place] [address], [address], [place], [address] Email: Plan Of Care PT-OP-T Assessment and Plan Start: 08/16/23 11:13 Freq: Status: Active Protocol: Document 09/06/23 11:25 MB (Rec: 09/06/23 11:59 MB [id number]) Physical Therapy Assessment Rehab Potential Rehabilitation Potential Fair Evaluation Complexity Number of Personal Factors/Comorbidities 1-2 Number of Body Systems Impaired 3 Clinical Presentation at Evaluation Evolving Impairments Impairments Activity Tolerance,Balance, Coordination,Functional Activities,Functional Mobility ,Gait,Pain,Posture,ROM, Strength,Transfers,Vestibular Goals 4 Impairment Lack of amplitude specific HEP Chemical Operations Specialist Goal (LTG) Pt will perform BIG exercises and functional activities daily with no more than superv and cues to improve amplitude of movement and balance. 09/06/23: Pt is performing BIG exercises at home about 2-3x/ week LTG Duration 3 weeks 3 Impairment 3 STS in 30 sec Chemical Operations Specialist Goal (LTG) Pt will perform at least 9 reps STS in 30 sec to improve functional balance with transfers. 09/06/23: Pt performs 10 reps STS in 30 sec from BIG chair today LTG Duration Met 2 Impairment TUG 17 sec Chemical Operations Specialist Goal (LTG) Pt will perform TUG in no more than 10 sec to improve balance and decrease fall risk . 09/06/23: TUG requires 14 sec, 3 sec faster than evaluation x3 trials LTG Duration 3 weeks 1 Impairment FES 41/64, indicating high concern for falling with many activities Chemical Operations Specialist Goal (LTG) Pt will present with a FES score of no more than 30/64 to reflect reduced fear of falling. 09/06/23: FES score is 36/64 and goal is partially met LTG Duration 3 weeks Assessment Summary Assessment Pt states she has been too tired to do exercises everyday and coming to PT 4x/wk is too much for her. She would like to stop the LSVT 16 treatment schedule and drop to 2x/wk through the end of the month. and front office are working on this. Pt has also been late to PT several visits . Pt now also states that she does not want to ask doctor about starting Carbidopa Levodopa again d/t too many side effects. Pt has improved with STS, TUG and gait outside since starting PT. Con't PT at 2x/wk through the end of the month to con't exercise, balance and gait training as pt's balance and functional strength are improving and this will help her in the long -run as far as decreasing fall risk and improving I. Physical Therapy Plan Frequency and Duration Frequency of Treatment 2x/Week Duration of treatment (weeks) 3 Plan of Care Start Date 09/06/23 Plan of Care End Date 09/23/23 Therapeutic Interventions Therapeutic Interventions Balance Training,Canalithic Repositioning,Coordination Training,Gait Training,Home Exercise Program,Joint Mobilizations,Manual Therapy, Neuromuscular Re-education, Patient/Caregiver Education, Self-Care/Home Management, Sensory Integration,Soft Tissue Mobilization,Taping, Therapeutic Activities, Therapeutic Exercises, Vestibular Rehabilitation Modalities Cold Pack/Ice Massage,Hot Packs Other Referrals/Consults Referrals/Consults Recommended Check with doctor about orthostatic hypotension Next Visit Focus/Plan Next Note Type Treatment Note Next Visit Plan Continue Review BIG exercises and progress gait and functional activities to include writing letters&name, cap return to bottles, future pouring and drinking Plan of Care Dates Plan of Care Start Date 09/06/23 Plan of Care End Date 09/23/23 Electronically Signed by: Susie Dietz, PT 09/06/23 7070 If you are in agreement with this Plan of Care, please return a signed and dated copy. I have reviewed this Plan of Care and certify that the skilled therapy services above are required to meet the patient?s needs. Physician Signature Date Printed Name and Credentials Clinical Instructor Signature Printed Name and Credentials
--- NOTE | 2023-09-13 11:59 | PT.OTN ---
Current Diagnoses Parkinsonism, unspecified (09/13/23) Physical Therapy Treatment Note PT-OP-A Visit Information Start: 08/16/23 11:13 Freq: Status: Active Protocol: Document 09/13/23 11:17 MB (Rec: 09/13/23 11:53 MB [id number]) Out-Patient Physical Therapy Visit Information Visit Information Visit Type Treatment Note Visit Note AARP Medicare Self-Pay KX D/c with PT 09/20/23 Visit Start Time 11:17 Visit Stop Time 11:57 Visit Number 10 Number of ELECTRONIC SEMICONDUCTOR PROCESSOR Visits 0 Evaluation Information Evaluation Date 08/16/23 Precautions Precautions Pt has had some orthostasis PT-OP-B Current Condition Start: 08/16/23 11:13 Freq: Status: Active Protocol: Document 08/16/23 11:18 MB (Rec: 08/16/23 12:24 MB [id number]) Current Condition History of Current Condition Onset Date 3 years ago Current Complaints Slowness of movement, B hand shaking and imbalance History of Current Condition Pt arrives with , Sd. 3 years ago, pt noticed shaking in left hand, slowness of movement and decreased balance. Pt now has right hand shaking. Pt was diagnosed with Parkinsonianism. She could not tolerate Carbdopa Levodopa. Her stomach got very upset and she had vomiting. She is not taking an PD medication. 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 Pt sleeps well at night. She gets up 2-3 times a night to use the BR. She is not light- headed when she gets up. She does not use her cane when she gets up at night. She only uses cane when she leaves the house. Last fall was one year ago. Pt has been taking augmented NAC as a supplement and that has been helpful for energy level and general outlook. Pt will start Nattokinase next week to try to help with neuropathy pain. Pt is right handed. Treatment Goals Patient/Caregiver Goals To improve balance and shaking PT-OP-C Subjective Start: 08/16/23 11:13 Freq: Status: Active Protocol: Document 09/13/23 11:17 MB (Rec: 09/13/23 11:53 MB [id number]) OP-PT Subjective Patient Comments Patient Comments Pt had back pain from arthritis and from post- herpatic neuralgia over the weekend. She was able to do her exercises on Tuesday. PT-OP-D Balance Start: 08/16/23 11:13 Freq: Status: Active Protocol: Document 08/16/23 11:18 MB (Rec: 08/16/23 12:24 MB [id number]) OP-PT Balance Assessment Sitting Balance Static Sitting Balance Ability Normal Dynamic Sitting Balance Ability Normal Standing Balance Static Standing Balance Ability Good Dynamic Standing Balance Ability Fair Device Used SPC Balance Tests Other Other Balance Tests Performed TUG 17 sec, use of SPC Marshall Fall Scale Copyright Permission PT-OP-G Mobility & Gait Start: 08/16/23 11:13 Freq: Status: Active Protocol: Document 08/16/23 11:18 MB (Rec: 08/16/23 12:24 MB [id number]) OP Gait Assessment Comments Gait Comments Gait is very slow and pt uses cane in right UE PT-OP-H Neuro Start: 08/16/23 11:13 Freq: Status: Active Protocol: Document 08/16/23 11:18 MB (Rec: 08/16/23 12:24 MB [id number]) Coordination Evaluation Upper Extremity Tests Left Finger to Nose Test Moderate Impairment Pronation/Supination Test Moderate Impairment Right Finger to Nose Test Moderate Impairment Pronation/Supination Test Moderate Impairment Lower Extremity Tests Left Foot Tapping Test Moderate Impairment Right Foot Tapping Test Moderate Impairment Vital Signs Comments Vital Signs Comments Orthostatic assessment with BP and HR in RUE: supine: 125/79 , 66; standing 108/73, 73; standing 1' 120/80, 75 PT-OP-M Strength Start: 08/16/23 11:13 Freq: Status: Active Protocol: Document 08/16/23 11:18 MB (Rec: 08/16/23 12:24 MB [id number]) Shoulder Strength Shoulder Manual Muscle Testing Bilateral Flexion 4 Good Abduction (C5) 4 Good Knee Strength Knee Manual Muscle Testing Bilateral Extension (L3) 4 Good PT-OP-Q Treatments Start: 08/16/23 11:13 Freq: Status: Active Protocol: Document 09/13/23 11:17 MB (Rec: 09/13/23 11:53 MB [id number]) Therapeutic Exercises Sitting Exercises Side to side Equipment Used BIG chair Reps/Minutes 5 reps to each side Comments Flicks added and cues for BIG legs Floor to ceiling Equipment Used BIG chair Reps/Minutes 5 reps Comments Cues for BIG left hand Standing Exercises Side rock and reach Equipment Used BIG chair behind pt Reps/Minutes 10 reps to each side Comments Cues to fully bring hand back Forward rock and reach Equipment Used BIG chair at side Reps/Minutes 10 reps to each side Comments Cues for foot position Backward step Equipment Used BIG chair at side Reps/Minutes 10 reps to each side Comments Cues for BIG front toe Side step Equipment Used BIG chair in front Reps/Minutes 10 reps to each side Comments Cues to turn head direction of stepping Forward step Equipment Used BIG chair at side Reps/Minutes 10 reps to each side Comments Cues for BIG feet and to step back fully Therapeutic Activity Therapeutic Activity writing Name Mad Bia Comments Cues to write BIG and clear as pt fills out sheet. Some trouble organizing letters in small spaces, pt with tremoring and letters have squiggle appearance BIG STS Reps/Minutes 10 reps Comments Used BIG chair PT-OP-T Assessment and Plan Start: 08/16/23 11:13 Freq: Status: Active Protocol: Document 09/13/23 11:17 MB (Rec: 09/13/23 11:53 MB [id number]) Physical Therapy Assessment Rehab Potential Rehabilitation Potential Fair Evaluation Complexity Number of Personal Factors/Comorbidities 1-2 Number of Body Systems Impaired 3 Clinical Presentation at Evaluation Evolving Impairments Impairments Activity Tolerance,Balance, Coordination,Functional Activities,Functional Mobility ,Gait,Pain,Posture,ROM, Strength,Transfers,Vestibular Goals 4 Impairment Lack of amplitude specific HEP Weather Teacher Goal (LTG) Pt will perform BIG exercises and functional activities daily with no more than superv and cues to improve amplitude of movement and balance. 09/06/23: Pt is performing BIG exercises at home about 2-3x/ week LTG Duration 3 weeks 2 Impairment TUG 17 sec Weather Teacher Goal (LTG) Pt will perform TUG in no more than 10 sec to improve balance and decrease fall risk . 09/06/23: TUG requires 14 sec, 3 sec faster than evaluation x3 trials LTG Duration 3 weeks 1 Impairment FES 41/64, indicating high concern for falling with many activities Weather Teacher Goal (LTG) Pt will present with a FES score of no more than 30/64 to reflect reduced fear of falling. 09/06/23: FES score is 36/64 and goal is partially met LTG Duration 3 weeks Assessment Summary Assessment Pt con't to require some cues for BIG exercises and writing is slow and is affected by tremor. One more PT treatment and then d/c in two treatments . Physical Therapy Plan Frequency and Duration Frequency of Treatment 2x/Week Duration of treatment (weeks) 3 Plan of Care Start Date 09/06/23 Plan of Care End Date 09/23/23 Therapeutic Interventions Therapeutic Interventions Balance Training,Canalithic Repositioning,Coordination Training,Gait Training,Home Exercise Program,Joint Mobilizations,Manual Therapy, Neuromuscular Re-education, Patient/Caregiver Education, Self-Care/Home Management, Sensory Integration,Soft Tissue Mobilization,Taping, Therapeutic Activities, Therapeutic Exercises, Vestibular Rehabilitation Modalities Cold Pack/Ice Massage,Hot Packs Other Referrals/Consults Referrals/Consults Recommended Check with doctor about orthostatic hypotension Next Visit Focus/Plan Next Note Type Treatment Note Next Visit Plan Review any BIG and functional activities that she can con't at home and d/c in two treatments
--- NOTE | 2023-09-15 11:58 | PT.OTN ---
Current Diagnoses Parkinsonism, unspecified (09/15/23) Physical Therapy Treatment Note PT-OP-A Visit Information Start: 08/16/23 11:13 Freq: Status: Active Protocol: Document 09/15/23 12:55 SP (Rec: 09/16/23 13:08 SP [id number]) Out-Patient Physical Therapy Visit Information Visit Information Visit Type Treatment Note Visit Note AARP Medicare Self-Pay KX D/c with PT 09/20/23 Visit Start Time 11:14 Visit Stop Time 11:58 Visit Number 11 Number of NATIONAL ACCOUNTS SALES Visits 1 Precautions Precautions Pt has had some orthostasis PT-OP-B Current Condition Start: 08/16/23 11:13 Freq: Status: Active Protocol: Document 08/16/23 11:18 MB (Rec: 08/16/23 12:24 MB [id number]) Current Condition History of Current Condition Onset Date 3 years ago Current Complaints Slowness of movement, B hand shaking and imbalance History of Current Condition Pt arrives with , Sd. 3 years ago, pt noticed shaking in left hand, slowness of movement and decreased balance. Pt now has right hand shaking. Pt was diagnosed with Parkinsonianism. She could not tolerate Carbdopa Levodopa. Her stomach got very upset and she had vomiting. She is not taking an PD medication. 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 Pt sleeps well at night. She gets up 2-3 times a night to use the BR. She is not light- headed when she gets up. She does not use her cane when she gets up at night. She only uses cane when she leaves the house. Last fall was one year ago. Pt has been taking augmented NAC as a supplement and that has been helpful for energy level and general outlook. Pt will start Nattokinase next week to try to help with neuropathy pain. Pt is right handed. Treatment Goals Patient/Caregiver Goals To improve balance and shaking PT-OP-C Subjective Start: 08/16/23 11:13 Freq: Status: Active Protocol: Document 09/15/23 12:55 SP (Rec: 09/16/23 13:08 SP [id number]) OP-PT Subjective Patient Comments Patient Comments Pt reports pretty tired after last tx, was able to do HEP x1 since last tx. She stated Daughter cuts her steak due to hard to push and has some shakiness, asked if there is something can learn to do for help do home self . PT-OP-D Balance Start: 08/16/23 11:13 Freq: Status: Active Protocol: Document 08/16/23 11:18 MB (Rec: 08/16/23 12:24 MB [id number]) OP-PT Balance Assessment Sitting Balance Static Sitting Balance Ability Normal Dynamic Sitting Balance Ability Normal Standing Balance Static Standing Balance Ability Good Dynamic Standing Balance Ability Fair Device Used SPC Balance Tests Other Other Balance Tests Performed TUG 17 sec, use of SPC Marshall Fall Scale Copyright Permission PT-OP-G Mobility & Gait Start: 08/16/23 11:13 Freq: Status: Active Protocol: Document 08/16/23 11:18 MB (Rec: 08/16/23 12:24 MB [id number]) OP Gait Assessment Comments Gait Comments Gait is very slow and pt uses cane in right UE PT-OP-H Neuro Start: 08/16/23 11:13 Freq: Status: Active Protocol: Document 08/16/23 11:18 MB (Rec: 08/16/23 12:24 MB [id number]) Coordination Evaluation Upper Extremity Tests Left Finger to Nose Test Moderate Impairment Pronation/Supination Test Moderate Impairment Right Finger to Nose Test Moderate Impairment Pronation/Supination Test Moderate Impairment Lower Extremity Tests Left Foot Tapping Test Moderate Impairment Right Foot Tapping Test Moderate Impairment Vital Signs Comments Vital Signs Comments Orthostatic assessment with BP and HR in RUE: supine: 125/79 , 66; standing 108/73, 73; standing 1' 120/80, 75 PT-OP-M Strength Start: 08/16/23 11:13 Freq: Status: Active Protocol: Document 08/16/23 11:18 MB (Rec: 08/16/23 12:24 MB [id number]) Shoulder Strength Shoulder Manual Muscle Testing Bilateral Flexion 4 Good Abduction (C5) 4 Good Knee Strength Knee Manual Muscle Testing Bilateral Extension (L3) 4 Good PT-OP-Q Treatments Start: 08/16/23 11:13 Freq: Status: Active Protocol: Document 09/15/23 12:55 SP (Rec: 09/16/23 13:08 SP [id number]) Therapeutic Exercises Sitting Exercises Side to side Equipment Used BIG chair Reps/Minutes 10 reps to each side Comments Flicks, cues for BIG R leg and return Floor to ceiling Equipment Used BIG chair Reps/Minutes 10 reps Comments Cues for BIG left hand, flicks Standing Exercises Side rock and reach Equipment Used contact BIG chair behind pt Reps/Minutes 10 reps to each side Comments Cues to fully bring hand back, trunk rotation tolerated Forward rock and reach Equipment Used BIG chair at side Reps/Minutes 10 reps to each side Comments good form Backward step Equipment Used BIG chair at side Reps/Minutes 10 reps to each side Comments Cues for BIG L arm back Side step Equipment Used BIG chair in front Reps/Minutes 10 reps to each side Comments Cues to turn head direction of stepping Forward step Equipment Used BIG chair at side Reps/Minutes 10 reps to each side Comments good form Therapeutic Activity Therapeutic Activity wet pour supervisor, cutting Name wet pour supervisor squeeze yellow putty form then flatten, cutting steak assimulation Reps/Minutes 10 Comments cutting: fork LUE stabillize & cutting RUE knife (plastic), reduction bradykinesia. Wall more confident, different thickness. BIG STS Reps/Minutes 10 reps Comments Used BIG chair Gait Training Gait Activity BIG walking with cane Device Used SPC in RUE Distance/Duration indoors (raining)-170 ft x2 laps Comments Working on BIG stepping and L arms swing occ cues, good RLE SPC patterning with LUE. PT-OP-T Assessment and Plan Start: 08/16/23 11:13 Freq: Status: Active Protocol: Document 09/15/23 12:55 SP (Rec: 09/16/23 13:08 SP [id number]) Physical Therapy Assessment Goals 4 Impairment Lack of amplitude specific HEP Flight Test Data Acquisition Technician Goal (LTG) Pt will perform BIG exercises and functional activities daily with no more than superv and cues to improve amplitude of movement and balance. 09/06/23: Pt is performing BIG exercises at home about 2-3x/ week LTG Duration 3 weeks 2 Impairment TUG 17 sec Flight Test Data Acquisition Technician Goal (LTG) Pt will perform TUG in no more than 10 sec to improve balance and decrease fall risk . 09/06/23: TUG requires 14 sec, 3 sec faster than evaluation x3 trials LTG Duration 3 weeks 1 Impairment FES 41/64, indicating high concern for falling with many activities Flight Test Data Acquisition Technician Goal (LTG) Pt will present with a FES score of no more than 30/64 to reflect reduced fear of falling. 09/06/23: FES score is 36/64 and goal is partially met LTG Duration 3 weeks Assessment Summary Assessment Pt reduction in cues during ther ex today. Improved BIG gait and SPC sequencing. Today time spent wet pour supervisor squeeze putty then flatten and cutting for strengthening hands to allow self confidence for possible return to cutting steak self without added assistence. REduction in bradykinesia B UE with pressure into putty. Pt pleased with added task for wet pour supervisor for home carryover confidence. Physical Therapy Plan Frequency and Duration Frequency of Treatment 2x/Week Duration of treatment (weeks) 3 Plan of Care Start Date 09/06/23 Plan of Care End Date 09/23/23 Therapeutic Interventions Therapeutic Interventions Balance Training,Canalithic Repositioning,Coordination Training,Gait Training,Home Exercise Program,Joint Mobilizations,Manual Therapy, Neuromuscular Re-education, Patient/Caregiver Education, Self-Care/Home Management, Sensory Integration,Soft Tissue Mobilization,Taping, Therapeutic Activities, Therapeutic Exercises, Vestibular Rehabilitation Modalities Cold Pack/Ice Massage,Hot Packs Other Referrals/Consults Referrals/Consults Recommended Check with doctor about orthostatic hypotension Next Visit Focus/Plan Next Note Type Treatment Note Next Visit Plan Review any BIG and functional activities that she can con't at home and d/c in two treatments
--- NOTE | 2023-09-20 11:36 | PT.OPDS ---
Current Diagnoses Parkinsonism, unspecified (09/15/23) Visit Care Team Role Provider Type Colt Cardenas MD Family Provider Physician Primary Care Provider Specialty: Family Practice Address: [address] [place] [address], [address] Email: [email or web address] Tod Pfeiffer MD Attending Provider Non-Staff Referring Provider Specialty: Neurology Psychiatry Address: [address] [place] [address], [address], [place], [address] Email: Visit Number Visit Number 11 Discharge Summary PT-OP-B Current Condition Start: 08/16/23 11:13 Freq: Status: Active Protocol: Document 08/16/23 11:18 MB (Rec: 08/16/23 12:24 MB [id number]) Current Condition History of Current Condition Onset Date 3 years ago Current Complaints Slowness of movement, B hand shaking and imbalance History of Current Condition Pt arrives with , Sd. 3 years ago, pt noticed shaking in left hand, slowness of movement and decreased balance. Pt now has right hand shaking. Pt was diagnosed with Parkinsonianism. She could not tolerate Carbdopa Levodopa. Her stomach got very upset and she had vomiting. She is not taking an PD medication. 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 Pt sleeps well at night. She gets up 2-3 times a night to use the BR. She is not light- headed when she gets up. She does not use her cane when she gets up at night. She only uses cane when she leaves the house. Last fall was one year ago. Pt has been taking augmented NAC as a supplement and that has been helpful for energy level and general outlook. Pt will start Nattokinase next week to try to help with neuropathy pain. Pt is right handed. Treatment Goals Patient/Caregiver Goals To improve balance and shaking PT-OP-C Subjective Start: 08/16/23 11:13 Freq: Status: Active Protocol: Document 09/15/23 12:55 SP (Rec: 09/16/23 13:08 SP [id number]) OP-PT Subjective Patient Comments Patient Comments Pt reports pretty tired after last tx, was able to do HEP x1 since last tx. She stated Daughter cuts her steak due to hard to push and has some shakiness, asked if there is something can learn to do for help do home self . PT-OP-D Balance Start: 08/16/23 11:13 Freq: Status: Active Protocol: Document 08/16/23 11:18 MB (Rec: 08/16/23 12:24 MB [id number]) OP-PT Balance Assessment Sitting Balance Static Sitting Balance Ability Normal Dynamic Sitting Balance Ability Normal Standing Balance Static Standing Balance Ability Good Dynamic Standing Balance Ability Fair Device Used SPC Balance Tests Other Other Balance Tests Performed TUG 17 sec, use of SPC Marshall Fall Scale Copyright Permission PT-OP-G Mobility & Gait Start: 08/16/23 11:13 Freq: Status: Active Protocol: Document 08/16/23 11:18 MB (Rec: 08/16/23 12:24 MB [id number]) OP Gait Assessment Comments Gait Comments Gait is very slow and pt uses cane in right UE PT-OP-H Neuro Start: 08/16/23 11:13 Freq: Status: Active Protocol: Document 08/16/23 11:18 MB (Rec: 08/16/23 12:24 MB [id number]) Coordination Evaluation Upper Extremity Tests Left Finger to Nose Test Moderate Impairment Pronation/Supination Test Moderate Impairment Right Finger to Nose Test Moderate Impairment Pronation/Supination Test Moderate Impairment Lower Extremity Tests Left Foot Tapping Test Moderate Impairment Right Foot Tapping Test Moderate Impairment Vital Signs Comments Vital Signs Comments Orthostatic assessment with BP and HR in RUE: supine: 125/79 , 66; standing 108/73, 73; standing 1' 120/80, 75 PT-OP-M Strength Start: 08/16/23 11:13 Freq: Status: Active Protocol: Document 08/16/23 11:18 MB (Rec: 08/16/23 12:24 MB [id number]) Shoulder Strength Shoulder Manual Muscle Testing Bilateral Flexion 4 Good Abduction (C5) 4 Good Knee Strength Knee Manual Muscle Testing Bilateral Extension (L3) 4 Good PT-OP-T Assessment and Plan Start: 08/16/23 11:13 Freq: Status: Active Protocol: Document 09/20/23 11:36 MB (Rec: 09/20/23 11:36 MB [id number]) Physical Therapy Assessment Assessment Summary Assessment calls in to cancel pt' s last appointment. Will d/c PT.
== END 2023-09-22 15:15 | disposition home or self-care (01) ==
LOC: PHYS 11:15
PROVIDERS: Family Provider Family Medicine; PCP Family Medicine; Referring Provider Psychiatry & Neurology Neuromuscular Medicine; Visit Provider Psychiatry & Neurology Neuromuscular Medicine
DX: G20.C Parkinsonism, unspecified (principal)
CPT/HCPCS: 97110; 97116; 97530

== ENCOUNTER → 2024-02-29 14:39 | Outpatient (CLI) | payer MEDICARE, SELFPAY ==
[2023-06-10 17:01] VITALS: BMI 15.7
--- NOTE | 2024-02-29 14:41 | DI.RAD.S_ITS ---
PROCEDURE: XR LUMBAR SPINE 2-3V INDICATIONS: chronic low back pain TECHNIQUE: 3 views of the lumbar spine were acquired. COMPARISON: [facility], CR, XR LUMBAR SPINE 2-3V, 12/31/2017, 8:38. FINDINGS: Lumbar spine curvature and alignment: Mild rightward curve lower thoracic and upper lumbar spine appreciated. Bones: Moderate T11 compression fracture is chronic. No osseous abnormality seen in the lumbar spine. Disc spaces: Mild L1-2 L2-3 degenerative disc disease noted. There is mild L4-5 moderate L5-S1 degenerative facet disease. Intervertebral foramen: Grossly normal in width. Soft tissues: No soft tissue swelling, calcification or mass. IMPRESSION: Moderate chronic T11 compression fracture Degeneration Dictated by: Fausto Velasquez M.D. on 03/01/2024 at 9:00 Approved by: Fausto Velasquez M.D. on 03/01/2024 at 9:01
== END ==
PROVIDERS: Family Provider Family Medicine; PCP Family Medicine; Referring Provider Family Medicine; Visit Provider Family Medicine
DX: M51.360 Other intervertebral disc degeneration, lumbar region with discogenic back pain only; M48.54XA Collapsed vertebra, not elsewhere classified, thoracic region, initial encounter for fracture; M47.817 Spondylosis without myelopathy or radiculopathy, lumbosacral region; G89.4 Chronic pain syndrome; R05.3 Chronic cough
CPT/HCPCS: 72100; 99213

== ENCOUNTER → 2024-04-15 14:38 | Outpatient (CLI) | payer MEDICARE, SELFPAY ==
[2023-06-10 17:01] VITALS: BMI 15.7
--- NOTE | 2024-04-15 14:40 | DI.CT.S_ITS ---
PROCEDURE: CT CHEST WO CON INDICATIONS: H/o bronchiectasis, cough, eval for change TECHNIQUE: Noncontrast 5 mm thick sections acquired from the pulmonary apices to the posterior costophrenic angles. 1 mm lung window, 5 mm thick coronal and sagittal and 7 mm axial MIP reformats were then acquired. For radiation dose reduction, the following was used: automated exposure control, adjustment of mA and/or kV according to patient size. COMPARISON: [facility], CT, CT CHEST ABD PEL W CON, 01/10/2023, 14:49. FINDINGS: Image quality: Diagnostic. Thyroid: Within normal limits. Cardiac: Heart size within normal limits. No pericardial effusion. Aorta: Thoracic aortic diameter within normal limits. Mild atherosclerosis. Pulmonary Artery: Main pulmonary artery diameter within normal limits. Lungs: Interval progression of multifocal areas of tree-in-bud nodularity, predominantly within the bilateral upper lobe anterior segment (3/108), lingula and right middle lobe (3/136-160). Linear parenchymal banding/scarring at the lung bases (3/217) Pleura: No pneumothorax or pleural effusion. Airways: The trachea and mainstem bronchi are patent. Interval progression of traction bronchiectasis, predominantly involving the pulmonary segments affected by the tree-in-bud nodularity (5/25; 3/142). Lymph Nodes: No mediastinal, hilar, or axillary lymphadenopathy. Esophagus: Mild mural thickening of the distal thoracic esophagus. Mildly patulous and dilated proximal thoracic esophagus with ingested debris (2/21). Bones: No acute osseous abnormality. Chronic-appearing T11 compression fracture with up to 50% central height loss and focal kyphosis (6/62). Upper Abdomen: Within normal limits. IMPRESSION: 1. Mild interval progression of pulmonary and airway findings. Consider the possibility of underlying nontuberculous mycobacterial avium complex infection versus recurrent aspiration pneumonia. 2. Esophageal findings, which can be seen in the setting of esophagitis and gastroesophageal reflux disease. Dictated by: Seng Nielsen M.D. on 04/15/2024 at 19:32 Approved by: Seng Nielsen M.D. on 04/15/2024 at 19:41
== END ==
PROVIDERS: Family Provider Family Medicine; PCP Family Medicine; Referring Provider Internal Medicine Critical Care Medicine; Visit Provider Internal Medicine Critical Care Medicine
DX: J47.9 Bronchiectasis, uncomplicated (principal); M48.54XA Collapsed vertebra, not elsewhere classified, thoracic region, initial encounter for fracture
CPT/HCPCS: 71250

== ENCOUNTER 2024-04-17 21:55 | Emergency (ER) | payer MEDICARE, SELFPAY ==
[2023-06-10 17:01] VITALS: BMI 15.7
[2024-04-17 22:09] VITALS: BP 170/77; PULSE 74; RESP 16; TEMP 36.6; O2SAT 98; BMI 16.2
--- NOTE | 2024-04-17 22:19 | DI.RAD.S_ITS ---
PROCEDURE: XR SHOULDER LT MIN 2V INDICATIONS: fall with head lac and confusion TECHNIQUE: 3 views of the shoulder were acquired. COMPARISON: , CT, CT CERVICAL SPINE WO [facility], 04/17/2024, 22:22. , CT, CT HEAD/BRAIN WO CON, 04/17/2024, 22:22. , CT, CT CHEST WO [facility], 04/15/2024, 14:41. FINDINGS: Bones: There is a mildly displaced acute fracture of the distal clavicle. No additional fractures are detected. No shoulder dislocation is seen. The visualized ribs appear intact. Soft tissues: No suspicious soft tissue calcifications. Atherosclerotic calcification of the aortic arch is noted. The visualized lung demonstrates an unremarkable appearance. IMPRESSION: Mildly displaced acute fracture of the distal clavicle. Dictated by: Adair Rosenberg M.D. on 04/17/2024 at 21:38 Approved by: Adair Rosenberg M.D. on 04/17/2024 at 21:41
--- NOTE | 2024-04-17 22:19 | DI.CT.S_ITS ---
PROCEDURE: CT HEAD/BRAIN WO CON INDICATIONS: fall with head lac and confusion TECHNIQUE: Noncontrast 4.5 mm thick angled axial sections acquired from the foramen magnum to the vertex, with coronal and sagittal reformats. For radiation dose reduction, the following was used: automated exposure control, adjustment of mA and/or kV according to patient size. COMPARISON: [facility], CR, XR SHOULDER LT MIN 2V, 04/17/2024, 22:25. [facility], CT, CT CERVICAL SPINE WO CON, 04/17/2024, 22:22. [facility], CT, CT CHEST WO CON, 04/15/2024, 14:41. (Additional prior imaging is not available for review from the archive at the time of this dictation.) FINDINGS: Image quality: Streak artifact can be seen through the skull base. CSF spaces: Basal cisterns are patent. No extra-axial fluid collections. The ventricles are symmetric in size and shape. Brain: No intracranial bleeds or masses. There is cerebral volume loss for age, with resultant ventricular and sulcal prominence. There are periventricular and deep white matter chronic small vessel ischemic changes. There is intracranial internal carotid artery atherosclerosis. Skull and face: Left periorbital soft tissue hematoma can be seen. No regional fracture is seen. Calvarium and visualized facial bones appear intact, without suspicious lesions. Sinuses: Visualized sinuses and mastoids are clear. IMPRESSION: Left periorbital soft tissue scalp hematoma is seen, without an associated fracture. No acute intracranial hemorrhage is seen. No acute intracranial process is seen. Dictated by: Adair Rosenberg M.D. on 04/17/2024 at 21:45 Approved by: Adair Rosenberg M.D. on 04/17/2024 at 21:46
--- NOTE | 2024-04-17 22:19 | DI.CT.S_ITS ---
PROCEDURE: CT CERVICAL SPINE WO CON INDICATIONS: fall with head lac and confusion TECHNIQUE: Noncontrast 3 mm thick sections acquired from the skull base to the T4 level. Sagittal and coronal reformats were then constructed. For radiation dose reduction, the following was used: automated exposure control, adjustment of mA and/or kV according to patient size. COMPARISON: [facility], CT, CT CERVICAL SPINE WO CON, 12/31/2017, 8:36. [facility], CR, XR SHOULDER LT MIN 2V, 04/17/2024, 22:25. [facility], CT, CT HEAD/BRAIN WO CON, 04/17/2024, 22:22. [facility], CT, CT CHEST WO CON, 04/15/2024, 14:41. FINDINGS: Image quality: Excellent. Bones: No fractures or dislocations. Visualized superior ribs are intact. There is moderate disc space narrowing seen at the C4-C5 level, with minimal retrolisthesis at this level. Milder degenerative changes are seen elsewhere. (the known distal left clavicle fracture is off of the field of view of this study. Soft tissues: Prevertebral soft tissues are normal in thickness. No paravertebral hematomas. No apical pneumothoraces. A there is a mild degree of right upper lobe infiltrate, as on series 2, image 62, which is similar to the prior recent chest CT IMPRESSION: Negative for cervical spine fracture. Mild, stable right upper lobe infiltrate partially seen. Dictated by: Adair Rosenberg M.D. on 04/17/2024 at 21:43 Approved by: Adair Rosenberg M.D. on 04/17/2024 at 21:45
--- NOTE | 2024-04-17 22:36 | ED.FALL ---
HPI - Fall General Chief Complaint: Fall Stated Complaint: fall Time Seen by Provider: 04/17/24 22:23 Source: patient and family Mode of arrival: Wheelchair History of Present Illness HPI Narrative: 83-year-old female presents for evaluation after ground level fall. Patient states that she was walking and she tripped, hitting the left side of her head against some boxes and sliding to the floor. Reporting pain in her left shoulder. Denies loss of consciousness, denies use of blood thinners Related Data Previous Rx's Medication Instructions Recorded Parking Permit... #1 ea 08/10/21 duloxetine 20 mg capsule,delayed 20 mg PO BID #180 caps 08/26/23 release gabapentin 300 mg capsule See Rx Instructions .Route 08/26/23 .COMPLEX #270 caps fluticasone propionate 50 1 spray intranasal BID #16 grams 01/13/24 mcg/actuation nasal spray,suspension tramadol 50 mg tablet 50 mg PO Q8H PRN pain #120 tabs 02/27/24 Allergies Allergy/AdvReac Type Severity Reaction Status Date / Time aspirin [ASPIRIN] AdvReac Mild GI UPSET Verified 04/06/24 10:00 codeine [CODEINE] AdvReac Mild GI UPSET Verified 04/06/24 10:00 Patient History Medical History Parkinsons Unintended weight loss Lymphocytopenia Chronic low back pain without sciatica Chronic pain syndrome Compression fx, thoracic spine Acute conjunctivitis, bilateral Osteoporosis History of adenomatous polyp of colon Post herpetic neuralgia Eczema Bilateral lower extremity edema Chronic cough (Unknown) Anxiety (Unknown) Osteoarthritis (2006) Recurrent sinusitis (Unknown) Hyperlipemia (2016) Cataracts, bilateral (Unknown) Glaucoma (Unknown) Primary insomnia (06/15/16) Mixed hyperlipidemia (06/15/16) Essential tremor (06/15/16) Ataxia (06/15/16) Surgical History History of cataract removal with insertion of prosthetic lens Family History Brother Age: 89 Cancer Grandmother Cancer Father No problems noted. Grandfather No problems noted. Mother Cancer Grandfather No problems noted. Grandmother No problems noted. Social History marital status: household members: spouse lives independently: Yes occupational status: unemployed Smoking Status: Never smoker alcohol intake: never substance use type: does not use Smoking Status: Never smoker alcohol intake frequency: holidays/special occasions only Exam Initial Vital Signs Initial Vital Signs: Vital Signs Temperature 97.9 F 04/17/24 22:09 Pulse Rate 74 04/17/24 22:09 Respiratory Rate 16 04/17/24 22:09 Blood Pressure 170/77 H 04/17/24 22:09 Pulse Oximetry 98 04/17/24 22:09 Oxygen Delivery Method Room Air 04/17/24 22:09 Const: Awake, alert, no acute distress HEENT: PERRL, EOMI, TM normal bilaterally Cardiac: regular rate, regular rhythm RESP: unlabored, conversational without dyspnea MSK: generalized tenderness over L shoulder Skin: Warm, Dry, 1.5cm linear superficial laceration lateral L eyebrow Neuro: AO x3, CN II-XII grossly intact, moves all extremities Course Orders Ordered: ED Orders 04/17/24 22:19 CT cervical spine wo con Stat CT head/brain wo con Stat XR shoulder LT min 2V Stat Vital Signs Vital signs: Vital Signs - 8 hr 04/17/24 22:55 04/17/24 23:00 04/17/24 23:17 Pulse Rate 74 73 75 Respiratory Rate Blood Pressure Pulse Oximetry 98 97 99 04/17/24 23:18 Pulse Rate Respiratory Rate 18 Blood Pressure 175/79 H Pulse Oximetry MDM - Fall Differential Diagnosis Differential diagnosis: Likely dislocation of shoulder region, fracture of wrist and concussion with loss of consciousness Imaging Data CT - cervical spine: Radiologist's Impression: PROCEDURE: CT CERVICAL SPINE WO CON INDICATIONS: fall with head lac and confusion TECHNIQUE: Noncontrast 3 mm thick sections acquired from the skull base to the T4 level. Sagittal and coronal reformats were then constructed. For radiation dose reduction, the following was used: automated exposure control, adjustment of mA and/or kV according to patient size. COMPARISON: [facility], CT, CT CERVICAL SPINE WO CON, 12/31/2017, 8:36. [facility], CR, XR SHOULDER LT MIN 2V, 04/17/2024, 22:25. [facility], CT, CT HEAD/BRAIN WO CON, 04/17/2024, 22:22. [facility], CT, CT CHEST WO CON, 04/15/2024, 14:41. FINDINGS: Image quality: Excellent. Bones: No fractures or dislocations. Visualized superior ribs are intact. There is moderate disc space narrowing seen at the C4-C5 level, with minimal retrolisthesis at this level. Milder degenerative changes are seen elsewhere. (the known distal left clavicle fracture is off of the field of view of this study. Soft tissues: Prevertebral soft tissues are normal in thickness. No paravertebral hematomas. No apical pneumothoraces. A there is a mild degree of right upper lobe infiltrate, as on series 2, image 62, which is similar to the prior recent chest CT IMPRESSION: Negative for cervical spine fracture. Mild, stable right upper lobe infiltrate partially seen. Dictated by: Adair Rosenberg M.D. on 04/17/2024 at 21:43 Approved by: Adair Rosenberg M.D. on 04/17/2024 at 21:45 CT scan - head: Radiologist's Impression: PROCEDURE: CT HEAD/BRAIN WO CON INDICATIONS: fall with head lac and confusion TECHNIQUE: Noncontrast 4.5 mm thick angled axial sections acquired from the foramen magnum to the vertex, with coronal and sagittal reformats. For radiation dose reduction, the following was used: automated exposure control, adjustment of mA and/or kV according to patient size. COMPARISON: [facility], CR, XR SHOULDER LT MIN 2V, 04/17/2024, 22:25. [facility], CT, CT CERVICAL SPINE WO CON, 04/17/2024, 22:22. [facility], CT, CT CHEST WO CON, 04/15/2024, 14:41. (Additional prior imaging is not available for review from the archive at the time of this dictation.) FINDINGS: Image quality: Streak artifact can be seen through the skull base. CSF spaces: Basal cisterns are patent. No extra-axial fluid collections. The ventricles are symmetric in size and shape. Brain: No intracranial bleeds or masses. There is cerebral volume loss for age, with resultant ventricular and sulcal prominence. There are periventricular and deep white matter chronic small vessel ischemic changes. There is intracranial internal carotid artery atherosclerosis. Skull and face: Left periorbital soft tissue hematoma can be seen. No regional fracture is seen. Calvarium and visualized facial bones appear intact, without suspicious lesions. Sinuses: Visualized sinuses and mastoids are clear. IMPRESSION: Left periorbital soft tissue scalp hematoma is seen, without an associated fracture. No acute intracranial hemorrhage is seen. No acute intracranial process is seen. Dictated by: Adair Rosenberg M.D. on 04/17/2024 at 21:45 Approved by: Adair Rosenberg M.D. on 04/17/2024 at 21:46 Extremity x-ray #1: Radiologist's Impression: PROCEDURE: XR SHOULDER LT MIN 2V INDICATIONS: fall with head lac and confusion TECHNIQUE: 3 views of the shoulder were acquired. COMPARISON: [facility], CT, CT CERVICAL SPINE WO [facility], 04/17/2024, 22:22. [facility], CT, CT HEAD/BRAIN WO CON, 04/17/2024, 22:22. [facility], CT, CT CHEST WO CON, 04/15/2024, 14:41. FINDINGS: Bones: There is a mildly displaced acute fracture of the distal clavicle. No additional fractures are detected. No shoulder dislocation is seen. The visualized ribs appear intact. Soft tissues: No suspicious soft tissue calcifications. Atherosclerotic calcification of the aortic arch is noted. The visualized lung demonstrates an unremarkable appearance. IMPRESSION: Mildly displaced acute fracture of the distal clavicle. Dictated by: Adair Rosenberg M.D. on 04/17/2024 at 21:38 Approved by: Adair Rosenberg M.D. on 04/17/2024 at 21:41 MDM Narrative Medical decision making narrative: Ground level fall with head injury. Patient has a lot of blood on her left face, however when blood is cleaned off there was only a small linear abrasion next to the left eyebrow. This was cleaned by nursing staff and Dermabond used to close skin. Steri-Strips applied over. CT brain and CT C-spine negative for acute findings. There is a stable right infiltrate noted, patient has known bronchiectasis and is followed by pulmonology for this. On x-ray of the shoulder patient found to have clavicle fracture on left hand side. Patient placed in sling for comfort and referred to orthopedic surgery. Discharge Plan Departure Patient Disposition: Home Clinical Impression: Contusion of face, Clavicle fracture Instructions: DI for Clavicle Fracture-Adult Activity Restrictions/Additional Instructions: The CT scans of your head and your neck did not show any bleeding or fractures. You do have a fracture of your left distal clavicle. Wear the sling to allow gravity to measure collarbone. Follow up with Orthopedic surgery for this finding. Continue to take your prescribed tramadol for pain. Apply ice to your shoulder to help with pain. Prescriptions: No Action (DME) Parking Permit... See Rx Instructions .Route .MEDSUPPLY Qty: 1 0RF Rx Instructions: I fond this patient to be medically disabled and qualified for Disabled Parking as indicated, and signed, on the Accompanying Disabled Parking Application for Individuals. fluticasone propionate 50 mcg/actuation spray,suspension 1 spray intranasal BID Qty: 16 11RF tramadol 50 mg tablet 50 mg PO Q8H PRN (Reason: pain) Qty: 120 1RF gabapentin 300 mg capsule See Rx Instructions .ROUTE .COMPLEX Qty: 270 3RF Dose Instruction: TAKE 1 CAPSULE BY MOUTH IN THE MORNING , 1 CAPSULE AT NOON, 1 CAPSULE AT 4 PM AND 2 CAPSULES AT BEDTIME Rx Instructions: Take 1 capsule po TID duloxetine 20 mg capsule,delayed release(DR/EC) 20 mg PO BID Qty: 180 3RF Referrals: Colt Cardenas MD [Primary Care Provider] - Lei Kaur MD [Physician] - Stand Alone Forms: Patient Portal/API/Survey
[2024-04-17 22:55] VITALS: PULSE 74; O2SAT 98
[2024-04-17 23:00] VITALS: PULSE 73; O2SAT 97
--- NOTE | 2024-04-17 23:10 | PC.NURSE ---
Cleaned pt scalp/face with NS 0.9% with gauze. Pt tolerated well. Slight abrasion above right eye, non bleeding. Bruising noted edge of left eye and in crease of eye pt states pain when wiping away blood with gauze. Pt has a cresent shaped laceration/cut in this area. Approx 1 cm length x 0.2 cm width x .05 cm depth. No further open lacerations noted on entire head. Family given instructions on care of sites.
[2024-04-17 23:17] VITALS: PULSE 75; O2SAT 99
[2024-04-17 23:18] VITALS: BP 175/79; RESP 18
== END 2024-04-17 23:26 | disposition home or self-care (01) ==
PROVIDERS: Emergency Provider Emergency Medicine; Family Provider Family Medicine; PCP Family Medicine
DX: S42.032A Displaced fracture of lateral end of left clavicle, initial encounter for closed fracture (principal); S00.212A Abrasion of left eyelid and periocular area, initial encounter; W01.198A Fall on same level from slipping, tripping and stumbling with subsequent striking against other object, initial encounter
CPT/HCPCS: 70450; 72125; 73030; 99283; 99284

== ENCOUNTER → 2024-05-01 13:55 | Outpatient (CLI) | payer MEDICARE, SELFPAY ==
[2023-06-10 17:01] VITALS: BMI 15.7
== END ==
PROVIDERS: Family Provider Family Medicine; PCP Family Medicine; Referring Provider Internal Medicine Critical Care Medicine; Visit Provider Internal Medicine Critical Care Medicine
DX: J47.9 Bronchiectasis, uncomplicated (principal)
CPT/HCPCS: 87070; 87205

== ENCOUNTER → 2024-05-16 15:39 | Outpatient (CLI) | payer MEDICARE, SELFPAY ==
[2023-06-10 17:01] VITALS: BMI 15.7
--- NOTE | 2024-05-16 15:40 | DI.RAD.S_ITS ---
PROCEDURE: XR SHOULDER RT MIN 2V INDICATIONS: Right Shoulder Pain, Fall TECHNIQUE: 3 views of the shoulder were acquired. COMPARISON: [facility], CR, XR SHOULDER LT MIN 2V, 04/17/2024, 22:25. FINDINGS: Bones: Distal clavicle fracture, without intra-articular extension. Soft tissues: No suspicious soft tissue calcifications. IMPRESSION: Distal clavicle fracture, without intra-articular extension or significant displacement. Dictated by: Bronson Flores M.D. on 05/17/2024 at 9:02 Approved by: Bronson Flores M.D. on 05/17/2024 at 9:03
== END ==
PROVIDERS: Family Provider Family Medicine; PCP Family Medicine; Referring Provider Family Medicine; Visit Provider Family Medicine
DX: S42.031A Displaced fracture of lateral end of right clavicle, initial encounter for closed fracture (principal); M25.511 Pain in right shoulder; J47.9 Bronchiectasis, uncomplicated; J21.9 Acute bronchiolitis, unspecified; X58.XXXA Exposure to other specified factors, initial encounter
CPT/HCPCS: 73030; 99214

== ENCOUNTER → 2024-05-17 11:48 | Outpatient (CLI) | payer MEDICARE, SELFPAY ==
[2023-06-10 17:01] VITALS: BMI 15.7
--- NOTE | 2024-05-17 11:50 | DI.CT.S_ITS ---
PROCEDURE: CT HEAD/BRAIN WO CON INDICATIONS: head injury, please evaluate for head bleed TECHNIQUE: Noncontrast 4.5 mm thick angled axial sections acquired from the foramen magnum to the vertex, with coronal and sagittal reformats. For radiation dose reduction, the following was used: automated exposure control, adjustment of mA and/or kV according to patient size. COMPARISON: [facility], CT, CT HEAD/BRAIN WO CON, 04/17/2024, 22:22. FINDINGS: Image quality: Diagnostic. CSF spaces: Basal cisterns are patent. No extra-axial fluid collections. The ventricles are symmetric in size and shape. Brain: No intracranial bleeds or masses. There is cerebral volume loss for age, with resultant ventricular and sulcal prominence. There are periventricular and deep white matter chronic small vessel ischemic changes. There is intracranial internal carotid artery atherosclerosis. Skull and face: Calvarium and visualized facial bones appear intact, without suspicious lesions. Sinuses: Visualized sinuses and mastoids are clear. IMPRESSION: No acute intracranial hemorrhage is seen. No acute intracranial pathology. Dictated by: Adair Rosenberg M.D. on 05/17/2024 at 11:12 Approved by: Adair Rosenberg M.D. on 05/17/2024 at 11:13
== END ==
PROVIDERS: Family Provider Family Medicine; PCP Family Medicine; Referring Provider Family Medicine; Visit Provider Family Medicine
DX: S09.90XA Unspecified injury of head, initial encounter (principal); S19.9XXA Unspecified injury of neck, initial encounter
CPT/HCPCS: 70450

== ENCOUNTER 2024-08-14 15:15 | Outpatient (RCR) | payer MEDICARE, SELFPAY ==
[2023-06-10 17:01] VITALS: BMI 15.7
--- NOTE | 2024-08-14 17:53 | PT.OIE ---
Current Diagnoses Pain in right shoulder (08/14/24) Pain in left shoulder (08/14/24) Fracture of unspecified part of right clavicle, subsequent encounter for fracture with routine healing (08/14/24) Fracture of unspecified part of left clavicle, subsequent encounter for fracture with routine healing (08/14/24) Past Medical History (Last Reviewed 04/18/24 @ 06:46 by Janki Ceron MD) Acute conjunctivitis, bilateral Anxiety (Unknown) Ataxia (06/15/16) Bilateral lower extremity edema Cataracts, bilateral (Unknown) Chronic cough (Unknown) Chronic low back pain without sciatica Chronic pain syndrome Compression fx, thoracic spine Eczema Essential tremor (06/15/16) Glaucoma (Unknown) History of adenomatous polyp of colon Hyperlipemia (2015) Lymphocytopenia Mixed hyperlipidemia (06/15/16) Osteoarthritis (2005) Osteoporosis Parkinsons Post herpetic neuralgia Primary insomnia (06/15/16) Recurrent sinusitis (Unknown) Unintended weight loss Past Surgical History (Last Reviewed 04/18/24 @ 06:46 by Janki Ceron MD) History of cataract removal with insertion of prosthetic lens Visit Care Team Role Provider Type Colt Cardenas MD Attending Provider Physician Family Provider Primary Care Provider Referring Provider Specialty: Family Practice Address: [address] [place] [address], [facility] Email: [email or web address] Physical Therapy Initial Evaluation PT-OP-A Visit Information Start: 08/13/24 18:24 Freq: Status: Active Protocol: Document 08/14/24 15:20 [facility] (Rec: 08/14/24 16:14 [facility] [id number]) Out-Patient Physical Therapy Visit Information Visit Information Visit Type Initial Evaluation Visit Start Time 13:21 Visit Stop Time 16:01 Visit Number 1 (05/04) Number of MANAGER QA Visits 0 PT-OP-B Current Condition Start: 08/13/24 18:24 Freq: Status: Active Protocol: Document 08/14/24 15:20 [facility] (Rec: 08/14/24 16:14 [facility] [id number]) Current Condition History of Current Condition Current Complaints pain post shoulder and scap and R ribcage History of Current Condition Pt fell in dec and broke L clavicle but that one is feeling better. In May, fell again and broke R clavicle. Has parkinson. THis time, pt has pain in post shoulder,. Pt has been on tramadol and gabapentin for pain. Now using a transdermal patch for 3 months but it doesn't seem to be working. They have been busy the past few days and she feels dizzy today. This happens when she gets too tired. Postherpetic neuralgia dx also. Overhead activities inc pain but denies pain w/ dressing. 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 Pt has been walking in house 25 min a day. Pain w/putting away dishes. Treatment Goals Patient/Caregiver Goals be able to raise arm up PT-OP-C Subjective Start: 08/13/24 18:24 Freq: Status: Active Protocol: Document 08/14/24 15:20 [facility] (Rec: 08/14/24 16:14 [facility] [id number]) Patient Questionnaires Quick Dash- Upper Extremity Quick Dash UE Score 31.8 PT-OP-K Range of Motion Start: 08/13/24 18:24 Freq: Status: Active Protocol: Document 08/14/24 15:20 [facility] (Rec: 08/14/24 16:14 [facility] [id number]) Shoulder Goniometric Range of Motion Shoulder Right Active Flexion 121 Extension 62 Abduction 112 External Rotation at 0 degrees Abduction 34 Internal Rotation Behind Back (text) T9 Comments pain most w/flex Left Active Flexion 121 Extension 65 Abduction 134 External Rotation at 0 degrees Abduction 63 Internal Rotation Behind Back (text) T7 PT-OP-L Special Tests Start: 08/13/24 18:24 Freq: Status: Active Protocol: Document 08/14/24 15:20 [facility] (Rec: 08/14/24 16:14 [facility] [id number]) Special Tests Shoulder Special Tests Empty Can Comments neg L Speed's Biceps Comments neg L obriens neg Hutton Joel Impingement Comments neg L neer Comments neg R Other Special Tests Special Tests BP 122/69 sit then stand 130/ 74 HR 66; HR 72 O291% PT-OP-M Strength Start: 08/13/24 18:24 Freq: Status: Active Protocol: Document 08/14/24 15:20 [facility] (Rec: 08/14/24 16:14 [facility] [id number]) Shoulder Strength Shoulder Manual Muscle Testing Right Flexion 4- Good- Extension 4- Good- Abduction (C5) 4- Good- External Rotation 3+ Fair+ Internal Rotation 4- Good- Left Flexion 4- Good- Extension 4- Good- Abduction (C5) 4- Good- External Rotation 4- Good- Internal Rotation 4+ Good+ PT-OP-Q Treatments Start: 08/13/24 18:24 Freq: Status: Active Protocol: Document 08/14/24 15:20 [facility] (Rec: 08/14/24 16:14 [facility] [id number]) Therapeutic Exercises Sitting Exercises flex Sitting Exercise Name HAbd w/flex Side bilateral Equipment Used L1 Reps/Minutes 10 ER Side bilateral Equipment Used L1 Reps/Minutes 10 Comments cues elbows at sides Standing Exercises stretch Standing Exercise Name flex fwd stretch Side bilateral Reps/Minutes 10 secx4 PT-OP-T Assessment and Plan Start: 08/13/24 18:24 Freq: Status: Active Protocol: Document 08/14/24 15:20 [facility] (Rec: 08/14/24 16:14 [facility] [id number]) Physical Therapy Assessment Rehab Potential Rehabilitation Potential Good Evaluation Complexity Number of Personal Factors/Comorbidities 3 or More Number of Body Systems Impaired 4 or More Clinical Presentation at Evaluation Evolving Impairments Impairments Activity Tolerance,Functional Activities,Functional Mobility ,Gait,Pain,Posture,ROM,Soft Tissue Mobility,Strength Goals Four Impairment unable to flex w/o pain Long-Term Goal (LTG) Pt will have at [id number] deg AROM flex of R shoulder w/o inc pain at end range in order to allow putting away dishes w/o inc pain LTG Duration 10/23 Three Impairment weakness Short Term Goal (STG) Pt will be indep w/HEP STG Duration 09/21 Long-Term Goal (LTG) Pt will score at least 4+/5 on BUE MMT to show improved stability in order to allow pt to do more activity without pain LTG Duration 10/23 Two Gut Carrier Goal (LTG) Pt will report no pain in R scap or shoulder area during the day LTG Duration 10/23 Assessment Summary Assessment Pt presents w/R shoulder pain after fall causing R clavicular fx w/fall 3 months before fx L clavicle also. L shoulder no longer hurts but takes meds for R shoulder pain . She has pain noted throughout the day w/o specific activity but the one activity that consistently causes pain is reaching overhead. She is overall weak and does have dec R>L shoulder AROM. She would benefit from skilled PT to improve her mobility in order to participate in daily life. Recovery is more complicated d /t dx of Parkinson's and postherpetic neuralgia. Physical Therapy Plan Frequency and Duration Frequency of Treatment 1x/Week Duration of treatment (weeks) 10 Plan of Care Start Date 08/14/24 Plan of Care End Date 10/23/24 Therapeutic Interventions Therapeutic Interventions Gait Training,Home Exercise Program,Joint Mobilizations, Manual Therapy,Neuromuscular Re-education,Self-Care/Home Management,Soft Tissue Mobilization,Therapeutic Activities,Therapeutic Exercises Modalities Cold Pack/Ice Massage,Hot Packs Next Visit Focus/Plan Next Note Type Treatment Note Next Visit Plan review exercises, Rowgentle STM to R shoulder and scap region, arm bike, pulleys
--- NOTE | 2024-08-14 17:54 | PT.OPPOC ---
Physical, Occupational & Speech Therapy At [facility] Current Diagnoses Pain in right shoulder (08/14/24) Pain in left shoulder (08/14/24) Fracture of unspecified part of right clavicle, subsequent encounter for fracture with routine healing (08/14/24) Fracture of unspecified part of left clavicle, subsequent encounter for fracture with routine healing (08/14/24) Visit Care Team Role Provider Type Colt Cardenas MD Attending Provider Physician Family Provider Primary Care Provider Referring Provider Specialty: Family Practice Address: [address] [place] [address], [facility] Email: [email or web address] Plan Of Care PT-OP-B Current Condition Start: 08/13/24 18:24 Freq: Status: Active Protocol: Document 08/14/24 15:20 [facility] (Rec: 08/14/24 16:14 [facility] [id number]) Current Condition History of Current Condition Current Complaints pain post shoulder and scap and R ribcage History of Current Condition Pt fell in mar and broke L clavicle but that one is feeling better. In May, fell again and broke R clavicle. Has parkinson. THis time, pt has pain in post shoulder,. Pt has been on tramadol and gabapentin for pain. Now using a transdermal patch for 3 months but it doesn't seem to be working. They have been busy the past few days and she feels dizzy today. This happens when she gets too tired. Postherpetic neuralgia dx also. Overhead activities inc pain but denies pain w/ dressing. 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 Pt has been walking in house 25 min a day. Pain w/putting away dishes. Treatment Goals Patient/Caregiver Goals be able to raise arm up PT-OP-T Assessment and Plan Start: 08/13/24 18:24 Freq: Status: Active Protocol: Document 08/14/24 15:20 [facility] (Rec: 08/14/24 16:14 [facility] [id number]) Physical Therapy Assessment Rehab Potential Rehabilitation Potential Good Evaluation Complexity Number of Personal Factors/Comorbidities 3 or More Number of Body Systems Impaired 4 or More Clinical Presentation at Evaluation Evolving Impairments Impairments Activity Tolerance,Functional Activities,Functional Mobility ,Gait,Pain,Posture,ROM,Soft Tissue Mobility,Strength Goals Four Impairment unable to flex w/o pain Claim Manager Goal (LTG) Pt will have at deg AROM flex of R shoulder w/o inc pain at end range in order to allow putting away dishes w/o inc pain LTG Duration 10/23 Three Impairment weakness Short Term Goal (STG) Pt will be indep w/HEP STG Duration 09/21 Longterm Goal (LTG) Pt will score at least 4+/5 on BUE MMT to show improved stability in order to allow pt to do more activity without pain LTG Duration 10/23 Two Claim Manager Goal (LTG) Pt will report no pain in R scap or shoulder area during the day LTG Duration 10/23 Assessment Summary Assessment Pt presents w/R shoulder pain after fall causing R clavicular fx w/fall 3 months before fx L clavicle also. L shoulder no longer hurts but takes meds for R shoulder pain . She has pain noted throughout the day w/o specific activity but the one activity that consistently causes pain is reaching overhead. She is overall weak and does have dec R>L shoulder AROM. She would benefit from skilled PT to improve her mobility in order to participate in daily life. Recovery is more complicated d /t dx of Parkinson's and postherpetic neuralgia. Physical Therapy Plan Frequency and Duration Frequency of Treatment 1x/Week Duration of treatment (weeks) 10 Plan of Care Start Date 08/14/24 Plan of Care End Date 10/23/24 Therapeutic Interventions Therapeutic Interventions Gait Training,Home Exercise Program,Joint Mobilizations, Manual Therapy,Neuromuscular Re-education,Self-Care/Home Management,Soft Tissue Mobilization,Therapeutic Activities,Therapeutic Exercises Modalities Cold Pack/Ice Massage,Hot Packs Next Visit Focus/Plan Next Note Type Treatment Note Next Visit Plan review exercises, Rowgentle STM to R shoulder and scap region, arm bike, pulleys Plan of Care Dates Plan of Care Start Date 08/14/24 Plan of Care End Date 10/23/24 Electronically Signed by: Stormy Schneider, PT 08/15/24 2697 If you are in agreement with this Plan of Care, please return a signed and dated copy. I have reviewed this Plan of Care and certify that the skilled therapy services above are required to meet the patient?s needs. Physician Signature Date Printed Name and Credentials Clinical Instructor Signature Printed Name and Credentials
--- NOTE | 2024-08-15 07:53 | PT.OIE ---
Current Diagnoses Pain in right shoulder (08/14/24) Pain in left shoulder (08/14/24) Fracture of unspecified part of right clavicle, subsequent encounter for fracture with routine healing (08/14/24) Fracture of unspecified part of left clavicle, subsequent encounter for fracture with routine healing (08/14/24) Past Medical History (Last Reviewed 04/18/24 @ 06:46 by Janki Ceron MD) Acute conjunctivitis, bilateral Anxiety (Unknown) Ataxia (06/15/16) Bilateral lower extremity edema Cataracts, bilateral (Unknown) Chronic cough (Unknown) Chronic low back pain without sciatica Chronic pain syndrome Compression fx, thoracic spine Eczema Essential tremor (06/15/16) Glaucoma (Unknown) History of adenomatous polyp of colon Hyperlipemia (2015) Lymphocytopenia Mixed hyperlipidemia (06/15/16) Osteoarthritis (2005) Osteoporosis Parkinsons Post herpetic neuralgia Primary insomnia (06/15/16) Recurrent sinusitis (Unknown) Unintended weight loss Past Surgical History (Last Reviewed 04/18/24 @ 06:46 by Janki Ceron MD) History of cataract removal with insertion of prosthetic lens Visit Care Team Role Provider Type Colt Cardenas MD Attending Provider Physician Family Provider Primary Care Provider Referring Provider Specialty: Family Practice Address: [address] [place] [address], [facility] Email: [email or web address] Physical Therapy Initial Evaluation PT-OP-A Visit Information Start: 08/13/24 18:24 Freq: Status: Active Protocol: Document 08/14/24 15:20 [facility] (Rec: 08/14/24 16:14 [facility] [id number]) Out-Patient Physical Therapy Visit Information Visit Information Visit Type Initial Evaluation Visit Start Time 13:21 Visit Stop Time 16:01 Visit Number 1 (05/04) Number of RV PARTS AND SERVICE DIRECTOR Visits 0 PT-OP-B Current Condition Start: 08/13/24 18:24 Freq: Status: Active Protocol: Document 08/14/24 15:20 [facility] (Rec: 08/14/24 16:14 [facility] [id number]) Current Condition History of Current Condition Current Complaints pain post shoulder and scap and R ribcage History of Current Condition Pt fell in dec and broke L clavicle but that one is feeling better. In May, fell again and broke R clavicle. Has parkinson. THis time, pt has pain in post shoulder,. Pt has been on tramadol and gabapentin for pain. Now using a transdermal patch for 3 months but it doesn't seem to be working. They have been busy the past few days and she feels dizzy today. This happens when she gets too tired. Postherpetic neuralgia dx also. Overhead activities inc pain but denies pain w/ dressing. 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 Pt has been walking in house 25 min a day. Pain w/putting away dishes. Treatment Goals Patient/Caregiver Goals be able to raise arm up PT-OP-C Subjective Start: 08/13/24 18:24 Freq: Status: Active Protocol: Document 08/14/24 15:20 [facility] (Rec: 08/14/24 16:14 [facility] [id number]) Patient Questionnaires Quick Dash- Upper Extremity Quick Dash UE Score 31.8 PT-OP-K Range of Motion Start: 08/13/24 18:24 Freq: Status: Active Protocol: Document 08/14/24 15:20 [facility] (Rec: 08/14/24 16:14 [facility] [id number]) Shoulder Goniometric Range of Motion Shoulder Right Active Flexion 121 Extension 62 Abduction 112 External Rotation at 0 degrees Abduction 34 Internal Rotation Behind Back (text) T9 Comments pain most w/flex Left Active Flexion 121 Extension 65 Abduction 134 External Rotation at 0 degrees Abduction 63 Internal Rotation Behind Back (text) T7 PT-OP-L Special Tests Start: 08/13/24 18:24 Freq: Status: Active Protocol: Document 08/14/24 15:20 [facility] (Rec: 08/14/24 16:14 [facility] [id number]) Special Tests Shoulder Special Tests Empty Can Comments neg L Speed's Biceps Comments neg L obriens neg Hutton Joel Impingement Comments neg L neer Comments neg R Other Special Tests Special Tests BP 122/69 sit then stand 130/ 74 HR 66; HR 72 O291% PT-OP-M Strength Start: 08/13/24 18:24 Freq: Status: Active Protocol: Document 08/14/24 15:20 [facility] (Rec: 08/14/24 16:14 [facility] [id number]) Shoulder Strength Shoulder Manual Muscle Testing Right Flexion 4- Good- Extension 4- Good- Abduction (C5) 4- Good- External Rotation 3+ Fair+ Internal Rotation 4- Good- Left Flexion 4- Good- Extension 4- Good- Abduction (C5) 4- Good- External Rotation 4- Good- Internal Rotation 4+ Good+ PT-OP-Q Treatments Start: 08/13/24 18:24 Freq: Status: Active Protocol: Document 08/14/24 15:20 [facility] (Rec: 08/14/24 16:14 [facility] [id number]) Therapeutic Exercises Sitting Exercises flex Sitting Exercise Name HAbd w/flex Side bilateral Equipment Used L1 Reps/Minutes 10 ER Side bilateral Equipment Used L1 Reps/Minutes 10 Comments cues elbows at sides Standing Exercises stretch Standing Exercise Name flex fwd stretch Side bilateral Reps/Minutes 10 secx4 PT-OP-T Assessment and Plan Start: 08/13/24 18:24 Freq: Status: Active Protocol: Document 08/14/24 15:20 [facility] (Rec: 08/14/24 16:14 [facility] [id number]) Physical Therapy Assessment Rehab Potential Rehabilitation Potential Good Evaluation Complexity Number of Personal Factors/Comorbidities 3 or More Number of Body Systems Impaired 4 or More Clinical Presentation at Evaluation Evolving Impairments Impairments Activity Tolerance,Functional Activities,Functional Mobility ,Gait,Pain,Posture,ROM,Soft Tissue Mobility,Strength Goals Four Impairment unable to flex w/o pain Skilled Nursing Goal (LTG) Pt will have at deg AROM flex of R shoulder w/o inc pain at end range in order to allow putting away dishes w/o inc pain LTG Duration 10/23 Three Impairment weakness Short Term Goal (STG) Pt will be indep w/HEP STG Duration 09/21 Skilled Nursing Goal (LTG) Pt will score at least 4+/5 on BUE MMT to show improved stability in order to allow pt to do more activity without pain LTG Duration 10/23 Two Lens Assistant Goal (LTG) Pt will report no pain in R scap or shoulder area during the day LTG Duration 10/23 Assessment Summary Assessment Pt presents w/R shoulder pain after fall causing R clavicular fx w/fall 3 months before fx L clavicle also. L shoulder no longer hurts but takes meds for R shoulder pain . She has pain noted throughout the day w/o specific activity but the one activity that consistently causes pain is reaching overhead. She is overall weak and does have dec R>L shoulder AROM. She would benefit from skilled PT to improve her mobility in order to participate in daily life. Recovery is more complicated d /t dx of Parkinson's and postherpetic neuralgia. Physical Therapy Plan Frequency and Duration Frequency of Treatment 1x/Week Duration of treatment (weeks) 10 Plan of Care Start Date 08/14/24 Plan of Care End Date 10/23/24 Therapeutic Interventions Therapeutic Interventions Gait Training,Home Exercise Program,Joint Mobilizations, Manual Therapy,Neuromuscular Re-education,Self-Care/Home Management,Soft Tissue Mobilization,Therapeutic Activities,Therapeutic Exercises Modalities Cold Pack/Ice Massage,Hot Packs Next Visit Focus/Plan Next Note Type Treatment Note Next Visit Plan review exercises, Rowgentle STM to R shoulder and scap region, arm bike, pulleys
--- NOTE | 2024-08-15 07:53 | PT.OPPOC ---
Physical, Occupational & Speech Therapy At [facility] Current Diagnoses Pain in right shoulder (08/14/24) Pain in left shoulder (08/14/24) Fracture of unspecified part of right clavicle, subsequent encounter for fracture with routine healing (08/14/24) Fracture of unspecified part of left clavicle, subsequent encounter for fracture with routine healing (08/14/24) Visit Care Team Role Provider Type Colt Cardenas MD Attending Provider Physician Family Provider Primary Care Provider Referring Provider Specialty: Family Practice Address: [address] [place] [address], [facility] Email: [email or web address] Plan Of Care PT-OP-B Current Condition Start: 08/13/24 18:24 Freq: Status: Active Protocol: Document 08/14/24 15:20 [facility] (Rec: 08/14/24 16:14 [facility] [id number]) Current Condition History of Current Condition Current Complaints pain post shoulder and scap and R ribcage History of Current Condition Pt fell in mar and broke L clavicle but that one is feeling better. In May, fell again and broke R clavicle. Has parkinson. THis time, pt has pain in post shoulder,. Pt has been on tramadol and gabapentin for pain. Now using a transdermal patch for 3 months but it doesn't seem to be working. They have been busy the past few days and she feels dizzy today. This happens when she gets too tired. Postherpetic neuralgia dx also. Overhead activities inc pain but denies pain w/ dressing. 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 Pt has been walking in house 25 min a day. Pain w/putting away dishes. Treatment Goals Patient/Caregiver Goals be able to raise arm up PT-OP-T Assessment and Plan Start: 08/13/24 18:24 Freq: Status: Active Protocol: Document 08/14/24 15:20 [facility] (Rec: 08/14/24 16:14 [facility] [id number]) Physical Therapy Assessment Rehab Potential Rehabilitation Potential Good Evaluation Complexity Number of Personal Factors/Comorbidities 3 or More Number of Body Systems Impaired 4 or More Clinical Presentation at Evaluation Evolving Impairments Impairments Activity Tolerance,Functional Activities,Functional Mobility ,Gait,Pain,Posture,ROM,Soft Tissue Mobility,Strength Goals Four Impairment unable to flex w/o pain Tab Machine Operator Goal (LTG) Pt will have at [id number] deg AROM flex of R shoulder w/o inc pain at end range in order to allow putting away dishes w/o inc pain LTG Duration 10/23 Three Impairment weakness Short Term Goal (STG) Pt will be indep w/HEP STG Duration 09/21 Intermediate Goal (LTG) Pt will score at least 4+/5 on BUE MMT to show improved stability in order to allow pt to do more activity without pain LTG Duration 10/23 Two Tab Machine Operator Goal (LTG) Pt will report no pain in R scap or shoulder area during the day LTG Duration 10/23 Assessment Summary Assessment Pt presents w/R shoulder pain after fall causing R clavicular fx w/fall 3 months before fx L clavicle also. L shoulder no longer hurts but takes meds for R shoulder pain . She has pain noted throughout the day w/o specific activity but the one activity that consistently causes pain is reaching overhead. She is overall weak and does have dec R>L shoulder AROM. She would benefit from skilled PT to improve her mobility in order to participate in daily life. Recovery is more complicated d /t dx of Parkinson's and postherpetic neuralgia. Physical Therapy Plan Frequency and Duration Frequency of Treatment 1x/Week Duration of treatment (weeks) 10 Plan of Care Start Date 08/14/24 Plan of Care End Date 10/23/24 Therapeutic Interventions Therapeutic Interventions Gait Training,Home Exercise Program,Joint Mobilizations, Manual Therapy,Neuromuscular Re-education,Self-Care/Home Management,Soft Tissue Mobilization,Therapeutic Activities,Therapeutic Exercises Modalities Cold Pack/Ice Massage,Hot Packs Next Visit Focus/Plan Next Note Type Treatment Note Next Visit Plan review exercises, Rowgentle STM to R shoulder and scap region, arm bike, pulleys Plan of Care Dates Plan of Care Start Date 08/14/24 Plan of Care End Date 10/23/24 Electronically Signed by: Stormy Schneider, PT 08/15/24 2549 If you are in agreement with this Plan of Care, please return a signed and dated copy. I have reviewed this Plan of Care and certify that the skilled therapy services above are required to meet the patient?s needs. Physician Signature Date Printed Name and Credentials Clinical Instructor Signature Printed Name and Credentials
--- NOTE | 2024-09-24 10:18 | PT.OPDS ---
Current Diagnoses Pain in right shoulder (08/14/24) Pain in left shoulder (08/14/24) Fracture of unspecified part of right clavicle, subsequent encounter for fracture with routine healing (08/14/24) Fracture of unspecified part of left clavicle, subsequent encounter for fracture with routine healing (08/14/24) Visit Care Team Role Provider Type Colt Cardenas MD Attending Provider Physician Family Provider Primary Care Provider Referring Provider Specialty: [facility] Practice Address: [address] [place] [address], [facility] Email: [email or web address] Visit Number Visit Number 1 (05/04) Discharge Summary PT-OP-B Current Condition Start: 08/13/24 18:24 Freq: Status: Active Protocol: Document 08/14/24 15:20 [facility] (Rec: 08/14/24 16:14 [facility] [id number]) Current Condition History of Current Condition Current Complaints pain post shoulder and scap and R ribcage History of Current Condition Pt fell in mar and broke L clavicle but that one is feeling better. In May, fell again and broke R clavicle. Has parkinson. THis time, pt has pain in post shoulder,. Pt has been on tramadol and gabapentin for pain. Now using a transdermal patch for 3 months but it doesn't seem to be working. They have been busy the past few days and she feels dizzy today. This happens when she gets too tired. Postherpetic neuralgia dx also. Overhead activities inc pain but denies pain w/ dressing. 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 Pt has been walking in house 25 min a day. Pain w/putting away dishes. Treatment Goals Patient/Caregiver Goals be able to raise arm up PT-OP-C Subjective Start: 08/13/24 18:24 Freq: Status: Active Protocol: Document 08/14/24 15:20 [facility] (Rec: 08/14/24 16:14 [facility] [id number]) Patient Questionnaires Quick Dash- Upper Extremity Quick Dash UE Score 31.8 PT-OP-K Range of Motion Start: 08/13/24 18:24 Freq: Status: Active Protocol: Document 08/14/24 15:20 [facility] (Rec: 08/14/24 16:14 [facility] [id number]) Shoulder Goniometric Range of Motion Shoulder Right Active Flexion 121 Extension 62 Abduction 112 External Rotation at 0 degrees Abduction 34 Internal Rotation Behind Back (text) T9 Comments pain most w/flex Left Active Flexion 121 Extension 65 Abduction 134 External Rotation at 0 degrees Abduction 63 Internal Rotation Behind Back (text) T7 PT-OP-L Special Tests Start: 08/13/24 18:24 Freq: Status: Active Protocol: Document 08/14/24 15:20 [facility] (Rec: 08/14/24 16:14 [facility] [id number]) Special Tests Shoulder Special Tests Empty Can Comments neg L Speed's Biceps Comments neg L obriens neg [place] Joel Impingement Comments neg L neer Comments neg R Other Special Tests Special Tests BP 122/69 sit then stand 130/ 74 HR 66; HR 72 O291% PT-OP-M Strength Start: 08/13/24 18:24 Freq: Status: Active Protocol: Document 08/14/24 15:20 [facility] (Rec: 08/14/24 16:14 [facility] [id number]) Shoulder Strength Shoulder Manual Muscle Testing Right Flexion 4- Good- Extension 4- Good- Abduction (C5) 4- Good- External Rotation 3+ Fair+ Internal Rotation 4- Good- Left Flexion 4- Good- Extension 4- Good- Abduction (C5) 4- Good- External Rotation 4- Good- Internal Rotation 4+ Good+ PT-OP-T Assessment and Plan Start: 08/13/24 18:24 Freq: Status: Active Protocol: Document 09/24/24 10:16 [facility] (Rec: 09/24/24 10:17 [facility] [id number]) Physical Therapy Assessment Goals Four Impairment unable to flex w/o pain Detector Car Operator Goal (LTG) Pt will have at [id number] deg AROM flex of R shoulder w/o inc pain at end range in order to allow putting away dishes w/o inc pain LTG Duration 10/23 Three Impairment weakness Short Term Goal (STG) Pt will be indep w/HEP STG Duration 09/21 Detector Car Operator Goal (LTG) Pt will score at least 4+/5 on BUE MMT to show improved stability in order to allow pt to do more activity without pain LTG Duration 10/23 Two Detector Car Operator Goal (LTG) Pt will report no pain in R scap or shoulder area during the day LTG Duration 10/23 Assessment Summary Assessment Pt seen for IE 40 days ago and cancelled all 4 follow up appts and did not call to reschedule. Based on compliance policy, pt is DC d/ t cancelling >50% of visits. Physical Therapy Plan Discharge Physical Therapy Discharge Reasons No Longer Attending PT
== END 2024-09-24 15:13 | disposition home or self-care (01) ==
LOC: PHYS 15:15
PROVIDERS: Family Provider Family Medicine; PCP Family Medicine; Referring Provider Family Medicine; Visit Provider Family Medicine
DX: S42.001D Fracture of unspecified part of right clavicle, subsequent encounter for fracture with routine healing (principal); S42.002D Fracture of unspecified part of left clavicle, subsequent encounter for fracture with routine healing; M25.511 Pain in right shoulder; M25.512 Pain in left shoulder
CPT/HCPCS: 97110; 97162

== ENCOUNTER → 2024-08-23 16:15 | Outpatient (CLI) | payer MEDICARE, SELFPAY ==
[2023-06-10 17:01] VITALS: BMI 15.7
[2024-08-23 16:51] LABS: Add Manual Diff / Slide Review NO; Basophils Absolute Auto 0 /uL (0-100); Basophils Percent Auto 0.3 % (0-2); Eosinophils Absolute Auto 100 /uL (0-450); Eosinophils Percent Auto 1.5 % (2-4); Hematocrit 35.5 % (36-46); Lymphocytes Absolute Auto 700 /uL (1100-4500); Lymphocytes Percent Auto 11.3 % (25-40); Mean Corpuscular HGB Conc 33.7 % (30-36); Mean Corpuscular Hemoglobin 32.1 PG (26-34); Mean Corpuscular Volume 95.2 fL (80-100); Monocytes Absolute Auto 300 /uL (0-900); Monocytes Percent Auto 5.5 % (3-14); Neutrophils Absolute Auto 5100 /uL (1500-7000); Neutrophils Percent Auto 81.4 % (50-75); Platelet Count 254 X10^3/uL (150-400); Red Blood Cell Count 3.73 X10^6/uL (4.0-5.2); Red Cell Distribution Width 13.9 % (11.6-14.8); White Blood Cell Count 6.2 X10^3/uL (4.5-11.0)
[2024-08-23 17:32] LABS: Alanine Aminotransferase 17 IU/L (<35); Albumin 3.9 g/dL (3.5-5.0); Albumin Globulin Ratio 1.3 (1.0-2.8); Alkaline Phosphatase 64 U/L (38-126); Aspartate Aminotransferase 27 IU/L (14-36); BUN Creatinine Ratio 34.3 (6-22); Bilirubin Total 0.4 mg/dL (0.2-1.3); Blood Urea Nitrogen 34 mg/dL (7-17); Calcium 8.9 mg/dL (8.4-10.2); Carbon Dioxide 33 mmol/L (22-32); Chloride 101 mmol/L (98-107); Estimated Glomerular Filt Rate 56 mL/min (>60); Globulin 2.9 g/dL (1.7-4.1); Glucose 94 mg/dL (70-99); HEMOLYSIS < 15 (0-50); Sodium 140 mmol/L (137-145); Total Protein 6.8 g/dL (6.3-8.2)
[2024-08-23 18:01] LABS: TSH w/ Reflex to FT4 1.14 uIU/mL (0.47-4.68)
[2024-08-23 18:20] LABS: Vitamin B12 > 1000 pg/mL (239-931)
== END ==
PROVIDERS: Family Provider Family Medicine; PCP Family Medicine; Referring Provider Physician Assistant; Visit Provider Physician Assistant
DX: D64.9 Anemia, unspecified (principal); G89.29 Other chronic pain; B02.29 Other postherpetic nervous system involvement; M54.50 Low back pain, unspecified
CPT/HCPCS: 36415; 80053; 82607; 84443; 85025

== ENCOUNTER → 2024-08-23 17:31 | Outpatient (CLI) | payer MEDICARE, SELFPAY ==
[2023-06-10 17:01] VITALS: BMI 15.7
--- NOTE | 2024-08-23 17:37 | DI.RAD.S_ITS ---
PROCEDURE: XR RIBS RT MIN 3V W CXR 1V INDICATIONS: acute on chronic pain right side TECHNIQUE: Three views of the ribs were acquired, along with a single view chest. COMPARISON: None. FINDINGS: Surgical changes and devices: None. Bones and chest wall: No fractures or dislocations. No suspicious bony lesions. Overlying soft tissues appear unremarkable. Lungs and pleura: Focal opacity within the right lower lung zone is suspicious for infectious process such as pneumonia. Additional right upper lobe opacity is noted as well. No pleural effusions or pneumothorax. Mediastinum: Mediastinal contours appear normal. Heart size is normal. IMPRESSION: No displaced rib fracture or pneumothorax. Multifocal right hemithoracic opacities within the right apex and right lower lung zone suspicious for multifocal pneumonia. Dictated by: Seng Amaral M.D. on 08/25/2024 at 17:36 Approved by: Seng Amaral M.D. on 08/25/2024 at 17:39
--- NOTE | 2024-08-23 17:37 | DI.RAD.S_ITS ---
PROCEDURE: XR THORACIC SPINE 3V INDICATIONS: acute on chronic pain right side TECHNIQUE: 3 views of the thoracic spine were acquired. COMPARISON: [facility], CR, XR LUMBAR SPINE 2-3V, 02/29/2024, 14:41. FINDINGS: Bones: Chronic appearing T11 compression fracture resulting in approximately 50% anterior height loss. No acute fractures or dislocations. No suspicious bony lesions. 12 pairs of ribs are noted, and appear intact where visualized. Soft tissues: No paravertebral stripe thickening. IMPRESSION: No acute bony abnormality. Severe chronic appearing T11 compression fracture deformity. Dictated by: Seng Amaral M.D. on 08/25/2024 at 17:39 Approved by: Seng Amaral M.D. on 08/25/2024 at 17:41
== END ==
PROVIDERS: Family Provider Family Medicine; PCP Family Medicine; Referring Provider Physician Assistant; Visit Provider Physician Assistant
DX: M54.6 Pain in thoracic spine (principal); R07.81 Pleurodynia; D64.9 Anemia, unspecified; M54.50 Low back pain, unspecified; B02.29 Other postherpetic nervous system involvement; G89.29 Other chronic pain
CPT/HCPCS: 36415; 71101; 72072; 80053; 82607; 84443; 85025

== ENCOUNTER → 2025-01-18 13:31 | Outpatient (CLI) | payer MEDICARE, SELFPAY ==
[2023-06-10 17:01] VITALS: BMI 15.7
--- NOTE | 2025-01-18 13:34 | DI.MRI.S_ITS ---
PROCEDURE: MR LUMBAR SPINE WO CON INDICATIONS: chronic low back pain TECHNIQUE: Noncontrast sagittal T1 spin echo and T2 fast echo, sagittal STIR, and T2 fast spin echo through the lumbar spine. In cases with scoliosis, additional coronal T2 fast spin echo may be performed. COMPARISON: None. FINDINGS: Image quality: Excellent. Alignment and Curvature: There is minimal L2 retrolisthesis. Bone Marrow: Heterogeneous fatty marrow. No suspicious focal lesion seen. Spinal Cord: Conus medullaris terminates at the L1 level. Visualized cord demonstrates normal signal and size. Paraspinous Soft Tissues: No paravertebral masses. T12-L1: Normal appearance. L1-L2: Normal appearance. L2-L3: There is mild disc bulge as well as bilateral facet arthropathy. There is [id number] left foraminal stenosis. L3-L4: There is disc bulge as well as bilateral facet arthropathy. There is mild central canal narrowing as well as mild right and moderate left foraminal stenosis, also with mild left lateral recess stenosis. L4-L5: There is disc bulge as well as bilateral facet arthropathy and ligamentum flavum thickening. There is mild central canal narrowing as well as mild to moderate bilateral foraminal stenosis. L5-S1: There is bilateral facet arthropathy with mild bilateral foraminal narrowing. IMPRESSION: 1. Multilevel degenerative changes as above with mild central stenosis as well as predominant left lateral spinal stenosis. 2. No acute osseous lesions or definite disc extrusion. Dictated by: Donaldo Fritz M.D. on 01/19/2025 at 17:23 Approved by: Donaldo Fritz M.D. on 01/19/2025 at 17:29
== END ==
LOC: MRI 13:34
PROVIDERS: Family Provider Family Medicine; PCP Family Medicine; Referring Provider Physical Medicine & Rehabilitation; Visit Provider Physical Medicine & Rehabilitation
DX: M47.816 Spondylosis without myelopathy or radiculopathy, lumbar region (principal); M48.061 Spinal stenosis, lumbar region without neurogenic claudication; M47.817 Spondylosis without myelopathy or radiculopathy, lumbosacral region; M48.07 Spinal stenosis, lumbosacral region; M54.50 Low back pain, unspecified
CPT/HCPCS: 72148